=== PATIENT | male | born 1950 | race Caucasian/White ===

== ENCOUNTER → 2016-05-13 | Outpatient (CLI) | payer MEDICARE, BC ==
--- NOTE | 2016-05-13 16:01 | XR ---
EXAMINATION TYPE: XR KUB DATE OF EXAM: 05/13/2016 3:49 PM HISTORY: Pain Comparison: 09/04/2015 Single KUB is submitted for interpretation. Study limited by overlying bowel content. Findings: Right renal calculi: Calculus mid to upper pole right kidney measures approximately 6.5 mm versus 5.4 mm previously. Additional calculus lower pole right kidney measures 2.3 mm. Right ureteral calculi: None Visualized. Left renal calculi: Vague calculus upper pole left kidney is unchanged and measures 3.6 mm versus 4 mm previously. Left ureteral calculi: None Visualized. Pelvic calcifications: None Visualized. Bowel gas pattern is unremarkable. No free air. No mass effects. IMPRESSION: 1. Bilateral nephrolithiasis.
== END | disposition home or self-care (01) ==
LOC: RADXRMAIN 15:07
PROVIDERS: ATTEND Urology
DX: N20.0 Calculus of kidney (principal)
CPT/HCPCS: 74000

== ENCOUNTER 2017-02-20 11:32 | Day surgery (SDC) | payer MEDICARE, BC ==
[2017-02-18 13:24] VITALS: BMI 29.2
[~2017-02-20 11:32] MED LIST: LACTATED RINGERS 1,000 ML IV SCH; LIDOCAINE 1% 20 ML VIAL (10MG/ML) FOR IV START INTRADERMA PRN
[2017-02-20 12:46] VITALS: RESP 18; TEMP 97
[2017-02-20] MEDS ORDERED: LIDOCAINE 1% INJ 10MG/ML (20 ML MDV) ONE (13:10)
[2017-02-20] MEDS ORDERED: GLYCOPYRROLATE 0.2 MG/ML 2 ML VIAL ONE (13:10)
[2017-02-20] MEDS ORDERED: PROPOFOL 10 MG/ML 20 ML VIAL IV ONE (13:10)
--- NOTE | 2017-02-20 13:58 | P.PCN ---
Date of Procedure: 02/20/17 Procedure(s) Performed: Procedure: Colonoscopy and biopsy. Preoperative diagnosis: Screening for neoplasia, a sense has history of polyps. Postoperative diagnosis: Distal sigmoid submucosal lipoma, biopsied, otherwise, exam to the cecum within normal limits. Preparation: HalfLytely prep. Sedation: Was provided by anesthesia. Brief clinical history: The patient is a 66-year-old male who is scheduled for this evaluation for screening for neoplasia because of history of polyps. He also has been experiencing change in the shape of his stools and he thinks there is a blockage. In February of last year, I aborted his colonoscopy because of extremely poor preparation. His prior colonoscopy would have been 7- 8 years ago. Procedure: With the patient on his left lateral decubitus position and after informed consent and adequate sedation, the perianal area was inspected and it did not show any fissures or fistulas. There were no masses felt on digital rectal examination. The Olympus CFQ 160L video colonoscope was then inserted in the rectum in the usual fashion and advanced to the cecum. There was a large submucosal lipoma in the distal sigmoid around 18 cm from the anal verge that would fill the lumen to a significant degree but does not block advancing the endoscope. I obtained pictures of that area and I tried to obtain deep biopsies. The rest of the exam to the cecum was normal. There were no polyps or obvious diverticular disease. No other pathology. I retroflexed the endoscope in the rectum before the endoscope was withdrawn. The patient tolerated the procedure well. Plan: I summarized the findings to the patient. Will continue to perform colonoscopy every 5 years for screening for colon cancer because of his history. As far as his submucosal lipoma, it appears that it is large enough and is giving him symptoms that I would consider surgical referral for consideration of removal endoscopically or laparoscopically.
[2017-02-20 14:12] VITALS: BP 125/88; PULSE 59
== END 2017-02-20 14:45 | disposition home or self-care (01) ==
LOC: ORWHC2ENDO 11:32
DX: Z12.11 Encounter for screening for malignant neoplasm of colon (principal); D17.79 Benign lipomatous neoplasm of other sites; Z86.010 Personal history of colon polyps; F17.200 Nicotine dependence, unspecified, uncomplicated; K21.9 Gastro-esophageal reflux disease without esophagitis; M19.90 Unspecified osteoarthritis, unspecified site; I10 Essential (primary) hypertension; Z87.442 Personal history of urinary calculi; B19.20 Unspecified viral hepatitis C without hepatic coma; Z79.899 Other long term (current) drug therapy; Z88.5 Allergy status to narcotic agent; Z88.6 Allergy status to analgesic agent; Z91.02 Food additives allergy status
CPT/HCPCS: 88305; 45380; J2001; J2704

== ENCOUNTER → 2017-06-26 | Outpatient (CLI) | payer OTHER ==
--- NOTE | 2017-06-26 23:43 | CT ---
EXAMINATION TYPE: CT angio head neck DATE OF EXAM: 06/26/2017 HISTORY: Dizziness and right arm numbness. COMPARISON: NONE CT DLP: 435.2 mGycm. Automated Exposure Control for Dose Reduction was Utilized. TECHNIQUE: CTA scan of the neck and head is performed with IV Contrast, patient injected with 65ml m L of Visipaque 320, axial images are obtained, coronal and sagittal reformatted images are reviewed. Three-D reconstructed images are created on an independent workstation and reviewed. FINDINGS: There is normal branching pattern of the great vessels on the aortic arch. Ascending aorta measures 3 .7 cm. There is no sign of dissection. There is arterial flow in both vertebral arteries. Left vertebral artery is larger than the right. The basilar artery appears to fill entirely from the left vertebral artery. Right vertebral artery is diminutive. There is arterial flow in the common internal and external carotid arteries. There is approximate 30% stenosis at the origin of the right internal carotid artery at the bifurcation. There is significant plaque formation and a short segment of 80-90% stenosis of the proximal left int ernal carotid artery. There is wide patency of the external carotid arteries bilaterally. There is arterial flow in the anterior middle and posterior cerebral arteries. There is normal contra st opacification of the venous sinuses. There is no evidence of cerebral edema. There is no mass effe ct. There is no midline shift. I see no evidence of intracranial arterial stenosis. There is no evide nce of carotid or vertebral artery dissection. IMPRESSION: No intracranial arterial abnormality identified. There is approximate 80-90% stenosis at the origin of the left internal carotid artery due to circumf erential plaque formation. There is approximate 30% stenosis at the origin right internal carotid artery due to plaque formation .
== END | disposition home or self-care (01) ==
LOC: RADCTMAIN 15:31
PROVIDERS: ATTEND Specialist
DX: R42 Dizziness and giddiness (principal); M54.2 Cervicalgia; M54.6 Pain in thoracic spine; M47.22 Other spondylosis with radiculopathy, cervical region
CPT/HCPCS: 82565; 84520; 70496; 70498; 36415; Q9967

== ENCOUNTER → 2017-09-18 | Outpatient (CLI) | payer MEDICARE ==
[2017-09-18 13:57] LABS: Basophils # (A) 0.1 k/uL (0-0.2); Basophils % (A) 1 %; Eosinophils # (A) 0.2 k/uL (0-0.7); Eosinophils % (A) 3 %; HCT 45.7 % (39.0-53.0); HGB 16.1 gm/dL (13.0-17.5); Lymphocytes # (A) 1.6 k/uL (1.0-4.8); Lymphocytes % (A) 22 %; MCH 31.1 pg (25.0-35.0); MCHC 35.1 g/dL (31.0-37.0); MCV 88.5 fL (80.0-100.0); Mean Platelet Volume 7.8; Monocytes # (A) 0.4 k/uL (0-1.0); Monocytes % (A) 5 %; Neutrophils # (A) 4.9 k/uL (1.3-7.7); Neutrophils % (A) 68 %; Platelet Count 191 k/uL (150-450); RBC 5.16 m/uL (4.30-5.90); RDW 14.3 % (11.5-15.5); WBC 7.2 k/uL (3.8-10.6)
[2017-09-18 14:04] LABS: INR 1.1 (<1.2); Partial Thromboplastin Time 23.6 sec (22.0-30.0); Prothrombin Time 10.5 sec (9.0-12.0)
[2017-09-18 14:32] LABS: Albumin 4.7 g/dL (3.5-5.0); Potassium 4.7 mmol/L (3.5-5.1)
== END | disposition home or self-care (01) ==
LOC: LABPAT 12:40
PROVIDERS: ATTEND Surgery
DX: Z01.812 Encounter for preprocedural laboratory examination (principal); Z01.818 Encounter for other preprocedural examination; Z86.19 Personal history of other infectious and parasitic diseases
CPT/HCPCS: 36415; 80051; 82040; 85025; 85610; 85730; 93005

== ENCOUNTER → 2017-09-22 | Day surgery (SDC) | payer OTHER ==
[2017-09-16 13:49] VITALS: BMI 30.2
[~2017-09-22] MED LIST changes: -LACTATED RINGERS 1,000 ML IV SCH; +LIDOCAINE 1% 20 ML VIAL (10MG/ML) FOR IV START INTRADERMA ONE; -LIDOCAINE 1% 20 ML VIAL (10MG/ML) FOR IV START INTRADERMA PRN; +PROPOFOL 10 MG/ML 20 ML VIAL IV ONE
[2017-09-22 09:03] VITALS: TEMP 97.9
[2017-09-22] MEDS: LACTATED RINGERS 1,000 ML IV SCH ×2 (09:11→09:58)
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
[2017-09-22 10:43] VITALS: RESP 18
--- NOTE | 2017-09-22 10:47 | P.OP ---
Date of Procedure: 09/22/17 Preoperative Diagnosis: Colitis GERD Postoperative Diagnosis: Antral gastritis Hiatal hernia Mild esophagitis Colon mass at 30 cm Procedure(s) Performed: EGD Colonoscopy Anesthesia: MAC Surgeon: Arash Curtis Pathology: other (Antrum, esophagus,colon) Condition: stable Disposition: PACU Description of Procedure: The patient's placed on the endoscopy table in the lateral position. He received IV sedation. The gastroscope placed oropharynx and passed in the esophagus and stomach. Scope was then placed through the pylorus. The first and second portion of the duodenum appeared normal. Scope was then brought back the antrum this was mildly inflamed. A biopsies performed. The scope was then retroflexed and there was a moderate size hiatal hernia. The GE junction was at 38 cm the distal esophagus appeared mildly inflamed a biopsies performed. The proximal esophagus appeared normal. The scope was withdrawn for patient. Next digital rectal exam was performed which revealed no abnormalities. The flexible colonoscope was then placed patient anus and passed rotator colon. The ileocecal valve was visualized. The cecum, ascending and transverse colon appeared normal. In the descending sigmoid colon was a few scattered diverticula. At the 30 cm mei there was a large submucosal mass which occupied approximately 80% of the colonic lumen. The area was tattooed just distal to the mass. This area was biopsied. The remainder of the sigmoid and rectum appeared normal. Scope was withdrawn for patient.
[2017-09-22 11:08] VITALS: BP 120/77; PULSE 47
== END | disposition home or self-care (01) ==
LOC: ORWHC2ENDO 08:37
PROVIDERS: ATTEND Surgery
DX: K21.0 Gastro-esophageal reflux disease with esophagitis (principal); K29.70 Gastritis, unspecified, without bleeding; K57.30 Diverticulosis of large intestine without perforation or abscess without bleeding; K44.9 Diaphragmatic hernia without obstruction or gangrene; I10 Essential (primary) hypertension; K52.9 Noninfective gastroenteritis and colitis, unspecified; M19.90 Unspecified osteoarthritis, unspecified site; Z79.82 Long term (current) use of aspirin; Z85.828 Personal history of other malignant neoplasm of skin; Z87.442 Personal history of urinary calculi; Z87.891 Personal history of nicotine dependence; Z79.02 Long term (current) use of antithrombotics/antiplatelets; Z88.5 Allergy status to narcotic agent; Z79.899 Other long term (current) drug therapy; Z86.19 Personal history of other infectious and parasitic diseases
CPT/HCPCS: 88305; 45380; 43239; 45381; J2704

== ENCOUNTER 2017-09-23 09:35 | Inpatient (IN) | payer OTHER ==
[~2017-09-23 09:35] MED LIST changes: +HYDROmorphone 0.5 MG/0.5 ML SYRINGE IVP PRN; -LIDOCAINE 1% 20 ML VIAL (10MG/ML) FOR IV START INTRADERMA ONE; +ONDANSETRON 4 MG/2 ML VIAL IVP PRN; -PROPOFOL 10 MG/ML 20 ML VIAL IV ONE; +ceFAZolin IN SWFI 2 GM/20 ML SYRINGE IVP ONE; +fentaNYL (PF) 50 MCG/ML 2 ML AMP IV PRN; +metroNIDAZOLE-NS PMX 500 MG in SALINE 1 100ML.BAG IVPB ONE
[2017-09-23] MEDS ORDERED: LACTATED RINGERS 1,000 ML IV ONE ×3 (10:15→13:28)
[2017-09-23 10:22] LABS: Glucose,Whole Blood 77 mg/dL (75-99)
[2017-09-23] MEDS ORDERED: DEXAMETHASONE SOD PHOSPHATE 10 MG/ML 1 ML VIAL IV ONE (10:30)
[2017-09-23] MEDS ORDERED: ONDANSETRON 4 MG/2 ML VIAL IVP ONE (10:30)
[2017-09-23] MEDS ORDERED: ceFAZolin IN SWFI 2 GM/20 ML SYRINGE IVP ONE (11:25)
[2017-09-23] MEDS ORDERED: MIDAZOLAM 2 MG/2 ML VIAL IVP ONE (11:30)
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
[2017-09-23] MEDS ORDERED: NALOXONE 0.4 MG/ML 1 ML VIAL IV PRN (12:23)
[2017-09-23] MEDS: HEPARIN SODIUM,PORCINE 5,000 UNIT/ML 1 ML VIAL SQ ONE ×2 (12:39→16:14)
[2017-09-23] MEDS ORDERED: GLYCOPYRROLATE 0.2 MG/ML 2 ML VIAL ONE (12:58)
[2017-09-23] MEDS ORDERED: MIDAZOLAM 2 MG/2 ML VIAL ONE (12:58)
[2017-09-23] MEDS ORDERED: LIDOCAINE 1% INJ 10MG/ML (20 ML MDV) ONE (12:58)
[2017-09-23] MEDS ORDERED: ePHEDrine SULFATE/0.9% NACL/PF 50 MG/5 ML SYRINGE IV ONE (12:58)
[2017-09-23] MEDS ORDERED: ROCURONIUM BROMIDE 10 MG/ML 10 ML VIAL IV ONE (12:58)
[2017-09-23] MEDS ORDERED: PROPOFOL 10 MG/ML 20 ML VIAL IV ONE (12:58)
[2017-09-23] MEDS ORDERED: SUCCINYLCHOLINE CHLORIDE 100 MG/5 ML SYR IV ONE (12:58)
[2017-09-23] MEDS ORDERED: NEOSTIGMINE 1 MG/ML 10 ML VIAL ONE (12:58)
[2017-09-23] MEDS ORDERED: fentaNYL (PF) 50 MCG/ML 2 ML AMP ONE (12:58)
[2017-09-23] MEDS ORDERED: ONDANSETRON 4 MG/2 ML VIAL IVP PRN (14:12)
[2017-09-23] MEDS ORDERED: METOCLOPRAMIDE 5 MG/ML 2 ML VIAL IVP PRN (14:12)
[2017-09-23] MEDS ORDERED: BENZOCAINE/MENTHOL LOZENG 1 EACH LOZENGE MUCOUS MEM PRN (14:12)
--- NOTE | 2017-09-23 14:12 | P.OP ---
Date of Procedure: 09/23/17 Preoperative Diagnosis: Sigmoid colon mass Postoperative Diagnosis: Sigmoid colon mass Ventral hernia Procedure(s) Performed: Low anterior section Repair of ventral hernia Anesthesia: JUAN Surgeon: Arash Curtis Estimated Blood Loss (ml): 25 Pathology: other (Sigmoid colon) Condition: stable Disposition: PACU Description of Procedure: DESCRIPTION OF PROCEDURE: The patient was placed on the operating table in the supine position. Patient received a general anesthesia. Patient was then placed in the dorsal lithotomy position. The patients abdomen was prepped and draped in the usual sterile fashion. Through a low midline incision, the abdomen was entered. There was a small ventral hernia just above the umbilicus The Cirilo retractor was placed in the wound. The stomach appeared normal. The small bowel appeared normal. The liver appeared normal. The right colon and transverse colon appeared normal. On the left colon, there was an extensive diverticulosis noted. The sigmoid colon was then mobilized by dividing the white line of Toldt with electrocautery. At this point, the proximal sigmoid colon was transected with a GI stapler after a window had been made in the mesentery. The distal sigmoid colon was then dissected. Mesentery was taken down between Tonya clamps and ligated with #0 silk ties. At a point beyond the lesion, the bowel was then transected with a Proximate stapler. This was then removed. The splenic flexure was then taken down in order to provide adequate lengthening of the sigmoid colon. At this point, the auto purse-string suture device was placed across the proximal colon and fired. The colon was then opened. The 29 mm EEA anvil was then placed into the colon and then the purse-string was secured. The EEA stapler device was then placed in the patients anus and passed into the rectum. The nail for the EEA was then brought out through the distal rectum and then attached to the anvil. The EEA stapler device was then fired. The anastomosis was inspected. There were 2 good donuts of tissue removed from the EEA stapler. The anastomosis was then tested under water and there was no air leak seen. At this point the abdomen was then irrigated. There was no bleeding seen. The fascia was then closed with double stranded #1 PDS. The ventral hernia was closed with the fascial closure. The skin was closed with geovanni. The patient tolerated the procedure well.
[2017-09-23 15:42] LABS: Basophils % (A) 0 %; Eosinophils % (A) 0 %; HGB 15.3 gm/dL (13.0-17.5); Lymphocytes # (A) 0.6 k/uL (1.0-4.8); Lymphocytes % (A) 6 %; MCH 29.9 pg (25.0-35.0); MCHC 33.9 g/dL (31.0-37.0); MCV 88.3 fL (80.0-100.0); Mean Platelet Volume 7.6; Monocytes # (A) 0.2 k/uL (0-1.0); Monocytes % (A) 2 %; Neutrophils % (A) 92 %; Platelet Count 194 k/uL (150-450); RDW 13.8 % (11.5-15.5); WBC 10.9 k/uL (3.8-10.6)
[2017-09-23 15:52] LABS: Calcium 9.4 mg/dL (8.4-10.2); Potassium 4.5 mmol/L (3.5-5.1)
[2017-09-23] MEDS: LACTATED RINGERS 1,000 ML IV SCH ×2 (16:14→16:15)
[2017-09-23] MEDS: D5-0.45% NACL WITH KCL 20MEQ/L 1,000 ML IV SCH (17:09)
[2017-09-23] MEDS: GEMFIBROZIL 600 MG TAB PO SCH (17:10)
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
[2017-09-23] MEDS: FAMOTIDINE 20 MG/2 ML VIAL IV SCH (22:17)
[2017-09-23] MEDS: ALVIMOPAN 12 MG CAPSULE PO SCH (22:17)
[2017-09-24] MEDS: HEPARIN SODIUM,PORCINE 5,000 UNIT/ML 1 ML VIAL SQ SCH ×4 (01:18→23:13)
[2017-09-24] MEDS: D5-0.45% NACL WITH KCL 20MEQ/L 1,000 ML IV SCH ×4 (01:38→23:12)
--- NOTE | 2017-09-24 06:16 | P.PN ---
Progress Note - Text Progress Note Date: 09/24/17 67-year-old male postop day #1, epidural catheter day #2 status post low anterior resection. Patient is currently doing well 0/10 on a pain, patient is ambulating without difficulty. Patient denies any pruritus, any lower extremity weakness. Current rate is at 10 mL an hour. We'll continue with current settings, and remove epidural catheter when patient is ready for discharge.
[2017-09-24] MEDS ORDERED: PANTOPRAZOLE 40 MG TABLET PO SCH (07:30)
[2017-09-24 07:47] LABS: Basophils % (A) 0 %; Eosinophils # (A) 0.1 k/uL (0-0.7); Eosinophils % (A) 1 %; HCT 38.7 % (39.0-53.0); HGB 13.1 gm/dL (13.0-17.5); Lymphocytes # (A) 0.7 k/uL (1.0-4.8); Lymphocytes % (A) 6 %; MCH 30.3 pg (25.0-35.0); MCHC 33.9 g/dL (31.0-37.0); MCV 89.2 fL (80.0-100.0); Mean Platelet Volume 8.2; Monocytes # (A) 0.6 k/uL (0-1.0); Monocytes % (A) 5 %; Neutrophils # (A) 11.8 k/uL (1.3-7.7); Neutrophils % (A) 88 %; Platelet Count 182 k/uL (150-450); RBC 4.34 m/uL (4.30-5.90); RDW 14.1 % (11.5-15.5); WBC 13.3 k/uL (3.8-10.6)
[2017-09-24 08:02] LABS: Albumin 4.1 g/dL (3.5-5.0); Calcium 9.3 mg/dL (8.4-10.2); Magnesium 1.8 mg/dL (1.6-2.3); Phosphorus 3.7 mg/dL (2.5-4.5); Potassium 5.1 mmol/L (3.5-5.1); Total Bilirubin 1.2 mg/dL (0.2-1.3); Total Protein 6.7 g/dL (6.3-8.2)
[2017-09-24] MEDS: GEMFIBROZIL 600 MG TAB PO SCH ×2 (08:21→17:54)
[2017-09-24] MEDS: FAMOTIDINE 20 MG/2 ML VIAL IV SCH (08:21)
[2017-09-24] MEDS: ASPIRIN 81 MG PO SCH (08:21)
[2017-09-24] MEDS: ALVIMOPAN 12 MG CAPSULE PO SCH ×2 (08:21→20:45)
[2017-09-24] MEDS: amLODIPine 10 MG TAB PO SCH (08:26)
[2017-09-24] MEDS: LISINOPRIL 20 MG TAB PO SCH (08:26)
[2017-09-24] MEDS ORDERED: CLOPIDOGREL 75 MG TAB PO SCH (09:00)
[2017-09-24] MEDS: ROPIVACAINE 250 MG, HYDROMORPHONE (PF) 5 MG in SODIUM CHLORIDE 0.9% 200 ML EPIDURAL PRN (09:48)
[2017-09-24] MEDS: LACTATED RINGERS 1,000 ML IV SCH (10:00)
--- NOTE | 2017-09-24 12:20 | P.PN ---
Subjective Progress Note Date: 09/24/17 Principal diagnosis: Colon mass Postop day #1, epidural catheter day #2 status post low anterior resection. Currently having pain only when he coughs. Objective - Vital Signs Vital signs: Vital Signs Temp 98.2 F 09/24/17 07:47 Pulse 60 09/24/17 07:47 Resp 16 09/24/17 07:47 BP 136/71 09/24/17 08:26 Pulse Ox 91 L 09/24/17 07:47 Intake & Output 09/23/17 09/24/17 09/24/17 18:59 06:59 18:59 Intake Total 1700 2330 Output Total 200 700 Balance 1500 1630 Weight 95.708 kg Intake: IV 1700 Intake, IV Titration 2080 Amount D5-0.45% NaCl with KCl 2000 20Meq/l 1,000 ml @ 125 mls/hr IV .Q8H SUDHIR Rx#: [id number] Ropivacaine 250 mg 80 Hydromorphone (Pf) 5 mg In Sodium Chloride 0.9% 200 ml @ Per Protocol EPIDURAL .Q0M PRN Rx#: [id number] Oral 250 Output: Urine 150 700 Estimated Blood Loss 50 Other: Voiding Method Indwelling Catheter Indwelling Catheter - Exam Constitutional: No acute distress, conversant, pleasant Eyes:Anicteric sclerae, moist conjunctiva, no lid-lag, PERRLA, ENMT: Oropharynx clear, no erythema, exudates Neck: Supple, FROM, no masses, or JVD, No carotid bruits, No thyromegaly Lungs: Clear to auscultation, Clear to percussion, Normal respiratory effort, no accessory muscle use Cardiovascular: Heart regular in rate and rhythm, No murmurs, gallops, or rubs, No peripheral edema Abdominal: vertical abdominal wound with wound VAC applied, abdomen is tense, slightly diffusely tender, no guarding, rebound or rigidity, Normoactive bowel sounds, No hepatomegaly, No splenomegaly, No palpable mass Skin: Normal temperature, tone, texture, turgor, no induration, No subcutaneous nodules, No rash, lesions, No ulcers Extremities: No digital cyanosis, No clubbing, Pedal pulses intact and symmetrical, Radial pulses intact and symmetrical, No calf tenderness Psychiatric: Alert and oriented to person, place and time, appropriate affect, intact judgement Neuro: Muscles Strength 5/5 in all 4 extremities, Sensation to light touch grossly present throughout, Cranial nerves II-XII grossly intact, no focal sensory deficits - Labs CBC & Chem 7: 18 07:26 18 07:26 Labs: Abnormal Lab Results - Last 24 Hours (Table) 09/23/17 09/23/17 09/24/17 Range/Units 15:08 15:08 07:26 WBC 10.9 H 13.3 H (3.8-10.6) k/uL Hct 38.7 L (39.0-53.0) % Neutrophils # 10.0 H 11.8 H (1.3-7.7) k/uL Lymphocytes # 0.6 L 0.7 L (1.0-4.8) k/uL Chloride (98-107) mmol/L Carbon Dioxide (22-30) mmol/L BUN 21 H (9-20) mg/dL Creatinine 1.50 H (0.66-1.25) mg/dL Glucose 142 H (74-99) mg/dL AST (17-59) U/L Alkaline Phosphatase (38-126) U/L 09/24/17 Range/Units 07:26 WBC (3.8-10.6) k/uL Hct (39.0-53.0) % Neutrophils # (1.3-7.7) k/uL Lymphocytes # (1.0-4.8) k/uL Chloride 108 H (98-107) mmol/L Carbon Dioxide 20 L (22-30) mmol/L BUN 27 H (9-20) mg/dL Creatinine 1.66 H (0.66-1.25) mg/dL Glucose 123 H (74-99) mg/dL AST 16 L (17-59) U/L Alkaline Phosphatase 37 L (38-126) U/L Assessment and Plan Plan: Status post colon mass resection, near total colectomy: Consulted oncology Management per surgery Clear liquid diet Awaiting final pathology report Essential hypertension, left carotid artery stenosis, hyperlipidemia, osteoarthritis/chronic back and neck pain Stable Resume home medications, including aspirin and Plavix if okay with surgery DVT prophylaxis: Aspirin and hepain
--- NOTE | 2017-09-24 16:16 | P.PN ---
Subjective Progress Note Date: 09/24/17 Principal diagnosis: Sigmoid colon mass Patient's postoperative day 1 from low anterior resection for sigmoid colon mass. He's doing quite well. He has minimal complaints of pain. He is tolerating liquids. Objective - Vital Signs Vital signs: Vital Signs Temp 98.9 F 09/24/17 15:00 Pulse 61 09/24/17 15:00 Resp 16 09/24/17 15:00 BP 134/79 09/24/17 15:00 Pulse Ox 92 L 09/24/17 15:00 Intake & Output 09/23/17 09/24/17 09/24/17 18:59 06:59 18:59 Intake Total 1700 2330 500 Output Total 200 700 Balance 1500 1630 500 Weight 95.708 kg Intake: IV 1700 Intake, IV Titration 2080 Amount D5-0.45% NaCl with KCl 2000 20Meq/l 1,000 ml @ 125 mls/hr IV .Q8H [facility] Rx#: [id number] Ropivacaine 250 mg 80 Hydromorphone (Pf) 5 mg In Sodium Chloride 0.9% 200 ml @ Per Protocol EPIDURAL .Q0M PRN Rx#: [id number] Oral 250 500 Output: Urine 150 700 Estimated Blood Loss 50 Other: Voiding Method Indwelling Catheter Indwelling Catheter - Constitutional General appearance: Present: average body habitus, cooperative - Gastrointestinal Gastrointestinal Comment(s): Abdomen soft. Incision site is clean dry and intact. - Labs CBC & Chem 7: 09/24/17 07:26 09/24/17 07:26 Labs: Abnormal Lab Results - Last 24 Hours (Table) 09/24/17 09/24/17 Range/Units 07:26 07:26 WBC 13.3 H (3.8-10.6) k/uL Hct 38.7 L (39.0-53.0) % Neutrophils # 11.8 H (1.3-7.7) k/uL Lymphocytes # 0.7 L (1.0-4.8) k/uL Chloride 108 H (98-107) mmol/L Carbon Dioxide 20 L (22-30) mmol/L BUN 27 H (9-20) mg/dL Creatinine 1.66 H (0.66-1.25) mg/dL Glucose 123 H (74-99) mg/dL AST 16 L (17-59) U/L Alkaline Phosphatase 37 L (38-126) U/L Assessment and Plan Plan: Status post low anterior resection for sigmoid colon mass. Patient is doing well. He'll continue clear liquid diet.
--- NOTE | 2017-09-24 20:26 | XR ---
EXAMINATION TYPE: XR chest 1V portable DATE OF EXAM: 09/24/2017 COMPARISON: 04/03/2015 HISTORY: Hypoxemia TECHNIQUE: Single frontal view of the chest is obtained. FINDINGS: Heart size is normal. There is no heart failure. There is poor inspiration. I see no pulmo nary consolidation. Bony thorax is intact. IMPRESSION: Poor inspiration that is decreased compared to old exam. No heart failure.
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
[2017-09-25] MEDS: IPRATROPIUM-ALBUTEROL 3 ML NEB INHALATION SCH ×6 (01:05→23:14)
[2017-09-25] MEDS ORDERED: FUROSEMIDE 10 MG/ML 4 ML VIAL IV STA (01:13)
[2017-09-25 02:32] LABS: Calcium 9.1 mg/dL (8.4-10.2); Potassium 4.5 mmol/L (3.5-5.1)
--- NOTE | 2017-09-25 02:34 | XR ---
EXAMINATION TYPE: XR chest 1V portable DATE OF EXAM: 09/25/2017 COMPARISON: 09/24/2017 HISTORY: Difficulty breathing TECHNIQUE: Single frontal view of the chest is obtained. FINDINGS: There is mild coarsening of interstitial markings. There is no heart failure. Heart size i s normal. I see no pleural effusion. IMPRESSION: Mild pulmonary fibrosis. No change. Suboptimal inspiration.
[2017-09-25] MEDS ORDERED: methylPREDNISolone SOD SUCCI 125 MG/2 ML VIAL IV STA (03:38)
[2017-09-25 03:47] LABS: ABG Base Excess -3.5 mmol/L; ABG HCO3 22 mmol/L (21-25); ABG Oxygen Saturation 92.8 % (94-97); ABG PCO2 38 mmHg (35-45); ABG PH 7.37 (7.35-7.45); ABG PO2 62 mmHg (83-108); ABG TCO2 23 mmol/L (19-24)
--- NOTE | 2017-09-25 04:41 | P.PN ---
Progress Note - Text Progress Note Date: 09/25/17 Notified by nursing the patient is requiring increased oxygen and was placed on 3 L nasal cannula with saturations in the high 80s, on focused exam the patient was noted to have expiratory wheezes and was started on breathing treatments after chest x-ray showed nothing acute. patient does have a history of smoking but has quit 2 years ago. Throughout the shift the patient had more increasing oxygen requirements, a single dose of Lasix 40 mg was given with only approximately 350 mL output, with ongoing O2 requirements hence rapid response was called by nursing. The patient was upgraded to a nonrebreather at 15L and he was started on systemic steroids, and BNP and ABG of been ordered and are pending. Pulmonary is consulted for further recommendations and will plan to transfer the patient to the sixth floor pending bed availability. We will continue to follow his clinical course closely
--- NOTE | 2017-09-25 08:24 | P.PN ---
Progress Note - Text Date: 09/25/2017 Time:07:07 The patient is status post[, low anterior resection,] postoperative day number 2. The patient has no complaints of nausea vomiting or headache. The patient does not complain of any lower extremity numbness or weakness. The epidural is running at[ 10] mL per hour. VAS 0-10. The epidural will be maintained and adjusted as needed.
[2017-09-25] MEDS: ALVIMOPAN 12 MG CAPSULE PO SCH ×2 (09:24→20:04)
[2017-09-25] MEDS: ROPIVACAINE 250 MG, HYDROMORPHONE (PF) 5 MG in SODIUM CHLORIDE 0.9% 200 ML EPIDURAL PRN (09:25)
[2017-09-25] MEDS: PREVACID 15 MG PO SCH (09:25)
[2017-09-25] MEDS: ASPIRIN 81 MG PO SCH (09:30)
[2017-09-25] MEDS: LISINOPRIL 20 MG TAB PO SCH (09:30)
[2017-09-25] MEDS: amLODIPine 10 MG TAB PO SCH (09:30)
[2017-09-25] MEDS: GEMFIBROZIL 600 MG TAB PO SCH ×3 (09:31→17:56)
[2017-09-25] MEDS: HEPARIN SODIUM,PORCINE 5,000 UNIT/ML 1 ML VIAL SQ SCH (09:33)
[2017-09-25] MEDS: LACTATED RINGERS 1,000 ML IV SCH ×2 (09:40→20:14)
[2017-09-25] MEDS: methylPREDNISolone SOD SUCCI 125 MG/2 ML VIAL IV SCH ×3 (09:42→23:27)
[2017-09-25] MEDS: HEPARIN SODIUM,PORCINE/D5W PMX 25,000 UNIT in DEXTROSE/WATER 1 500ML.BAG IV SCH ×2 (10:30→23:27)
[2017-09-25] MEDS ORDERED: IPRATROPIUM-ALBUTEROL 3 ML NEB INHALATION PRN (10:38)
--- NOTE | 2017-09-25 11:27 | P.PN ---
Subjective Progress Note Date: 09/25/17 Principal diagnosis: Colon mass Last night patient wasn't hypoxic and having significant shortness of breath. His O2 saturation was in the early 80s. He was started on nonrebreather mask. No chest pain. No dizziness, no palpitations. Objective - Vital Signs Vital signs: Vital Signs Temp 98.9 F 09/25/17 07:00 Pulse 88 09/25/17 01:16 Resp 16 09/25/17 09:19 BP 119/67 09/25/17 07:00 Pulse Ox 96 09/25/17 07:00 Intake & Output 09/24/17 09/25/17 09/25/17 18:59 06:59 18:59 Intake Total 500 990 236.167 Output Total 325 700 Balance 175 290 236.167 Intake: Intake, IV Titration 250 236.167 Amount D5-0.45% NaCl with KCl 250 20Meq/l 1,000 ml @ 125 mls/hr IV .Q8H [facility] Rx#: [id number] Ropivacaine 250 mg 236.167 Hydromorphone (Pf) 5 mg In Sodium Chloride 0.9% 200 ml @ Per Protocol EPIDURAL .Q0M PRN Rx#: [id number] Oral 500 740 Output: Urine 325 700 Uretheral (Fernandes) 325 Other: Voiding Method Indwelling Catheter Indwelling Catheter - Exam Constitutional: No acute distress, conversant, pleasant Eyes:Anicteric sclerae, moist conjunctiva, no lid-lag, PERRLA, ENMT: Oropharynx clear, no erythema, exudates Neck: Supple, FROM, no masses, or JVD, No carotid bruits, No thyromegaly Lungs: Clear to auscultation, Clear to percussion, Normal respiratory effort, no accessory muscle use Cardiovascular: Heart regular in rate and rhythm, No murmurs, gallops, or rubs, No peripheral edema Abdominal: vertical abdominal wound with wound VAC applied, abdomen is tense, slightly diffusely tender, no guarding, rebound or rigidity, Normoactive bowel sounds, No hepatomegaly, No splenomegaly, No palpable mass Skin: Normal temperature, tone, texture, turgor, no induration, No subcutaneous nodules, No rash, lesions, No ulcers Extremities: No digital cyanosis, No clubbing, Pedal pulses intact and symmetrical, Radial pulses intact and symmetrical, No calf tenderness Psychiatric: Alert and oriented to person, place and time, appropriate affect, intact judgement Neuro: Muscles Strength 5/5 in all 4 extremities, Sensation to light touch grossly present throughout, Cranial nerves II-XII grossly intact, no focal sensory deficits - Labs CBC & Chem 7: 09/24/17 07:26 09/25/17 01:54 Labs: Abnormal Lab Results - Last 24 Hours (Table) 09/25/17 09/25/17 Range/Units 01:54 03:40 ABG pO2 62 L (83-108) mmHg ABG O2 Saturation 92.8 L (94-97) % Carbon Dioxide 20 L (22-30) mmol/L BUN 25 H (9-20) mg/dL Creatinine 1.60 H (0.66-1.25) mg/dL Assessment and Plan Plan: Status post colon mass resection, near total colectomy: Seen by oncology Management per surgery Clear liquid diet Awaiting final pathology report New onset acute hypoxic respiratory failure Chest x-ray reviewed Labs reviewed Discussed with surgeon and pulmonary service We'll start patient on heparin drip as he cannot undergo CT angiogram of the chest because of renal failure. Acute renal failure: Avoid nephrotoxic medications IV hydration Follow up creatinine in the morning Essential hypertension, left carotid artery stenosis, hyperlipidemia, osteoarthritis/chronic back and neck pain Stable Resume home medications, including aspirin and Plavix if okay with surgery DVT prophylaxis: On heparin IV
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
--- NOTE | 2017-09-25 14:07 | NM ---
EXAMINATION TYPE: NM pul vent and perfuse DATE OF EXAM: 09/25/2017 COMPARISON: 09/25/2017 chest radiograph HISTORY: Hypoxic respiratory failure. TECHNIQUE: Utilizing inhalation of 35.8 mCi Tc 99m DTPA aerosol and intravenous injection of 5.19 mC i of Tc 99m MAA, ventilation and perfusion images are acquired post injection in multiple projections . FINDINGS: Small segmental matched defect is seen within the right lung apex anteriorly. Small nonsegmental vent ilation defects that are larger than perfusion defects are seen throughout both lungs. Ventilation de fects predominate on the left with some Central radiotracer clumping. Bilateral apical matched perfus ion and ventilation defects are seen, small on the right as mentioned above and moderate on the left. IMPRESSION: Overall findings meet criteria for PIOPED intermediate probability for pulmonary embolus, however all ventilation defects are larger than perfusion defects favoring a parenchymal disorder rather than a perfusion disorder. Additional clumping of radiotracer on ventilation images suggests underlying infl ammatory or infectious airway disease.
--- NOTE | 2017-09-25 14:58 | P.PN ---
Subjective Progress Note Date: 09/25/17 67-year-old male being seen this morning on the surgical unit. Did note the patient's pulse ox sats are in the 80s was started on nonrebreather is being followed by pulmonary service patient is being sent down for a VQ scan to rule out a pulmonary emboli Patient is postop day 2 low anterior resection and repair of ventral hernia for a sigmoid colon mass. Path report pending. Objective - Vital Signs Vital signs: Vital Signs Temp 98.9 F 09/25/17 07:00 Pulse 107 H 09/25/17 11:43 Resp 16 09/25/17 09:19 BP 119/67 09/25/17 07:00 Pulse Ox 94 L 09/25/17 11:43 Intake & Output 09/24/17 09/25/17 09/25/17 18:59 06:59 18:59 Intake Total 500 990 236.167 Output Total 325 700 Balance 175 290 236.167 Intake: Intake, IV Titration 250 236.167 Amount D5-0.45% NaCl with KCl 250 20Meq/l 1,000 ml @ 125 mls/hr IV .Q8H [facility] Rx#: [id number] Ropivacaine 250 mg 236.167 Hydromorphone (Pf) 5 mg In Sodium Chloride 0.9% 200 ml @ Per Protocol EPIDURAL .Q0M PRN Rx#: [id number] Oral 500 740 Output: Urine 325 700 Uretheral (Fernandes) 325 Other: Voiding Method Indwelling Catheter Indwelling Catheter - Exam Physical exam 67-year-old male sitting up in a chair states he feels slightly short of breath Lungs diminished at the bases upper airways coarse rhonchi no use of accessory muscles to breathe Heart S1-S2 audible and regular no murmur denying chest pain when questioning Abdomen surgical dressing site dry wound care system in place. Hypoactive bowel tones reports tolerating diet no nausea vomiting indwelling Fernandes catheter in place Extremities no edema noted. 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 Lorie Chambers nurse practitioner acting as scribe for signing physician.
--- NOTE | 2017-09-25 17:32 | US ---
EXAMINATION TYPE: US venous doppler duplex LE DATE OF EXAM: 09/25/2017 4:31 PM COMPARISON: NONE CLINICAL HISTORY: rule out DVT. Patient states no symptoms SIDE PERFORMED: Bilateral TECHNIQUE: The lower extremity deep venous system is examined utilizing real time linear array sonog itzel with graded compression, doppler sonography and color-flow sonography. VESSELS IMAGED: External Iliac Vein (EIV) Common Femoral Vein Deep Femoral Vein Greater Saphenous Vein * Femoral Vein Popliteal Vein Small Saphenous Vein * Proximal Calf Veins (* superficial vessels) Right Leg: Appears negative for DVT, dilated section of proximal small saphenous vein seen with roul eaux flow, vein compresses at this level Left Leg: Appears negative for DVT IMPRESSION: Negative exam. No evidence of deep venous thrombosis in both legs.
[2017-09-25 17:36] LABS: Basophils % (A) 0 %; Eosinophils # (A) 0.1 k/uL (0-0.7); Eosinophils % (A) 1 %; HCT 39.3 % (39.0-53.0); HGB 13.9 gm/dL (13.0-17.5); Lymphocytes # (A) 0.4 k/uL (1.0-4.8); Lymphocytes % (A) 3 %; MCH 31.6 pg (25.0-35.0); MCHC 35.5 g/dL (31.0-37.0); MCV 89.2 fL (80.0-100.0); Mean Platelet Volume 7.5; Monocytes # (A) 0.2 k/uL (0-1.0); Monocytes % (A) 2 %; Neutrophils # (A) 11.6 k/uL (1.3-7.7); Neutrophils % (A) 94 %; Platelet Count 161 k/uL (150-450); RBC 4.41 m/uL (4.30-5.90); RDW 14.8 % (11.5-15.5); WBC 12.4 k/uL (3.8-10.6)
[2017-09-25 21:58] LABS: Basophils % (A) 0 %; Eosinophils # (A) 0.2 k/uL (0-0.7); Eosinophils % (A) 2 %; HCT 36.6 % (39.0-53.0); HGB 12.9 gm/dL (13.0-17.5); Lymphocytes # (A) 0.4 k/uL (1.0-4.8); Lymphocytes % (A) 3 %; MCH 30.7 pg (25.0-35.0); MCHC 35.2 g/dL (31.0-37.0); MCV 87.3 fL (80.0-100.0); Mean Platelet Volume 8.6; Monocytes # (A) 0.3 k/uL (0-1.0); Monocytes % (A) 2 %; Neutrophils # (A) 10.5 k/uL (1.3-7.7); Neutrophils % (A) 93 %; Platelet Count 158 k/uL (150-450); RBC 4.19 m/uL (4.30-5.90); RDW 13.8 % (11.5-15.5); WBC 11.3 k/uL (3.8-10.6)
[2017-09-26 05:53] LABS: Phosphorus 3.7 mg/dL (2.5-4.5); Potassium 4.3 mmol/L (3.5-5.1); Total Bilirubin 0.9 mg/dL (0.2-1.3)
[2017-09-26] MEDS: ROPIVACAINE 250 MG, HYDROMORPHONE (PF) 5 MG in SODIUM CHLORIDE 0.9% 200 ML EPIDURAL PRN (05:57)
[2017-09-26 06:10] LABS: Basophils % (A) 0 %; Eosinophils % (A) 0 %; HGB 13.2 gm/dL (13.0-17.5); Lymphocytes # (A) 0.6 k/uL (1.0-4.8); Lymphocytes % (A) 4 %; MCH 30.9 pg (25.0-35.0); MCHC 34.6 g/dL (31.0-37.0); MCV 89.2 fL (80.0-100.0); Mean Platelet Volume 8.2; Monocytes # (A) 0.5 k/uL (0-1.0); Monocytes % (A) 3 %; Neutrophils # (A) 12.9 k/uL (1.3-7.7); Neutrophils % (A) 92 %; Platelet Count 186 k/uL (150-450); RBC 4.26 m/uL (4.30-5.90); RDW 14.6 % (11.5-15.5)
[2017-09-26] MEDS: GEMFIBROZIL 600 MG TAB PO SCH ×4 (06:44→17:13)
--- NOTE | 2017-09-26 06:54 | P.PN ---
Progress Note - Text 09/26 640am 67-year-old male status post low anterior resection by Dr. monae. Patient has an epidural catheter for postop pain control, solution is running at 10 mL an hour. Patient has a VAS of 0 with no motor or sensory(. Patient was seen this morning and the nurse informed me that the epidural back was just changed. Instead of the seen the epidural I asked the nurse to continue with infusion of the end of the day and then pull .the catheter
[2017-09-26] MEDS: PREVACID 15 MG PO SCH (07:00)
[2017-09-26] MEDS: methylPREDNISolone SOD SUCCI 125 MG/2 ML VIAL IV SCH ×2 (07:41→17:09)
[2017-09-26] MEDS: ASPIRIN 81 MG PO SCH (07:42)
[2017-09-26] MEDS: ALVIMOPAN 12 MG CAPSULE PO SCH ×2 (07:42→21:45)
[2017-09-26] MEDS: amLODIPine 10 MG TAB PO SCH (07:42)
[2017-09-26] MEDS: LISINOPRIL 20 MG TAB PO SCH (07:42)
[2017-09-26] MEDS: PIPERACILLIN-TAZOBACTAM 3.375 GM in DEXTROSE/WATER 1 50ML.BAG IVPB SCH ×2 (07:55→17:11)
[2017-09-26] MEDS: IPRATROPIUM-ALBUTEROL 3 ML NEB INHALATION SCH ×4 (08:15→19:32)
--- NOTE | 2017-09-26 10:56 | P.PN ---
Subjective Progress Note Date: 09/26/17 Principal diagnosis: Sigmoid colon mass Patient resting operating bed. His epidural catheter will be DC'd later today. He has minimal complaints of pain. Objective - Vital Signs Vital signs: Vital Signs Temp 97.6 F 09/26/17 08:00 Pulse 72 09/26/17 08:30 Resp 18 09/26/17 08:00 BP 115/73 09/26/17 08:00 Pulse Ox 94 L 09/26/17 08:00 Intake & Output 09/25/17 09/26/17 09/26/17 18:59 06:59 18:59 Intake Total 1156.839 650.312 240 Output Total 850 Balance 1156.839 -199.688 240 Weight 97.2 kg Intake: Intake, IV Titration 556.839 650.312 Amount Heparin Sodium,Porcine/ 260.672 444.979 D5w Pmx 25,000 unit In Dextrose/Water 1 500ml. bag @ 18 UNITS/KG/HR 34. 45 mls/hr IV .[id number] [facility] Rx#:[id number] Lactated Ringers 1,000 ml 60 @ 20 mls/hr IV .Q24H [facility] Rx#:[id number] Ropivacaine 250 mg 236.167 205.333 Hydromorphone (Pf) 5 mg In Sodium Chloride 0.9% 200 ml @ Per Protocol EPIDURAL .Q0M [facility]N Rx#: [id number] Oral 600 240 Output: Urine 850 Other: Voiding Method Indwelling Catheter Indwelling Catheter - Constitutional General appearance: Present: cooperative - Cardiovascular Rhythm: regular - Gastrointestinal Gastrointestinal Comment(s): Abdomen is soft. Incision sites clean dry intact. - Labs CBC & Chem 7: 09/26/17 05:16 09/26/17 05:16 Labs: Abnormal Lab Results - Last 24 Hours (Table) 09/25/17 09/25/17 09/25/17 Range/Units 16:29 17:21 21:37 WBC 12.4 H 11.3 H (3.8-10.6) k/uL RBC 4.19 L (4.30-5.90) m/uL Hgb 12.9 L (13.0-17.5) gm/dL Hct 36.6 L (39.0-53.0) % Neutrophils # 11.6 H 10.5 H (1.3-7.7) k/uL Lymphocytes # 0.4 L 0.4 L (1.0-4.8) k/uL APTT 46.8 H (22.0-30.0) sec Carbon Dioxide (22-30) mmol/L BUN (9-20) mg/dL Creatinine (0.66-1.25) mg/dL Glucose (74-99) mg/dL 09/26/17 09/26/17 09/26/17 Range/Units 05:16 05:16 05:16 WBC 14.0 H (3.8-10.6) k/uL RBC 4.26 L (4.30-5.90) m/uL Hgb (13.0-17.5) gm/dL Hct 38.0 L (39.0-53.0) % Neutrophils # 12.9 H (1.3-7.7) k/uL Lymphocytes # 0.6 L (1.0-4.8) k/uL APTT 78.0 H (22.0-30.0) sec Carbon Dioxide 19 L (22-30) mmol/L BUN 30 H (9-20) mg/dL Creatinine 1.30 H (0.66-1.25) mg/dL Glucose 138 H (74-99) mg/dL Assessment and Plan Plan: Status post low anterior resection. Patient's pathology was reviewed. Patient is evidence of a submucosal lipoma and a abscess related to perforated viscus. He is doing quite well. We anticipate discharge home the next 48 hours.
--- NOTE | 2017-09-26 11:57 | P.PN ---
Subjective Progress Note Date: 09/26/17 Principal diagnosis: Acute hypoxemic respiratory failure, in part due to acute exacerbation of COPD, cannot rule out pulmonary embolism Mr. Daquan Agustin is a 67-year-old white male patient presented on 09/23/2017 for active sigmoid colon mass resection that was discovered on the colonoscopy on 09/22/2017. The mass was quite large occupying almost 75% of the sigmoid colon. In the early hours of morning on 09/25/2017 patient developed hypoxemia , and was placed on 15 L of oxygen per high flow nasal cannula. He states he had been dyspneic since before his surgery on Friday. Initial chest x-ray on 09/24/2017 showed poor inspiratory effort, but no acute pulmonary process. Follow up chest x-ray on 09/25/2017 showed mild coarsening of interstitial markings consistent with mild pulmonary fibrosis, but no heart failure. He remains on 15 L per high flow nasal cannula with pulse ox of 96%, blood gas was obtained, and showed pO2 of 62, pCO2 of 38, pH of 7.37, and this was done on FiO2 of 100%, this is consistent with acute hypoxemic respiratory failure. ProBNP was elevated at 1520, developed acute kidney injury, and currently his BUN is 25, creatinine is 1.6. Yesterday's labs show WBC of 13.3, hemoglobin of 13.1. Patient states he is dyspneic without the oxygen, however in no acute distress. Does have some scattered expiratory wheezes. Patient is an ex-smoker , quit smoking 2 years ago, but prior to that smoked a pack a day for 50 years. The medical history includes hypertension, GERD/reflux, osteoarthritis, history of hepatitis C treated, skin cancer chronic back and neck pain, history of pneumothorax, and left carotid artery stenosis. He was given the single dose of IV Lasix 40 mg and only diuresed about 350 ML with no improvement in FiO2 requirement. We are seeing the patient in consultation for acute hypoxemic respiratory failure. On 09/26/2017 patient seen again in follow-up on selective care unit. VQ scan from yesterday was reviewed, and showed an indeterminate mobility of pulmonary embolism, and possibility of an underlying laboratory or infectious airway disease. Clinically patient denies any acute distress, although still requiring high amounts of oxygen at 15 L per high flow nasal cannula, his pulse ox is 95%, patient has been afebrile, denies any cough, congestion, or sputum production. Doubt pneumonia. Patient is likely to have an acute COPD exacerbation, his exam reveals diffuse wheezes bilaterally. Patient had been started on IV Solu-Medrol yesterday by the attending physician, nebulized bronchodilators. He carries over [id number] smoking history, we will and Pulmicort and Perforomist, patient was empirically placed on Zosyn as well. Today's labs were reviewed, WBC is 14.0, hemoglobin is 13.2, sodium was 139, potassium is 4.3, chloride is 103, CO2 of 19, BUN of 30, creatinine is 1.3. Venous Dopplers studies were negative for any evidence of DVT. For possibility of an acute pulmonary embolism. Renal profile is improving, we may consider weaning the CT angios of the chest to rule out pulmonary embolism if patient's hypoxemia does not improve. Objective - Vital Signs Vital signs: Vital Signs Temp 97.5 F L 09/26/17 11:41 Pulse 78 09/26/17 11:41 Resp 18 09/26/17 11:41 BP 127/71 09/26/17 11:41 Pulse Ox 95 09/26/17 11:41 Intake & Output 09/25/17 09/26/17 09/26/17 18:59 06:59 18:59 Intake Total 1156.839 650.312 240 Output Total 850 Balance 1156.839 -199.688 240 Weight 97.2 kg Intake: Intake, IV Titration 556.839 650.312 Amount Heparin Sodium,Porcine/ 260.672 444.979 D5w Pmx 25,000 unit In Dextrose/Water 1 500ml. bag @ 18 UNITS/KG/HR 34. 45 mls/hr IV .[id number] [facility] Rx#:[id number] Lactated Ringers 1,000 ml 60 @ 20 mls/hr IV .Q24H [facility] Rx#:[id number] Ropivacaine 250 mg 236.167 205.333 Hydromorphone (Pf) 5 mg In Sodium Chloride 0.9% 200 ml @ Per Protocol EPIDURAL .Q0M [facility] Rx#: [id number] Oral 600 240 Output: Urine 850 Other: Voiding Method Indwelling Catheter Indwelling Catheter - Exam - Constitutional Physical exam revealed a 67-year-old white male, sitting up in the chair, on 15 L per high flow nasal cannula, in no acute distress. General appearance: no acute distress - EENT Eyes: EOMI ENT: NA/AT - Neck Neck: no lymphadenopathy, normal ROM Thyroid: bilateral: normal size - Respiratory Respiratory: bilateral: Diffuse wheezing noted - Cardiovascular Rhythm: regular Heart sounds: normal: S1, S2 ankle Peripheral Edema: bilateral: None foot Peripheral Edema: bilateral: None dorsalis pedis Peripheral Pulses: bilateral: Normal radial pulse Peripheral Pulses: bilateral: Normal - Gastrointestinal Midabdominal incision is clean dry and intact, abdomen is soft, wound VAC is intact. Abdomen is slightly diffusely tender, but no guarding, no rebound or rigidity noted, normoactive bowel sounds, no organomegaly General gastrointestinal: no organomegaly, soft, no tenderness Localized gastrointestinal: surgical scar: midline - Integumentary Integumentary: normal turgor - Neurologic Neurologic: CNII-XII intact - Labs CBC & Chem 7: 09/26/17 05:16 09/26/17 05:16 Labs: Abnormal Lab Results - Last 24 Hours (Table) 09/25/17 09/25/17 09/25/17 Range/Units 16:29 17:21 21:37 WBC 12.4 H 11.3 H (3.8-10.6) k/uL RBC 4.19 L (4.30-5.90) m/uL Hgb 12.9 L (13.0-17.5) gm/dL Hct 36.6 L (39.0-53.0) % Neutrophils # 11.6 H 10.5 H (1.3-7.7) k/uL Lymphocytes # 0.4 L 0.4 L (1.0-4.8) k/uL APTT 46.8 H (22.0-30.0) sec Carbon Dioxide (22-30) mmol/L BUN (9-20) mg/dL Creatinine (0.66-1.25) mg/dL Glucose (74-99) mg/dL 09/26/17 09/26/17 09/26/17 Range/Units 05:16 05:16 05:16 WBC 14.0 H (3.8-10.6) k/uL RBC 4.26 L (4.30-5.90) m/uL Hgb (13.0-17.5) gm/dL Hct 38.0 L (39.0-53.0) % Neutrophils # 12.9 H (1.3-7.7) k/uL Lymphocytes # 0.6 L (1.0-4.8) k/uL APTT 78.0 H (22.0-30.0) sec Carbon Dioxide 19 L (22-30) mmol/L BUN 30 H (9-20) mg/dL Creatinine 1.30 H (0.66-1.25) mg/dL Glucose 138 H (74-99) mg/dL Assessment and Plan Plan: Assessment: #1. Acute hypoxemic respiratory failure, possibly related to acute exacerbation of COPD, cannot rule out acute pulmonary embolism based on the results of the VQ scan that showed indeterminate probability of pulmonary embolism #2. Sigmoid colonic mass, status post low anterior resection, and repair of the ventral hernia, postop day 3. Biopsy results of the mass are still pending at this time #3. Acute kidney injury #4. History of nicotine dependence, quit 2 years ago, but carries [id number] smoking history #5. Hypertension #6. Osteoarthritis #7. History of pneumothorax #8. Left carotid artery stenosis Plan: Continue IV Solu-Medrol, we will add Pulmicort and Perforomist, continue DuoNeb nebulized treatments. Continue heparin drip for possibility of pulmonary embolism, we may consider obtaining CT angios of the chest to rule out pulmonary embolism if patient's hypoxemia does not improve. I performed a history & physical examination of the patient and discussed their management with my nurse practitioner, Danielle Amador. I reviewed the nurse practitioner's note and agree with the documented findings and plan of care. Lung sounds are clear. The findings and the impression was discussed with the patient. I attest to the documentation by the nurse practitioner. Time with Patient: Less than 30
--- NOTE | 2017-09-26 12:47 | P.PN ---
Subjective Principal diagnosis: Colon mass Feels ok, no sob or cp. Patient was having hematuria in the Fernandes catheter since last night. Serial hemoglobin checks were stable. Objective - Vital Signs Vital signs: Vital Signs Temp 97.5 F L 09/26/17 11:41 Pulse 72 09/26/17 12:32 Resp 18 09/26/17 11:41 BP 127/71 09/26/17 11:41 Pulse Ox 95 09/26/17 11:41 Intake & Output 09/25/17 09/26/17 09/26/17 18:59 06:59 18:59 Intake Total 1156.839 650.312 240 Output Total 850 Balance 1156.839 -199.688 240 Weight 97.2 kg Intake: Intake, IV Titration 556.839 650.312 Amount Heparin Sodium,Porcine/ 260.672 444.979 D5w Pmx 25,000 unit In Dextrose/Water 1 500ml. bag @ 18 UNITS/KG/HR 34. 45 mls/hr IV .[id number] [facility] Rx#:[id number] Lactated Ringers 1,000 ml 60 @ 20 mls/hr IV .Q24H [facility] Rx#:[id number] Ropivacaine 250 mg 236.167 205.333 Hydromorphone (Pf) 5 mg In Sodium Chloride 0.9% 200 ml @ Per Protocol EPIDURAL .Q0M [facility] Rx#: [id number] Oral 600 240 Output: Urine 850 Other: Voiding Method Indwelling Catheter Indwelling Catheter - Exam Constitutional: No acute distress, conversant, pleasant Eyes:Anicteric sclerae, moist conjunctiva, no lid-lag, PERRLA, ENMT: Oropharynx clear, no erythema, exudates Neck: Supple, FROM, no masses, or JVD, No carotid bruits, No thyromegaly Lungs: Clear to auscultation, Clear to percussion, Normal respiratory effort, no accessory muscle use Cardiovascular: Heart regular in rate and rhythm, No murmurs, gallops, or rubs, No peripheral edema Abdominal: vertical abdominal wound with wound VAC applied, abdomen is tense, slightly diffusely tender, no guarding, rebound or rigidity, Normoactive bowel sounds, No hepatomegaly, No splenomegaly, No palpable mass Skin: Normal temperature, tone, texture, turgor, no induration, No subcutaneous nodules, No rash, lesions, No ulcers Extremities: No digital cyanosis, No clubbing, Pedal pulses intact and symmetrical, Radial pulses intact and symmetrical, No calf tenderness Psychiatric: Alert and oriented to person, place and time, appropriate affect, intact judgement Neuro: Muscles Strength 5/5 in all 4 extremities, Sensation to light touch grossly present throughout, Cranial nerves II-XII grossly intact, no focal sensory deficits - Labs CBC & Chem 7: 09/26/17 05:16 09/26/17 05:16 Labs: Abnormal Lab Results - Last 24 Hours (Table) 09/25/17 09/25/17 09/25/17 Range/Units 16:29 17:21 21:37 WBC 12.4 H 11.3 H (3.8-10.6) k/uL RBC 4.19 L (4.30-5.90) m/uL Hgb 12.9 L (13.0-17.5) gm/dL Hct 36.6 L (39.0-53.0) % Neutrophils # 11.6 H 10.5 H (1.3-7.7) k/uL Lymphocytes # 0.4 L 0.4 L (1.0-4.8) k/uL APTT 46.8 H (22.0-30.0) sec Carbon Dioxide (22-30) mmol/L BUN (9-20) mg/dL Creatinine (0.66-1.25) mg/dL Glucose (74-99) mg/dL 09/26/17 09/26/17 09/26/17 Range/Units 05:16 05:16 05:16 WBC 14.0 H (3.8-10.6) k/uL RBC 4.26 L (4.30-5.90) m/uL Hgb (13.0-17.5) gm/dL Hct 38.0 L (39.0-53.0) % Neutrophils # 12.9 H (1.3-7.7) k/uL Lymphocytes # 0.6 L (1.0-4.8) k/uL APTT 78.0 H (22.0-30.0) sec Carbon Dioxide 19 L (22-30) mmol/L BUN 30 H (9-20) mg/dL Creatinine 1.30 H (0.66-1.25) mg/dL Glucose 138 H (74-99) mg/dL Assessment and Plan Plan: Status post colon mass resection, near total colectomy: Seen by oncology Management per surgery Clear liquid diet Awaiting final pathology report New onset acute hypoxic respiratory failure Could be secondary to healthcare associated pneumonia versus PE Start Zosyn, continue heparin. Still unable to undergo CT angiogram to rule out PE because of elevated creatinine Hematuria Urine starting to clear Hemoglobin stable Continue to monitor Acute renal failure: Improving Avoid nephrotoxic medications Continue IV hydration Follow up creatinine in the morning Essential hypertension, left carotid artery stenosis, hyperlipidemia, osteoarthritis/chronic back and neck pain Stable Resume home medications, including aspirin and Plavix if okay with surgery DVT prophylaxis: On heparin IV
--- NOTE | 2017-09-26 13:01 | P.PN ---
Subjective Progress Note Date: 09/26/17 Principal diagnosis: Colon Mass 67-year-old male who was recently found to have a mass in his sigmoid colon. He underwent a colonoscopy yesterday. The mass was occupying a large portion of his colon and was large. He is status post low anterior resection with repair of ventral hernia today 09/24/17. Currently recovering from this mornings surgery and doing well. He denies any pain, nausea, vomiting, etc. He has a history of cervical disc disease, left carotid stenosis, and TIAs. He underwent EGD with negative pathology on . 09/26/17 - Patient seen and examined in follow-up today. His pathology has resulted and benign lipoma. Results: Benign colonic mucosa with a submucosal lipoma (3.8 cm). Subserosal abscess with associated vegetative debris and acute serositis suggestive of perforated viscus. Margins viable and unremarkable with submucosal acute inflammation at the distal resection margin. I discussed results with patient and . He still complains of significant Acid reflux in throat and chest. He is on heparin drip and a VQ Scan was done for a presumable Pulmonary Embolism. Once renal function improves CT scans Chest abdomen and pelvis are recommended. His abdomen is firm and more distended today, appearsmore lopsided than previous. he has tenderness to touch. Objective - Vital Signs Vital signs: Vital Signs Temp 97.5 F L 09/26/17 11:41 Pulse 72 09/26/17 12:32 Resp 18 09/26/17 11:41 BP 127/71 09/26/17 11:41 Pulse Ox 95 09/26/17 11:41 Intake & Output 09/25/17 09/26/17 09/26/17 18:59 06:59 18:59 Intake Total 1156.839 650.312 240 Output Total 850 Balance 1156.839 -199.688 240 Weight 97.2 kg Intake: Intake, IV Titration 556.839 650.312 Amount Heparin Sodium,Porcine/ 260.672 444.979 D5w Pmx 25,000 unit In Dextrose/Water 1 500ml. bag @ 18 UNITS/KG/HR 34. 45 mls/hr IV .[id number] [facility] Rx#:[id number] Lactated Ringers 1,000 ml 60 @ 20 mls/hr IV .Q24H [facility] Rx#:[id number] Ropivacaine 250 mg 236.167 205.333 Hydromorphone (Pf) 5 mg In Sodium Chloride 0.9% 200 ml @ Per Protocol EPIDURAL .Q0M [facility] Rx#: [id number] Oral 600 240 Output: Urine 850 Other: Voiding Method Indwelling Catheter Indwelling Catheter - Constitutional General appearance: Present: average body habitus, cooperative, no acute distress - EENT Eyes: Present: EOMI, PERRLA, dentition normal ENT: Present: NA/AT, normal oropharynx - Neck Details: supple, trachea midline Neck: Present: normal ROM - Respiratory Respiratory: bilateral: CTA (no increased effort) - Cardiovascular Rhythm: regular Heart sounds: normal: S1, S2 - Gastrointestinal Gastrointestinal Comment(s): incision evidence of surgey cdi General gastrointestinal: Present: decreased bowel sounds, distended, tenderness - Integumentary Integumentary: Present: pale - Neurologic Neurologic: Present: CNII-XII intact - Musculoskeletal Musculoskeletal: Present: gait normal, generalized weakness, strength equal bilaterally - Psychiatric Psychiatric: Present: A&O x's 3, appropriate affect, intact judgment & insight - Labs CBC & Chem 7: 09/26/17 05:16 09/26/17 05:16 Labs: Abnormal Lab Results - Last 24 Hours (Table) 09/25/17 09/25/17 09/25/17 Range/Units 16:29 17:21 21:37 WBC 12.4 H 11.3 H (3.8-10.6) k/uL RBC 4.19 L (4.30-5.90) m/uL Hgb 12.9 L (13.0-17.5) gm/dL Hct 36.6 L (39.0-53.0) % Neutrophils # 11.6 H 10.5 H (1.3-7.7) k/uL Lymphocytes # 0.4 L 0.4 L (1.0-4.8) k/uL APTT 46.8 H (22.0-30.0) sec Carbon Dioxide (22-30) mmol/L BUN (9-20) mg/dL Creatinine (0.66-1.25) mg/dL Glucose (74-99) mg/dL 09/26/17 09/26/17 09/26/17 Range/Units 05:16 05:16 05:16 WBC 14.0 H (3.8-10.6) k/uL RBC 4.26 L (4.30-5.90) m/uL Hgb (13.0-17.5) gm/dL Hct 38.0 L (39.0-53.0) % Neutrophils # 12.9 H (1.3-7.7) k/uL Lymphocytes # 0.6 L (1.0-4.8) k/uL APTT 78.0 H (22.0-30.0) sec Carbon Dioxide 19 L (22-30) mmol/L BUN 30 H (9-20) mg/dL Creatinine 1.30 H (0.66-1.25) mg/dL Glucose 138 H (74-99) mg/dL Assessment and Plan Plan: Assessment and Recommendations: 1. Large Colonic Mass - Status Post Resection - Await Pathology and will follow if underlying malignancy, will then provide further recs - When renal function improved recommend full staging CT scans, i.e. Chest - No Malignancy identified discussed with patient and will sign off. - RESULTS FROM SIGMOID COLON, LOW ANTERIOR RESECTION: Benign colonic mucosa with a submucosal lipoma (3.8 cm). Subserosal abscess with associated vegetative debris and acute serositis suggestive of perforated viscus. Margins viable and unremarkable with submucosal acute inflammation at the distal resection margin. 2. Acute Renal Insuffiency - Per medical management - Monitor Renal Function 3. Carotid Stenosis and Hx: TIAs - Medical Management 4. Abdominal DIstention and increased pain - Rec CT scans when Renal function improves. - Obtain abdominal xray in mean time. 5. Presumable Pulmonary Embolism, await final diagnosis with CT - Continue on heparin drip
[2017-09-26] MEDS: HEPARIN SODIUM,PORCINE/D5W PMX 25,000 UNIT in DEXTROSE/WATER 1 500ML.BAG IV SCH (14:52)
--- NOTE | 2017-09-26 15:51 | XR ---
2 view abdomen HISTORY: Increased distention and pain 2 views of the abdomen submitted on 3 images. There are gas-distended loops of small and large bowel, multiple air-fluid levels present. Surgical s taples are present in the midline. No evident pneumoperitoneum. There are overlying leads and tubing. IMPRESSION: Correlate for ileus, obstruction. Follow-up suggested.
[2017-09-26] MEDS: BUDESONIDE 1 MG/2 ML NEBU INHALATION SCH (19:31)
[2017-09-26] MEDS: FORMOTEROL FUMARATE 20 MCG/2 ML NEBU INHALATION SCH (19:32)
[2017-09-27] MEDS: methylPREDNISolone SOD SUCCI 125 MG/2 ML VIAL IV SCH ×4 (01:00→23:09)
[2017-09-27] MEDS: PIPERACILLIN-TAZOBACTAM 3.375 GM in DEXTROSE/WATER 1 50ML.BAG IVPB SCH ×4 (01:00→23:08)
[2017-09-27] MEDS: ROPIVACAINE 250 MG, HYDROMORPHONE (PF) 5 MG in SODIUM CHLORIDE 0.9% 200 ML EPIDURAL PRN (03:17)
[2017-09-27] MEDS: PREVACID 15 MG PO SCH (06:22)
[2017-09-27] MEDS: GEMFIBROZIL 600 MG TAB PO SCH ×2 (06:22→16:37)
[2017-09-27 06:26] LABS: Basophils % (A) 0 %; Eosinophils # (A) 0.1 k/uL (0-0.7); Eosinophils % (A) 1 %; HGB 12.9 gm/dL (13.0-17.5); Lymphocytes # (A) 0.4 k/uL (1.0-4.8); Lymphocytes % (A) 3 %; MCH 30.6 pg (25.0-35.0); MCHC 34.8 g/dL (31.0-37.0); MCV 87.7 fL (80.0-100.0); Mean Platelet Volume 8.7; Monocytes # (A) 0.5 k/uL (0-1.0); Monocytes % (A) 4 %; Neutrophils # (A) 13.9 k/uL (1.3-7.7); Neutrophils % (A) 93 %; Platelet Count 208 k/uL (150-450); RBC 4.22 m/uL (4.30-5.90)
[2017-09-27 06:42] LABS: Calcium 9.8 mg/dL (8.4-10.2); Magnesium 2.2 mg/dL (1.6-2.3); Phosphorus 3.7 mg/dL (2.5-4.5); Potassium 4.1 mmol/L (3.5-5.1)
[2017-09-27] MEDS: IPRATROPIUM-ALBUTEROL 3 ML NEB INHALATION SCH ×4 (07:19→18:58)
[2017-09-27] MEDS: FORMOTEROL FUMARATE 20 MCG/2 ML NEBU INHALATION SCH ×2 (07:19→18:58)
[2017-09-27] MEDS: BUDESONIDE 1 MG/2 ML NEBU INHALATION SCH ×2 (07:20→18:58)
--- NOTE | 2017-09-27 09:20 | P.PN ---
Progress Note - Text Progress Note Date: 09/27/17 The patient is resting comfortably in his bed. He's had a small bowel movement. His epidural catheter is still in. On exam is lesser stable. His abdomen soft. Incision sites clean dry intact. Patient will have his diet advanced. He'll hopefully discharge home the next 24 -48 hours.
--- NOTE | 2017-09-27 09:58 | P.PN ---
Subjective Progress Note Date: 09/27/17 Principal diagnosis: Acute hypoxic respiratory failure secondary to an acute exacerbation of chronic obstructive pulmonary disease. Pulmonary embolism not entirely excluded. Mr. Daquan Agustin is a 67-year-old white male patient presented on 09/23/2017 for active sigmoid colon mass resection that was discovered on the colonoscopy on 09/22/2017. The mass was quite large occupying almost 75% of the sigmoid colon. In the early hours of morning on 09/25/2017 patient developed hypoxemia , and was placed on 15 L of oxygen per high flow nasal cannula. He states he had been dyspneic since before his surgery on Friday. Initial chest x-ray on 09/24/2017 showed poor inspiratory effort, but no acute pulmonary process. Follow up chest x-ray on 09/25/2017 showed mild coarsening of interstitial markings consistent with mild pulmonary fibrosis, but no heart failure. He remains on 15 L per high flow nasal cannula with pulse ox of 96%, blood gas was obtained, and showed pO2 of 62, pCO2 of 38, pH of 7.37, and this was done on FiO2 of 100%, this is consistent with acute hypoxemic respiratory failure. ProBNP was elevated at 1520, developed acute kidney injury, and currently his BUN is 25, creatinine is 1.6. Yesterday's labs show WBC of 13.3, hemoglobin of 13.1. Patient states he is dyspneic without the oxygen, however in no acute distress. Does have some scattered expiratory wheezes. Patient is an ex-smoker , quit smoking 2 years ago, but prior to that smoked a pack a day for 50 years. The medical history includes hypertension, GERD/reflux, osteoarthritis, history of hepatitis C treated, skin cancer chronic back and neck pain, history of pneumothorax, and left carotid artery stenosis. He was given the single dose of IV Lasix 40 mg and only diuresed about 350 ML with no improvement in FiO2 requirement. We are seeing the patient in consultation for acute hypoxemic respiratory failure. On 09/26/2017 patient seen again in follow-up on selective care unit. VQ scan from yesterday was reviewed, and showed an indeterminate mobility of pulmonary embolism, and possibility of an underlying laboratory or infectious airway disease. Clinically patient denies any acute distress, although still requiring high amounts of oxygen at 15 L per high flow nasal cannula, his pulse ox is 95%, patient has been afebrile, denies any cough, congestion, or sputum production. Doubt pneumonia. Patient is likely to have an acute COPD exacerbation, his exam reveals diffuse wheezes bilaterally. Patient had been started on IV Solu-Medrol yesterday by the attending physician, nebulized bronchodilators. He carries over [id number] smoking history, we will and Pulmicort and Perforomist, patient was empirically placed on Zosyn as well. Today's labs were reviewed, WBC is 14.0, hemoglobin is 13.2, sodium was 139, potassium is 4.3, chloride is 103, CO2 of 19, BUN of 30, creatinine is 1.3. Venous Dopplers studies were negative for any evidence of DVT. For possibility of an acute pulmonary embolism. Renal profile is improving, we may consider weaning the CT angios of the chest to rule out pulmonary embolism if patient's hypoxemia does not improve. The patient is seen again today 09/27/2017 in follow-up on the selective care unit. He is currently awake and alert in no acute distress. He is resting quite comfortably in bed. He denies any worsening shortness of breath, cough or congestion. He is breathing easier today as compared to yesterday. He's been initiated on bronchodilators and IV Solu-Medrol along with Pulmicort and Perforomist inhalations. His oxygen requirements have improved. He is down to 3 L/m per nasal cannula and maintaining O2 saturations in the 90s. He remains on heparin drip. Current creatinine 1.30. White count 15.0. He is currently on Zosyn. He remains on a epidural drip of ropivacaine and hydromorphone. His pain is well controlled. Did have a small bowel movement. His abdomen remains soft. Incisions clean dry well approximated. Objective - Vital Signs Vital signs: Vital Signs Temp 97.5 F L 09/27/17 04:00 Pulse 80 09/27/17 07:47 Resp 22 09/27/17 04:00 BP 109/56 09/27/17 04:00 Pulse Ox 93 L 09/27/17 07:24 Intake & Output 09/26/17 09/27/17 09/27/17 18:59 06:59 18:59 Intake Total 1080.477 293.333 120 Output Total 1200 1250 Balance -119.523 -956.667 120 Weight 97.2 kg 95 kg Intake: Intake, IV Titration 240.477 293.333 Amount Heparin Sodium,Porcine/ 240.477 D5w Pmx 25,000 unit In Dextrose/Water 1 500ml. bag @ 18 UNITS/KG/HR 34. 45 mls/hr IV .[id number] [facility] Rx#:[id number] Lactated Ringers 1,000 ml 80 @ 20 mls/hr IV .Q24H [facility] Rx#:[id number] Ropivacaine 250 mg 213.333 Hydromorphone (Pf) 5 mg In Sodium Chloride 0.9% 200 ml @ Per Protocol EPIDURAL .Q0M PRN Rx#: [id number] Oral 840 120 Output: Urine 1200 1250 Other: Voiding Method Indwelling Catheter Indwelling Catheter - Exam - Constitutional Physical exam revealed a 67-year-old white male, sitting up in the chair, on 15 L per high flow nasal cannula, in no acute distress. General appearance: no acute distress - EENT Eyes: EOMI ENT: NA/AT - Neck Neck: no lymphadenopathy, normal ROM Thyroid: bilateral: normal size - Respiratory Respiratory: bilateral: Diffuse wheezing noted - Cardiovascular Rhythm: regular Heart sounds: normal: S1, S2 ankle Peripheral Edema: bilateral: None foot Peripheral Edema: bilateral: None dorsalis pedis Peripheral Pulses: bilateral: Normal radial pulse Peripheral Pulses: bilateral: Normal - Gastrointestinal Midabdominal incision is clean dry and intact, abdomen is soft, wound VAC is intact. Abdomen is slightly diffusely tender, but no guarding, no rebound or rigidity noted, normoactive bowel sounds, no organomegaly General gastrointestinal: no organomegaly, soft, no tenderness Localized gastrointestinal: surgical scar: midline - Integumentary Integumentary: normal turgor - Neurologic Neurologic: CNII-XII intact - Labs CBC & Chem 7: 09/27/17 05:42 09/27/17 05:42 Labs: Abnormal Lab Results - Last 24 Hours (Table) 09/26/17 09/27/17 09/27/17 Range/Units 15:13 05:42 05:42 WBC 15.0 H (3.8-10.6) k/uL RBC 4.22 L (4.30-5.90) m/uL Hgb 12.9 L (13.0-17.5) gm/dL Hct 37.0 L (39.0-53.0) % Neutrophils # 13.9 H (1.3-7.7) k/uL Lymphocytes # 0.4 L (1.0-4.8) k/uL APTT 49.2 H (22.0-30.0) sec Carbon Dioxide 18 L (22-30) mmol/L BUN 27 H (9-20) mg/dL Creatinine 1.30 H (0.66-1.25) mg/dL Glucose 119 H (74-99) mg/dL / Range/Units 06:20 WBC (3.8-10.6) k/uL RBC (4.30-5.90) m/uL Hgb (13.0-17.5) gm/dL Hct (39.0-53.0) % Neutrophils # (1.3-7.7) k/uL Lymphocytes # (1.0-4.8) k/uL APTT 59.3 H (22.0-30.0) sec Carbon Dioxide (22-30) mmol/L BUN (9-20) mg/dL Creatinine (0.66-1.25) mg/dL Glucose (74-99) mg/dL Assessment and Plan Assessment: Assessment: #1. Acute hypoxemic respiratory failure, possibly related to acute exacerbation of COPD, cannot rule out acute pulmonary embolism based on the results of the VQ scan that showed indeterminate probability of pulmonary embolism #2. Sigmoid colonic mass, status post low anterior resection, and repair of the ventral hernia, postop day 4. Biopsy results of the mass are still pending at this time #3. Acute kidney injury #4. History of nicotine dependence, quit 2 years ago, but carries [id number] smoking history #5. Hypertension #6. Osteoarthritis #7. History of pneumothorax #8. Left carotid artery stenosis Plan: The patient was seen and evaluated by Dr. Elias. The patient's oxygen requirements have improved. Down to 3 L/m per nasal cannula. Continue IV Solu- Medrol, we will add Pulmicort and Perforomist, continue DuoNeb nebulized treatments. Continue heparin drip for possibility of pulmonary embolism, creatinine still 1.30. He is working well with the incentive spirometer. We' ll continue with present treatment plan. We will increase his activity as tolerated. We'll continue to follow. I, the cosigning physician, performed a history & physical examination of the patient. Lungs sounds with faint end expiratory wheeze. Diminished. Maintaining good O2 saturations in the 90s on 3 L/m per nasal cannula. I discussed the assessment and plan of care with my nurse practitioner, Amina Zamora. I attest to the above note as dictated by her.
[2017-09-27] MEDS ORDERED: SODIUM CHLORIDE 0.9% 750 ML IV ONE (10:00)
[2017-09-27] MEDS: ASPIRIN 81 MG PO SCH (10:30)
[2017-09-27] MEDS: amLODIPine 10 MG TAB PO SCH (10:30)
[2017-09-27] MEDS: ALVIMOPAN 12 MG CAPSULE PO SCH ×2 (10:30→20:57)
[2017-09-27] MEDS: LISINOPRIL 20 MG TAB PO SCH (10:31)
[2017-09-27] MEDS: HEPARIN SODIUM,PORCINE/D5W PMX 25,000 UNIT in DEXTROSE/WATER 1 500ML.BAG IV SCH ×2 (12:04→20:00)
[2017-09-27 14:37] LABS: Calcium 9.5 mg/dL (8.4-10.2); Potassium 3.7 mmol/L (3.5-5.1)
[2017-09-27] MEDS: LACTATED RINGERS 1,000 ML IV SCH (15:27)
--- NOTE | 2017-09-27 17:15 | P.PN ---
Subjective Progress Note Date: 09/27/17 Principal diagnosis: Colon mass Patient is feeling better, no chest pain but was having some shortness of breath today. The urine started to clear up. Objective - Vital Signs Vital signs: Vital Signs Temp 96.7 F L 09/27/17 16:25 Pulse 77 09/27/17 16:25 Resp 20 09/27/17 16:25 BP 125/65 09/27/17 16:25 Pulse Ox 94 L 09/27/17 16:25 Intake & Output 09/26/17 09/27/17 09/27/17 18:59 06:59 18:59 Intake Total 1080.477 293.333 741.667 Output Total 1200 1250 50 Balance -119.523 -956.667 691.667 Weight 97.2 kg 95 kg Intake: Intake, IV Titration 240.477 293.333 621.667 Amount Heparin Sodium,Porcine/ 240.477 500 D5w Pmx 25,000 unit In Dextrose/Water 1 500ml. bag @ 18 UNITS/KG/HR 34. 45 mls/hr IV .[id number] [facility] Rx#:[id number] Lactated Ringers 1,000 ml 80 @ 20 mls/hr IV .Q24H [facility] Rx#:[id number] Ropivacaine 250 mg 213.333 121.667 Hydromorphone (Pf) 5 mg In Sodium Chloride 0.9% 200 ml @ Per Protocol EPIDURAL .Q0M PRN Rx#: [id number] Oral 840 120 Output: Urine 1200 1250 50 Uretheral (Fernandes) 50 Other: Voiding Method Indwelling Catheter Indwelling Catheter Indwelling Catheter # Bowel Movements 1 - Exam Constitutional: No acute distress, conversant, pleasant Eyes:Anicteric sclerae, moist conjunctiva, no lid-lag, PERRLA, ENMT: Oropharynx clear, no erythema, exudates Neck: Supple, FROM, no masses, or JVD, No carotid bruits, No thyromegaly Lungs: Clear to auscultation, Clear to percussion, Normal respiratory effort, no accessory muscle use Cardiovascular: Heart regular in rate and rhythm, No murmurs, gallops, or rubs, No peripheral edema Abdominal: vertical abdominal wound with wound VAC applied, abdomen is tense, slightly diffusely tender, no guarding, rebound or rigidity, Normoactive bowel sounds, No hepatomegaly, No splenomegaly, No palpable mass Skin: Normal temperature, tone, texture, turgor, no induration, No subcutaneous nodules, No rash, lesions, No ulcers Extremities: No digital cyanosis, No clubbing, Pedal pulses intact and symmetrical, Radial pulses intact and symmetrical, No calf tenderness Psychiatric: Alert and oriented to person, place and time, appropriate affect, intact judgement Neuro: Muscles Strength 5/5 in all 4 extremities, Sensation to light touch grossly present throughout, Cranial nerves II-XII grossly intact, no focal sensory deficits - Labs CBC & Chem 7: 09/27/17 05:42 09/27/17 14:00 Labs: Abnormal Lab Results - Last 24 Hours (Table) 09/27/17 09/27/17 09/27/17 Range/Units 05:42 05:42 06:20 WBC 15.0 H (3.8-10.6) k/uL RBC 4.22 L (4.30-5.90) m/uL Hgb 12.9 L (13.0-17.5) gm/dL Hct 37.0 L (39.0-53.0) % Neutrophils # 13.9 H (1.3-7.7) k/uL Lymphocytes # 0.4 L (1.0-4.8) k/uL APTT 59.3 H (22.0-30.0) sec Carbon Dioxide 18 L (22-30) mmol/L BUN 27 H (9-20) mg/dL Creatinine 1.30 H (0.66-1.25) mg/dL Glucose 119 H (74-99) mg/dL 09/27/17 Range/Units 14:00 WBC (3.8-10.6) k/uL RBC (4.30-5.90) m/uL Hgb (13.0-17.5) gm/dL Hct (39.0-53.0) % Neutrophils # (1.3-7.7) k/uL Lymphocytes # (1.0-4.8) k/uL APTT (22.0-30.0) sec Carbon Dioxide (22-30) mmol/L BUN 24 H (9-20) mg/dL Creatinine 1.26 H (0.66-1.25) mg/dL Glucose 120 H (74-99) mg/dL Microbiology - Last 24 Hours (Table) 09/26/17 08:13 Blood Culture - Preliminary Blood No Growth after 24 hours Assessment and Plan Plan: Status post colon mass resection, near total colectomy: Management per surgery Full liquid diet Final pathology report reviewed, colon mass is likely a fat cyst New onset acute hypoxic respiratory failure Could be secondary to healthcare associated pneumonia versus PE Continue Zosyn, continue heparin. Blood cultures obtained, no growth yet Still unable to undergo CT angiogram to rule out PE because of elevated creatinine Hematuria Urine starting to clear Hemoglobin stable Continue to monitor Acute renal failure: Improving Avoid nephrotoxic medications Continue IV hydration Follow up creatinine in the morning Essential hypertension, left carotid artery stenosis, hyperlipidemia, osteoarthritis/chronic back and neck pain Stable Resume home medications DVT prophylaxis: On heparin IV General weakness: PT and OT Encouraged to get out of bed and ambulate as much as possible. Anticipated discharge: 1-2 days Disposition: According to PT rachel
[2017-09-28] MEDS: PREVACID 15 MG PO SCH (06:10)
[2017-09-28] MEDS: GEMFIBROZIL 600 MG TAB PO SCH ×2 (06:10→17:16)
[2017-09-28] MEDS: HEPARIN SODIUM,PORCINE/D5W PMX 25,000 UNIT in DEXTROSE/WATER 1 500ML.BAG IV SCH (06:10)
[2017-09-28 06:37] LABS: Basophils % (A) 0 %; Eosinophils % (A) 0 %; HCT 40.7 % (39.0-53.0); HGB 13.6 gm/dL (13.0-17.5); Lymphocytes # (A) 0.5 k/uL (1.0-4.8); Lymphocytes % (A) 4 %; MCH 30.2 pg (25.0-35.0); MCHC 33.5 g/dL (31.0-37.0); MCV 90.1 fL (80.0-100.0); Mean Platelet Volume 7.5; Monocytes # (A) 0.4 k/uL (0-1.0); Monocytes % (A) 4 %; Neutrophils # (A) 10.5 k/uL (1.3-7.7); Neutrophils % (A) 91 %; Platelet Count 232 k/uL (150-450); RBC 4.51 m/uL (4.30-5.90); RDW 14.6 % (11.5-15.5); WBC 11.5 k/uL (3.8-10.6)
[2017-09-28 06:54] LABS: Calcium 9.4 mg/dL (8.4-10.2); Magnesium 2.1 mg/dL (1.6-2.3); Phosphorus 3.3 mg/dL (2.5-4.5); Potassium 4.2 mmol/L (3.5-5.1)
[2017-09-28] MEDS: BUDESONIDE 1 MG/2 ML NEBU INHALATION SCH (07:04)
[2017-09-28] MEDS: IPRATROPIUM-ALBUTEROL 3 ML NEB INHALATION SCH ×5 (07:04→20:20)
[2017-09-28] MEDS: FORMOTEROL FUMARATE 20 MCG/2 ML NEBU INHALATION SCH (07:04)
[2017-09-28] MEDS: PIPERACILLIN-TAZOBACTAM 3.375 GM in DEXTROSE/WATER 1 50ML.BAG IVPB SCH ×3 (08:41→23:21)
[2017-09-28] MEDS: LISINOPRIL 20 MG TAB PO SCH (08:43)
[2017-09-28] MEDS: amLODIPine 10 MG TAB PO SCH (08:43)
[2017-09-28] MEDS: ASPIRIN 81 MG PO SCH (08:43)
[2017-09-28] MEDS: methylPREDNISolone SOD SUCCI 125 MG/2 ML VIAL IV SCH ×3 (08:44→23:16)
--- NOTE | 2017-09-28 09:12 | P.PN ---
Subjective Progress Note Date: 09/28/17 Principal diagnosis: Shortness of breath Progress note dated 09/28/2017 67-year-old male with shortness of breath likely secondary to acute exacerbation of COPD. Number embolism cannot be ruled out. VQ scan showed evidence of a indeterminate scan. Dopplers were negative. The patient is also postop day #5 status post low anterior resection for sigmoid colonic mass. Biopsies are currently pending. Other medical issues include acute kidney injury chronic nicotine dependence hypertension osteoarthritis pneumothorax and left carotid artery stenosis. The patient is doing much better. He was treated with [facility] Pulmicort performist and steroids. He remains on IV heparin at this time. Denies worsening shortness of breath chest tightness wheezing cough phlegm production hemoptysis chest pain chest discomfort or palpitations. Objective - Vital Signs Vital signs: Vital Signs Temp 97.5 F L 09/27/17 19:58 Pulse 62 09/28/17 07:29 Resp 16 09/28/17 04:00 BP 144/81 09/28/17 04:00 Pulse Ox 94 L 09/28/17 07:05 Intake & Output 09/27/17 09/28/17 09/28/17 18:59 06:59 18:59 Intake Total 1221.667 980 Output Total 100 700 Balance 1121.667 280 Weight 95.7 kg Intake: Intake, IV Titration 621.667 500 Amount Heparin Sodium,Porcine/ 500 500 D5w Pmx 25,000 unit In Dextrose/Water 1 500ml. bag @ 18 UNITS/KG/HR 34. 45 mls/hr IV .[id number] [facility] Rx#:[id number] Ropivacaine 250 mg 121.667 Hydromorphone (Pf) 5 mg In Sodium Chloride 0.9% 200 ml @ Per Protocol EPIDURAL .Q0M PRN Rx#: [id number] Oral 600 480 Output: Urine 100 700 Uretheral (Fernandes) 50 Other: Voiding Method Indwelling Catheter Indwelling Catheter # Bowel Movements 1 - Exam No acute distress, oriented 3. HEENT examination is grossly unremarkable. Mucous membranes are moist. No oral lesions. Neck supple. Full range of motion. No adenopathy thyromegaly or neck vein distention. Cardiovascular examination reveals regular rhythm rate. S1-S2 normal. No S3 or S4. No discernible murmur noted. Lungs reveal occasional mild expiratory wheezes. A few scattered rhonchi noted. Breath sounds are equal bilaterally. Slight prolongation on forced maneuver. Breath sounds are certainly improved. Abdomen soft. Scant bowel sounds are noted. Some abdominal tenderness from recent surgery. Extremities are intact. No cyanosis clubbing or edema. Skin is without rash or lesion. Neurologic examination is brief but nonfocal. - Labs CBC & Chem 7: 09/28/17 05:56 09/28/17 05:56 Labs: Abnormal Lab Results - Last 24 Hours (Table) 09/27/17 09/28/17 09/28/17 Range/Units 14:00 05:56 05:56 WBC 11.5 H (3.8-10.6) k/uL Neutrophils # 10.5 H (1.3-7.7) k/uL Lymphocytes # 0.5 L (1.0-4.8) k/uL APTT (22.0-30.0) sec BUN 24 H (9-20) mg/dL Creatinine 1.26 H 1.28 H (0.66-1.25) mg/dL Glucose 120 H 133 H (74-99) mg/dL 09/28/17 Range/Units 06:00 WBC (3.8-10.6) k/uL Neutrophils # (1.3-7.7) k/uL Lymphocytes # (1.0-4.8) k/uL APTT 54.9 H (22.0-30.0) sec BUN (9-20) mg/dL Creatinine (0.66-1.25) mg/dL Glucose (74-99) mg/dL Microbiology - Last 24 Hours (Table) 09/26/17 08:13 Blood Culture - Preliminary Blood No Growth after 24 hours Assessment and Plan Assessment: Assessment Hypoxemic respiratory failure secondary to COPD exacerbation and possibly to pulmonary embolism although the latter seems less likely. VQ scan was indeterminate probability. Dopplers were negative. Postop day #5, status post low anterior resection for sigmoid colonic mass as well as repair of ventral hernia. Current pathology is pending Acute kidney injury Previous history of heavy tobacco use Hypertension DJD History of pneumothorax Left carotid artery stenosis Plan: Plan dated 09/28/2017 The patient's actually doing very well. Labs x-rays a medications are reviewed. The patient continues on steroids breathing treatments oxygen, etc. Respiratory status is significantly improved and clinical examination is improved as well. Microbiology is negative. White count 11.5 hemoglobin and hematocrit and platelet count all normal. Sodium potassium chloride CO2 normal. Anion gap normal. BUN and creatinine were 20 and 1.28 Time with Patient: Less than 30
--- NOTE | 2017-09-28 09:47 | P.PN ---
Progress Note - Text Progress Note Date: 09/28/17 The patient was noted to have some serous drainage from his wound last night. He was examined. There appears to be a fascial dehiscence of the superior portion of his incision. The patient will be taken the OR today for repair of fascial dehiscence.
--- NOTE | 2017-09-28 10:06 | P.PN ---
Subjective Progress Note Date: 09/28/17 Principal diagnosis: Colon mass The patient was noted to have some serous drainage from his wound last night. Surgeon thinks he has a fascial dehiscence of the superior portion of his incision. The patient will be taken the OR today for repair of fascial dehiscence. Still having cough and sob when he coughs. NO chest pain. Objective - Vital Signs Vital signs: Vital Signs Temp 97.5 F L 09/27/17 19:58 Pulse 62 09/28/17 07:29 Resp 16 09/28/17 04:00 BP 144/81 09/28/17 04:00 Pulse Ox 94 L 09/28/17 07:05 Intake & Output 09/27/17 09/28/17 09/28/17 18:59 06:59 18:59 Intake Total 1221.667 980 Output Total 100 700 Balance 1121.667 280 Weight 95.7 kg Intake: Intake, IV Titration 621.667 500 Amount Heparin Sodium,Porcine/ 500 500 D5w Pmx 25,000 unit In Dextrose/Water 1 500ml. bag @ 18 UNITS/KG/HR 34. 45 mls/hr IV .[id number] [facility] Rx#:[id number] Ropivacaine 250 mg 121.667 Hydromorphone (Pf) 5 mg In Sodium Chloride 0.9% 200 ml @ Per Protocol EPIDURAL .Q0M PRN Rx#: [id number] Oral 600 480 Output: Urine 100 700 Uretheral (Fernandes) 50 Other: Voiding Method Indwelling Catheter Indwelling Catheter # Bowel Movements 1 - Exam Constitutional: No acute distress, conversant, pleasant Eyes:Anicteric sclerae, moist conjunctiva, no lid-lag, PERRLA, ENMT: Oropharynx clear, no erythema, exudates Neck: Supple, FROM, no masses, or JVD, No carotid bruits, No thyromegaly Lungs: Clear to auscultation, Clear to percussion, Normal respiratory effort, no accessory muscle use Cardiovascular: Heart regular in rate and rhythm, No murmurs, gallops, or rubs, No peripheral edema Abdominal: vertical abdominal wound with wound VAC applied, abdomen is tense, slightly diffusely tender, no guarding, rebound or rigidity, Normoactive bowel sounds, No hepatomegaly, No splenomegaly, No palpable mass Skin: Normal temperature, tone, texture, turgor, no induration, No subcutaneous nodules, No rash, lesions, No ulcers Extremities: No digital cyanosis, No clubbing, Pedal pulses intact and symmetrical, Radial pulses intact and symmetrical, No calf tenderness Psychiatric: Alert and oriented to person, place and time, appropriate affect, intact judgement Neuro: Muscles Strength 5/5 in all 4 extremities, Sensation to light touch grossly present throughout, Cranial nerves II-XII grossly intact, no focal sensory deficits - Labs CBC & Chem 7: 09/28/17 05:56 09/28/17 05:56 Labs: Abnormal Lab Results - Last 24 Hours (Table) 09/27/17 09/28/17 09/28/17 Range/Units 14:00 05:56 05:56 WBC 11.5 H (3.8-10.6) k/uL Neutrophils # 10.5 H (1.3-7.7) k/uL Lymphocytes # 0.5 L (1.0-4.8) k/uL APTT (22.0-30.0) sec BUN 24 H (9-20) mg/dL Creatinine 1.26 H 1.28 H (0.66-1.25) mg/dL Glucose 120 H 133 H (74-99) mg/dL 09/28/17 Range/Units 06:00 WBC (3.8-10.6) k/uL Neutrophils # (1.3-7.7) k/uL Lymphocytes # (1.0-4.8) k/uL APTT 54.9 H (22.0-30.0) sec BUN (9-20) mg/dL Creatinine (0.66-1.25) mg/dL Glucose (74-99) mg/dL Microbiology - Last 24 Hours (Table) 09/26/17 08:13 Blood Culture - Preliminary Blood No Growth after 24 hours Assessment and Plan Plan: Status post colon mass resection, near total colectomy now with wound dehiscence : Management per surgery NPO as he is going back to OR Final pathology report reviewed, colon mass is a fat cyst New onset acute hypoxic respiratory failure Could be secondary to healthcare associated pneumonia versus PE Continue Zosyn, continue heparin. Blood cultures obtained, no growth Ordered CT angiogram, but now patient is going to the OR for wound closure. Hematuria Likely sec to heparin Hemoglobin stable Continue to monitor Acute renal failure: Improving Avoid nephrotoxic medications Continue IV hydration Follow up creatinine in the morning Essential hypertension, left carotid artery stenosis, hyperlipidemia, osteoarthritis/chronic back and neck pain Stable Resume home medications DVT prophylaxis: On heparin IV General weakness: PT and OT Encouraged to get out of bed and ambulate as much as possible. Anticipated discharge: 1-2 days Disposition: According to PT rachel
--- NOTE | 2017-09-28 11:48 | P.PN ---
Progress Note - Text Progress Note Date: 09/28/17 The patient had complaints of serosanguineous drainage from his incision last night. The patient states he felt a pop when he coughed yesterday. On exam is lesser stable. His abdomen soft. There is evidence of a fascial dehiscence and superior portion of his incision. The patient was taken to the OR today for repair of fascial dehiscence
[2017-09-28] MEDS ORDERED: NEOSTIGMINE 1 MG/ML 10 ML VIAL ONE (12:14)
[2017-09-28] MEDS ORDERED: HYDROmorphone (PF) 1 MG/ML ONE (12:14)
[2017-09-28] MEDS ORDERED: SUCCINYLCHOLINE CHLORIDE 100 MG/5 ML SYR IV ONE (12:14)
[2017-09-28] MEDS ORDERED: ONDANSETRON 4 MG/2 ML VIAL ONE (12:14)
[2017-09-28] MEDS ORDERED: ROCURONIUM BROMIDE 10 MG/ML 10 ML VIAL IV ONE (12:14)
[2017-09-28] MEDS ORDERED: fentaNYL (PF) 50 MCG/ML 2 ML AMP ONE (12:14)
[2017-09-28] MEDS ORDERED: MIDAZOLAM 2 MG/2 ML VIAL ONE (12:14)
[2017-09-28] MEDS ORDERED: DEXAMETHASONE SOD PHOS (MDV) 100 MG/10 ML VIAL ONE (12:14)
[2017-09-28] MEDS ORDERED: GLYCOPYRROLATE 0.2 MG/ML 2 ML VIAL ONE (12:14)
[2017-09-28] MEDS ORDERED: LIDOCAINE 1% INJ 10MG/ML (20 ML MDV) ONE (12:14)
[2017-09-28] MEDS ORDERED: PROPOFOL 10 MG/ML 20 ML VIAL IV ONE (12:14)
[2017-09-28] MEDS ORDERED: IV FLUID CONTINUATION 600 ML IV ONE (12:40)
--- NOTE | 2017-09-28 12:54 | P.OP ---
Date of Procedure: 09/28/17 Preoperative Diagnosis: Rational dehiscence Postoperative Diagnosis: Fascial dehiscence Procedure(s) Performed: Repair of fascial dehiscence Anesthesia: JUAN Surgeon: Arash Curtis Estimated Blood Loss (ml): 5 Pathology: none sent Condition: stable Disposition: PACU Description of Procedure: The patient's placed the operative table in supine position. He received IV sedation and then general anesthesia. His abdomen was prepped and draped usual sterile fashion. The geovanni removed. There appeared to be loops of small bowel in the midportion of the incision. The fascia was examined. It appears that the suture had been pulled through the fascia. The suture was intact. The knot was still secured. At this point the suture was cut out. And then the fascia was reapproximated using double-stranded loop PDS suture. The skin was closed geovanni. Several small openings were made for drainage. Telfa sandra were placed in the small skin openings. Sterile dressings applied. Patient top she will well and was sent to recovery in stable condition.
[2017-09-28] MEDS: HYDROmorphone 0.5 MG/0.5 ML SYRINGE IVP ONE ×3 (13:10→13:53)
[2017-09-28] MEDS ORDERED: ALBUTEROL NEBULIZED 2.5 MG/3 ML INHALATION ONE (13:30)
[2017-09-28] MEDS ORDERED: LABETALOL SYRINGE 5 MG/ML IVP ONE (13:36)
[2017-09-28] MEDS ORDERED: HYDROmorphone 0.5 MG/0.5 ML SYRINGE IVP ONE (13:44)
[2017-09-28] MEDS: LACTATED RINGERS 1,000 ML IV SCH (17:16)
[2017-09-28] MEDS: guaiFENesin-Coden 100-10MG/5ML 10 ML CUP PO SCH ×2 (18:01→23:14)
[2017-09-28] MEDS: SYMBICORT 160-4.5 MCG INHALER INHALATION SCH ×2 (20:18→20:20)
--- NOTE | 2017-09-28 21:00 | CT ---
EXAMINATION TYPE: CT angio chest DATE OF EXAM: 09/28/2017 8:36 PM COMPARISON: NONE HISTORY: Hypoxia. CT DLP: 400.8 mGycm Automated exposure control for dose reduction was used. CONTRAST: CTA scan of the thorax is performed with IV Contrast, patient injected with 68 mL of Isovue 370, pulm onary embolism protocol. There are 3-D post processed images.. FINDINGS: There is pulmonary emphysema with bullous disease in both upper lobes and worse on the right side. Th ere is minimal groundglass interstitial infiltrate in the left lower lobe. There is coarse linear den sity at the lung bases. Thoracic aorta is intact without evidence of aneurysm or dissection. There is no mediastinal adenopat hy. There are no hilar masses. There are calcified granulomata at the pulmonary david. I see no fillin g defects in the pulmonary arteries. There is no pericardial effusion. There is some atelectasis at t he posterior lung bases. IMPRESSION: EMPHYSEMA. PULMONARY FIBROSIS. MILD ATELECTASIS AT THE LUNG BASES. NO EVIDENCE OF PULMONARY EMBOLISM. OLD GRANULOMATOUS DISEASE.
[2017-09-28] MEDS: HYDROmorphone 0.5 MG/0.5 ML SYRINGE IVP PRN (22:25)
[2017-09-29] MEDS: HYDROmorphone 0.5 MG/0.5 ML SYRINGE IVP PRN ×4 (05:09→22:35)
[2017-09-29] MEDS: GEMFIBROZIL 600 MG TAB PO SCH ×2 (06:30→17:48)
[2017-09-29] MEDS: PREVACID 15 MG PO SCH (06:30)
[2017-09-29] MEDS: SYMBICORT 160-4.5 MCG INHALER INHALATION SCH ×2 (07:13→20:55)
[2017-09-29] MEDS: IPRATROPIUM-ALBUTEROL 3 ML NEB INHALATION SCH ×4 (07:13→20:55)
[2017-09-29] MEDS: guaiFENesin-Coden 100-10MG/5ML 10 ML CUP PO SCH ×3 (08:34→22:35)
[2017-09-29] MEDS: ASPIRIN 81 MG PO SCH (08:35)
[2017-09-29] MEDS: methylPREDNISolone SOD SUCCI 125 MG/2 ML VIAL IV SCH (08:35)
[2017-09-29] MEDS: PIPERACILLIN-TAZOBACTAM 3.375 GM in DEXTROSE/WATER 1 50ML.BAG IVPB SCH ×3 (08:35→23:56)
[2017-09-29] MEDS: LISINOPRIL 20 MG TAB PO SCH (08:35)
[2017-09-29] MEDS: amLODIPine 10 MG TAB PO SCH (08:35)
--- NOTE | 2017-09-29 09:32 | XR ---
EXAMINATION TYPE: XR chest 2V DATE OF EXAM: 09/29/2017 COMPARISON: CTA chest from yesterday. Chest x-ray from 4 days ago. HISTORY: Pneumonia progress study. TECHNIQUE: Frontal and lateral views of the chest are obtained. FINDINGS: There is diminished inspiration on current study. Underlying emphysematous changes redemon strated with increasing left basilar opacity. Right lung is predominantly clear on current study. No large pleural effusion or pneumothorax is seen. Cardiac silhouette size is stable and within normal limits. The osseous structures are intact. IMPRESSION: Diminished inspiration with worsening left basilar atelectasis and/or infiltrate on back ground of chronic emphysematous change.
--- NOTE | 2017-09-29 12:11 | P.PN ---
Subjective Progress Note Date: 09/29/17 Principal diagnosis: Patient feels okay today no shortness of breath no chest pain Constitutional: No acute distress, conversant, pleasant Eyes: Anicteric sclerae, moist conjunctiva, no lid-lag PERRLA ENMT: Cranial nerves grossly intact Neck: Supple, FROM, no masses, or JVD No carotid bruits No thyromegaly Lungs: Clear to auscultation Clear to percussion Normal respiratory effort, no accessory muscle use Cardiovascular: Heart S1-S2 regular rate and rhythm Abdominal: Soft distended status post surgery Skin: Normal temperature, tone, texture, turgor No induration No subcutaneous nodules No rash, lesions No ulcers Extremities: No digital cyanosis No clubbing Pedal pulses intact and symmetrical Radial pulses intact and symmetrical Normal gait and station No calf tenderness Psychiatric:Alert and oriented to person, place and time Appropriate affect Intact judgement Neuro: No obvious focal weakness Lab Results 09/18/17 09/23/17 09/23/17 Range/Units 13:09 10:14 10:37 WBC (3.8-10.6) k/uL RBC (4.30-5.90) m/uL Hgb (13.0-17.5) gm/dL Hct (39.0-53.0) % MCV (80.0-100.0) fL MCH (25.0-35.0) pg MCHC (31.0-37.0) g/dL RDW (11.5-15.5) % Plt Count (150-450) k/uL Neutrophils % % Lymphocytes % % Monocytes % % Eosinophils % % Basophils % % Neutrophils # (1.3-7.7) k/uL Lymphocytes # (1.0-4.8) k/uL Monocytes # (0-1.0) k/uL Eosinophils # (0-0.7) k/uL Basophils # (0-0.2) k/uL APTT (22.0-30.0) sec Sample Site ABG pH (7.35-7.45) ABG pCO2 (35-45) mmHg ABG pO2 (83-108) mmHg ABG HCO3 (21-25) mmol/L ABG Total CO2 (19-24) mmol/L ABG O2 Saturation (94-97) % ABG Base Excess mmol/L Juan Test FiO2 % Sodium (137-145) mmol/L Potassium (3.5-5.1) mmol/L Chloride (98-107) mmol/L Carbon Dioxide (22-30) mmol/L Anion Gap mmol/L BUN (9-20) mg/dL Creatinine (0.66-1.25) mg/dL Est GFR (CKD-EPI)AfAm (>60 ml/min/1.73 sqM) Est GFR (CKD-EPI)NonAf (>60 ml/min/1.73 sqM) Glucose (74-99) mg/dL POC Glucose (mg/dL) 77 (75-99) mg/dL POC Glu Manager Career ID Maria C Westbrook Calcium (8.4-10.2) mg/dL Phosphorus (2.5-4.5) mg/dL Magnesium (1.6-2.3) mg/dL Total Bilirubin (0.2-1.3) mg/dL AST (17-59) U/L ALT (21-72) U/L Alkaline Phosphatase (38-126) U/L NT-Pro-B Natriuret Pep pg/mL Total Protein (6.3-8.2) g/dL Albumin (3.5-5.0) g/dL Blood Type A Positive Blood Type Confirm A Positive Blood Type Recheck CABO Indicated Antibody Screen NEGATIVE Spec Expiration Date 09/25/2017230809/23/17 09/23/17 09/24/17 Range/Units 15:08 15:08 07:26 WBC 10.9 H 13.3 H (3.8-10.6) k/uL RBC 5.10 4.34 (4.30-5.90) m/uL Hgb 15.3 13.1 (13.0-17.5) gm/dL Hct 45.0 38.7 L (39.0-53.0) % MCV 88.3 89.2 (80.0-100.0) fL MCH 29.9 30.3 (25.0-35.0) pg MCHC 33.9 33.9 (31.0-37.0) g/dL RDW 13.8 14.1 (11.5-15.5) % Plt Count 194 182 (150-450) k/uL Neutrophils % 92 88 % Lymphocytes % 6 6 % Monocytes % 2 5 % Eosinophils % 0 1 % Basophils % 0 0 % Neutrophils # 10.0 H 11.8 H (1.3-7.7) k/uL Lymphocytes # 0.6 L 0.7 L (1.0-4.8) k/uL Monocytes # 0.2 0.6 (0-1.0) k/uL Eosinophils # 0.0 0.1 (0-0.7) k/uL Basophils # 0.0 0.0 (0-0.2) k/uL APTT (22.0-30.0) sec Sample Site ABG pH (7.35-7.45) ABG pCO2 (35-45) mmHg ABG pO2 (83-108) mmHg ABG HCO3 (21-25) mmol/L ABG Total CO2 (19-24) mmol/L ABG O2 Saturation (94-97) % ABG Base Excess mmol/L Juan Test FiO2 % Sodium 143 (137-145) mmol/L Potassium 4.5 (3.5-5.1) mmol/L Chloride 105 (98-107) mmol/L Carbon Dioxide 24 (22-30) mmol/L Anion Gap 14 mmol/L BUN 21 H (9-20) mg/dL Creatinine 1.50 H (0.66-1.25) mg/dL Est GFR (CKD-EPI)AfAm 55 (>60 ml/min/1.73 sqM) Est GFR (CKD-EPI)NonAf 47 (>60 ml/min/1.73 sqM) Glucose 142 H (74-99) mg/dL POC Glucose (mg/dL) (75-99) mg/dL POC Glu Manager Career ID Calcium 9.4 (8.4-10.2) mg/dL Phosphorus (2.5-4.5) mg/dL Magnesium (1.6-2.3) mg/dL Total Bilirubin (0.2-1.3) mg/dL AST (17-59) U/L ALT (21-72) U/L Alkaline Phosphatase (38-126) U/L NT-Pro-B Natriuret Pep pg/mL Total Protein (6.3-8.2) g/dL Albumin (3.5-5.0) g/dL Blood Type Blood Type Confirm Blood Type Recheck Antibody Screen Spec Expiration Date 09/24/17 09/25/1709/25/18 Range/Units 07:26 01:54 01:54 WBC (3.8-10.6) k/uL RBC (4.30-5.90) m/uL Hgb (13.0-17.5) gm/dL Hct (39.0-53.0) % MCV (80.0-100.0) fL MCH (25.0-35.0) pg MCHC (31.0-37.0) g/dL RDW (11.5-15.5) % Plt Count (150-450) k/uL Neutrophils % % Lymphocytes % % Monocytes % % Eosinophils % % Basophils % % Neutrophils # (1.3-7.7) k/uL Lymphocytes # (1.0-4.8) k/uL Monocytes # (0-1.0) k/uL Eosinophils # (0-0.7) k/uL Basophils # (0-0.2) k/uL APTT (22.0-30.0) sec Sample Site ABG pH (7.35-7.45) ABG pCO2 (35-45) mmHg ABG pO2 (83-108) mmHg ABG HCO3 (21-25) mmol/L ABG Total CO2 (19-24) mmol/L ABG O2 Saturation (94-97) % ABG Base Excess mmol/L Juan Test FiO2 % Sodium 142 137 (137-145) mmol/L Potassium 5.1 4.5 (3.5-5.1) mmol/L Chloride 108 H 105 (98-107) mmol/L Carbon Dioxide 20 L 20 L (22-30) mmol/L Anion Gap 14 12 mmol/L BUN 27 H 25 H (9-20) mg/dL Creatinine 1.66 H 1.60 H (0.66-1.25) mg/dL Est GFR (CKD-EPI)AfAm 48 51 (>60 ml/min/1.73 sqM) Est GFR (CKD-EPI)NonAf 42 44 (>60 ml/min/1.73 sqM) Glucose 123 H 96 (74-99) mg/dL POC Glucose (mg/dL) (75-99) mg/dL POC Glu Manager Career ID Calcium 9.3 9.1 (8.4-10.2) mg/dL Phosphorus 3.7 (2.5-4.5) mg/dL Magnesium 1.8 (1.6-2.3) mg/dL Total Bilirubin 1.2 (0.2-1.3) mg/dL AST 16 L (17-59) U/L ALT 32 (21-72) U/L Alkaline Phosphatase 37 L (38-126) U/L NT-Pro-B Natriuret Pep 1520 pg/mL Total Protein 6.7 (6.3-8.2) g/dL Albumin 4.1 (3.5-5.0) g/dL Blood Type Blood Type Confirm Blood Type Recheck Antibody Screen Spec Expiration Date 09/25/17 09/25/17 09/25/17 Range/Units 03:40 11:10 16:29 WBC (3.8-10.6) k/uL RBC (4.30-5.90) m/uL Hgb (13.0-17.5) gm/dL Hct (39.0-53.0) % MCV (80.0-100.0) fL MCH (25.0-35.0) pg MCHC (31.0-37.0) g/dL RDW (11.5-15.5) % Plt Count (150-450) k/uL Neutrophils % % Lymphocytes % % Monocytes % % Eosinophils % % Basophils % % Neutrophils # (1.3-7.7) k/uL Lymphocytes # (1.0-4.8) k/uL Monocytes # (0-1.0) k/uL Eosinophils # (0-0.7) k/uL Basophils # (0-0.2) k/uL APTT 23.2 46.8 H (22.0-30.0) sec Sample Site Right Radial ABG pH 7.37 (7.35-7.45) ABG pCO2 38 (35-45) mmHg ABG pO2 62 L (83-108) mmHg ABG HCO3 22 (21-25) mmol/L ABG Total CO2 23 (19-24) mmol/L ABG O2 Saturation 92.8 L (94-97) % ABG Base Excess -3.5 mmol/L Juan Test Yes FiO2 100 % Sodium (137-145) mmol/L Potassium (3.5-5.1) mmol/L Chloride (98-107) mmol/L Carbon Dioxide (22-30) mmol/L Anion Gap mmol/L BUN (9-20) mg/dL Creatinine (0.66-1.25) mg/dL Est GFR (CKD-EPI)AfAm (>60 ml/min/1.73 sqM) Est GFR (CKD-EPI)NonAf (>60 ml/min/1.73 sqM) Glucose (74-99) mg/dL POC Glucose (mg/dL) (75-99) mg/dL POC Glu Manager Career ID Calcium (8.4-10.2) mg/dL Phosphorus (2.5-4.5) mg/dL Magnesium (1.6-2.3) mg/dL Total Bilirubin (0.2-1.3) mg/dL AST (17-59) U/L ALT (21-72) U/L Alkaline Phosphatase (38-126) U/L NT-Pro-B Natriuret Pep pg/mL Total Protein (6.3-8.2) g/dL Albumin (3.5-5.0) g/dL Blood Type Blood Type Confirm Blood Type Recheck Antibody Screen Spec Expiration Date 09/25/17 09/25/17 09/26/17 Range/Units 17:21 21:37 05:16 WBC 12.4 H 11.3 H 14.0 H (3.8-10.6) k/uL RBC 4.41 4.19 L 4.26 L (4.30-5.90) m/uL Hgb 13.9 12.9 L 13.2 (13.0-17.5) gm/dL Hct 39.3 36.6 L 38.0 L (39.0-53.0) % MCV 89.2 87.3 89.2 (80.0-100.0) fL MCH 31.6 30.7 30.9 (25.0-35.0) pg MCHC 35.5 35.2 34.6 (31.0-37.0) g/dL RDW 14.8 13.8 14.6 (11.5-15.5) % Plt Count 161 158 186 (150-450) k/uL Neutrophils % 94 93 92 % Lymphocytes % 3 3 4 % Monocytes % 2 2 3 % Eosinophils % 1 2 0 % Basophils % 0 0 0 % Neutrophils # 11.6 H 10.5 H 12.9 H (1.3-7.7) k/uL Lymphocytes # 0.4 L 0.4 L 0.6 L (1.0-4.8) k/uL Monocytes # 0.2 0.3 0.5 (0-1.0) k/uL Eosinophils # 0.1 0.2 0.0 (0-0.7) k/uL Basophils # 0.0 0.0 0.0 (0-0.2) k/uL APTT (22.0-30.0) sec Sample Site ABG pH (7.35-7.45) ABG pCO2 (35-45) mmHg ABG pO2 (83-108) mmHg ABG HCO3 (21-25) mmol/L ABG Total CO2 (19-24) mmol/L ABG O2 Saturation (94-97) % ABG Base Excess mmol/L Juan Test FiO2 % Sodium (137-145) mmol/L Potassium (3.5-5.1) mmol/L Chloride (98-107) mmol/L Carbon Dioxide (22-30) mmol/L Anion Gap mmol/L BUN (9-20) mg/dL Creatinine (0.66-1.25) mg/dL Est GFR (CKD-EPI)AfAm (>60 ml/min/1.73 sqM) Est GFR (CKD-EPI)NonAf (>60 ml/min/1.73 sqM) Glucose (74-99) mg/dL POC Glucose (mg/dL) (75-99) mg/dL POC Glu Manager Career ID Calcium (8.4-10.2) mg/dL Phosphorus (2.5-4.5) mg/dL Magnesium (1.6-2.3) mg/dL Total Bilirubin (0.2-1.3) mg/dL AST (17-59) U/L ALT (21-72) U/L Alkaline Phosphatase (38-126) U/L NT-Pro-B Natriuret Pep pg/mL Total Protein (6.3-8.2) g/dL Albumin (3.5-5.0) g/dL Blood Type Blood Type Confirm Blood Type Recheck Antibody Screen Spec Expiration Date 09/26/17 09/26/17 09/26/17 Range/Units 05:16 05:16 15:13 WBC (3.8-10.6) k/uL RBC (4.30-5.90) m/uL Hgb (13.0-17.5) gm/dL Hct (39.0-53.0) % MCV (80.0-100.0) fL MCH (25.0-35.0) pg MCHC (31.0-37.0) g/dL RDW (11.5-15.5) % Plt Count (150-450) k/uL Neutrophils % % Lymphocytes % % Monocytes % % Eosinophils % % Basophils % % Neutrophils # (1.3-7.7) k/uL Lymphocytes # (1.0-4.8) k/uL Monocytes # (0-1.0) k/uL Eosinophils # (0-0.7) k/uL Basophils # (0-0.2) k/uL APTT 78.0 H 49.2 H (22.0-30.0) sec Sample Site ABG pH (7.35-7.45) ABG pCO2 (35-45) mmHg ABG pO2 (83-108) mmHg ABG HCO3 (21-25) mmol/L ABG Total CO2 (19-24) mmol/L ABG O2 Saturation (94-97) % ABG Base Excess mmol/L Juan Test FiO2 % Sodium 139 (137-145) mmol/L Potassium 4.3 (3.5-5.1) mmol/L Chloride 103 (98-107) mmol/L Carbon Dioxide 19 L (22-30) mmol/L Anion Gap 17 mmol/L BUN 30 H (9-20) mg/dL Creatinine 1.30 H (0.66-1.25) mg/dL Est GFR (CKD-EPI)AfAm 65 (>60 ml/min/1.73 sqM) Est GFR (CKD-EPI)NonAf 56 (>60 ml/min/1.73 sqM) Glucose 138 H (74-99) mg/dL POC Glucose (mg/dL) (75-99) mg/dL POC Glu Manager Career ID Calcium 10.0 (8.4-10.2) mg/dL Phosphorus 3.7 (2.5-4.5) mg/dL Magnesium 2.0 (1.6-2.3) mg/dL Total Bilirubin 0.9 (0.2-1.3) mg/dL AST 23 (17-59) U/L ALT 52 (21-72) U/L Alkaline Phosphatase 48 (38-126) U/L NT-Pro-B Natriuret Pep pg/mL Total Protein 7.0 (6.3-8.2) g/dL Albumin 4.0 (3.5-5.0) g/dL Blood Type Blood Type Confirm Blood Type Recheck Antibody Screen Spec Expiration Date 09/27/17 09/27/17 09/27/17 Range/Units 05:42 05:42 06:20 WBC 15.0 H (3.8-10.6) k/uL RBC 4.22 L (4.30-5.90) m/uL Hgb 12.9 L (13.0-17.5) gm/dL Hct 37.0 L (39.0-53.0) % MCV 87.7 (80.0-100.0) fL MCH 30.6 (25.0-35.0) pg MCHC 34.8 (31.0-37.0) g/dL RDW 14.0 (11.5-15.5) % Plt Count 208 (150-450) k/uL Neutrophils % 93 % Lymphocytes % 3 % Monocytes % 4 % Eosinophils % 1 % Basophils % 0 % Neutrophils # 13.9 H (1.3-7.7) k/uL Lymphocytes # 0.4 L (1.0-4.8) k/uL Monocytes # 0.5 (0-1.0) k/uL Eosinophils # 0.1 (0-0.7) k/uL Basophils # 0.0 (0-0.2) k/uL APTT 59.3 H (22.0-30.0) sec Sample Site ABG pH (7.35-7.45) ABG pCO2 (35-45) mmHg ABG pO2 (83-108) mmHg ABG HCO3 (21-25) mmol/L ABG Total CO2 (19-24) mmol/L ABG O2 Saturation (94-97) % ABG Base Excess mmol/L Juan Test FiO2 % Sodium 138 (137-145) mmol/L Potassium 4.1 (3.5-5.1) mmol/L Chloride 104 (98-107) mmol/L Carbon Dioxide 18 L (22-30) mmol/L Anion Gap 16 mmol/L BUN 27 H (9-20) mg/dL Creatinine 1.30 H (0.66-1.25) mg/dL Est GFR (CKD-EPI)AfAm 65 (>60 ml/min/1.73 sqM) Est GFR (CKD-EPI)NonAf 56 (>60 ml/min/1.73 sqM) Glucose 119 H (74-99) mg/dL POC Glucose (mg/dL) (75-99) mg/dL POC Glu Manager Career ID Calcium 9.8 (8.4-10.2) mg/dL Phosphorus 3.7 (2.5-4.5) mg/dL Magnesium 2.2 (1.6-2.3) mg/dL Total Bilirubin (0.2-1.3) mg/dL AST (17-59) U/L ALT (21-72) U/L Alkaline Phosphatase (38-126) U/L NT-Pro-B Natriuret Pep pg/mL Total Protein (6.3-8.2) g/dL Albumin (3.5-5.0) g/dL Blood Type Blood Type Confirm Blood Type Recheck Antibody Screen Spec Expiration Date 09/27/17 09/28/17 09/28/17 Range/Units 14:00 05:56 05:56 WBC 11.5 H (3.8-10.6) k/uL RBC 4.51 (4.30-5.90) m/uL Hgb 13.6 (13.0-17.5) gm/dL Hct 40.7 (39.0-53.0) % MCV 90.1 (80.0-100.0) fL MCH 30.2 (25.0-35.0) pg MCHC 33.5 (31.0-37.0) g/dL RDW 14.6 (11.5-15.5) % Plt Count 232 (150-450) k/uL Neutrophils % 91 % Lymphocytes % 4 % Monocytes % 4 % Eosinophils % 0 % Basophils % 0 % Neutrophils # 10.5 H (1.3-7.7) k/uL Lymphocytes # 0.5 L (1.0-4.8) k/uL Monocytes # 0.4 (0-1.0) k/uL Eosinophils # 0.0 (0-0.7) k/uL Basophils # 0.0 (0-0.2) k/uL APTT (22.0-30.0) sec Sample Site ABG pH (7.35-7.45) ABG pCO2 (35-45) mmHg ABG pO2 (83-108) mmHg ABG HCO3 (21-25) mmol/L ABG Total CO2 (19-24) mmol/L ABG O2 Saturation (94-97) % ABG Base Excess mmol/L Juan Test FiO2 % Sodium 141 142 (137-145) mmol/L Potassium 3.7 4.2 (3.5-5.1) mmol/L Chloride 106 107 (98-107) mmol/L Carbon Dioxide 22 22 (22-30) mmol/L Anion Gap 13 13 mmol/L BUN 24 H 20 (9-20) mg/dL Creatinine 1.26 H 1.28 H (0.66-1.25) mg/dL Est GFR (CKD-EPI)AfAm 67 66 (>60 ml/min/1.73 sqM) Est GFR (CKD-EPI)NonAf 58 57 (>60 ml/min/1.73 sqM) Glucose 120 H 133 H (74-99) mg/dL POC Glucose (mg/dL) (75-99) mg/dL POC Glu Manager Career ID Calcium 9.5 9.4 (8.4-10.2) mg/dL Phosphorus 3.3 (2.5-4.5) mg/dL Magnesium 2.1 (1.6-2.3) mg/dL Total Bilirubin (0.2-1.3) mg/dL AST (17-59) U/L ALT (21-72) U/L Alkaline Phosphatase (38-126) U/L NT-Pro-B Natriuret Pep pg/mL Total Protein (6.3-8.2) g/dL Albumin (3.5-5.0) g/dL Blood Type Blood Type Confirm Blood Type Recheck Antibody Screen Spec Expiration Date 09/28/17 Range/Units 06:00 WBC (3.8-10.6) k/uL RBC (4.30-5.90) m/uL Hgb (13.0-17.5) gm/dL Hct (39.0-53.0) % MCV (80.0-100.0) fL MCH (25.0-35.0) pg MCHC (31.0-37.0) g/dL RDW (11.5-15.5) % Plt Count (150-450) k/uL Neutrophils % % Lymphocytes % % Monocytes % % Eosinophils % % Basophils % % Neutrophils # (1.3-7.7) k/uL Lymphocytes # (1.0-4.8) k/uL Monocytes # (0-1.0) k/uL Eosinophils # (0-0.7) k/uL Basophils # (0-0.2) k/uL APTT 54.9 H (22.0-30.0) sec Sample Site ABG pH (7.35-7.45) ABG pCO2 (35-45) mmHg ABG pO2 (83-108) mmHg ABG HCO3 (21-25) mmol/L ABG Total CO2 (19-24) mmol/L ABG O2 Saturation (94-97) % ABG Base Excess mmol/L Juan Test FiO2 % Sodium (137-145) mmol/L Potassium (3.5-5.1) mmol/L Chloride (98-107) mmol/L Carbon Dioxide (22-30) mmol/L Anion Gap mmol/L BUN (9-20) mg/dL Creatinine (0.66-1.25) mg/dL Est GFR (CKD-EPI)AfAm (>60 ml/min/1.73 sqM) Est GFR (CKD-EPI)NonAf (>60 ml/min/1.73 sqM) Glucose (74-99) mg/dL POC Glucose (mg/dL) (75-99) mg/dL POC Glu Manager Career ID Calcium (8.4-10.2) mg/dL Phosphorus (2.5-4.5) mg/dL Magnesium (1.6-2.3) mg/dL Total Bilirubin (0.2-1.3) mg/dL AST (17-59) U/L ALT (21-72) U/L Alkaline Phosphatase (38-126) U/L NT-Pro-B Natriuret Pep pg/mL Total Protein (6.3-8.2) g/dL Albumin (3.5-5.0) g/dL Blood Type Blood Type Confirm Blood Type Recheck Antibody Screen Spec Expiration Date Vital Signs 09/23/17 09/23/17 09/23/17 01:45 10:09 14:28 Temperature 97.9 F 97.7 F 98.0 F Pulse Rate Pulse Rate [ [employer] ] Pulse Rate [ 61 58 L 88 Left Pulse Oximetery] Respiratory 16 16 16 Rate Blood Pressure 109/65 117/68 140/84 [Right Arm Supine] O2 Sat by Pulse 91 L 98 96 Oximetry 09/23/17 09/23/17 09/23/17 14:30 14:45 15:00 Temperature Pulse Rate Pulse Rate [ [employer] ] Pulse Rate [ 83 81 73 Left Pulse Oximetery] Respiratory 16 16 16 Rate Blood Pressure 137/82 151/72 133/63 [Right Arm Supine] O2 Sat by Pulse 94 L 92 L 92 L Oximetry 09/23/17 09/23/17 09/23/17 15:15 16:00 16:15 Temperature 98.7 F Pulse Rate Pulse Rate [ [employer] ] Pulse Rate [ 70 65 69 Left Pulse Oximetery] Respiratory 14 16 Rate Blood Pressure 103/57 96/62 97/58 [Right Arm Supine] O2 Sat by Pulse 92 L 92 L Oximetry 09/23/17 09/23/17 09/23/17 16:30 16:45 17:00 Temperature Pulse Rate Pulse Rate [ [employer] ] Pulse Rate [ 58 L 62 53 L Left Pulse Oximetery] Respiratory Rate Blood Pressure 97/70 99/70 95/53 [Right Arm Supine] O2 Sat by Pulse Oximetry 09/23/17 09/23/17 09/23/17 17:15 17:30 17:45 Temperature Pulse Rate Pulse Rate [ [employer] ] Pulse Rate [ 61 64 66 Left Pulse Oximetery] Respiratory Rate Blood Pressure 95/66 99/67 103/57 [Right Arm Supine] O2 Sat by Pulse Oximetry 09/23/17 09/23/17 09/23/17 18:00 20:05 20:45 Temperature 97.0 F L Pulse Rate Pulse Rate [ [employer] ] Pulse Rate [ 65 65 65 Left Pulse Oximetery] Respiratory 16 16 Rate Blood Pressure 107/57 107/69 [Right Arm Supine] O2 Sat by Pulse 90 L Oximetry 09/24/17 09/24/17 09/24/17 00:00 07:47 08:26 Temperature 98.2 F Pulse Rate Pulse Rate [ [employer] ] Pulse Rate [ 60 Left Pulse Oximetery] Respiratory 16 16 Rate Blood Pressure 120/74 136/71 [Right Arm Supine] O2 Sat by Pulse 91 L Oximetry 09/24/17 09/24/17 09/24/17 15:00 19:14 19:35 Temperature 98.9 F 99.5 F Pulse Rate Pulse Rate [ [employer] ] Pulse Rate [ 61 87 Left Pulse Oximetery] Respiratory 16 14 Rate Blood Pressure 134/79 131/73 [Right Arm Supine] O2 Sat by Pulse 92 L 84 L 97 Oximetry 09/25/17 09/25/17 09/25/17 01:07 01:10 01:16 Temperature 99.0 F Pulse Rate 70 88 Pulse Rate [ [employer] ] Pulse Rate [ 79 Left Pulse Oximetery] Respiratory 18 Rate Blood Pressure 117/69 [Right Arm Supine] O2 Sat by Pulse 91 L Oximetry 09/25/17 09/25/17 09/25/17 02:02 07:00 09:19 Temperature 98.9 F Pulse Rate Pulse Rate [ [employer] ] Pulse Rate [ Left Pulse Oximetery] Respiratory 16 16 Rate Blood Pressure 119/67 [Right Arm Supine] O2 Sat by Pulse 93 L 96 Oximetry 09/25/17 09/25/17 09/25/17 11:33 11:43 15:00 Temperature 97.7 F Pulse Rate 106 H 107 H Pulse Rate [ [employer] ] Pulse Rate [ 81 Left Pulse Oximetery] Respiratory 15 Rate Blood Pressure 134/81 [Right Arm Supine] O2 Sat by Pulse 94 L 94 L Oximetry 09/25/17 09/25/17 09/25/17 15:18 16:00 18:03 Temperature 96.6 F L Pulse Rate 78 Pulse Rate [ [employer] ] Pulse Rate [ 71 71 Left Pulse Oximetery] Respiratory 20 20 18 Rate Blood Pressure 117/69 [Right Arm Supine] O2 Sat by Pulse 92 L 95 Oximetry 09/25/17 09/25/17 09/25/17 18:14 20:00 20:47 Temperature Pulse Rate 85 70 Pulse Rate [ [employer] ] Pulse Rate [ 84 Left Pulse Oximetery] Respiratory 18 16 16 Rate Blood Pressure 130/79 [Right Arm Supine] O2 Sat by Pulse 95 Oximetry 09/25/17 09/26/17 09/26/17 20:58 00:00 04:00 Temperature 97.2 F L Pulse Rate 77 Pulse Rate [ [employer] ] Pulse Rate [ 75 62 Left Pulse Oximetery] Respiratory 16 16 20 Rate Blood Pressure 103/58 113/64 [Right Arm Supine] O2 Sat by Pulse 98 94 L Oximetry 09/26/17 09/26/17 09/26/17 08:00 08:16 08:30 Temperature 97.6 F Pulse Rate 68 72 Pulse Rate [ [employer] ] Pulse Rate [ 68 Left Pulse Oximetery] Respiratory 18 Rate Blood Pressure 115/73 [Right Arm Supine] O2 Sat by Pulse 94 L Oximetry 09/26/17 09/26/17 09/26/17 11:41 12:00 12:32 Temperature 97.5 F L Pulse Rate 72 Pulse Rate [ [employer] ] Pulse Rate [ 78 Left Pulse Oximetery] Respiratory 18 18 Rate Blood Pressure 127/71 [Right Arm Supine] O2 Sat by Pulse 95 Oximetry 09/26/17 09/26/17 09/26/17 12:44 16:00 16:25 Temperature 97.2 F L Pulse Rate 72 70 Pulse Rate [ [employer] ] Pulse Rate [ 76 Left Pulse Oximetery] Respiratory 18 Rate Blood Pressure 107/66 [Right Arm Supine] O2 Sat by Pulse 97 97 Oximetry 09/26/17 09/26/17 09/26/17 16:37 19:32 19:36 Temperature Pulse Rate 74 72 Pulse Rate [ [employer] ] Pulse Rate [ Left Pulse Oximetery] Respiratory Rate Blood Pressure [Right Arm Supine] O2 Sat by Pulse 94 L Oximetry 09/26/17 09/26/17 09/27/17 19:51 20:00 00:00 Temperature 97 F L 96.7 F L Pulse Rate 72 74 Pulse Rate [ [employer] ] Pulse Rate [ 92 72 Left Pulse Oximetery] Respiratory 20 20 Rate Blood Pressure 121/59 108/61 [Right Arm Supine] O2 Sat by Pulse 91 L 93 L Oximetry 09/27/17 09/27/17 09/27/17 04:00 07:24 07:35 Temperature 97.5 F L Pulse Rate 78 78 Pulse Rate [ [employer] ] Pulse Rate [ 71 Left Pulse Oximetery] Respiratory 22 Rate Blood Pressure 109/56 [Right Arm Supine] O2 Sat by Pulse 90 L 93 L Oximetry 09/27/17 09/27/17 09/27/17 07:47 10:05 11:13 Temperature 96.9 F L Pulse Rate 80 68 Pulse Rate [ [employer] ] Pulse Rate [ 66 Left Pulse Oximetery] Respiratory 16 Rate Blood Pressure 116/65 [Right Arm Supine] O2 Sat by Pulse 91 L Oximetry 09/27/17 09/27/17 09/27/17 11:25 12:05 16:02 Temperature 96.9 F L Pulse Rate 70 82 Pulse Rate [ [employer] ] Pulse Rate [ 84 Left Pulse Oximetery] Respiratory 16 Rate Blood Pressure 122/65 [Right Arm Supine] O2 Sat by Pulse 95 Oximetry 09/27/17 09/27/17 09/27/17 16:14 16:25 18:58 Temperature 96.7 F L Pulse Rate 84 74 Pulse Rate [ [employer] ] Pulse Rate [ 77 Left Pulse Oximetery] Respiratory 16 Rate Blood Pressure 125/65 [Right Arm Supine] O2 Sat by Pulse 94 L Oximetry 09/27/17 09/27/17 09/27/17 19:09 19:17 19:58 Temperature 97.5 F L Pulse Rate 72 72 Pulse Rate [ [employer] ] Pulse Rate [ 75 Left Pulse Oximetery] Respiratory 16 Rate Blood Pressure 137/72 [Right Arm Supine] O2 Sat by Pulse 91 L Oximetry 09/27/17 09/27/17 09/28/17 20:00 23:04 00:00 Temperature Pulse Rate Pulse Rate [ [employer] ] Pulse Rate [ 75 70 70 Left Pulse Oximetery] Respiratory 16 16 Rate Blood Pressure 126/62 [Right Arm Supine] O2 Sat by Pulse 93 L Oximetry 09/28/17 09/28/17 09/28/17 04:00 07:05 07:16 Temperature Pulse Rate 60 60 Pulse Rate [ [employer] ] Pulse Rate [ 64 Left Pulse Oximetery] Respiratory 16 Rate Blood Pressure 144/81 [Right Arm Supine] O2 Sat by Pulse 94 L 94 L Oximetry 09/28/17 09/28/17 09/28/17 07:29 08:00 11:20 Temperature 96.9 F L 97.0 F L Pulse Rate 62 Pulse Rate [ 76 [employer] ] Pulse Rate [ 66 Left Pulse Oximetery] Respiratory 18 18 Rate Blood Pressure 131/70 157/87 [Right Arm Supine] O2 Sat by Pulse 94 L 92 L Oximetry 09/28/17 09/28/17 09/28/17 13:07 13:15 13:30 Temperature 98.4 F Pulse Rate Pulse Rate [ 86 67 70 [employer] ] Pulse Rate [ Left Pulse Oximetery] Respiratory 20 24 24 Rate Blood Pressure 156/91 179/79 171/102 [Right Arm Supine] O2 Sat by Pulse 91 L 95 93 L Oximetry 09/28/17 09/28/17 09/28/17 13:45 14:00 15:15 Temperature 97.3 F L Pulse Rate Pulse Rate [ 66 68 59 L [employer] ] Pulse Rate [ Left Pulse Oximetery] Respiratory 24 24 18 Rate Blood Pressure 181/91 163/83 135/76 [Right Arm Supine] O2 Sat by Pulse 92 L 92 L 93 L Oximetry 09/28/17 09/28/17 09/28/17 16:11 16:12 16:23 Temperature Pulse Rate 68 70 Pulse Rate [ [employer] ] Pulse Rate [ Left Pulse Oximetery] Respiratory Rate Blood Pressure [Right Arm Supine] O2 Sat by Pulse 94 L Oximetry 09/28/17 09/28/17 09/28/17 19:45 19:49 23:09 Temperature 98 F 98.7 F Pulse Rate Pulse Rate [ 70 70 65 [employer] ] Pulse Rate [ Left Pulse Oximetery] Respiratory 16 16 24 Rate Blood Pressure 139/92 165/80 [Right Arm Supine] O2 Sat by Pulse 93 L 92 L Oximetry 09/29/17 09/29/17 09/29/17 00:00 04:00 07:14 Temperature 97.2 F L Pulse Rate 60 Pulse Rate [ 65 63 [employer] ] Pulse Rate [ Left Pulse Oximetery] Respiratory 24 24 Rate Blood Pressure 158/86 [Right Arm Supine] O2 Sat by Pulse 91 L 92 L Oximetry 09/29/17 09/29/17 09/29/17 07:25 08:00 11:01 Temperature 97.7 F Pulse Rate 68 86 Pulse Rate [ 72 [employer] ] Pulse Rate [ Left Pulse Oximetery] Respiratory 18 Rate Blood Pressure 135/74 [Right Arm Supine] O2 Sat by Pulse 93 L Oximetry 09/29/17 11:10 Temperature Pulse Rate 78 Pulse Rate [ [employer] ] Pulse Rate [ Left Pulse Oximetery] Respiratory Rate Blood Pressure [Right Arm Supine] O2 Sat by Pulse Oximetry Status post colon mass resection, near total colectomy now with wound dehiscence : Management per surgery Patient did have surgery for wound repair yesterday New onset acute hypoxic respiratory failure Currently no evidence of shortness of breath computed tomography scan of the chest did not show any PE or any significant acute findings continue empiric Zosyn Continue Zosyn, continue heparin. Blood cultures obtained, no growth Hematuria Likely sec to heparin Hemoglobin stable Continue to monitor Acute renal failure: Improving Avoid nephrotoxic medications Monitor Essential hypertension, left carotid artery stenosis, hyperlipidemia, osteoarthritis/chronic back and neck pain Stable Resume home medications DVT prophylaxis: On heparin General weakness: PT and OT Encouraged to get out of bed and ambulate as much as possible. Discharge hopefully in 2-3 days Objective - Vital Signs Vital signs: Vital Signs Temp 97.7 F 09/29/17 08:00 Pulse 78 09/29/17 11:10 Resp 18 09/29/17 08:00 BP 135/74 09/29/17 08:00 Pulse Ox 93 L 09/29/17 08:00 Intake & Output 09/28/17 09/29/17 09/29/17 18:59 06:59 18:59 Intake Total 600 125 Output Total 955 400 Balance -355 125 -400 Weight 91.9 kg Intake: IV 600 Intake, IV Titration 125 Amount Lactated Ringers 1,000 ml 100 @ 20 mls/hr IV .Q24H [facility] Rx#:[id number] Piperacillin-Tazobactam 3 25 .375 gm In Dextrose/Water 1 50ml.bag @ 12.5 mls/hr IVPB Q8HR [facility] Rx#: [id number] Oral 0 Output: Urine 950 400 Estimated Blood Loss 5 Other: Voiding Method Toilet Toilet Toilet # Voids 1 1 - Labs CBC & Chem 7: 09/28/17 05:56 09/28/17 05:56 Labs: Microbiology - Last 24 Hours (Table) 09/26/17 08:13 Blood Culture - Preliminary Blood No Growth after 72 hours
--- NOTE | 2017-09-29 12:46 | P.PN ---
Subjective Progress Note Date: 09/29/17 Principal diagnosis: Acute hypoxemic respiratory failure, in part due to acute exacerbation of COPD, cannot rule out pulmonary embolism Mr. Daquan Agustin is a 67-year-old white male patient presented on 09/23/2017 for active sigmoid colon mass resection that was discovered on the colonoscopy on 09/22/2017. The mass was quite large occupying almost 75% of the sigmoid colon. In the early hours of morning on 09/25/2017 patient developed hypoxemia , and was placed on 15 L of oxygen per high flow nasal cannula. He states he had been dyspneic since before his surgery on Friday. Initial chest x-ray on 09/24/2017 showed poor inspiratory effort, but no acute pulmonary process. Follow up chest x-ray on 09/25/2017 showed mild coarsening of interstitial markings consistent with mild pulmonary fibrosis, but no heart failure. He remains on 15 L per high flow nasal cannula with pulse ox of 96%, blood gas was obtained, and showed pO2 of 62, pCO2 of 38, pH of 7.37, and this was done on FiO2 of 100%, this is consistent with acute hypoxemic respiratory failure. ProBNP was elevated at 1520, developed acute kidney injury, and currently his BUN is 25, creatinine is 1.6. Yesterday's labs show WBC of 13.3, hemoglobin of 13.1. Patient states he is dyspneic without the oxygen, however in no acute distress. Does have some scattered expiratory wheezes. Patient is an ex-smoker , quit smoking 2 years ago, but prior to that smoked a pack a day for 50 years. The medical history includes hypertension, GERD/reflux, osteoarthritis, history of hepatitis C treated, skin cancer chronic back and neck pain, history of pneumothorax, and left carotid artery stenosis. He was given the single dose of IV Lasix 40 mg and only diuresed about 350 ML with no improvement in FiO2 requirement. We are seeing the patient in consultation for acute hypoxemic respiratory failure. On 09/26/2017 patient seen again in follow-up on selective care unit. VQ scan from yesterday was reviewed, and showed an indeterminate mobility of pulmonary embolism, and possibility of an underlying laboratory or infectious airway disease. Clinically patient denies any acute distress, although still requiring high amounts of oxygen at 15 L per high flow nasal cannula, his pulse ox is 95%, patient has been afebrile, denies any cough, congestion, or sputum production. Doubt pneumonia. Patient is likely to have an acute COPD exacerbation, his exam reveals diffuse wheezes bilaterally. Patient had been started on IV Solu-Medrol yesterday by the attending physician, nebulized bronchodilators. He carries over [id number] smoking history, we will and Pulmicort and Perforomist, patient was empirically placed on Zosyn as well. Today's labs were reviewed, WBC is 14.0, hemoglobin is 13.2, sodium was 139, potassium is 4.3, chloride is 103, CO2 of 19, BUN of 30, creatinine is 1.3. Venous Dopplers studies were negative for any evidence of DVT. For possibility of an acute pulmonary embolism. Renal profile is improving, we may consider weaning the CT angios of the chest to rule out pulmonary embolism if patient's hypoxemia does not improve. On 09/19/2017 patient seen again in follow-up on selective care unit. He is weak, alert, denies any acute distress, lung sounds are positive for a few scattered rhonchi, no wheezing noted. Good air entry noted bilaterally. FiO2 is down to 7 L per nasal cannula with pulse ox of 90-[address] angios has been reviewed by Dr. Michaels, was negative for any evidence of pulmonary medicine, patient has emphysema, pulmonary fibrosis in addition to mild atelectasis at the lung bases. Continue encouraging incentive spirometry, patient is to achieve [id number] ML on it today. Patient is status post repair of fascial dehiscence, postop day 1. Mid abdominal incision is clean dry and intact, well approximated, patient is diffusely tender along the incision site. Binder is on, bowel sounds are hypoactive, epidural catheter has been discontinued. Patient is on nebulized bronchodilators, IV steroids and Zosyn. We will decrease the IV steroids to 40 mg once daily, continue with current medical treatment. Objective - Vital Signs Vital signs: Vital Signs Temp 97.7 F 09/29/17 08:00 Pulse 78 09/29/17 11:10 Resp 18 09/29/17 08:00 BP 135/74 09/29/17 08:00 Pulse Ox 93 L 09/29/17 08:00 Intake & Output 09/28/17 09/29/17 09/29/17 18:59 06:59 18:59 Intake Total 600 125 Output Total 955 400 Balance -355 125 -400 Weight 91.9 kg Intake: IV 600 Intake, IV Titration 125 Amount Lactated Ringers 1,000 ml 100 @ 20 mls/hr IV .Q24H [facility] Rx#:[id number] Piperacillin-Tazobactam 3 25 .375 gm In Dextrose/Water 1 50ml.bag @ 12.5 mls/hr IVPB Q8HR [facility] Rx#: [id number] Oral 0 Output: Urine 950 400 Estimated Blood Loss 5 Other: Voiding Method Toilet Toilet Toilet # Voids 1 1 - Exam - Constitutional Physical exam revealed a 67-year-old white male, sitting up in the chair, on 7 L per high flow nasal cannula, in no acute distress. General appearance: no acute distress - EENT Eyes: EOMI ENT: NA/AT - Neck Neck: no lymphadenopathy, normal ROM Thyroid: bilateral: normal size - Respiratory Respiratory: bilateral: A few scattered rhonchi, no wheezing - Cardiovascular Rhythm: regular Heart sounds: normal: S1, S2 ankle Peripheral Edema: bilateral: None foot Peripheral Edema: bilateral: None dorsalis pedis Peripheral Pulses: bilateral: Normal radial pulse Peripheral Pulses: bilateral: Normal - Gastrointestinal Midabdominal incision is clean dry and intact, Abdomen is slightly diffusely tender, but no guarding, no rebound or rigidity noted, hypoactive bowel sounds, no organomegaly General gastrointestinal: no organomegaly, soft, no tenderness Localized gastrointestinal: surgical scar: midline - Integumentary Integumentary: normal turgor - Neurologic Neurologic: CNII-XII intact - Labs CBC & Chem 7: 09/28/17 05:56 09/28/17 05:56 Labs: Microbiology - Last 24 Hours (Table) 09/26/17 08:13 Blood Culture - Preliminary Blood No Growth after 72 hours Assessment and Plan Plan: Assessment: #1. Acute hypoxemic respiratory failure, possibly related to acute exacerbation of COPD, CT angios was negative for any evidence of pulmonary embolism, but was positive for emphysema, and pulmonary fibrosis and mild bibasilar atelectasis. #2. Sigmoid colonic mass, status post low anterior resection, and repair of the ventral hernia, postop day 6. Biopsy results revealed benign colonic mucosa with the submucosal lipoma. Patient has developed fascial dehiscence, and is status post repair of the fascial dehiscence, postop day 1. #3. Acute kidney injury, improving #4. History of nicotine dependence, quit 2 years ago, but carries [id number] smoking history #5. Hypertension #6. Osteoarthritis #7. History of pneumothorax #8. Left carotid artery stenosis Plan: Decrease Solu-Medrol down to 40 mg once daily, continue DuoNeb, Pulmicort, Perforomist, continue Zosyn, weaning FiO2, encourage incentive spirometry. Continue to follow. I performed a history & physical examination of the patient and discussed their management with my nurse practitioner, Danielle Amador. I reviewed the nurse practitioner's note and agree with the documented findings and plan of care. Lung sounds are positive for bibasilar rhonchi. The findings and the impression was discussed with the patient. I attest to the documentation by the nurse practitioner. Time with Patient: Less than 30
[2017-09-29 13:13] LABS: Basophils % (A) 0 %; Eosinophils # (A) 0.1 k/uL (0-0.7); Eosinophils % (A) 1 %; HCT 40.5 % (39.0-53.0); Lymphocytes # (A) 0.4 k/uL (1.0-4.8); Lymphocytes % (A) 3 %; MCH 30.4 pg (25.0-35.0); MCHC 34.7 g/dL (31.0-37.0); MCV 87.6 fL (80.0-100.0); Mean Platelet Volume 7.4; Monocytes # (A) 0.4 k/uL (0-1.0); Monocytes % (A) 3 %; Neutrophils # (A) 11.6 k/uL (1.3-7.7); Neutrophils % (A) 93 %; Platelet Count 218 k/uL (150-450); RBC 4.63 m/uL (4.30-5.90); RDW 13.9 % (11.5-15.5); WBC 12.5 k/uL (3.8-10.6)
[2017-09-29 13:32] LABS: Albumin 3.9 g/dL (3.5-5.0); Calcium 9.5 mg/dL (8.4-10.2); Potassium 4.2 mmol/L (3.5-5.1); Total Bilirubin 1.4 mg/dL (0.2-1.3); Total Protein 6.5 g/dL (6.3-8.2)
--- NOTE | 2017-09-29 14:36 | P.PN ---
<Radha Chambersmilton Dominguez - Last Filed: 09/29/17 14:36> Subjective Progress Note Date: 09/29/17 67-year-old seen and examined sitting up in bed an abdominal binder in place abdomen slightly distended states not passing gas no stool old dried bloody drainage noted on surgical dressing. Patient denies chest pain or shortness of breath. Pain medication effective for pain control. White count 12.5 AST 66 ALT 148 patient is on high flow 7 L sats 97 Status post colon mass resection near total colectomy now with the wound dehiscent Objective - Vital Signs Vital signs: Vital Signs Temp 97.7 F 09/29/17 08:00 Pulse 78 09/29/17 11:10 Resp 18 09/29/17 08:00 BP 135/74 09/29/17 08:00 Pulse Ox 93 L 09/29/17 11:49 Intake & Output 09/28/17 09/29/17 09/29/17 18:59 06:59 18:59 Intake Total 600 125 Output Total 955 400 Balance -355 125 -400 Weight 91.9 kg Intake: IV 600 Intake, IV Titration 125 Amount Lactated Ringers 1,000 ml 100 @ 20 mls/hr IV .Q24H [facility] Rx#:[id number] Piperacillin-Tazobactam 3 25 .375 gm In Dextrose/Water 1 50ml.bag @ 12.5 mls/hr IVPB Q8HR [facility] Rx#: [id number] Oral 0 Output: Urine 950 400 Estimated Blood Loss 5 Other: Voiding Method Toilet Toilet Toilet # Voids 1 1 - Exam Physical exam 67-year-old male sitting up in bed Lungs diminished at the bases upper airways coarse nasal cannula 7 L sats are 9192% Heart S1-S2 audible and regular no murmur denying chest pain when questioning Abdomen , binder in place surgical dressing old dried drainage noted distal few hypoactive bowel tones slightly distended states passing gas no stool Extremities no edema noted. - Labs CBC & Chem 7: 09/29/17 13:01 09/29/17 13:01 Labs: Abnormal Lab Results - Last 24 Hours (Table) 09/29/17 09/29/17 Range/Units 13:01 13:01 WBC 12.5 H (3.8-10.6) k/uL Neutrophils # 11.6 H (1.3-7.7) k/uL Lymphocytes # 0.4 L (1.0-4.8) k/uL BUN 27 H (9-20) mg/dL Creatinine 1.43 H (0.66-1.25) mg/dL Glucose 124 H (74-99) mg/dL Total Bilirubin 1.4 H (0.2-1.3) mg/dL AST 66 H (17-59) U/L ALT 148 H (21-72) U/L Microbiology - Last 24 Hours (Table) 09/26/17 08:13 Blood Culture - Preliminary Blood No Growth after 72 hours Assessment and Plan Assessment: Impression Sigmoid colon mass status post low anterior resection Acute hypoxic respiratory failure pulmonary emboli to be ruled out by VQ scan Obesity BMI 30 Acute kidney injury nicotine dependency quit 2 years prior with a 50 year history Status post repair wound dehiscent done September 28 Plan Continue postop surgical care Continue recommendations by pulmonary service Increase the use of the incentive spirometer attempt to titrate the O2 down Increase activity DVT and GI prophylaxis Pain control Further surgical recommendations pending Progress note dictated for Dr. Mohan rounding on behalf of Dr. rucker The above impression and plan of care have been discussed and directed by signing physician. Lorie Chambers nurse practitioner acting as scribe for signing physician. <Evon Chavez N - Last Filed: 09/29/17 21:23> Objective - Vital Signs Vital signs: Vital Signs Temp 96.9 F L 09/29/17 20:53 Pulse 84 09/29/17 21:12 Resp 16 09/29/17 20:53 BP 147/78 09/29/17 20:53 Pulse Ox 93 L 09/29/17 20:53 Intake & Output 09/29/17 09/29/17 09/30/17 06:59 18:59 06:59 Intake Total 125 Output Total 400 Balance 125 -400 Weight 91.9 kg Intake: Intake, IV Titration 125 Amount Lactated Ringers 1,000 ml 100 @ 20 mls/hr IV .Q24H [facility] Rx#:[id number] Piperacillin-Tazobactam 3 25 .375 gm In Dextrose/Water 1 50ml.bag @ 12.5 mls/hr IVPB Q8HR [facility] Rx#: [id number] Output: Urine 400 Other: Voiding Method Toilet Toilet Toilet Urinal # Voids 1 - Labs CBC & Chem 7: 09/29/17 13:01 09/29/17 13:01 Labs: Abnormal Lab Results - Last 24 Hours (Table) 09/29/17 09/29/17 Range/Units 13:01 13:01 WBC 12.5 H (3.8-10.6) k/uL Neutrophils # 11.6 H (1.3-7.7) k/uL Lymphocytes # 0.4 L (1.0-4.8) k/uL BUN 27 H (9-20) mg/dL Creatinine 1.43 H (0.66-1.25) mg/dL Glucose 124 H (74-99) mg/dL Total Bilirubin 1.4 H (0.2-1.3) mg/dL AST 66 H (17-59) U/L ALT 148 H (21-72) U/L Microbiology - Last 24 Hours (Table) 09/26/17 08:13 Blood Culture - Preliminary Blood No Growth after 72 hours
[2017-09-29] MEDS: LACTATED RINGERS 1,000 ML IV SCH (17:48)
--- NOTE | 2017-09-29 22:43 | P.PN ---
Progress Note - Text Progress Note Date: 09/29/17 He has an appetite and wishes more to eat despite to OR visits during his hospitalization. No advancement of diet until bowel function resumes.
[2017-09-30] MEDS: HYDROmorphone 0.5 MG/0.5 ML SYRINGE IVP PRN ×5 (01:41→22:00)
[2017-09-30 06:06] LABS: Basophils % (A) 0 %; Eosinophils % (A) 0 %; HCT 40.5 % (39.0-53.0); HGB 13.6 gm/dL (13.0-17.5); Lymphocytes # (A) 0.8 k/uL (1.0-4.8); Lymphocytes % (A) 8 %; MCH 29.9 pg (25.0-35.0); MCHC 33.5 g/dL (31.0-37.0); MCV 89.2 fL (80.0-100.0); Mean Platelet Volume 7.5; Monocytes # (A) 0.7 k/uL (0-1.0); Monocytes % (A) 6 %; Neutrophils # (A) 9.5 k/uL (1.3-7.7); Neutrophils % (A) 85 %; Platelet Count 207 k/uL (150-450); RBC 4.54 m/uL (4.30-5.90); RDW 13.8 % (11.5-15.5); WBC 11.2 k/uL (3.8-10.6)
[2017-09-30] MEDS: PREVACID 15 MG PO SCH (06:13)
[2017-09-30] MEDS: GEMFIBROZIL 600 MG TAB PO SCH ×2 (06:13→16:05)
[2017-09-30 06:17] LABS: Albumin 3.6 g/dL (3.5-5.0); Calcium 9.2 mg/dL (8.4-10.2); Total Bilirubin 1.1 mg/dL (0.2-1.3)
[2017-09-30] MEDS: PIPERACILLIN-TAZOBACTAM 3.375 GM in DEXTROSE/WATER 1 50ML.BAG IVPB SCH ×3 (08:04→23:57)
[2017-09-30] MEDS: amLODIPine 10 MG TAB PO SCH (08:08)
[2017-09-30] MEDS: LISINOPRIL 20 MG TAB PO SCH (08:08)
[2017-09-30] MEDS: ASPIRIN 81 MG PO SCH (08:08)
[2017-09-30] MEDS: methylPREDNISolone SOD SUCCI 40 MG/ML 1 ML VIAL IV SCH (08:09)
[2017-09-30] MEDS: IPRATROPIUM-ALBUTEROL 3 ML NEB INHALATION SCH ×4 (08:39→21:31)
[2017-09-30] MEDS: SYMBICORT 160-4.5 MCG INHALER INHALATION SCH ×2 (08:39→21:31)
[2017-09-30] MEDS: guaiFENesin-Coden 100-10MG/5ML 10 ML CUP PO SCH ×3 (08:46→22:00)
--- NOTE | 2017-09-30 10:32 | P.PN ---
Subjective Progress Note Date: 09/30/17 Principal diagnosis: abdominal pain Patient is a 67-year-old male initially admitted for resection of colonic mass which has since resulted as lipoma. He developed acute exacerbation of COPD and possible pneumonia during his hospitalization along with acute hypoxic respiratory failure. He is currently receiving breathing treatments, Solu-Medrol, and antibiotics. He also had acute kidney injury during his hospitalization and initially could not undergo evaluation for pulmonary emboli and was maintained on a heparin drip. He subsequently underwent a CTA of the chest on 09/28 and has been having rising creatinine since that point in time. Patient seen and examined at bedside. He states that his abdominal pain is well controlled. He does not feel short of breath. He is no longer having a cough. He denies any nausea or vomiting. He is wishing to eat. He has not had a bowel movement but has been passing gas. Objective - Vital Signs Vital signs: Vital Signs Temp 97 F L 09/30/17 08:00 Pulse 88 09/30/17 08:51 Resp 18 09/30/17 08:00 BP 135/84 09/30/17 08:00 Pulse Ox 93 L 09/30/17 08:39 Intake & Output 09/29/17 09/30/17 09/30/17 18:59 06:59 18:59 Intake Total 210 Output Total 400 300 800 Balance -400 -90 -800 Weight 90.9 kg Intake: Intake, IV Titration 210 Amount Lactated Ringers 1,000 ml 160 @ 20 mls/hr IV .Q24H [facility] Rx#:[id number] Piperacillin-Tazobactam 3 50 .375 gm In Dextrose/Water 1 50ml.bag @ 12.5 mls/hr IVPB Q8HR [facility] Rx#: [id number] Output: Urine 400 300 800 Other: Voiding Method Toilet Toilet Urinal Urinal - Exam General: non toxic, no distress, appears at stated age Derm: warm, dry Head: atraumatic, normocephalic, symmetric Eyes: EOMI, no lid lag, anicteric sclera Mouth: no lip lesion, mucus membranes moist Cardiovascular: S1S2 reg, no murmur, positive posterior tibial pulse bilateral, Lungs: CTA bilateral, no rhonchi, no rales , no accessory muscle use Abdominal: soft, +tender to palpation suprapubic, no guarding, no appreciable organomegaly Ext: no gross muscle atrophy, no edema, no contractures Neuro: CN II-XI grossly intact, no focal neuro deficits Psych: Alert, oriented, appropriate affect - Labs CBC & Chem 7: 09/30/17 05:30 09/30/17 05:30 Labs: Abnormal Lab Results - Last 24 Hours (Table) 09/29/17 09/29/17 09/30/17 Range/Units 13:01 13:01 05:30 WBC 12.5 H 11.2 H (3.8-10.6) k/uL Neutrophils # 11.6 H 9.5 H (1.3-7.7) k/uL Lymphocytes # 0.4 L 0.8 L (1.0-4.8) k/uL BUN 27 H (9-20) mg/dL Creatinine 1.43 H (0.66-1.25) mg/dL Glucose 124 H (74-99) mg/dL Total Bilirubin 1.4 H (0.2-1.3) mg/dL AST 66 H (17-59) U/L ALT 148 H (21-72) U/L Total Protein (6.3-8.2) g/dL 09/30/17 Range/Units 05:30 WBC (3.8-10.6) k/uL Neutrophils # (1.3-7.7) k/uL Lymphocytes # (1.0-4.8) k/uL BUN 32 H (9-20) mg/dL Creatinine 1.60 H (0.66-1.25) mg/dL Glucose 101 H (74-99) mg/dL Total Bilirubin (0.2-1.3) mg/dL AST 67 H (17-59) U/L ALT 185 H (21-72) U/L Total Protein 6.0 L (6.3-8.2) g/dL Microbiology - Last 24 Hours (Table) 09/26/17 08:13 Blood Culture - Preliminary Blood No Growth after 72 hours Assessment and Plan Assessment: Acute exacerbation of COPD with acute hypoxic respiratory failure -CTA chest was negative and heparin drip has been stopped -Steroids, bronchodilators, antibiotics -Pulmonary recommendations -On empiric Zosyn day #08/18 Acute kidney injury, likely secondary to contrast exposure -Hold CLAUDIA inhibitor -Increase IV fluids -Repeat basic metabolic profile in a.m. -Avoid additional nephrotoxic agents Status post resection of sigmoid colonic lipoma -Management as per primary surgical services -Status post repair of fascial wound dehiscence -Currently nothing by mouth Hypertension, controlled -Lisinopril discontinued secondary to acute kidney injury, continue Norvasc -Follow blood pressures closely Chronic: Osteoarthritis, left carotid artery stenosis DVT prophylaxis: Lovenox Discussed with: Patient, nursing A total of 35 minutes was spent on the care of this complex patient more than 50 % of the time was spent in counseling and care coordination.
--- NOTE | 2017-09-30 12:14 | P.PN ---
Subjective Progress Note Date: 09/30/17 Principal diagnosis: Acute hypoxemic respiratory failure, in part due to acute exacerbation of COPD, cannot rule out pulmonary embolism Mr. Daquan Agustin is a 67-year-old white male patient presented on 09/23/2017 for active sigmoid colon mass resection that was discovered on the colonoscopy on 09/22/2017. The mass was quite large occupying almost 75% of the sigmoid colon. In the early hours of morning on 09/25/2017 patient developed hypoxemia , and was placed on 15 L of oxygen per high flow nasal cannula. He states he had been dyspneic since before his surgery on Friday. Initial chest x-ray on 09/24/2017 showed poor inspiratory effort, but no acute pulmonary process. Follow up chest x-ray on 09/25/2017 showed mild coarsening of interstitial markings consistent with mild pulmonary fibrosis, but no heart failure. He remains on 15 L per high flow nasal cannula with pulse ox of 96%, blood gas was obtained, and showed pO2 of 62, pCO2 of 38, pH of 7.37, and this was done on FiO2 of 100%, this is consistent with acute hypoxemic respiratory failure. ProBNP was elevated at 1520, developed acute kidney injury, and currently his BUN is 25, creatinine is 1.6. Yesterday's labs show WBC of 13.3, hemoglobin of 13.1. Patient states he is dyspneic without the oxygen, however in no acute distress. Does have some scattered expiratory wheezes. Patient is an ex-smoker , quit smoking 2 years ago, but prior to that smoked a pack a day for 50 years. The medical history includes hypertension, GERD/reflux, osteoarthritis, history of hepatitis C treated, skin cancer chronic back and neck pain, history of pneumothorax, and left carotid artery stenosis. He was given the single dose of IV Lasix 40 mg and only diuresed about 350 ML with no improvement in FiO2 requirement. We are seeing the patient in consultation for acute hypoxemic respiratory failure. On 09/26/2017 patient seen again in follow-up on selective care unit. VQ scan from yesterday was reviewed, and showed an indeterminate mobility of pulmonary embolism, and possibility of an underlying laboratory or infectious airway disease. Clinically patient denies any acute distress, although still requiring high amounts of oxygen at 15 L per high flow nasal cannula, his pulse ox is 95%, patient has been afebrile, denies any cough, congestion, or sputum production. Doubt pneumonia. Patient is likely to have an acute COPD exacerbation, his exam reveals diffuse wheezes bilaterally. Patient had been started on IV Solu-Medrol yesterday by the attending physician, nebulized bronchodilators. He carries over [id number] smoking history, we will and Pulmicort and Perforomist, patient was empirically placed on Zosyn as well. Today's labs were reviewed, WBC is 14.0, hemoglobin is 13.2, sodium was 139, potassium is 4.3, chloride is 103, CO2 of 19, BUN of 30, creatinine is 1.3. Venous Dopplers studies were negative for any evidence of DVT. For possibility of an acute pulmonary embolism. Renal profile is improving, we may consider weaning the CT angios of the chest to rule out pulmonary embolism if patient's hypoxemia does not improve. On 09/29/2017 patient seen again in follow-up on selective care unit. He is weak, alert, denies any acute distress, lung sounds are positive for a few scattered rhonchi, no wheezing noted. Good air entry noted bilaterally. FiO2 is down to 7 L per nasal cannula with pulse ox of 90-[address] angios has been reviewed by Dr. Michaels, was negative for any evidence of pulmonary medicine, patient has emphysema, pulmonary fibrosis in addition to mild atelectasis at the lung bases. Continue encouraging incentive spirometry, patient is to achieve 3760-7104 ML on it today. Patient is status post repair of fascial dehiscence, postop day 1. Mid abdominal incision is clean dry and intact, well approximated, patient is diffusely tender along the incision site. Binder is on, bowel sounds are hypoactive, epidural catheter has been discontinued. Patient is on nebulized bronchodilators, IV steroids and Zosyn. We will decrease the IV steroids to 40 mg once daily, continue with current medical treatment. On 09/30/2017 patient seen again in follow-up on selective care unit. Still having significant amount of incisional pain, and this may be limiting patient' s ability to take deep breaths and cough. FiO2 is currently at 11 L per nasal cannula with a pulse ox of 94%, patient is calm and comfortable, in no acute distress. Denies any worsening dyspnea. Lung sounds are clear to auscultation , no rhonchi or wheezes noted. Patient is compliant with his incentive spirometer, able to achieve 1269-0256 ML on the today. We decreased the FiO2 down to 6 L per nasal cannula, and his pulse ox remained around 93-94%, and patient remained comfortable, denies any shortness of breath. he is receiving nebulized bronchodilators, she has been covered with empiric antibiotics in the form of Zosyn, however his CTA chest did not show any evidence of pneumonia, but extensive emphysema. Patient's abdomen seems to be a bit more distended on today's exam, incision is clean dry and intact, patient is passing gas, but has not passed any bowel movements yet. He continues on ice chips, she will be started on clear liquid diet today. We will continue with current medical treatment, continue weaning FiO2 to keep pulse ox at 92 or better. Objective - Vital Signs Vital signs: Vital Signs Temp 97 F L 09/30/17 08:00 Pulse 88 09/30/17 08:51 Resp 18 09/30/17 08:00 BP 135/84 09/30/17 08:00 Pulse Ox 93 L 09/30/17 08:39 Intake & Output 09/29/17 09/30/17 09/30/17 18:59 06:59 18:59 Intake Total 210 Output Total 400 300 800 Balance -400 -90 -800 Weight 90.9 kg Intake: Intake, IV Titration 210 Amount Lactated Ringers 1,000 ml 160 @ 20 mls/hr IV .Q24H [facility] Rx#:[id number] Piperacillin-Tazobactam 3 50 .375 gm In Dextrose/Water 1 50ml.bag @ 12.5 mls/hr IVPB Q8HR [facility] Rx#: [id number] Output: Urine 400 300 800 Other: Voiding Method Toilet Toilet Urinal Urinal - Exam - Constitutional Physical exam revealed a 67-year-old white male, sitting up in the chair, currently on 11 L per high flow nasal cannula, which has been decreased to 6 L, and patient's pulse ox remained at 93-94%. General appearance: no acute distress - EENT Eyes: EOMI ENT: NA/AT - Neck Neck: no lymphadenopathy, normal ROM Thyroid: bilateral: normal size - Respiratory Respiratory: bilateral: Clear lung sounds, no rhonchi, no wheezes - Cardiovascular Rhythm: regular Heart sounds: normal: S1, S2 ankle Peripheral Edema: bilateral: None foot Peripheral Edema: bilateral: None dorsalis pedis Peripheral Pulses: bilateral: Normal radial pulse Peripheral Pulses: bilateral: Normal - Gastrointestinal Midabdominal incision is clean dry and intact, Abdomen is slightly diffusely tender, but no guarding, no rebound or rigidity noted, hypoactive bowel sounds, no organomegaly General gastrointestinal: no organomegaly, soft, no tenderness Localized gastrointestinal: surgical scar: midline - Integumentary Integumentary: normal turgor - Neurologic Neurologic: CNII-XII intact - Labs CBC & Chem 7: 09/30/17 05:30 09/30/17 05:30 Labs: Abnormal Lab Results - Last 24 Hours (Table) 09/29/17 09/29/17 09/30/17 Range/Units 13:01 13:01 05:30 WBC 12.5 H 11.2 H (3.8-10.6) k/uL Neutrophils # 11.6 H 9.5 H (1.3-7.7) k/uL Lymphocytes # 0.4 L 0.8 L (1.0-4.8) k/uL BUN 27 H (9-20) mg/dL Creatinine 1.43 H (0.66-1.25) mg/dL Glucose 124 H (74-99) mg/dL Total Bilirubin 1.4 H (0.2-1.3) mg/dL AST 66 H (17-59) U/L ALT 148 H (21-72) U/L Total Protein (6.3-8.2) g/dL 09/30/17 Range/Units 05:30 WBC (3.8-10.6) k/uL Neutrophils # (1.3-7.7) k/uL Lymphocytes # (1.0-4.8) k/uL BUN 32 H (9-20) mg/dL Creatinine 1.60 H (0.66-1.25) mg/dL Glucose 101 H (74-99) mg/dL Total Bilirubin (0.2-1.3) mg/dL AST 67 H (17-59) U/L ALT 185 H (21-72) U/L Total Protein 6.0 L (6.3-8.2) g/dL Microbiology - Last 24 Hours (Table) 09/26/17 08:13 Blood Culture - Preliminary Blood No Growth after 96 hours Assessment and Plan Plan: Assessment: #1. Acute hypoxemic respiratory failure, possibly related to acute exacerbation of COPD, CT angios was negative for any evidence of pulmonary embolism, but was positive for emphysema, and pulmonary fibrosis and mild bibasilar atelectasis. #2. Sigmoid colonic mass, status post low anterior resection, and repair of the ventral hernia, postop day 7. Biopsy results revealed benign colonic mucosa with the submucosal lipoma. Patient has developed fascial dehiscence, and is status post repair of the fascial dehiscence, postop day 1. #3. Acute kidney injury, improving #4. History of nicotine dependence, quit 2 years ago, but carries [id number] smoking history #5. Hypertension #6. Osteoarthritis #7. History of pneumothorax #8. Left carotid artery stenosis Plan: Decrease the FiO2 down to 6 L per nasal cannula, keep weaning it down to keep FiO2 at 92 of better. Ambulate the patient, pulmonary toileting, incentive spirometry, pain control. Continue neb bronchodilators, and current dose of Solu-Medrol. CT angios was negative for any evidence of pneumonia, We'll continue to follow. I performed a history & physical examination of the patient and discussed their management with my nurse practitioner, Danielle Amador. I reviewed the nurse practitioner's note and agree with the documented findings and plan of care. Lung sounds are clear. The findings and the impression was discussed with the patient. I attest to the documentation by the nurse practitioner. Time with Patient: Less than 30
--- NOTE | 2017-09-30 14:20 | P.PN ---
<Radha Chambersmilton Dominguez - Last Filed: 09/30/17 14:12> Subjective Progress Note Date: 09/30/17 67-year-old male seen in the bedside states he did ambulate twice in the hallway this morning states not passing gas no stool abdomen less tenderness abdominal binder in place abdomen slightly distended. States the pain medication effective for pain control. Urinating no difficulty Low anterior resection and repair of ventral hernia for a sigmoid colon mass done on September 23 with a repair of fascial dehiscence done on September 28 Objective - Vital Signs Vital signs: Vital Signs Temp 97 F L 09/30/17 08:00 Pulse 88 09/30/17 12:27 Resp 18 09/30/17 12:00 BP 135/79 09/30/17 12:00 Pulse Ox 93 L 09/30/17 12:00 Intake & Output 09/29/17 09/30/17 09/30/17 18:59 06:59 18:59 Intake Total 210 Output Total 400 300 800 Balance -400 -90 -800 Weight 90.9 kg 90.9 kg Intake: Intake, IV Titration 210 Amount Lactated Ringers 1,000 ml 160 @ 20 mls/hr IV .Q24H [facility] Rx#:[id number] Piperacillin-Tazobactam 3 50 .375 gm In Dextrose/Water 1 50ml.bag @ 12.5 mls/hr IVPB Q8HR [facility] Rx#: [id number] Output: Urine 400 300 800 Other: Voiding Method Toilet Toilet Urinal Urinal - Exam Physical exam 67-year-old male sitting up in bed Lungs adequate air movement able to use the incentive spirometer can achieve thousand Heart S1-S2 audible and regular no murmur denying chest pain when questioning Abdomen , binder in place surgical dressing active bowel tones noted slightly distended states passing gas no stool Extremities no edema noted. - Labs CBC & Chem 7: 09/30/17 05:30 09/30/17 05:30 Labs: Abnormal Lab Results - Last 24 Hours (Table) 09/30/17 09/30/17 Range/Units 05:30 05:30 WBC 11.2 H (3.8-10.6) k/uL Neutrophils # 9.5 H (1.3-7.7) k/uL Lymphocytes # 0.8 L (1.0-4.8) k/uL BUN 32 H (9-20) mg/dL Creatinine 1.60 H (0.66-1.25) mg/dL Glucose 101 H (74-99) mg/dL AST 67 H (17-59) U/L ALT 185 H (21-72) U/L Total Protein 6.0 L (6.3-8.2) g/dL Microbiology - Last 24 Hours (Table) 09/26/17 08:13 Blood Culture - Preliminary Blood No Growth after 96 hours Assessment and Plan Assessment: Impression Sigmoid colon mass status post low anterior resection Acute hypoxic respiratory failure pulmonary emboli to be ruled out by VQ scan Obesity BMI 30 Acute kidney injury nicotine dependency quit 2 years prior with a 50 year history Status post repair wound dehiscent done September 28 Plan Diet will be initiated when bowel function resumes Continue postop surgical care Continue recommendations by pulmonary service Increase the use of the incentive spirometer attempt to titrate the O2 down Increase activity DVT and GI prophylaxis Pain control Further surgical recommendations pending Progress note dictated for Dr. Mohan rounding on behalf of Dr. rucker The above impression and plan of care have been discussed and directed by signing physician. Lorie hCambers nurse practitioner acting as scribe for signing physician. <Evon Chavez N - Last Filed: 09/30/17 16:55> Objective - Vital Signs Vital signs: Vital Signs Temp 97.8 F 09/30/17 16:00 Pulse 62 09/30/17 16:00 Resp 18 09/30/17 16:00 BP 127/82 09/30/17 16:00 Pulse Ox 93 L 09/30/17 16:00 Intake & Output 09/29/17 09/30/17 09/30/17 18:59 06:59 18:59 Intake Total 210 190 Output Total 554 958 3235 Balance - Weight 90.9 kg 90.9 kg Intake: Intake, IV Titration 210 190 Amount Lactated Ringers 1,000 ml 160 140 @ 20 mls/hr IV .Q24H [facility] Rx#:[id number] Piperacillin-Tazobactam 3 50 50 .375 gm In Dextrose/Water 1 50ml.bag @ 12.5 mls/hr IVPB Q8HR [facility] Rx#: [id number] Output: Urine 736 368 4838 Other: Voiding Method Toilet Toilet Urinal Urinal - Labs CBC & Chem 7: 09/30/17 05:30 09/30/17 05:30 Labs: Abnormal Lab Results - Last 24 Hours (Table) 09/30/17 09/30/17 Range/Units 05:30 05:30 WBC 11.2 H (3.8-10.6) k/uL Neutrophils # 9.5 H (1.3-7.7) k/uL Lymphocytes # 0.8 L (1.0-4.8) k/uL BUN 32 H (9-20) mg/dL Creatinine 1.60 H (0.66-1.25) mg/dL Glucose 101 H (74-99) mg/dL AST 67 H (17-59) U/L ALT 185 H (21-72) U/L Total Protein 6.0 L (6.3-8.2) g/dL Microbiology - Last 24 Hours (Table) 09/26/17 08:13 Blood Culture - Preliminary Blood No Growth after 96 hours Assessment and Plan Plan: He has only ambulated 1x today. Advised to ambulate to facilitate bowel activity. Will start diet once expected ileus is resolved.
[2017-09-30] MEDS: LACTATED RINGERS 1,000 ML IV SCH (16:05)
[2017-09-30] MEDS: DEXTROSE 5%-0.45% NACL 1,000 ML IV SCH (18:41)
[2017-10-01] MEDS: HYDROmorphone 0.5 MG/0.5 ML SYRINGE IVP PRN ×5 (04:28→22:03)
[2017-10-01] MEDS: GEMFIBROZIL 600 MG TAB PO SCH ×2 (06:44→17:41)
[2017-10-01] MEDS: PREVACID 15 MG PO SCH (06:44)
[2017-10-01 06:49] LABS: Basophils % (A) 0 %; Eosinophils # (A) 0.1 k/uL (0-0.7); Eosinophils % (A) 1 %; HCT 41.1 % (39.0-53.0); HGB 13.8 gm/dL (13.0-17.5); Lymphocytes # (A) 0.9 k/uL (1.0-4.8); Lymphocytes % (A) 7 %; MCH 29.8 pg (25.0-35.0); MCHC 33.5 g/dL (31.0-37.0); MCV 88.8 fL (80.0-100.0); Mean Platelet Volume 7.5; Monocytes # (A) 0.7 k/uL (0-1.0); Monocytes % (A) 6 %; Neutrophils # (A) 10.2 k/uL (1.3-7.7); Neutrophils % (A) 85 %; Platelet Count 230 k/uL (150-450); RBC 4.63 m/uL (4.30-5.90); RDW 13.9 % (11.5-15.5)
[2017-10-01 07:01] LABS: Albumin 3.5 g/dL (3.5-5.0); Calcium 9.1 mg/dL (8.4-10.2); Total Bilirubin 1.1 mg/dL (0.2-1.3)
[2017-10-01] MEDS: SYMBICORT 160-4.5 MCG INHALER INHALATION SCH ×2 (08:12→20:25)
[2017-10-01] MEDS: IPRATROPIUM-ALBUTEROL 3 ML NEB INHALATION SCH ×4 (08:12→20:25)
[2017-10-01] MEDS: methylPREDNISolone SOD SUCCI 40 MG/ML 1 ML VIAL IV SCH (08:53)
[2017-10-01] MEDS: PIPERACILLIN-TAZOBACTAM 3.375 GM in DEXTROSE/WATER 1 50ML.BAG IVPB SCH ×3 (08:53→23:27)
[2017-10-01] MEDS: guaiFENesin-Coden 100-10MG/5ML 10 ML CUP PO SCH ×3 (08:53→22:04)
[2017-10-01] MEDS: amLODIPine 10 MG TAB PO SCH (08:53)
[2017-10-01] MEDS: ASPIRIN 81 MG PO SCH (08:53)
[2017-10-01] MEDS: ENOXAPARIN 40 MG/0.4 ML SYRINGE SQ SCH (08:53)
--- NOTE | 2017-10-01 09:54 | P.PN ---
Subjective Progress Note Date: 10/01/17 Principal diagnosis: abdominal pain Patient is a 67-year-old male initially admitted for resection of colonic mass which has since resulted as lipoma. He developed acute exacerbation of COPD and possible pneumonia during his hospitalization along with acute hypoxic respiratory failure. He is currently receiving breathing treatments, Solu-Medrol, and antibiotics. He also had acute kidney injury during his hospitalization and initially could not undergo evaluation for pulmonary emboli and was maintained on a heparin drip. His renal function improved and he subsequently underwent a CTA of the chest on 09/28 and hab been having rising creatinine since that point in time which stabalized on 10/01. Patient seen and examined at bedside. Pain is controlled. Has had several bowel movements overnight. No nausea or vomiting. Has been up and walking in the hallways. Pain is controlled but worse when getting up and down. Asking for break from SCDs and Lovenox was given this morning so it appears that he could take a break from his SCDs. Objective - Vital Signs Vital signs: Vital Signs Temp 97.1 F L 10/01/17 08:30 Pulse 62 10/01/17 08:30 Resp 16 10/01/17 08:30 BP 128/69 10/01/17 08:30 Pulse Ox 92 L 10/01/17 08:30 Intake & Output 09/30/17 10/01/17 10/01/17 18:59 06:59 18:59 Intake Total 190 Output Total 1200 600 Balance -1010 -600 Weight 90.9 kg 89.4 kg Intake: Intake, IV Titration 190 Amount Lactated Ringers 1,000 ml 140 @ 20 mls/hr IV .Q24H [facility] Rx#:[id number] Piperacillin-Tazobactam 3 50 .375 gm In Dextrose/Water 1 50ml.bag @ 12.5 mls/hr IVPB Q8HR [facility] Rx#: [id number] Output: Urine 1200 600 Other: Voiding Method Urinal Urinal - Exam General: non toxic, no distress, appears at stated age Derm: warm, dry Head: atraumatic, normocephalic, symmetric Eyes: EOMI, no lid lag, anicteric sclera Mouth: no lip lesion, mucus membranes moist Cardiovascular: S1S2 reg, no murmur, positive posterior tibial pulse bilateral, Lungs: decreased bs b/l bases, no rhonchi, no rales , no accessory muscle use Abdominal: soft, nontender to palpation suprapubic, no guarding, no appreciable organomegaly Ext: no gross muscle atrophy, no edema, no contractures Neuro: CN II-XI grossly intact, no focal neuro deficits Psych: Alert, oriented, appropriate affect - Labs CBC & Chem 7: 10/01/17 06:01 10/01/17 06:01 Labs: Abnormal Lab Results - Last 24 Hours (Table) 10/01/17 10/01/17 Range/Units 06:01 06:01 WBC 12.0 H (3.8-10.6) k/uL Neutrophils # 10.2 H (1.3-7.7) k/uL Lymphocytes # 0.9 L (1.0-4.8) k/uL BUN 32 H (9-20) mg/dL Creatinine 1.59 H (0.66-1.25) mg/dL Glucose 111 H (74-99) mg/dL AST 68 H (17-59) U/L ALT 225 H (21-72) U/L Total Protein 6.0 L (6.3-8.2) g/dL Microbiology - Last 24 Hours (Table) 09/26/17 08:13 Blood Culture - Preliminary Blood No Growth after 96 hours Assessment and Plan Assessment: Acute exacerbation of COPD with acute hypoxic respiratory failure, improving -CTA chest was negative and heparin drip has been stopped -Steroids, bronchodilators, antibiotics -Pulmonary recommendations -On empiric Zosyn day #6/7 Transaminits, - suspect secondary to zosyn - Will follow liver enzymes - has been treated for hepatitis C in the past - will order follow up testing for discharge. Acute kidney injury, likely secondary to contrast exposure, stabalized -off CLAUDIA inhibitor -IV fluids -Repeat renal profile in a.m. -Avoid additional nephrotoxic agents Status post resection of sigmoid colonic lipoma -Management as per primary surgical services -Status post repair of fascial wound dehiscence -Currently nothing by mouth Hypertension, controlled -Lisinopril discontinued secondary to acute kidney injury, continue Norvasc -Follow blood pressures closely Chronic: Osteoarthritis, left carotid artery stenosis DVT prophylaxis: Lovenox Discussed with: Patient, nursing A total of 35 minutes was spent on the care of this complex patient more than 50 % of the time was spent in counseling and care coordination.
[2017-10-01 09:56] VITALS: BMI 28.3
[2017-10-01] MEDS: DEXTROSE 5%-0.45% NACL 1,000 ML IV SCH ×2 (11:50→23:36)
[2017-10-01] MEDS: LACTATED RINGERS 1,000 ML IV SCH (14:30)
--- NOTE | 2017-10-01 15:02 | P.PN ---
<Danielle Amador M - Last Filed: 10/01/17 14:56> Subjective Progress Note Date: 10/01/17 Principal diagnosis: Acute hypoxemic respiratory failure, in part due to acute exacerbation of COPD, cannot rule out pulmonary embolism Mr. Daquan Agustin is a 67-year-old white male patient presented on 09/23/2017 for active sigmoid colon mass resection that was discovered on the colonoscopy on 09/22/2017. The mass was quite large occupying almost 75% of the sigmoid colon. In the early hours of morning on 09/25/2017 patient developed hypoxemia , and was placed on 15 L of oxygen per high flow nasal cannula. He states he had been dyspneic since before his surgery on Friday. Initial chest x-ray on 09/24/2017 showed poor inspiratory effort, but no acute pulmonary process. Follow up chest x-ray on 09/25/2017 showed mild coarsening of interstitial markings consistent with mild pulmonary fibrosis, but no heart failure. He remains on 15 L per high flow nasal cannula with pulse ox of 96%, blood gas was obtained, and showed pO2 of 62, pCO2 of 38, pH of 7.37, and this was done on FiO2 of 100%, this is consistent with acute hypoxemic respiratory failure. ProBNP was elevated at 1520, developed acute kidney injury, and currently his BUN is 25, creatinine is 1.6. Yesterday's labs show WBC of 13.3, hemoglobin of 13.1. Patient states he is dyspneic without the oxygen, however in no acute distress. Does have some scattered expiratory wheezes. Patient is an ex-smoker , quit smoking 2 years ago, but prior to that smoked a pack a day for 50 years. The medical history includes hypertension, GERD/reflux, osteoarthritis, history of hepatitis C treated, skin cancer chronic back and neck pain, history of pneumothorax, and left carotid artery stenosis. He was given the single dose of IV Lasix 40 mg and only diuresed about 350 ML with no improvement in FiO2 requirement. We are seeing the patient in consultation for acute hypoxemic respiratory failure. On 09/26/2017 patient seen again in follow-up on selective care unit. VQ scan from yesterday was reviewed, and showed an indeterminate mobility of pulmonary embolism, and possibility of an underlying laboratory or infectious airway disease. Clinically patient denies any acute distress, although still requiring high amounts of oxygen at 15 L per high flow nasal cannula, his pulse ox is 95%, patient has been afebrile, denies any cough, congestion, or sputum production. Doubt pneumonia. Patient is likely to have an acute COPD exacerbation, his exam reveals diffuse wheezes bilaterally. Patient had been started on IV Solu-Medrol yesterday by the attending physician, nebulized bronchodilators. He carries over [id number] smoking history, we will and Pulmicort and Perforomist, patient was empirically placed on Zosyn as well. Today's labs were reviewed, WBC is 14.0, hemoglobin is 13.2, sodium was 139, potassium is 4.3, chloride is 103, CO2 of 19, BUN of 30, creatinine is 1.3. Venous Dopplers studies were negative for any evidence of DVT. For possibility of an acute pulmonary embolism. Renal profile is improving, we may consider weaning the CT angios of the chest to rule out pulmonary embolism if patient's hypoxemia does not improve. On 09/29/2017 patient seen again in follow-up on selective care unit. He is weak, alert, denies any acute distress, lung sounds are positive for a few scattered rhonchi, no wheezing noted. Good air entry noted bilaterally. FiO2 is down to 7 L per nasal cannula with pulse ox of 90-[address] angios has been reviewed by Dr. Michaels, was negative for any evidence of pulmonary medicine, patient has emphysema, pulmonary fibrosis in addition to mild atelectasis at the lung bases. Continue encouraging incentive spirometry, patient is to achieve [id number] ML on it today. Patient is status post repair of fascial dehiscence, postop day 1. Mid abdominal incision is clean dry and intact, well approximated, patient is diffusely tender along the incision site. Binder is on, bowel sounds are hypoactive, epidural catheter has been discontinued. Patient is on nebulized bronchodilators, IV steroids and Zosyn. We will decrease the IV steroids to 40 mg once daily, continue with current medical treatment. On 09/30/2017 patient seen again in follow-up on selective care unit. Still having significant amount of incisional pain, and this may be limiting patient' s ability to take deep breaths and cough. FiO2 is currently at 11 L per nasal cannula with a pulse ox of 94%, patient is calm and comfortable, in no acute distress. Denies any worsening dyspnea. Lung sounds are clear to auscultation , no rhonchi or wheezes noted. Patient is compliant with his incentive spirometer, able to achieve 6013-2873 ML on the today. We decreased the FiO2 down to 6 L per nasal cannula, and his pulse ox remained around 93-94%, and patient remained comfortable, denies any shortness of breath. he is receiving nebulized bronchodilators, she has been covered with empiric antibiotics in the form of Zosyn, however his CTA chest did not show any evidence of pneumonia, but extensive emphysema. Patient's abdomen seems to be a bit more distended on today's exam, incision is clean dry and intact, patient is passing gas, but has not passed any bowel movements yet. He continues on ice chips, she will be started on clear liquid diet today. We will continue with current medical treatment, continue weaning FiO2 to keep pulse ox at 92 or better. On 10/01/2017 patient seen again in follow-up on selective care unit. His FiO2 is currently down to 5 L per nasal cannula, and his pulse ox is 94%. This can probably be weaned further. Clinically patient is without any acute distress, he denies any dyspnea, denies any chest pain. His surgical pain is under better control. Patient is compliant with his incentive spirometry, and he is able to achieve 2000 on the today. He remains on empiric antibiotics in the form of Zosyn, blood cultures have been negative since admission. He is afebrile, no chills, no dynamically stable, lung sounds are clear to auscultation, no wheezes no refills. He remains on IV Solu-Medrol at 40 mg IV daily, she remains on nebulized bronchodilators. Continue with current medical treatment, encourage ambulation, patient has ambulated the entire length of the [place] and back, and tolerated quite well. Continue weaning FiO2, continue pulmonary toileting. Objective - Vital Signs Vital signs: Vital Signs Temp 97.0 F L 10/01/17 11:46 Pulse 61 10/01/17 11:56 Resp 16 10/01/17 11:46 BP 126/74 10/01/17 11:46 Pulse Ox 94 L 10/01/17 11:46 Intake & Output 09/30/17 10/01/17 10/01/17 18:59 06:59 18:59 Intake Total 190 240 Output Total 1200 600 Balance -1010 -600 240 Weight 90.9 kg 89.4 kg 89.4 kg Intake: Intake, IV Titration 190 Amount Lactated Ringers 1,000 ml 140 @ 20 mls/hr IV .Q24H [facility] Rx#:[id number] Piperacillin-Tazobactam 3 50 .375 gm In Dextrose/Water 1 50ml.bag @ 12.5 mls/hr IVPB Q8HR [facility] Rx#: [id number] Oral 240 Output: Urine 1200 600 Other: Voiding Method Urinal Urinal Urinal - Exam - Constitutional Physical exam revealed a 67-year-old white male, sitting up in the chair, currently on 5 L per high flow nasal cannula General appearance: no acute distress - EENT Eyes: EOMI ENT: NA/AT - Neck Neck: no lymphadenopathy, normal ROM Thyroid: bilateral: normal size - Respiratory Respiratory: bilateral: Clear lung sounds, no rhonchi, no wheezes - Cardiovascular Rhythm: regular Heart sounds: normal: S1, S2 ankle Peripheral Edema: bilateral: None foot Peripheral Edema: bilateral: None dorsalis pedis Peripheral Pulses: bilateral: Normal radial pulse Peripheral Pulses: bilateral: Normal - Gastrointestinal Midabdominal incision is clean dry and intact, Abdomen is slightly diffusely tender, but no guarding, no rebound or rigidity noted, hypoactive bowel sounds, no organomegaly General gastrointestinal: no organomegaly, soft, no tenderness Localized gastrointestinal: surgical scar: midline - Integumentary Integumentary: normal turgor - Neurologic Neurologic: CNII-XII intact - Labs CBC & Chem 7: 10/01/17 06:01 10/01/17 06:01 Labs: Abnormal Lab Results - Last 24 Hours (Table) 10/01/17 10/01/17 Range/Units 06:01 06:01 WBC 12.0 H (3.8-10.6) k/uL Neutrophils # 10.2 H (1.3-7.7) k/uL Lymphocytes # 0.9 L (1.0-4.8) k/uL BUN 32 H (9-20) mg/dL Creatinine 1.59 H (0.66-1.25) mg/dL Glucose 111 H (74-99) mg/dL AST 68 H (17-59) U/L ALT 225 H (21-72) U/L Total Protein 6.0 L (6.3-8.2) g/dL Microbiology - Last 24 Hours (Table) 09/26/17 08:13 Blood Culture - Preliminary Blood No Growth after 120 hours Assessment and Plan Plan: Assessment: #1. Acute hypoxemic respiratory failure, possibly related to acute exacerbation of COPD, CT angios was negative for any evidence of pulmonary embolism, but was positive for emphysema, and pulmonary fibrosis and mild bibasilar atelectasis. #2. Sigmoid colonic mass, status post low anterior resection, and repair of the ventral hernia, postop day 7. Biopsy results revealed benign colonic mucosa with the submucosal lipoma. Patient has developed fascial dehiscence, and is status post repair of the fascial dehiscence, postop day 1. #3. Acute kidney injury, improving #4. History of nicotine dependence, quit 2 years ago, but carries [id number] smoking history #5. Hypertension #6. Osteoarthritis #7. History of pneumothorax #8. Left carotid artery stenosis Plan: Continue current medical treatment, continue IV Solu-Medrol at 40 mg daily, continue nebulized bronchodilators, encourage incentive spirometry, pulmonary toileting, ambulation. Continue pain management. Patient has not passed any stools, he remains on ice chips at this time. Continue to follow with you I performed a history & physical examination of the patient and discussed their management with my nurse practitioner, Danielle Amador. I reviewed the nurse practitioner's note and agree with the documented findings and plan of care. Lung sounds are clear. The findings and the impression was discussed with the patient. I attest to the documentation by the nurse practitioner. Time with Patient: Less than 30 <Charles Michaels - Last Filed: 10/01/17 15:58> Objective - Vital Signs Vital signs: Vital Signs Temp 97.0 F L 10/01/17 11:46 Pulse 61 10/01/17 11:56 Resp 16 10/01/17 11:46 BP 126/74 10/01/17 11:46 Pulse Ox 94 L 10/01/17 11:46 Intake & Output 09/30/17 10/01/17 10/01/17 18:59 06:59 18:59 Intake Total 190 240 Output Total 1200 600 Balance -1010 -600 240 Weight 90.9 kg 89.4 kg 89.4 kg Intake: Intake, IV Titration 190 Amount Lactated Ringers 1,000 ml 140 @ 20 mls/hr IV .Q24H [facility] Rx#:[id number] Piperacillin-Tazobactam 3 50 .375 gm In Dextrose/Water 1 50ml.bag @ 12.5 mls/hr IVPB Q8HR [facility] Rx#: [id number] Oral 240 Output: Urine 1200 600 Other: Voiding Method Urinal Urinal Urinal # Voids 3 - Labs CBC & Chem 7: 10/01/17 06:01 10/01/17 06:01 Labs: Abnormal Lab Results - Last 24 Hours (Table) 10/01/17 10/01/17 Range/Units 06:01 06:01 WBC 12.0 H (3.8-10.6) k/uL Neutrophils # 10.2 H (1.3-7.7) k/uL Lymphocytes # 0.9 L (1.0-4.8) k/uL BUN 32 H (9-20) mg/dL Creatinine 1.59 H (0.66-1.25) mg/dL Glucose 111 H (74-99) mg/dL AST 68 H (17-59) U/L ALT 225 H (21-72) U/L Total Protein 6.0 L (6.3-8.2) g/dL Microbiology - Last 24 Hours (Table) 09/26/17 08:13 Blood Culture - Preliminary Blood No Growth after 120 hours Assessment and Plan Plan: The patient is improving clinically. The patient is passing bowel movements. Oxidation is also improved and the patient is being gradually weaned down the FiO2 is down to 5 L of oxygen nasal cannula. The patient is ambulating. COPD stable. We'll continue to follow.
--- NOTE | 2017-10-01 20:17 | P.PN ---
Subjective Progress Note Date: 10/01/17 He had a large bowel movement this evening. Pain is controlled. He is tolerating diet. His is at bedside. He is ambulating Objective - Vital Signs Vital signs: Vital Signs Temp 97.0 F L 10/01/17 15:55 Pulse 60 10/01/17 16:10 Resp 16 10/01/17 18:06 BP 132/74 10/01/17 15:55 Pulse Ox 94 L 10/01/17 18:06 Intake & Output 10/01/17 10/01/17 10/02/17 06:59 18:59 06:59 Intake Total 462 Output Total 600 Balance -600 462 Weight 89.4 kg 89.4 kg Intake: Oral 462 Output: Urine 600 Other: Voiding Method Urinal Urinal # Voids 3 - Exam ABDOMEN: Dressing intact with abdominal binder. No peritonitis. GENERAL: Well developed and in no acute distress. Pleasant. HEENT: No sclera icterus. Extraocular movements grossly intact. Moist buccal mucosa. Head is atraumatic, normocephalic. Hears conversational speech. No nasal drainage. NECK: Supple without lymphadenopathy. No JV distention. CHEST: Non-labored respirations and equal bilateral excursions. CARDIOVASCULAR: Regular rate and rhythm. Palpable 2+ radial pulses. MUSCULOSKELETAL: No clubbing, cyanosis or edema. NEUROLOGIC: No focal or lateralizing signs. PSYCH: Appropriate affect. Alert and oriented to person, place and time. SKIN: Good skin turgor. Well perfused. - Labs CBC & Chem 7: 10/02/17 05:46 10/02/17 05:46 Labs: Abnormal Lab Results - Last 24 Hours (Table) 10/01/17 10/01/17 Range/Units 06:01 06:01 WBC 12.0 H (3.8-10.6) k/uL Neutrophils # 10.2 H (1.3-7.7) k/uL Lymphocytes # 0.9 L (1.0-4.8) k/uL BUN 32 H (9-20) mg/dL Creatinine 1.59 H (0.66-1.25) mg/dL Glucose 111 H (74-99) mg/dL AST 68 H (17-59) U/L ALT 225 H (21-72) U/L Total Protein 6.0 L (6.3-8.2) g/dL Microbiology - Last 24 Hours (Table) 09/26/17 08:13 Blood Culture - Preliminary Blood No Growth after 120 hours Assessment and Plan (1) S/P colectomy Status: Acute Code(s): Z90.49 - ACQUIRED ABSENCE OF OTHER SPECIFIED PARTS OF DIGESTIVE TRACT SNOMED Code(s): 233374763 (2) Colitis Status: Acute Code(s): K52.9 - NONINFECTIVE GASTROENTERITIS AND COLITIS, UNSPECIFIED SNOMED Code(s): 40718595 Plan: 1. May discharge home tomorrow. 2. Follow up with Dr. Curtis in 1 to 2 weeks.
[2017-10-02] MEDS: PREVACID 15 MG PO SCH (05:54)
[2017-10-02] MEDS: GEMFIBROZIL 600 MG TAB PO SCH (05:54)
[2017-10-02] MEDS: HYDROmorphone 0.5 MG/0.5 ML SYRINGE IVP PRN (05:55)
[2017-10-02 06:05] LABS: Basophils % (A) 0 %; Eosinophils # (A) 0.2 k/uL (0-0.7); Eosinophils % (A) 2 %; HGB 14.6 gm/dL (13.0-17.5); Lymphocytes # (A) 1.4 k/uL (1.0-4.8); Lymphocytes % (A) 12 %; MCH 30.1 pg (25.0-35.0); MCHC 33.9 g/dL (31.0-37.0); MCV 88.8 fL (80.0-100.0); Mean Platelet Volume 7.1; Monocytes # (A) 0.6 k/uL (0-1.0); Monocytes % (A) 5 %; Neutrophils # (A) 9.4 k/uL (1.3-7.7); Neutrophils % (A) 80 %; Platelet Count 243 k/uL (150-450); RBC 4.84 m/uL (4.30-5.90); WBC 11.8 k/uL (3.8-10.6)
[2017-10-02 06:16] LABS: Albumin 3.8 g/dL (3.5-5.0); Calcium 9.2 mg/dL (8.4-10.2); Total Protein 6.2 g/dL (6.3-8.2)
[2017-10-02 06:22] LABS: Potassium 4.1 mmol/L (3.5-5.1)
[2017-10-02] MEDS: IPRATROPIUM-ALBUTEROL 3 ML NEB INHALATION SCH ×2 (07:54→11:33)
[2017-10-02] MEDS: SYMBICORT 160-4.5 MCG INHALER INHALATION SCH (07:54)
[2017-10-02] MEDS: ENOXAPARIN 40 MG/0.4 ML SYRINGE SQ SCH (08:18)
[2017-10-02] MEDS: methylPREDNISolone SOD SUCCI 40 MG/ML 1 ML VIAL IV SCH (08:18)
[2017-10-02] MEDS: ASPIRIN 81 MG PO SCH (08:19)
[2017-10-02] MEDS: amLODIPine 10 MG TAB PO SCH (08:19)
[2017-10-02] MEDS: guaiFENesin-Coden 100-10MG/5ML 10 ML CUP PO SCH (08:29)
[2017-10-02] MEDS: HYDROcodone/APAP 5-325MG 1 EACH TAB PO PRN ×2 (09:48→13:36)
--- NOTE | 2017-10-02 10:42 | P.PN ---
Subjective Progress Note Date: 10/02/17 Principal diagnosis: Patient is a 67-year-old male initially admitted for resection of colonic mass which has since resulted as lipoma. He developed acute exacerbation of COPD and possible pneumonia during his hospitalization along with acute hypoxic respiratory failure. He is currently receiving breathing treatments, Solu-Medrol, and antibiotics. He also had acute kidney injury during his hospitalization and initially could not undergo evaluation for pulmonary emboli and was maintained on a heparin drip. His renal function improved and he subsequently underwent a CTA of the chest on 09/28 and hab been having rising creatinine since that point in time which stabalized on 10/01 and is now trending down to 1.5 on 10/02 Patient seen and examined today, feeling great has had bowel movements no nausea vomiting ambulating well. No acute events overnight Objective - Vital Signs Vital signs: Vital Signs Temp 98.4 F 10/02/17 04:00 Pulse 62 10/02/17 08:10 Resp 18 10/02/17 04:00 BP 122/74 10/02/17 04:00 Pulse Ox 94 L 10/02/17 07:54 Intake & Output 10/01/17 10/02/17 10/02/17 18:59 06:59 18:59 Intake Total 462 925 360 Balance 462 925 360 Weight 89.4 kg 89.6 kg 89.6 kg Intake: Intake, IV Titration 925 Amount Dextrose 5%-0.45% NaCl 1, 825 000 ml @ 75 mls/hr IV . [id number] [facility] Rx#:[id number] Piperacillin-Tazobactam 3 100 .375 gm In Dextrose/Water 1 50ml.bag @ 12.5 mls/hr IVPB Q8HR [facility] Rx#: [id number] Oral 462 360 Other: Voiding Method Urinal Urinal # Voids 3 2 - Exam Constitutional: No acute distress, conversant, pleasant Eyes: Anicteric sclerae, moist conjunctiva, no lid-lag, PERRLA ENMT: NC/AT,Oropharynx clear, no erythema, exudates Neck:Supple, FROM, no masses, or JVD, No carotid bruits; No thyromegaly Lungs: Clear to auscultation, Clear to percussion, Normal respiratory effort, no accessory muscle use Cardiovascular: Heart regular in rate and rhythm, No murmurs, gallops, or rubs no peripheral edema Abdominal: Soft Nontender, nom distended, no guarding, no rebound or rigidity, Normoactive bowel sounds No hepatomegaly, No splenomegaly, No palpable mass No abdominal wall hernia noted Skin: Normal temperature, tone, texture, turgor, No induration No subcutaneous nodules, No rash, lesions, No ulcers Extremities:No digital cyanosis No clubbing, Pedal pulses intact and symmetrical Radial pulses intact and symmetrical Normal gait and station, No calf tenderness Psychiatric: Alert and oriented to person, place and time, Appropriate affect Intact judgement Neuro: Muscles Strength 5/5 in all 4 extremities, Sensation to light touch grossly present throughout, Cranial nerves II-XII grossly intact. No focal sensory deficits - Labs CBC & Chem 7: 10/02/17 05:46 10/02/17 05:46 Labs: Abnormal Lab Results - Last 24 Hours (Table) 10/02/17 10/02/17 Range/Units 05:46 05:46 WBC 11.8 H (3.8-10.6) k/uL Neutrophils # 9.4 H (1.3-7.7) k/uL Carbon Dioxide 21 L (22-30) mmol/L BUN 30 H (9-20) mg/dL Creatinine 1.51 H (0.66-1.25) mg/dL Glucose 101 H (74-99) mg/dL AST 64 H (17-59) U/L ALT 244 H (21-72) U/L Total Protein 6.2 L (6.3-8.2) g/dL Microbiology - Last 24 Hours (Table) 09/26/17 08:13 Blood Culture - Preliminary Blood No Growth after 120 hours Assessment and Plan Plan: Acute exacerbation of COPD with acute hypoxic respiratory failure, resolved patient back on room air -CTA chest was negative and heparin drip has been stopped -Steroids, bronchodilators, antibiotics -Pulmonary recommendations -On empiric Zosyn day #10/18, will discontinue today Transaminits, - suspect secondary to zosyn - Will follow liver enzymes - has been treated for hepatitis C in the past - will order follow up testing for discharge. Acute kidney injury, likely secondary to contrast exposure, resolved -CLAUDIA inhibitor held Status post resection of sigmoid colonic lipoma -Management as per primary surgical services -Status post repair of fascial wound dehiscence -Currently nothing by mouth Hypertension, controlled -Lisinopril discontinued secondary to acute kidney injury, continue Norvasc -Follow blood pressures closely Chronic: Osteoarthritis, left carotid artery stenosis DVT prophylaxis: Lovenox Discussed with: Patient, nursing A total of 35 minutes was spent on the care of this complex patient more than 50 % of the time was spent in counseling and care coordination. Disposition * Patient medically stable to be discharged today, official sign off
--- NOTE | 2017-10-02 10:46 | P.PN ---
Subjective Progress Note Date: 10/02/17 Principal diagnosis: Acute hypoxemic respiratory failure, in part due to acute exacerbation of COPD, cannot rule out pulmonary embolism Mr. Daquan Agustin is a 67-year-old white male patient presented on 09/23/2017 for active sigmoid colon mass resection that was discovered on the colonoscopy on 09/22/2017. The mass was quite large occupying almost 75% of the sigmoid colon. In the early hours of morning on 09/25/2017 patient developed hypoxemia , and was placed on 15 L of oxygen per high flow nasal cannula. He states he had been dyspneic since before his surgery on Friday. Initial chest x-ray on 09/24/2017 showed poor inspiratory effort, but no acute pulmonary process. Follow up chest x-ray on 09/25/2017 showed mild coarsening of interstitial markings consistent with mild pulmonary fibrosis, but no heart failure. He remains on 15 L per high flow nasal cannula with pulse ox of 96%, blood gas was obtained, and showed pO2 of 62, pCO2 of 38, pH of 7.37, and this was done on FiO2 of 100%, this is consistent with acute hypoxemic respiratory failure. ProBNP was elevated at 1520, developed acute kidney injury, and currently his BUN is 25, creatinine is 1.6. Yesterday's labs show WBC of 13.3, hemoglobin of 13.1. Patient states he is dyspneic without the oxygen, however in no acute distress. Does have some scattered expiratory wheezes. Patient is an ex-smoker , quit smoking 2 years ago, but prior to that smoked a pack a day for 50 years. The medical history includes hypertension, GERD/reflux, osteoarthritis, history of hepatitis C treated, skin cancer chronic back and neck pain, history of pneumothorax, and left carotid artery stenosis. He was given the single dose of IV Lasix 40 mg and only diuresed about 350 ML with no improvement in FiO2 requirement. We are seeing the patient in consultation for acute hypoxemic respiratory failure. On 09/26/2017 patient seen again in follow-up on selective care unit. VQ scan from yesterday was reviewed, and showed an indeterminate mobility of pulmonary embolism, and possibility of an underlying laboratory or infectious airway disease. Clinically patient denies any acute distress, although still requiring high amounts of oxygen at 15 L per high flow nasal cannula, his pulse ox is 95%, patient has been afebrile, denies any cough, congestion, or sputum production. Doubt pneumonia. Patient is likely to have an acute COPD exacerbation, his exam reveals diffuse wheezes bilaterally. Patient had been started on IV Solu-Medrol yesterday by the attending physician, nebulized bronchodilators. He carries over [id number] smoking history, we will and Pulmicort and Perforomist, patient was empirically placed on Zosyn as well. Today's labs were reviewed, WBC is 14.0, hemoglobin is 13.2, sodium was 139, potassium is 4.3, chloride is 103, CO2 of 19, BUN of 30, creatinine is 1.3. Venous Dopplers studies were negative for any evidence of DVT. For possibility of an acute pulmonary embolism. Renal profile is improving, we may consider weaning the CT angios of the chest to rule out pulmonary embolism if patient's hypoxemia does not improve. On 09/29/2017 patient seen again in follow-up on selective care unit. He is weak, alert, denies any acute distress, lung sounds are positive for a few scattered rhonchi, no wheezing noted. Good air entry noted bilaterally. FiO2 is down to 7 L per nasal cannula with pulse ox of 90-[address] angios has been reviewed by Dr. Michaels, was negative for any evidence of pulmonary medicine, patient has emphysema, pulmonary fibrosis in addition to mild atelectasis at the lung bases. Continue encouraging incentive spirometry, patient is to achieve [id number] ML on it today. Patient is status post repair of fascial dehiscence, postop day 1. Mid abdominal incision is clean dry and intact, well approximated, patient is diffusely tender along the incision site. Binder is on, bowel sounds are hypoactive, epidural catheter has been discontinued. Patient is on nebulized bronchodilators, IV steroids and Zosyn. We will decrease the IV steroids to 40 mg once daily, continue with current medical treatment. On 09/30/2017 patient seen again in follow-up on selective care unit. Still having significant amount of incisional pain, and this may be limiting patient' s ability to take deep breaths and cough. FiO2 is currently at 11 L per nasal cannula with a pulse ox of 94%, patient is calm and comfortable, in no acute distress. Denies any worsening dyspnea. Lung sounds are clear to auscultation , no rhonchi or wheezes noted. Patient is compliant with his incentive spirometer, able to achieve 0722-1806 ML on the today. We decreased the FiO2 down to 6 L per nasal cannula, and his pulse ox remained around 93-94%, and patient remained comfortable, denies any shortness of breath. he is receiving nebulized bronchodilators, she has been covered with empiric antibiotics in the form of Zosyn, however his CTA chest did not show any evidence of pneumonia, but extensive emphysema. Patient's abdomen seems to be a bit more distended on today's exam, incision is clean dry and intact, patient is passing gas, but has not passed any bowel movements yet. He continues on ice chips, she will be started on clear liquid diet today. We will continue with current medical treatment, continue weaning FiO2 to keep pulse ox at 92 or better. On 10/01/2017 patient seen again in follow-up on selective care unit. His FiO2 is currently down to 5 L per nasal cannula, and his pulse ox is 94%. This can probably be weaned further. Clinically patient is without any acute distress, he denies any dyspnea, denies any chest pain. His surgical pain is under better control. Patient is compliant with his incentive spirometry, and he is able to achieve 2000 on the today. He remains on empiric antibiotics in the form of Zosyn, blood cultures have been negative since admission. He is afebrile, no chills, no dynamically stable, lung sounds are clear to auscultation, no wheezes no refills. He remains on IV Solu-Medrol at 40 mg IV daily, she remains on nebulized bronchodilators. Continue with current medical treatment, encourage ambulation, patient has ambulated the entire length of the vill[place]te and back, and tolerated quite well. Continue weaning FiO2, continue pulmonary toileting. On 10/02/2016 patient seen again in follow-up on selective care unit. FiO2 is down to 2 L today, pulse ox on room air is 94%, we were told that the patient does desaturate with ambulation. Lung sounds are clear to auscultation, no rhonchi, no wheezes. No fever, no chills, patient has active bowel sounds today , and he is tolerating oral diet. Today's labs were noted, the previous 11.8, was 14.6, CO2 is 21, BUN is 30, creatinine is 1.51. Renal profile is stable. Patient remains on IV Solu-Medrol at 40 mg once daily, nebulized bronchodilators , Symbicort. From pulmonary standpoint patient can be discharged home today. Follow-up with Dr. Elias in the office in one week. We will stop his IV steroids Objective - Vital Signs Vital signs: Vital Signs Temp 98.4 F 10/02/17 04:00 Pulse 62 10/02/17 08:10 Resp 18 10/02/17 04:00 BP 122/74 10/02/17 04:00 Pulse Ox 94 L 10/02/17 07:54 Intake & Output 10/01/17 10/02/17 10/02/17 18:59 06:59 18:59 Intake Total 462 925 360 Balance 462 925 360 Weight 89.4 kg 89.6 kg 89.6 kg Intake: Intake, IV Titration 925 Amount Dextrose 5%-0.45% NaCl 1, 825 000 ml @ 75 mls/hr IV . [id number] SUDHIR Rx#:[id number] Piperacillin-Tazobactam 3 100 .375 gm In Dextrose/Water 1 50ml.bag @ 12.5 mls/hr IVPB Q8HR [facility] Rx#: [id number] Oral 462 360 Other: Voiding Method Urinal Urinal # Voids 3 2 - Exam - Constitutional Physical exam revealed a 67-year-old white male, sitting up in the chair, currently on 2 L per high flow nasal cannula. Room air pulse ox is 94% General appearance: no acute distress - EENT Eyes: EOMI ENT: NA/AT - Neck Neck: no lymphadenopathy, normal ROM Thyroid: bilateral: normal size - Respiratory Respiratory: bilateral: Clear lung sounds, no rhonchi, no wheezes - Cardiovascular Rhythm: regular Heart sounds: normal: S1, S2 ankle Peripheral Edema: bilateral: None foot Peripheral Edema: bilateral: None dorsalis pedis Peripheral Pulses: bilateral: Normal radial pulse Peripheral Pulses: bilateral: Normal - Gastrointestinal Midabdominal incision is clean dry and intact, Abdomen is slightly diffusely tender, but no guarding, no rebound or rigidity noted, hypoactive bowel sounds, no organomegaly General gastrointestinal: no organomegaly, soft, no tenderness Localized gastrointestinal: surgical scar: midline - Integumentary Integumentary: normal turgor - Neurologic Neurologic: CNII-XII intact - Labs CBC & Chem 7: 10/02/17 05:46 10/02/17 05:46 Labs: Abnormal Lab Results - Last 24 Hours (Table) 10/02/17 10/02/17 Range/Units 05:46 05:46 WBC 11.8 H (3.8-10.6) k/uL Neutrophils # 9.4 H (1.3-7.7) k/uL Carbon Dioxide 21 L (22-30) mmol/L BUN 30 H (9-20) mg/dL Creatinine 1.51 H (0.66-1.25) mg/dL Glucose 101 H (74-99) mg/dL AST 64 H (17-59) U/L ALT 244 H (21-72) U/L Total Protein 6.2 L (6.3-8.2) g/dL Microbiology - Last 24 Hours (Table) 09/26/17 08:13 Blood Culture - Preliminary Blood No Growth after 120 hours Assessment and Plan Plan: Assessment: #1. Acute hypoxemic respiratory failure, possibly related to acute exacerbation of COPD, CT angios was negative for any evidence of pulmonary embolism, but was positive for emphysema, and pulmonary fibrosis and mild bibasilar atelectasis. Resolved #2. Sigmoid colonic mass, status post low anterior resection, and repair of the ventral hernia, postop day 7. Biopsy results revealed benign colonic mucosa with the submucosal lipoma. Patient has developed fascial dehiscence, and is status post repair of the fascial dehiscence #3. Acute kidney injury, improving #4. History of nicotine dependence, quit 2 years ago, but carries 65-[id number] smoking history #5. Hypertension #6. Osteoarthritis #7. History of pneumothorax #8. Left carotid artery stenosis Plan: Patient is doing well, no wheezing, no shortness of breath. Vital signs are stable, we will discontinue the Solu-Medrol. Room air pulse ox was 94%, the patient does desaturate with activity. He may need home oxygen. His pain is reasonably controlled, no signs of active, patient is tolerating oral diet. No acute events overnight, encourage ambulation. Patient is stable for discharge home from pulmonary standpoint. No steroid taper needed. Patient was again encouraged to refrain from smoking. She will need outpatient follow- up in the pulmonary office for a baseline PFT. Please set up an appointment with Dr. Elias in one week I performed a history & physical examination of the patient and discussed their management with my nurse practitioner, Danielle Amador. I reviewed the nurse practitioner's note and agree with the documented findings and plan of care. Lung sounds are clear. The findings and the impression was discussed with the patient. I attest to the documentation by the nurse practitioner. Time with Patient: Less than 30
[2017-10-02] MEDS: DEXTROSE 5%-0.45% NACL 1,000 ML IV SCH ×2 (10:56→11:40)
[2017-10-02 11:59] VITALS: BP 160/80; PULSE 59; RESP 16; TEMP 97.1
--- NOTE | 2017-10-02 12:53 | P.DS ---
<ReyesRadhaLorie M - Last Filed: 10/02/17 12:35> Providers Date of admission: 09/23/17 09:35 Expected date of discharge: 10/02/17 Attending physician: Arash Curtis Consults: 09/23/17 14:15 Consult Physician Routine Consulting Provider: Rachel Alejandre Consult Reason/Comments: Medical management Do you want consulting provider notified?: Yes 09/23/17 17:55 Consult Physician Routine Consulting Provider: Shadi Crow Consult Reason/Comments: colon mass Do you want consulting provider notified?: Yes 09/25/17 08:59 Consult Physician Urgent Consulting Provider: Charles Michaels Consult Reason/Comments: hypoxia Do you want consulting provider notified?: Yes Primary care physician: [facility] Hospital Course: 67-year-old admitted on the day of admission for a sigmoid colon mass that was discovered on colonoscopy September 22. On the patient underwent a low anterior resection for sigmoid colon mass. The mass apparently was quite large 75% of the sigmoid colon post procedure on September 25 patient developed acute hypoxemia placed on high flow pulmonary participated in the plan of care. Patient started on updrafts monitored closely over the course of hospitalization the pulmonary status did improve. Patient oxygen was able to be weaned off steroids were initiated per pulmonary's recommendations and they were able to be DC'd at the day of discharge as mentioned patient did undergo the low anterior resection for the sigmoid colon mass on September 23. Needed to return to the emergency room for repair the fascia that dehisced on September 28 Patient was followed by pulmonary medicine service the day of discharge patient was up ambulatory on the unit did have a bowel movement was tolerating a diet and bowel function had resumed. White count was trending down patient was afebrile patient was anxious to be discharged home Impression discharge diagnose #1. Acute hypoxemic respiratory failure, possibly related to acute exacerbation of COPD, CT angios was negative for any evidence of pulmonary embolism, but was positive for emphysema, and pulmonary fibrosis and mild bibasilar atelectasis. Resolved #2. Sigmoid colonic mass, status post low anterior resection, and repair of the ventral hernia,. Biopsy results revealed benign colonic mucosa with the submucosal lipoma. Patient has developed fascial dehiscence, and is status post repair of the fascial dehiscence #3. Acute kidney injury, improving #4. History of nicotine dependence, quit 2 years ago, but carries 75-[id number]-dpcf smoking history #5. Hypertension #6. Osteoarthritis #7. History of pneumothorax #8. Left carotid artery stenosis #9 status post repair wound dehiscent done September 28 The above impression and plan of care have been discussed and directed by signing physician. Lorie Chambers nurse practitioner acting as scribe for signing physician. Patient Condition at Discharge: Stable Plan - Discharge Summary Discharge Rx Participant: Yes New Discharge Prescriptions: New HYDROcodone/APAP 5-325MG [Marina 5-325] 1 each PO Q4HR PRN #20 tab PRN Reason: Pain Continue amLODIPine [Norvasc] 10 mg PO DAILY Acetaminophen/Diphenhydramine [Tylenol PM 500-25mg] 1 tab PO HS PRN PRN Reason: Pain [id number] [Excedrin] 1 tab PO Q4HR PRN PRN Reason: Pain Cholecalciferol (Vitamin D3) [Vitamin D3] 2,000 unit PO DAILY Aspirin [Adult Low Dose Aspirin EC] 81 mg PO DAILY Gemfibrozil [Lopid] 600 mg PO AC-BID Clopidogrel [Plavix] 75 mg PO DAILY Lansoprazole [Prevacid] 15 mg PO DAILY Discontinued Lisinopril [Zestril] 20 mg PO DAILY Naproxen [Naprosyn] 500 mg PO DAILY PRN PRN Reason: Pain Discharge Medication List amLODIPine [Norvasc] 10 mg PO DAILY 03/05/16 [History] Acetaminophen/Diphenhydramine [Tylenol PM 500-25mg] 1 tab PO HS PRN 02/18/17 [ History] Aspirin [Adult Low Dose Aspirin EC] 81 mg PO DAILY 09/16/17 [History] [id number]-Fhzm-[id number] [Excedrin] 1 tab PO Q4HR PRN 09/16/17 [History] Cholecalciferol (Vitamin D3) [Vitamin D3] 2,000 unit PO DAILY 09/16/17 [History] Clopidogrel [Plavix] 75 mg PO DAILY 09/16/17 [History] Gemfibrozil [Lopid] 600 mg PO AC-BID 09/16/17 [History] Lansoprazole [Prevacid] 15 mg PO DAILY 09/16/17 [History] HYDROcodone/APAP 5-325MG [Marina 5-325] 1 each PO Q4HR PRN #20 tab 10/02/17 [Rx] Follow up Appointment(s)/Referral(s): Earnest Elias DO [Doctor of Osteopathic Medicine] - 10/23/17 2:15 pm () [facility] [Primary Care Provider] - 11/06/17 3:00 pm ([phone] with Marta. Office will call if earlier appointment becomes available) Arash Curtis MD [STAFF PHYSICIAN] - 10/09/17 2:50 pm () Patient Instructions/Handouts: Bowel Resection (DC) Activity/Diet/Wound Care/Special Instructions: No tub bath for six weeks. Shower daily. No lifting over 10 pounds for the next 6 weeks. Do not remove the surgical dressing until seen in a follow-up visit with Dr. curtis Encourage walking every hour May use ice packs to surgical site. No driving while taking narcotic for pain. No strenuous activity Soft diet as tolerated Encourage oral liquids Discharge Disposition: HOME SELF-CARE <Evon Chavez N - Last Filed: 10/02/17 20:59> - Discharge Diagnosis(es) (1) S/P colectomy Status: Acute (2) Colitis Status: Acute
== END 2017-10-02 14:46 | disposition home or self-care (01) | DRG 329 ==
LOC: 2ORMAIN 09:35 → 3SUR 14:17 → 6SEL 09-25 14:28
PROVIDERS: ADMIT Surgery; ATTEND Surgery
PROC: 0WQF0ZZ Repair Abdominal Wall, Open Approach (ICD-10-PCS; 2017-09-23)
PROC: 0DTN0ZZ Resection of Sigmoid Colon, Open Approach (ICD-10-PCS; principal; 2017-09-23 12:00)
PROC: 0WQF0ZZ Repair Abdominal Wall, Open Approach (ICD-10-PCS; 2017-09-28)
DX: D17.5 Benign lipomatous neoplasm of intra-abdominal organs (principal); J96.01 Acute respiratory failure with hypoxia; N17.9 Acute kidney failure, unspecified; T81.32XA Disruption of internal operation (surgical) wound, not elsewhere classified, initial encounter; J84.10 Pulmonary fibrosis, unspecified; J43.9 Emphysema, unspecified; I65.22 Occlusion and stenosis of left carotid artery; K43.9 Ventral hernia without obstruction or gangrene; E78.5 Hyperlipidemia, unspecified; K57.30 Diverticulosis of large intestine without perforation or abscess without bleeding; M54.9 Dorsalgia, unspecified; G89.29 Other chronic pain; K21.9 Gastro-esophageal reflux disease without esophagitis; I10 Essential (primary) hypertension; K52.9 Noninfective gastroenteritis and colitis, unspecified; R31.9 Hematuria, unspecified; M19.91 Primary osteoarthritis, unspecified site; B19.20 Unspecified viral hepatitis C without hepatic coma; M50.90 Cervical disc disorder, unspecified, unspecified cervical region; T50.8X5A Adverse effect of diagnostic agents, initial encounter; Z79.82 Long term (current) use of aspirin; Z79.02 Long term (current) use of antithrombotics/antiplatelets; Z79.899 Other long term (current) drug therapy; Z87.891 Personal history of nicotine dependence; Z86.73 Personal history of transient ischemic attack (TIA), and cerebral infarction without residual deficits; Z85.828 Personal history of other malignant neoplasm of skin; Z87.442 Personal history of urinary calculi; Z90.49 Acquired absence of other specified parts of digestive tract; Z87.81 Personal history of (healed) traumatic fracture; Z88.5 Allergy status to narcotic agent; Z80.3 Family history of malignant neoplasm of breast
CPT/HCPCS: 36600; 71045; 71046; 71275; 74019; 78582; 80048; 80053; 82805; 83735; 83880; 84100; 85025; 85730; 86850; 86900; 86901; 87040; 88309; 93970; 94640; 94760

== ENCOUNTER 2017-10-31 11:09 | Emergency (ER) | payer OTHER ==
[2017-10-31 11:20] VITALS: RESP 18
[2017-10-31] MEDS ORDERED: KETOROLAC 60 MG/2 ML VIAL IVP STA (11:55)
[2017-10-31] MEDS ORDERED: HYDROmorphone 1 MG/ML 1 ML SYRINGE IVP STA (11:55)
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
--- NOTE | 2017-10-31 13:15 | XR ---
EXAMINATION TYPE: XR foot complete RT DATE OF EXAM: 10/31/2017 CLINICAL HISTORY: Right foot pain TECHNIQUE: Frontal, lateral, and oblique images of the right foot are obtained. COMPARISON: None FINDINGS: There is no acute fracture/dislocation evident in the right foot. There is marked flexion in varus positioning distal fourth and fifth toes. There is mild to moderate narrowing and mild spurr ing at base of metatarsals. There is mild narrowing and spurring first metatarsophalangeal joint. Fix ating screws through distal tibia is present. Calcification along course of distal Achilles tendon is noted. The overlying soft tissue appears unremarkable. IMPRESSION: As above.
[2017-10-31 13:16] LABS: Basophils % (A) 1 %; Eosinophils # (A) 0.2 k/uL (0-0.7); Eosinophils % (A) 2 %; HCT 45.2 % (39.0-53.0); HGB 15.2 gm/dL (13.0-17.5); Lymphocytes # (A) 1.1 k/uL (1.0-4.8); Lymphocytes % (A) 13 %; MCH 29.1 pg (25.0-35.0); MCHC 33.6 g/dL (31.0-37.0); MCV 86.7 fL (80.0-100.0); Mean Platelet Volume 7.4; Monocytes # (A) 0.6 k/uL (0-1.0); Monocytes % (A) 7 %; Neutrophils # (A) 6.3 k/uL (1.3-7.7); Neutrophils % (A) 77 %; Platelet Count 287 k/uL (150-450); RBC 5.22 m/uL (4.30-5.90); RDW 13.4 % (11.5-15.5); WBC 8.3 k/uL (3.8-10.6)
[2017-10-31 13:35] LABS: Albumin 3.9 g/dL (3.5-5.0); C Reactive Protein 31.4 mg/L (<10.0); Calcium 9.8 mg/dL (8.4-10.2); Potassium 4.2 mmol/L (3.5-5.1); Total Bilirubin 0.8 mg/dL (0.2-1.3); Total Protein 6.5 g/dL (6.3-8.2)
[2017-10-31 14:38] VITALS: BP 129/81; PULSE 55; TEMP 97.9
[2017-10-31 15:01] LABS: Erythrocyte Sedimentation Rate 36 mm/hr (0-15)
== END 2017-10-31 14:38 | disposition home or self-care (01) ==
LOC: EC 11:09
DX: M10.9 Gout, unspecified (principal); I10 Essential (primary) hypertension; K21.9 Gastro-esophageal reflux disease without esophagitis; M19.90 Unspecified osteoarthritis, unspecified site; Z87.891 Personal history of nicotine dependence; Z79.02 Long term (current) use of antithrombotics/antiplatelets; Z79.899 Other long term (current) drug therapy; Z88.5 Allergy status to narcotic agent; Z86.19 Personal history of other infectious and parasitic diseases; Z85.828 Personal history of other malignant neoplasm of skin; Z98.890 Other specified postprocedural states
CPT/HCPCS: 36415; 80053; 85652; 84550; 85025; 86140; 87040; 73630; 99284; 96374; 96375; J1885; J1170

== ENCOUNTER → 2017-11-06 | Outpatient (CLI) | payer MEDICARE, OTHER ==
--- NOTE | 2017-11-06 12:33 | MR ---
EXAMINATION TYPE: MR brain wo con DATE OF EXAM: 11/06/2017 11:25 AM COMPARISON: NONE HISTORY: Vertebro-basilar artery syndrome FINDINGS: The ventricles, basal cisterns and sulci overlying the cerebral convexities are mildly enlarged. There is evidence of mild to moderate periventricular white matter ischemic demyelination. Remote deep white matter insults are also noted. No acute edema is seen on diffusion weighted imaging. There is no evidence for midline shift or mass effect. Acute intracranial hemorrhage or extra-axial collection is not evident. The paranasal sinuses and mastoid air cells are well-aerated. IMPRESSION: Age-related atrophic and chronic small vessel ischemic change. No acute intracranial process at this time.
== END | disposition home or self-care (01) ==
LOC: RADMRIMAIN 10:51
PROVIDERS: ATTEND Neurological Surgery
DX: G31.9 Degenerative disease of nervous system, unspecified (principal); I67.82 Cerebral ischemia; G45.0 Vertebro-basilar artery syndrome
CPT/HCPCS: 70551

== ENCOUNTER 2017-12-07 16:43 | Inpatient (IN) | payer OTHER, MEDICARE ==
[2017-12-07] MEDS ORDERED: SODIUM CHLORIDE 0.9% 1,000 ML IV STA (16:49)
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
[2017-12-07 17:05] LABS: Basophils # (A) 0.1 k/uL (0-0.2); Basophils % (A) 1 %; Eosinophils # (A) 0.3 k/uL (0-0.7); Eosinophils % (A) 4 %; HCT 42.8 % (39.0-53.0); HGB 14.6 gm/dL (13.0-17.5); Lymphocytes # (A) 1.4 k/uL (1.0-4.8); Lymphocytes % (A) 20 %; MCH 29.9 pg (25.0-35.0); MCHC 34.1 g/dL (31.0-37.0); MCV 87.7 fL (80.0-100.0); Mean Platelet Volume 7.5; Monocytes # (A) 0.5 k/uL (0-1.0); Monocytes % (A) 7 %; Neutrophils # (A) 4.7 k/uL (1.3-7.7); Neutrophils % (A) 67 %; Platelet Count 171 k/uL (150-450); RBC 4.88 m/uL (4.30-5.90); RDW 14.7 % (11.5-15.5); WBC 7.1 k/uL (3.8-10.6)
[2017-12-07 17:15] LABS: Calcium 9.8 mg/dL (8.4-10.2); Magnesium 1.7 mg/dL (1.6-2.3); Potassium 3.9 mmol/L (3.5-5.1); Total Bilirubin 0.5 mg/dL (0.2-1.3); Total Protein 6.7 g/dL (6.3-8.2)
[2017-12-07 17:22] LABS: Partial Thromboplastin Time 27.6 sec (22.0-30.0)
[2017-12-07 17:27] LABS: Creatine Kinase 55 U/L (55-170)
[2017-12-07 17:42] LABS: Creatine Kinase MB 0.4 ng/mL (0.0-2.4); Troponin I <0.012 ng/mL (0.000-0.034)
--- NOTE | 2017-12-07 18:06 | XR ---
EXAMINATION TYPE: XR chest 2V DATE OF EXAM: 12/07/2017 COMPARISON: Chest radiograph 09/29/2017 HISTORY: Dizziness TECHNIQUE: Frontal and lateral views of the chest are obtained. FINDINGS: There is no focal air space opacity, pleural effusion, or pneumothorax seen. Increased int erstitial markings are again seen and favored to be chronic. Calcified hilar lymph nodes as well as a calcified right lower lung granuloma. The cardiac silhouette size is within normal limits. The oss eous structures are intact. IMPRESSION: No acute cardiopulmonary process.
--- NOTE | 2017-12-07 18:08 | CT ---
EXAMINATION TYPE: CT brain wo con for TPA DATE OF EXAM: 12/07/2017 HISTORY: Vision changes today CT DLP: 1027.1 mGycm. Automated Exposure Control for Dose Reduction was Utilized. TECHNIQUE: CT scan of the head is performed without contrast. COMPARISON: MR brain 11/06/2017 FINDINGS: There is no acute intracranial hemorrhage or midline shift identified. There is diffuse v entricular and sulcal prominence consistent with diffuse age-related cerebral atrophy. There is low- attenuation in the periventricular white matter consistent with chronic small vessel ischemic change. The globes are intact and the visualized sinuses are clear. IMPRESSION: No acute intracranial hemorrhage or midline shift. There is diffuse age-related cerebra l atrophy and chronic small vessel ischemic change noted.
[2017-12-07] MEDS ORDERED: NALOXONE 0.4 MG/ML 1 ML VIAL IV PRN (19:35)
[2017-12-07] MEDS ORDERED: BAYER BACK AND BODY PO PRN (19:38)
[2017-12-07] MEDS: SODIUM CHLORIDE 0.9% 1,000 ML IV SCH (21:39)
[2017-12-07 21:56] VITALS: BMI 27.8
[2017-12-07 22:09] LABS: Glucose,Whole Blood 114 mg/dL (75-99)
[2017-12-08] MEDS: PANTOPRAZOLE 40 MG TABLET PO SCH (06:17)
[2017-12-08] MEDS: LISINOPRIL 20 MG TAB PO SCH (08:03)
[2017-12-08] MEDS: MELOXICAM 7.5 MG TAB PO SCH (08:03)
[2017-12-08] MEDS: ASPIRIN 81 MG PO SCH (08:03)
[2017-12-08] MEDS: CLOPIDOGREL 75 MG TAB PO SCH (08:03)
[2017-12-08] MEDS: FENOFIBRATE 160 MG TAB PO SCH (08:03)
[2017-12-08] MEDS: SODIUM CHLORIDE 0.9% 1,000 ML IV SCH ×2 (08:04→21:21)
[2017-12-08] MEDS ORDERED: amLODIPine 10 MG TAB PO SCH (09:00)
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
[2017-12-08] MEDS: CHOLECALCIFEROL 1,000 UNIT TAB PO SCH (12:53)
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
--- NOTE | 2017-12-08 21:46 | CT ---
EXAMINATION TYPE: CT angio neck DATE OF EXAM: 12/08/2017 HISTORY: Syncope. History of carotid artery stenosis on left side per patient. COMPARISON: CT DLP: 483 mGycm. Automated Exposure Control for Dose Reduction was Utilized. TECHNIQUE: CTA scan of the neck is performed with IV Contrast, patient injected with 65 mL of Isovue 370, axial images are obtained, coronal and sagittal reformatted images are reviewed. Three-D recons tructed images are created on an independent workstation and reviewed. FINDINGS: There is normal branching pattern of the great vessels on the aortic arch. There is bilateral arterial flow in the vertebral arteries. Left vertebral artery is larger than the right. There is bilateral arterial flow in the common internal and external carotid arteries. There is signi ficant plaque formation at the carotid artery bifurcations on the left side more than the right. Ther e is approximate 75% stenosis of the origin of the left internal carotid artery. There is approximate 40% stenosis at the origin of the right internal carotid artery. There is no evidence of carotid dis section. There is no carotid aneurysm. There is no evidence of vertebral artery dissection. The basilar artery appears to fill entirely from the left side. IMPRESSION: The exam shows approximate 75% stenosis at the origin of the left internal carotid artery and 40% stenosis origin of the right internal carotid artery due to plaque formation.
[2017-12-09] MEDS: PANTOPRAZOLE 40 MG TABLET PO SCH (06:42)
[2017-12-09 08:15] VITALS: RESP 18
[2017-12-09] MEDS: ASPIRIN 81 MG PO SCH (08:21)
[2017-12-09] MEDS: MELOXICAM 7.5 MG TAB PO SCH (08:21)
[2017-12-09] MEDS: FENOFIBRATE 160 MG TAB PO SCH (08:21)
[2017-12-09] MEDS: CLOPIDOGREL 75 MG TAB PO SCH (08:21)
[2017-12-09] MEDS: LISINOPRIL 20 MG TAB PO SCH (08:21)
[2017-12-09] MEDS ORDERED: amLODIPine 5 MG TAB PO SCH (09:00)
[2017-12-09] MEDS: SODIUM CHLORIDE 0.9% 1,000 ML IV SCH (09:23)
--- NOTE | 2017-12-09 09:41 | CONS ---
CONSULTATION DATE OF CONSULTATION: 12/08/2017 CHIEF COMPLAINT: Transient ischemic attack. HISTORY OF PRESENT ILLNESS: Mr. Agustin is a pleasant 67-year-old male, who is being evaluated today on 12/08/2017 by the Neurology Service per the request of Dr. Edwards for a transient ischemic attack. The patient was brought into [facility] Emergency Room after he had a sudden onset of blurred vision and dizziness along with some confusion. The symptoms lasted approximately 5 minutes and resolved spontaneously. He states that he has had similar episodes in the past but they never last quite this long. His usual episodes last less than 1 minute. He has been told that he has significant carotid stenosis but he does not recall the extent of the stenosis. He states that he follows at the [facility] for this. A CT scan of the brain was done in the emergency room which showed generalized atrophy and small-vessel ischemic changes. His CBC, INR, comprehensive metabolic profile and cardiac enzymes were normal. An EEG has been ordered but it has not been completed as of yet. The patient was started on IV hydration and admitted for further workup and management. He does take Plavix 75 mg daily and aspirin 81 mg daily at home. He is on Lopid for dyslipidemia. At the time of my evaluation, he is lying in his bed and appears to be in no acute distress. He denies any recurrence of any neurological symptoms since his admission. PAST MEDICAL HISTORY: Hepatitis C, arthritis, hypertension, gastroesophageal reflux disease, chronic neck pain and low back pain, skin cancer, carotid stenosis, history of appendectomy and orthopedic surgeries. SOCIAL HISTORY: The patient is a former smoker. He occasionally drinks alcohol. He denies any drug use. FAMILY HISTORY: Positive for cancer. HOME MEDICATIONS: Reviewed in the chart. ALLERGIES: PROPOXYPHENE. REVIEW OF SYSTEMS: CONSTITUTIONAL: Negative. EYES: As mentioned above. ENT: Negative. CARDIOVASCULAR: As mentioned above. RESPIRATORY: Negative. NEUROLOGICAL: As mentioned above. GASTROINTESTINAL: Positive for occasional heartburn. GENITOURINARY: Negative. DERMATOLOGICAL: Negative. PSYCHIATRIC: Negative. MUSCULOSKELETAL: Positive for occasional joint pain and spine pain. ENDOCRINE: Negative. PHYSICAL EXAM: Vital signs show a temperature of 98.3, pulse 63, respirations 16, blood pressure 138/78. GENERAL APPEARANCE: The patient is a well-developed male, who appears to be in no acute distress. HEENT: Normocephalic, atraumatic, no facial asymmetry is seen. NECK: Supple with no masses felt. CARDIOVASCULAR: Regular rate and rhythm. ABDOMEN: Nontender, nondistended. EXTREMITIES: Showed no edema or clubbing. NEUROLOGICAL: The patient is awake and oriented x3. Speech and language are normal. No lateralizing weakness is seen. Sensory exam was normal to light touch in all 4 extremities. No tremors or seizure-like activity is seen. No facial asymmetry is noticed on cranial nerve testing. IMPRESSION: 1. Transient ischemic attack. 2. Visual changes, resolved. 3. Carotid stenosis. RECOMMENDATION: The patient does appear to have suffered a transient ischemic attack with a transient episode of blurred vision and confusion. His symptoms continue to be resolved at this time. He is already on aspirin and Plavix and he will continue on this anti-platelet regimen. He does report a history of significant carotid stenosis. I will order a CT angiogram of the neck and I will consult Vascular Surgery to evaluate and treat. Continue IV hydration. Continue neuro checks. I will continue to follow with you. Further recommendations to follow. Thank you for allowing me to participate in the care of your patient. If you have any questions, please feel free to contact me. MMODL / IJN: [id number] /
[2017-12-09 12:35] VITALS: TEMP 98.2
[2017-12-09] MEDS: CHOLECALCIFEROL 1,000 UNIT TAB PO SCH (12:37)
--- NOTE | 2017-12-09 12:44 | ECHOF ---
Referral Reason:syncope MEASUREMENTS -------- HEIGHT: 152.4 cm WEIGHT: 88.0 kg BP: 182/91 IVSd: 1.2 cm (0.6 - 1.1) LVIDd: 3.7 cm (3.9 - 5.3) LVPWd: 1.1 cm (0.6 - 1.1) IVSs: 1.5 cm LVIDs: 2.9 cm LVPWs: 1.6 cm Ao Diam: 3.4 cm (2.0 - 3.7) AV Cusp: 1.4 cm (1.5 - 2.6) LA Diam: 3.6 cm (2.7 - 3.8) MV EXCURSION: 19.544 mm (> 18.000) MV EF SLOPE: 206 mm/s (70 - 150) EPSS: 0.9 cm MV E Jl: 0.30 m/s MV DecT: 256 ms MV A Jl: 0.78 m/s MV E/A Ratio: 0.39 RAP: 5.00 mmHg RVSP: 16.30 mmHg FINDINGS -------- Sinus rhythm. This was a techncally difficult study with suboptimal views, , Lumason utilized for enhancement of im ages. The left ventricular size is normal. There is mild concentric left ventricular hypertrophy. Overa ll left ventricular systolic function is normal with, an EF between 55 - 60 %. The right ventricle is normal in size. The left atrial size is normal. The right atrial size is normal. 5.0mg OF Lumason UTLIZED: 2 OR MORE WALL SEGMENTS NOT VISUALIZED. There is mild aortic valve sclerosis. There is no evidence of aortic regurgitation. Mild mitral annular calcification present. Mild mitral regurgitation is present. Mild tricuspid regurgitation present. There is no evidence of pulmonary hypertension. The right v entricular systolic pressure, as measured by Doppler, is 16.30mmHg. The pulmonic valve was not well visualized. Trace/mild (physiologic) pulmonic regurgitation. The aortic root size is normal. Echo free space represents a pericardial fat pad. CONCLUSIONS -------- 1. Sinus rhythm. 2. This was a techncally difficult study with suboptimal views, , Lumason utilized for enhancement of images. 3. The left ventricular size is normal. 4. There is mild concentric left ventricular hypertrophy. 5. Overall left ventricular systolic function is normal with, an EF between 55 - 60 %. 6. The left atrial size is normal. 7. 5.0mg OF Lumason UTLIZED: 2 OR MORE WALL SEGMENTS NOT VISUALIZED. 8. There is mild aortic valve sclerosis. 9. Mild mitral annular calcification present. 10. Mild mitral regurgitation is present. 11. Mild tricuspid regurgitation present. 12. There is no evidence of pulmonary hypertension. 13. The pulmonic valve was not well visualized. 14. The aortic root size is normal. 15. Echo free space represents a pericardial fat pad. ACCOUNTS PAYABLE PROCESSOR: Emily Lucas RDCS
--- NOTE | 2017-12-09 14:59 | CONS ---
DATE OF CONSULTATION: 12/09/2017 This is a 67-year-old pleasant gentleman who has been admitted to [facility] with history of some visual disturbance that lasted for few minutes with complete recovery and also patient had some kind of seizure activity. According to the , there was no history of any motor deficit. No history of amaurosis fugax. The patient had a stroke workup. CTA showed left carotid is 75%, right carotid is 30% and both vertebral arteries are antegrade. CT scan of the brain shows no acute infarct. No mass effect. Patient was seen by his neurologist and he is now referred to another vascular surgeon out of town, probably he will have a left carotid artery stenting placement for a 75% stenosis of the carotid artery. PHYSICAL EXAMINATION: Patient was seen in his room. His vital signs stable. Chest is clear to auscultation. First and second heart sounds normal. Abdomen is soft. Brachial, radial and femoral pulses present. CENTRAL NERVOUS SYSTEM: The patient is oriented to time and place. Normal motor function of the left lower extremity. IMPRESSION: History of seizure with some visual disturbance. CTA of the carotid shows left side 75%, right side 30%. CT of the brain is negative for intracranial infarction or bleed. The patient is on antiplatelet therapy. He is planning to go when he is medically stable to follow up with his surgeon at [facility]. MMKAVYA / NANCY: [id number] / MTDD
--- NOTE | 2017-12-09 15:05 | P.PN ---
Subjective Progress Note Date: 12/09/17 This is a 67-year-old gentleman with known history of hypertension, hyperlipidemia, prior history of smoking, he states that he quit smoking approximately 2-1/2 years ago. Patient also has history of bowel resection in September of this year. And a recent diagnosis of gout last month. He presents to the hospital on this occasion after experiencing what his felt to be seizure-like activity at home. Patient states he was starting to have issues with his vision where he would look over to the right, then when he would straighten his eyes out it appeared that he was still gazing over to the right. Shortly thereafter he apparently had some jerking movements and went unresponsive for a brief period of time having with the felt was like seizure activity. Patient continued to breathe during the episode. Symptoms lasted approximately 5 minutes in duration. According to the patient, he has also been told to have significant carotid stenosis for which she is scheduled in the next few weeks to undergo carotid endarterectomy. He had a brain MRI performed in October of this year which revealed age-related atrophic and chronic small vessel ischemic change with no acute process. CAT scan of the brain did not reveal any acute intracranial hemorrhage or midline shift. Chest x-ray did not reveal any acute cardiopulmonary process. EKG showed normal sinus rhythm with no acute changes. I pressure on arrival here 188/87, heart rate in the 80s , temperature 98.8. Blood pressure this morning 130/70 with a heart rate in the 60s, 94% on room air. Laboratory data reviewed, white blood cell count 7.1 , hemoglobin 14, platelet count 170. Sodium 142, potassium 3.9, BUN 12, creatinine 1.1. Magnesium level I.7, troponin 0.012. Examination this morning , patient denies any visual disturbance, he states that he feels back to his usual self. 12/09/2017 Patient seen and examined this afternoon, he was found for an EEG earlier. Blood pressure 130/70 with a heart rate in the 50s, temperature 90.7 ,96% on room air. Echocardiogram with Doppler study was performed which revealed an ejection fraction of 55-60%. Objective - Vital Signs Vital signs: Vital Signs Temp 98.2 F 12/09/17 12:00 Pulse 60 12/09/17 12:00 Resp 18 12/09/17 12:00 BP 149/82 12/09/17 12:00 Pulse Ox 97 12/09/17 12:00 Intake & Output 12/08/17 12/09/17 12/09/17 18:59 06:59 18:59 Intake Total 318 420 417 Balance 318 420 417 Weight 87.4 kg Intake: Oral 318 420 417 Other: Voiding Method Toilet Toilet Toilet # Voids 1 2 1 # Bowel Movements 0 - Exam PHYSICAL EXAMINATION: GENERAL: 67-year-old gentleman in no acute distress at the time of my examination HEENT: Head is atraumatic, normocephalic. Pupils equal, round. Sclera anicteric. Conjunctiva are clear. Mucous membranes of the mouth are moist. Neck is supple. There is no elevated jugular venous pressure.] bruit is heard. HEART EXAMINATION: Heart S1, S2 normal. No murmur or gallop heard. CHEST EXAMINATION: Lungs are clear to auscultation and precussion. No chest wall tenderness is noted on palpation or with deep breathing. ABDOMEN: Soft, nontender. Bowel sounds are heard. No organomegaly noted. EXTREMITIES: 1+ peripheral pulses with no evidence of peripheral edema and no calf tenderness noted. NEUROLOGIC patient is awake, alert and oriented ?-3. - Labs CBC & Chem 7: 12/07/17 16:57 12/07/17 16:57 Assessment and Plan Plan: Assessment and plan #1 symptoms of visual disturbance with associated headache and seizure-like activity. Rule out seizures, rule out CVA. Brain CT did not reveal any acute intracranial hemorrhage or midline shift. #2 hypertension #3 hyperlipidemia #4 history of smoking #5 PAD, patient has left carotid stenosis for which she is scheduled to undergo carotid endarterectomy #6 recent colon resection #7 GERD #8 hepatitis C Plan Echocardiogram with Doppler study was performed which revealed a normal left ventricular systolic function. No evidence of any tachycardia or bradycardia arrhythmias noted. No evidence of any orthostasis. Neurology is following the patient feels that he may have had a TIA. We will await results of EEG. From cardiology's perspective, no indication at this point to suggest a cardiac event. DNP note has been reviewed, I agree with a documented findings and plan of care. Patient was seen and examined.
[2017-12-09 16:32] LABS: Cholesterol 227 mg/dL (<200); HDL Cholesterol 26 mg/dL (40-60); LDL Cholesterol,Calculated 127 mg/dL (0-99); Triglycerides 369 mg/dL (<150)
[2017-12-09 17:08] VITALS: BP 142/78; PULSE 64
--- NOTE | 2017-12-09 18:23 | P.DS ---
Providers Date of admission: 12/07/17 19:35 Expected date of discharge: 12/09/17 Attending physician: Robi Beckman Consults: 12/07/17 19:36 Consult Physician Routine Consulting Provider: Fay Montana Consult Reason/Comments: Syncope Do you want consulting provider notified?: Yes 12/07/17 19:37 Consult Physician Routine Consulting Provider: Lan Guallpa Consult Reason/Comments: Syncope Do you want consulting provider notified?: Yes 12/08/17 19:40 Consult Physician Routine Consulting Provider: Anselmo Kathleen Consult Reason/Comments: Carotid stenosis, Syncope Do you want consulting provider notified?: Yes Primary care physician: [facility] Hospital Course: Final Diagnoses: -Symptoms of visual disturbance and seizure-like activity: Patient is admitted to rule out the CVA TIA. We'll continue with aspirin and Plavix and a statin. Patient's age is not typical for new-onset seizures. neurology evaluated the patient , EEG completed, results pending. -Carotid stenosis -Hypertension: Continue his home medications -Hyperlipidemia -Peripheral artery disease -Gastroesophageal reflux disease -History of hepatitis C. Hospital course:67-year-old pleasant man came in with complaints of temperature symptoms of visual disturbance lasted for a few minutes along with possible seizure-like activity as per the patient's . Apparently patient had a total clonic activity without any or postictal symptoms loss of bowel or bladder continence. Patient had a recent MRI which did not show any significant abnormality. Patient had a CAT scan yesterday which did not show any significant abnormality either except for some chronic microvascular ischemic changes along with cerebral atrophy. Patient is scheduled to get a carotid stenting on the left side which was occluded more than 90% and the right was occluded about 30%. Because of this history and above-mentioned symptoms there is a concern about TIA because of which patient was admitted for neurological evaluation. Neurology to evaluate the patient. Patient is already on aspirin and Plavix. Evaluated by cardiology neurology and vascular surgery. Neurology workup in progress. CT angiogram of the neck reported 75% stenosis of left internal carotid artery, 40% stenosis of right internal carotid artery. Patient has prescheduled carotid artery stenting at [facility] in 1 week. Cleared by cardiology and vascular surgery for discharge. Awaiting final EEG results, final DC recommendations and clearance from neurology. Family questioning having carotid surgery next week-defer to neurology and vascular surgery for their recommendations. Patient will be discharged home pending final DC recommendations and clearance from neurology, in a stable condition with guarded prognosis. EXAM: GENERAL: The patient is alert and oriented x3, not in any acute distress. CARDIOVASCULAR: S1 and S2 present. No murmurs, rubs, or gallops. PULMONARY: Chest is clear to auscultation, no wheezing or crackles. ABDOMEN: Soft, nontender, nondistended, normoactive bowel sounds. No palpable organomegaly. NEUROLOGICAL: Gross neurological examination did not reveal any focal deficits. The impression and plan of care has been dictated as directed. : I performed a history and examination of this patient, discussed the same with the dictator. I agree with the dictator's note ,documented as a scribe. Any additional findings or plans will be noted. Time taken: 35 minutes Patient Condition at Discharge: Stable Plan - Discharge Summary Discharge Rx Participant: No New Discharge Prescriptions: Continue amLODIPine [Norvasc] 10 mg PO DAILY Cholecalciferol (Vitamin D3) [Vitamin D3] 2,000 unit PO DAILY Gemfibrozil [Lopid] 600 mg PO AC-BID Clopidogrel [Plavix] 75 mg PO DAILY Lansoprazole 30 mg PO DAILY Meloxicam 15 mg PO DAILY Lisinopril [Zestril] 20 mg PO DAILY Aspirin EC [Ecotrin Low Dose] 81 mg PO DAILY Velia Back And Body 2 tab PO DAILY PRN PRN Reason: Pain Discharge Medication List amLODIPine [Norvasc] 10 mg PO DAILY 03/05/16 [History] Cholecalciferol (Vitamin D3) [Vitamin D3] 2,000 unit PO DAILY 09/16/17 [History] Clopidogrel [Plavix] 75 mg PO DAILY 09/16/17 [History] Gemfibrozil [Lopid] 600 mg PO AC-BID 09/16/17 [History] Lansoprazole 30 mg PO DAILY 10/31/17 [History] Lisinopril [Zestril] 20 mg PO DAILY 10/31/17 [History] Meloxicam 15 mg PO DAILY 10/31/17 [History] Aspirin EC [Ecotrin Low Dose] 81 mg PO DAILY 12/07/17 [History] Velia Back And Body 2 tab PO DAILY PRN 08/26/18 [History] Follow up Appointment(s)/Referral(s): Fay Montana MD [STAFF PHYSICIAN] - 2 Weeks (Please call physician office to make follow up appointment; office closed at time of discharge) Anselmo Kathleen MD [STAFF PHYSICIAN] - 1 Week (Office closed at time of discharge ; please call office for a follow up appointment) [facility] [Primary Care Provider] - 3 Days (Please call office for a follow up appointment; office closed at time of discharge) Patient Instructions/Handouts: Syncope (GEN) Discharge Disposition: HOME SELF-CARE
--- NOTE | 2017-12-09 20:20 | EEG ---
ELECTROENCEPHALOGRAM REPORT DATE OF SERVICE: 12/09/2017 REASON FOR TESTING: Transient ischemic attack. DESCRIPTION OF THE PROCEDURE: This EEG was performed using a 21-channel digital electroencephalograph, following international 10-20 system. DESCRIPTION OF THE RECORDING: From the beginning of the tracing, and with the patient's eyes closed, the background rhythm was mostly consisting of 9 Hz alpha frequency in the posterior occipital lead. No obvious asymmetry is seen. Photic stimulation was performed with a good driving response seen. No pathological waves were elicited. Occasional movement artifacts are seen. Later in the tracing, the patient does reach stage II of sleep and occasional sleep spindles are seen. No epileptiform discharges were seen. His EKG lead showed a regular rate and rhythm. INTERPRETATION: This asleep and awake EEG can be considered within normal limits. There was no asymmetry seen. No epileptiform discharges were noticed. The absence of epileptiform discharges does not rule out the diagnosis of epilepsy; therefore clinical correlation is recommended. MARCELLUS / NANCY: [id number] /
--- NOTE | 2017-12-11 15:29 | CDI ---
Last Revision, March 2017 Documentation Clarification Form Date: 12/11/17 From: Faiza Izaguirre Phone: If you have a question regarding this query, please contact Cassi Lovett at [phone] between 8am and 5pm. Admit Date: 12/07/2017 7:35:00 PM Patient Name: Daquan Agustin Visit Number: [id number] Discharge Date: 12/09/17 ATTENTION: The Clinical Documentation Specialists (CDI) and [facility] Coding Staff appreciate your assistance in clarifying documentation. Please respond to the clarification below the line at the bottom and electronically sign. The CDI & [facility] Coding staff will review the response and follow-up if needed. Please note: Queries are made part of the Legal Health Record. If you have any questions, please contact the author of this message via ITS. Ezequiel Langley MD Symptoms of visual disturbance and seizure-like activity. Patient was admitted to rule out the CVA/TIA. Patient history/risk factors: Patient has a history of carotid stenosis. Clinical Indicators: Patient was intermittently having brief episodes of visual changes. He also felt disoriented. Occipital headache for the last week. Radiology findings: CT scan of the head: No acute intracranial hemorrhage or midline shift. There is diffuse age-related cerebral atrophy and chronic small vessel ischemic change noted. EEG: Considered within normal limits. There was no asymmetry seen. No epileptiform discharges were noticed. The absence of epileptiform discharges does not rule out the diagnosis of epilepsy, therefore clinical correltaion is recommended. Vital Signs: T. 98.8, P. 83, R. 18, BP 188/87 Treatment: Continued patient's Plavix and aspirin. Consults: Neurology consult Impression: 1. Transient ischemic attack. 2. Visual changes, resolved. 3. Carotid stenosis. In your professional opinion, can you please document a diagnosis to clarify the above clinical findings? TIA CVA (please specify): Seizure (please specify type): Other, please specify Unable to determine Unable to determine MTDD
== END 2017-12-09 18:04 | disposition home or self-care (01) | DRG 101 ==
LOC: EC 16:43 → 6SEL 19:35
PROVIDERS: ADMIT Hospitalist; ATTEND Hospitalist
DX: G40.89 Other seizures (principal); E78.5 Hyperlipidemia, unspecified; I10 Essential (primary) hypertension; I65.23 Occlusion and stenosis of bilateral carotid arteries; K21.9 Gastro-esophageal reflux disease without esophagitis; M10.9 Gout, unspecified; R55 Syncope and collapse; M19.90 Unspecified osteoarthritis, unspecified site; Z79.02 Long term (current) use of antithrombotics/antiplatelets; Z79.82 Long term (current) use of aspirin; Z79.899 Other long term (current) drug therapy; Z85.828 Personal history of other malignant neoplasm of skin; Z87.442 Personal history of urinary calculi; Z90.49 Acquired absence of other specified parts of digestive tract; Z87.891 Personal history of nicotine dependence; Z80.3 Family history of malignant neoplasm of breast; Z86.19 Personal history of other infectious and parasitic diseases; Z88.8 Allergy status to other drugs, medicaments and biological substances
CPT/HCPCS: 36415; 70450; 70498; 71046; 80053; 80061; 82550; 82553; 83735; 84484; 85025; 85610; 85730; 93306; 95819; 96360; 96361; 99291

== ENCOUNTER → 2018-02-06 | Outpatient (CLI) | payer MEDICARE ==
--- NOTE | 2018-02-06 11:07 | US ---
EXAMINATION TYPE: US carotid duplex BILAT DATE OF EXAM: 02/06/2018 COMPARISON: NONE CLINICAL HISTORY: I65.22 OCCLUSION AND STENOSIS OF LT CAROTID ARTERY. Hx of left CCA stent x a couple of months ago. HTN- on medications. No hx of TIA or strokes. EXAM MEASUREMENTS: RIGHT: Peak Systolic Velocity (PSV) cm/sec ----- Right CCA: 62.5 ----- Right ICA: 54.6 ----- Right ECA: 172.6 ICA/CCA ratio: 0.9 RIGHT: End Diastole cm/sec ----- Right CCA: 16.2 ----- Right ICA: 20.6 ----- Right ECA: 32.7 LEFT: Peak Systolic Velocity (PSV) cm/sec ----- Left CCA: 50.3 ----- Left ICA: 59.8 ----- Left ECA: 110.8 ICA/CCA ratio: 1.2 LEFT: End Diastole cm/sec ----- Left CCA: 19.6 ----- Left ICA: 25.0 ----- Left ECA: 30.5 VERTEBRALS (direction of flow): Right Vertebral: Antegrade Left Vertebral: Antegrade Rhythm: Normal Elevated right ECA. No significant stenosis. Wall thickening seen in bilateral bulbs. Plaque seen i n right bulb. IMPRESSION: No evidence for hemodynamically significant stenosis. Criteria for Assigning % of Stenosis / Diameter reduction (Estimation based on the indirect measurements of the internal carotid artery velocities (ICA PSV). 1. Normal (no stenosis)=ICA PSV < 125 cm/s: ratio < 2.0: ICA EDV<40 cm/s. 2. Less than 50% stenosis=ICA PSV < 125 cm/s: ratio < 2.0: ICA EDV<40 cm/s. 3. 50 to 69% stenosis=ICA PSV of 125 to 230 cm/s: ration 2.0 ? 4.0: ICA EDV 40-100 cm/s. 4. Greater than 70% stenosis to near occlusion= ICA PSV > 230 cm/s: ratio > 4.0: ICA EDV > 100 cm/s. 5. Near occlusion= ICA PSV velocities may be low or undetectable: variable ratio and ICA EDV. 6. Total occlusion=unable to detect flow.
== END | disposition home or self-care (01) ==
LOC: RADUSWWP 09:10
PROVIDERS: ATTEND Neurological Surgery
DX: I65.22 Occlusion and stenosis of left carotid artery (principal)
CPT/HCPCS: 93880

== ENCOUNTER → 2018-03-17 | Outpatient (CLI) | payer MEDICARE | LOC: LABWHC1 10:14 | PROVIDERS: ATTEND Urology | DX: R97.20 Elevated prostate specific antigen [PSA] (principal) | CPT/HCPCS: 36415; 84153 ==

== ENCOUNTER → 2018-03-26 | Outpatient (CLI) | payer MEDICARE ==
[2018-03-26 16:21] LABS: Basophils # (A) 0.1 k/uL (0-0.2); Basophils % (A) 1 %; Eosinophils # (A) 0.2 k/uL (0-0.7); Eosinophils % (A) 3 %; HCT 46.7 % (39.0-53.0); HGB 15.5 gm/dL (13.0-17.5); Lymphocytes # (A) 1.7 k/uL (1.0-4.8); Lymphocytes % (A) 23 %; MCH 28.6 pg (25.0-35.0); MCHC 33.1 g/dL (31.0-37.0); MCV 86.4 fL (80.0-100.0); Mean Platelet Volume 8.2; Monocytes # (A) 0.4 k/uL (0-1.0); Monocytes % (A) 5 %; Neutrophils # (A) 4.9 k/uL (1.3-7.7); Neutrophils % (A) 67 %; Platelet Count 211 k/uL (150-450); RDW 14.8 % (11.5-15.5); WBC 7.4 k/uL (3.8-10.6)
[2018-03-26 16:29] LABS: Potassium 4.4 mmol/L (3.5-5.1)
== END | disposition home or self-care (01) ==
LOC: LABPAT 13:43
PROVIDERS: ATTEND Urology
DX: Z01.812 Encounter for preprocedural laboratory examination (principal); N20.0 Calculus of kidney; I10 Essential (primary) hypertension
CPT/HCPCS: 80048; 85025

== ENCOUNTER 2018-04-02 09:37 | Day surgery (SDC) | payer MEDICARE, OTHER ==
[2018-03-31 11:56] VITALS: BMI 28.7
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
[~2018-04-02 09:37] MED LIST changes: +DEXAMETHASONE SOD PHOSPHATE 10 MG/ML 1 ML VIAL IV ONE; -HYDROmorphone 0.5 MG/0.5 ML SYRINGE IVP PRN; +LACTATED RINGERS 1,000 ML IV SCH; +LIDOCAINE 1% 20 ML VIAL (10MG/ML) FOR IV START INTRADERMA PRN; +MIDAZOLAM (PF) 2 MG/2 ML VIAL IV PRN; +ONDANSETRON 4 MG/2 ML VIAL IVP ONE; -ONDANSETRON 4 MG/2 ML VIAL IVP PRN; +ceFAZolin 1,000 MG in DEXTROSE/WATER 1 50ML.BAG IVPB ONE; -ceFAZolin IN SWFI 2 GM/20 ML SYRINGE IVP ONE; -metroNIDAZOLE-NS PMX 500 MG in SALINE 1 100ML.BAG IVPB ONE
--- NOTE | 2018-04-02 10:27 | XR ---
EXAMINATION TYPE: XR KUB DATE OF EXAM: 04/02/2018 9:59 AM CLINICAL HISTORY: Right-sided kidney stones, prelithotripsy TECHNIQUE: Single supine KUB image of the abdomen is obtained. COMPARISON: Abdominal x-ray February 26, 2018 FINDINGS: There are redemonstration of 2 large right renal calculi, at roughly L2 level mid pole leve l right kidney with more medial calculus vertical in orientation measuring 9 mm long axis and more la teral calculus worse on orientation measuring 8 mm long axis. There is stable 2 mm calculus projectin g over right T12 rib upper pole level. Possible prior small 2 mm calculus upper to mid pole level lef t kidney is felt redemonstrated just below T12 rib. No new nephrolithiasis is clearly seen. Densities in the lower pelvis extending to right of midline could reflect prostatic calcifications. Osseous structures are intact. Impression: Bilateral nephrolithiasis redemonstrated including stable dominant larger 2 right-sided r enal calculi.
[2018-04-02] MEDS ORDERED: LIDOCAINE 1% INJ 10MG/ML (20 ML MDV) ONE (14:30)
[2018-04-02] MEDS ORDERED: MIDAZOLAM 2 MG/2 ML VIAL ONE (14:30)
[2018-04-02] MEDS ORDERED: fentaNYL (PF) 50 MCG/ML 2 ML AMP ONE (14:30)
[2018-04-02] MEDS ORDERED: SUCCINYLCHOLINE CHLORIDE 100 MG/5 ML SYR IV ONE (14:30)
[2018-04-02] MEDS ORDERED: PROPOFOL 10 MG/ML 20 ML VIAL IV ONE (14:30)
[2018-04-02] MEDS ORDERED: LACTATED RINGERS 1,000 ML IV ONE (16:00)
--- NOTE | 2018-04-02 16:15 | P.OP ---
Date of Procedure: 04/02/18 Preoperative Diagnosis: Right renal calculi Postoperative Diagnosis: Same Procedure(s) Performed: Cystoscopy, right ureteroscopy with Holmium laser lithotripsy, right ureteral stent insertion Anesthesia: KAMA Surgeon: Bimal Mo Estimated Blood Loss (ml): 5 IV fluids (ml): 650 Pathology: none sent Condition: stable Disposition: PACU Indications for Procedure: The patient is a 67-year-old white male who has been followed for an elevated PSA level. He has a history of calcium oxalate urolithiasis, and recently reported right flank pain. A KUB x-ray shows 3 right renal calculi, measuring 9 , 8, and 2 mm in size. He was offered the options of ESWL versus ureteroscopy with laser lithotripsy. The pros and cons of each approach were reviewed. He has been advised that he can hold his Plavix and aspirin 5 days preoperatively, but must resume them 2 days postoperatively. In view of this, I have suggested he undergo ureteroscopic removal of the calculi and he comes for this reason. Operative Findings: Several right renal calculi, fragmented completely. Description of Procedure: The patient was taken to the operating room and placed in the dorsolithotomy position, with legs supported in Juan stirrups. The external genitalia was prepped and draped sterilely. The 30 lens was used to introduce the 19-Canadian Stortz cystoscopic sheath through the urethra and into the bladder under direct vision. The prostatic urethra was visually occluded with a bilobar configuration. The bladder was examined in its entirety. Both ureteral orifices were normal anatomic location and configuration, and clear urine effluxed from both. The entire bladder was examined. No tumors or foreign bodies were seen. A 0.038 inch Glidewire was passed through the cystoscope. The right ureteral orifice was cannulated, and the Glidewire was advanced up to the right renal pelvis. The cystoscope was removed, and an 11/13-Canadian ureteral access catheter was passed over the wire, up to the mid ureter. The mini flexible ureteroscope was passed through the ureteral access catheter sheath and up to the right renal pelvis. Each calyx was examined. Several large calculi were seen, consistent with the KUB x-ray. The 200 micron Holmium laser probe was passed through the ureteroscope, and lithotripsy was performed. Each of the calculi were fragmented until there were no residual calculus fragments exceeding 1-2 mm in size. The ureteroscope was then removed along with the ureteral access catheter sheath. The cystoscope was replaced into the bladder. The Glidewire was passed up to the right renal pelvis, and a 28 cm, 4.8-Canadian double-J ureteral stent was placed over the wire. Proper stent positioning was verified fluoroscopically and endoscopically. The bladder was emptied and the cystoscope removed. The patient tolerated the procedure well and was taken to the recovery room in stable condition.
[2018-04-02 16:33] VITALS: TEMP 97
[2018-04-02 17:08] VITALS: RESP 18
[2018-04-02 17:24] VITALS: BP 135/78; PULSE 78
--- NOTE | 2018-04-03 07:57 | FL ---
Fluoroscopy History: Right-sided renal calculus R side stone, laser used, 29sec fl time
== END 2018-04-02 17:52 | disposition home or self-care (01) ==
LOC: OR 09:37
PROVIDERS: ATTEND Urology
DX: N20.0 Calculus of kidney (principal); Z87.442 Personal history of urinary calculi; K21.9 Gastro-esophageal reflux disease without esophagitis; I10 Essential (primary) hypertension; M19.90 Unspecified osteoarthritis, unspecified site; K76.9 Liver disease, unspecified; Z86.19 Personal history of other infectious and parasitic diseases; Z95.820 Peripheral vascular angioplasty status with implants and grafts; Z87.891 Personal history of nicotine dependence; Z79.02 Long term (current) use of antithrombotics/antiplatelets; Z79.82 Long term (current) use of aspirin; Z79.899 Other long term (current) drug therapy; Z88.5 Allergy status to narcotic agent
CPT/HCPCS: 74018; 52356; C2625; C1769 ×2; J2250; J1100; J2405; J2001; J3010; J0690; J0330; J2704

== ENCOUNTER 2018-04-05 15:23 | Emergency (ER) | payer OTHER ==
[2018-04-05] MEDS ORDERED: SODIUM CHLORIDE 0.9% 1,000 ML IV STA (16:24)
[2018-04-05 16:25] VITALS: RESP 18
[2018-04-05] MEDS ORDERED: MORPHINE SULFATE 4 MG/ML SYRINGE IV STA ×2 (16:59→18:34)
--- NOTE | 2018-04-05 17:15 | XR ---
EXAMINATION TYPE: XR KUB DATE OF EXAM: 04/05/2018 COMPARISON: 04/02/2018 HISTORY: Abdominal pain and flank pain. Blood in the urine. TECHNIQUE: 2 views upright FINDINGS: There is right double-J ureteral stent noted. There is no sign of intestinal obstruction or pneumoperitoneum. There is 3 mm calculus over the upper pole left kidney. There is no evidence of a mass. There is probably a 5 mm calculus over the right renal pelvis. IMPRESSION: There is decrease in the right renal calculi compared to last exam. Stable left renal rasheeda culus.
[2018-04-05 17:49] LABS: Appearance,Urine Turbid (Clear); Bilirubin,Urine Negative (Negative); Blood,Urine Large (Negative); Color,Urine Dark Brown; Glucose,Urine (UA) Negative (Negative); Ketones,Urine Trace (Negative); Leukocyte Esterase,Urine Moderate (Negative); Mucus,Urine Occasional /hpf; Nitrite,Urine Negative (Negative); Protein,Urine 2+ (Negative); RBC,Urine >182 /hpf (0-5); Specific Gravity,Urine 1.018 (1.001-1.035); Urobilinogen,Urine <2.0 mg/dL (<2.0)
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
[2018-04-05 17:56] LABS: Albumin 4.5 g/dL (3.5-5.0); Calcium 10.4 mg/dL (8.4-10.2); Potassium 4.2 mmol/L (3.5-5.1); Total Bilirubin 1.1 mg/dL (0.2-1.3); Total Protein 7.7 g/dL (6.3-8.2)
[2018-04-05 18:06] LABS: Basophils % (A) 0 %; Eosinophils % (A) 0 %; HCT 46.7 % (39.0-53.0); HGB 15.6 gm/dL (13.0-17.5); Lymphocytes # (A) 0.9 k/uL (1.0-4.8); Lymphocytes % (A) 7 %; MCH 28.6 pg (25.0-35.0); MCHC 33.3 g/dL (31.0-37.0); MCV 85.8 fL (80.0-100.0); Monocytes # (A) 0.7 k/uL (0-1.0); Monocytes % (A) 5 %; Neutrophils # (A) 11.7 k/uL (1.3-7.7); Neutrophils % (A) 86 %; Platelet Count 206 k/uL (150-450); RBC 5.45 m/uL (4.30-5.90); RDW 14.8 % (11.5-15.5); WBC 13.5 k/uL (3.8-10.6)
--- NOTE | 2018-04-05 19:09 | CT ---
EXAMINATION TYPE: CT abdomen pelvis wo con DATE OF EXAM: 04/05/2018 COMPARISON: 04/11/2015 HISTORY: Right flank pain CT DLP: 655.2 mGycm Automated exposure control for dose reduction was used. TECHNIQUE: Helical acquisition of images was performed from the lung bases through the pelvis. FINDINGS: There is minimal pulmonary emphysema. There is no pleural effusion. Heart size is normal. There is no pericardial effusion. Stomach appears normal. Liver spleen pancreas gallbladder appear normal. Bile ducts are not dilated. There is 5 mm calcified hepatic granuloma. There is no adrenal mass. There are multiple calculi in the kidneys and more on the right side. There is right-sided ureteral stent. There is mild right-sided hydronephrosis. There is an enlarged prosta te with calcification. Bladder otherwise distends smoothly. There is no inguinal hernia. There is no free fluid in the pelvis. There is no mesenteric edema or adenopathy. There is small umbilical hernia that is broad-based. Appendix is not seen. There is no sign of appendicitis. There is no evidence of a bowel obstruction. Lumbar spine appears intact. IMPRESSION: THERE IS CLEARING OF THE SUBSEGMENTAL ATELECTASIS AT THE LUNG BASES COMPARED TO OLD EXAM. MULTIPLE BI LATERAL RENAL CALCULI. URETERAL STENT APPEARS IN GOOD POSITION. THERE IS MILD RIGHT-SIDED HYDRONEPHRO SIS UNCHANGED COMPARED TO OLD EXAM.
[2018-04-05 19:14] VITALS: TEMP 98.6
[2018-04-05] MEDS ORDERED: ACET/COD 300 MG/30 MG STARTER PACK 6 TAB BTL PO STA (19:37)
[2018-04-05 19:54] VITALS: BP 155/75; PULSE 79
== END 2018-04-05 19:52 | disposition home or self-care (01) ==
LOC: EC 15:23
DX: N13.2 Hydronephrosis with renal and ureteral calculous obstruction (principal); D72.829 Elevated white blood cell count, unspecified; J98.11 Atelectasis; E78.5 Hyperlipidemia, unspecified; I10 Essential (primary) hypertension; K21.9 Gastro-esophageal reflux disease without esophagitis; M19.90 Unspecified osteoarthritis, unspecified site; Z87.891 Personal history of nicotine dependence; Z88.5 Allergy status to narcotic agent; Z79.02 Long term (current) use of antithrombotics/antiplatelets; Z79.82 Long term (current) use of aspirin; Z79.899 Other long term (current) drug therapy; Z85.828 Personal history of other malignant neoplasm of skin; Z96.0 Presence of urogenital implants; Z86.79 Personal history of other diseases of the circulatory system; Z90.49 Acquired absence of other specified parts of digestive tract; Z98.890 Other specified postprocedural states; Z95.818 Presence of other cardiac implants and grafts
CPT/HCPCS: 36415; 80053; 85025; 81001; 87086; 74018; 74176; 99285; 96374; 96376; 96361 ×2; J2270

== ENCOUNTER → 2018-04-27 | Outpatient (CLI) | payer OTHER ==
--- NOTE | 2018-04-27 18:24 | XR ---
EXAMINATION TYPE: XR abdomen 1V DATE OF EXAM: 04/27/2018 CLINICAL DATA: 67 year-old male history of kidney stones, calculus of kidney, [facility] COMPARISON: 04/05/2018 FINDINGS: Supine imaging limited for assessment of free intraperitoneal air. No dilated small bowel. No significant stool burden. Staple line in the right side of the pelvis from prior bowel anastomosis. Prosthetic calcifications are noted. Removal of the patient's right uretera l stent. Bowel content largely obscures the renal shadows. IMPRESSION: Staple line from prior bowel anastomosis in the right side of the pelvis. Prostatic calcifications. B owel content largely obscures the renal shadows.
== END | disposition home or self-care (01) ==
LOC: RADXRMAIN 13:28
PROVIDERS: ATTEND Urology
DX: N42.89 Other specified disorders of prostate (principal)
CPT/HCPCS: 74018

== ENCOUNTER 2018-05-09 21:25 | Inpatient (IN) | payer OTHER, MEDICARE ==
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
[2018-05-10 00:12] LABS: HCT 40.2 % (39.0-53.0); MCH 27.3 pg (25.0-35.0); MCHC 32.5 g/dL (31.0-37.0); MCV 84.2 fL (80.0-100.0); RBC 4.77 m/uL (4.30-5.90); WBC 18.5 k/uL (3.8-10.6)
[2018-05-10 00:13] LABS: Basophils % (A) 0 %; Eosinophils % (A) 0 %; Lymphocytes # (A) 0.9 k/uL (1.0-4.8); Lymphocytes % (A) 5 %; Mean Platelet Volume 6.9; Monocytes # (A) 0.5 k/uL (0-1.0); Monocytes % (A) 3 %; Neutrophils # (A) 16.9 k/uL (1.3-7.7); Neutrophils % (A) 92 %; Platelet Count 267 k/uL (150-450); RDW 14.6 % (11.5-15.5)
[2018-05-10 00:22] LABS: Calcium 10.1 mg/dL (8.4-10.2); Potassium 4.6 mmol/L (3.5-5.1)
[2018-05-10 02:05] LABS: RBC,Urine >182 /hpf (0-5)
[2018-05-10 02:07] LABS: Color,Urine Dark Red
[2018-05-10 02:09] LABS: Appearance,Urine Bloody (Clear); WBC,Urine >182 /hpf (0-5)
[2018-05-10] MEDS ORDERED: DIAZEPAM 5 MG/ML 2 ML INJ IVP STA (02:27)
[2018-05-10 02:43] LABS: Partial Thromboplastin Time 23.6 sec (22.0-30.0); Prothrombin Time 10.7 sec (9.0-12.0)
[2018-05-10] MEDS ORDERED: MORPHINE SULFATE 4 MG/ML SYRINGE IV STA (04:40)
[2018-05-10] MEDS ORDERED: NALOXONE 0.4 MG/ML 1 ML VIAL IV PRN (06:29)
[2018-05-10] MEDS ORDERED: LEVOFLOXACIN 750 MG TAB PO STA (06:33)
[2018-05-10] MEDS: ONDANSETRON 4 MG/2 ML VIAL IVP PRN ×2 (07:09→15:05)
[2018-05-10] MEDS: SODIUM CHLORIDE 0.9% 1,000 ML IV SCH ×2 (07:09→21:14)
[2018-05-10] MEDS: HYDROmorphone 0.5 MG/0.5 ML SYRINGE IVP PRN ×4 (07:10→20:45)
[2018-05-10] MEDS: LISINOPRIL 20 MG TAB PO SCH (13:24)
[2018-05-10] MEDS: amLODIPine 10 MG TAB PO SCH (13:24)
[2018-05-10] MEDS: PANTOPRAZOLE 40 MG TABLET PO SCH (13:24)
[2018-05-10] MEDS ORDERED: LIDOCAINE URO-JET JELLY 2% 5 ML KIT URETHRAL ONE (14:01)
[2018-05-10] MEDS ORDERED: SODIUM CHLORIDE 0.9% IRRIGATIO 3,000 ML IRRIGATION ONE (14:30)
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
[2018-05-10] MEDS: FENOFIBRATE 160 MG TAB PO SCH (17:42)
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
[2018-05-11] MEDS: SODIUM CHLORIDE 0.9% IRRIG 3,000 ML BAG IRRIGATION SCH (01:00)
[2018-05-11] MEDS: HYDROmorphone 0.5 MG/0.5 ML SYRINGE IVP PRN ×2 (01:27→08:00)
[2018-05-11 07:54] LABS: Basophils # (A) 0.1 k/uL (0-0.2); Basophils % (A) 0 %; Eosinophils # (A) 0.1 k/uL (0-0.7); Eosinophils % (A) 1 %; HCT 29.6 % (39.0-53.0); Lymphocytes # (A) 0.9 k/uL (1.0-4.8); Lymphocytes % (A) 9 %; MCHC 33.1 g/dL (31.0-37.0); MCV 87.5 fL (80.0-100.0); Mean Platelet Volume 6.9; Monocytes # (A) 0.6 k/uL (0-1.0); Monocytes % (A) 6 %; Neutrophils # (A) 8.5 k/uL (1.3-7.7); Neutrophils % (A) 82 %; Platelet Count 186 k/uL (150-450); RBC 3.38 m/uL (4.30-5.90); WBC 10.4 k/uL (3.8-10.6)
[2018-05-11 07:55] LABS: HGB 9.8 gm/dL (13.0-17.5)
[2018-05-11] MEDS: amLODIPine 10 MG TAB PO SCH (07:59)
[2018-05-11] MEDS: LISINOPRIL 20 MG TAB PO SCH (07:59)
[2018-05-11] MEDS: PANTOPRAZOLE 40 MG TABLET PO SCH (07:59)
[2018-05-11 08:01] LABS: Calcium 9.5 mg/dL (8.4-10.2); Potassium 4.4 mmol/L (3.5-5.1)
[2018-05-11] MEDS: SODIUM CHLORIDE 0.9% 1,000 ML IV SCH (09:14)
[2018-05-11] MEDS: FERROUS SULFATE 325 MG TAB PO SCH ×2 (10:55→17:39)
[2018-05-11] MEDS: HYDROmorphone 1 MG/ML 1 ML SYRINGE IVP PRN ×2 (10:56→15:47)
--- NOTE | 2018-05-11 10:57 | P.PN ---
Subjective Patient is a 67-year-old male with a known history of renal stones, GERD, hypertension, hyperlipidemia and osteoarthritis as well as left carotid artery stenosis 80-90% came to ER with complaints of blood in the urine for the past 4 days. Patient was also having blood clots and difficulty voiding and suprapubic abdominal pain. Patient was placed on Fernandes catheter yesterday in a known in the ER and was sent home patient came back to the hospital unable to void and suprapubic pain. Patient did have ureteroscopy with a lithotripsy and removal of calculi on 06/03. Currently patient denied any complaints of fever or chills. No nausea vomiting. Patient does have suprapubic pain and is currently on IV Dilaudid. WBC 18.5 05/11/2018 Patient has Fernandes catheter and still has significant hematuria draining. Bladder irrigation is on site. Patient have significant pain in the area although with less frequency, compared to before that comes every 5 minutes now always has this spasm, and then every half an hour. He is on Dilaudid 0.5 mg every 3 hours, we going to increase that to 1 mg. Continue on IV fluids normal saline 75 mL/h, given 1 bolus of normal saline. Neurology input is appreciated. Keep holding aspirin and Plavix for now, he was taken it for left carotid artery stent on 12/2017, however patient denies history of stroke. Patient is afebrile and vital signs stable, blood pressure in the low-normal site. Leukocytosis resolved today, hemoglobin is at 9.8. Platelets within normal limits. INR 1.0. Creatinine is at 1.47,, compared to last month of 1.5. And last year was 1.1. Patient remains on ceftriaxone. We'll send urine culture. DVT prophylaxis is mechanical in view of his hematuria and drop in hemoglobin. Patient continue on ceftriaxone and iron pills. CONSTITUTIONAL: No fever, no malaise, no fatigue. HEENT: No recent visual problems or hearing problems. Denied any sore throat. CARDIOVASCULAR: No orthopnea, PND, no palpitations, no syncope. PULMONARY: No shortness of breath, no cough, no hemoptysis. GASTROINTESTINAL: No diarrhea, no nausea, no vomiting, no abdominal pain. Normoactive bowel sounds. NEUROLOGICAL: No headaches, no weakness, no numbness. HEMATOLOGICAL: Denies any bleeding or petechiae. MUSCULOSKELETAL/RHEUMATOLOGICAL: Denies any joint pain, swelling, or any muscle pain. ENDOCRINE: Denies any polyuria or polydipsia. Medications: Valium, morphine, Dilaudid, Zofran, normal saline, levofloxacin, Protonix, Norvasc, ceftriaxone, lisinopril, fenofibrate, ferrous sulfate. Objective - Vital Signs Vital signs: Vital Signs Temp 98.5 F 05/11/18 05:00 Pulse 61 05/11/18 05:00 Resp 16 05/11/18 05:00 BP 103/50 05/11/18 05:00 Pulse Ox 92 L 05/11/18 05:00 Intake & Output 05/10/18 05/11/18 05/11/18 18:59 06:59 18:59 Intake Total 850 Output Total 4100 91021 950 Balance -4100 -26502 -950 Intake: Intake, IV Titration 260 Amount Sodium Chloride 0.9% 1, 260 000 ml @ 75 mls/hr IV . [id number] [facility] Rx#:[id number] Oral 590 Output: Urine 4100 71286 950 3-way Urethral 59143 Other: Voiding Method Indwelling Catheter Indwelling Catheter # Voids 3 - Exam GENERAL: The patient is alert and oriented x3, not in any acute distress. Well developed, well nourished. HEENT: Pupils are round and equally reacting to light. EOMI. No scleral icterus. No conjunctival pallor. Normocephalic, atraumatic. No pharyngeal erythema. No thyromegaly. CARDIOVASCULAR: S1 and S2 present. No murmurs, rubs, or gallops. PULMONARY: Chest is clear to auscultation, no wheezing or crackles. ABDOMEN: Soft, nontender, nondistended, normoactive bowel sounds. No palpable organomegaly. -Genitourinary: Fernandes catheter with irrigation is in a Place. Draining around 300 mL of dark colored urine. No significant suprapubic tenderness MUSCULOSKELETAL: No joint swelling or deformity. EXTREMITIES: No cyanosis, clubbing, or pedal edema. NEUROLOGICAL: Gross neurological examination did not reveal any focal deficits. SKIN: No rashes. - Labs CBC & Chem 7: 05/11/18 07:15 05/11/18 07:15 Labs: Abnormal Lab Results - Last 24 Hours (Table) 05/11/18 05/11/18 Range/Units 07:15 07:15 RBC 3.38 L (4.30-5.90) m/uL Hgb 9.8 L D (13.0-17.5) gm/dL Hct 29.6 L (39.0-53.0) % Neutrophils # 8.5 H (1.3-7.7) k/uL Lymphocytes # 0.9 L (1.0-4.8) k/uL Chloride 111 H (98-107) mmol/L BUN 23 H (9-20) mg/dL Creatinine 1.47 H (0.66-1.25) mg/dL Glucose 101 H (74-99) mg/dL Assessment and Plan Assessment: Gross hematuria Acute urinary retention. Currently on Fernandes catheter Rule out urinary tract infection, continue with antibiotics for now Hypertension Hyperlipidemia History of renal stones Hepatitis C with treatment in 2017 History of skin cancer Chronic back pain and neck pain Left carotid artery 80-90% block. Status post left carotid artery stent insertion in December 2017 Previous history of smoking DVT prophylaxis with SCDs Plan: Patient will be continued on saline irrigation until hematuria clears. Urology is following. Continue the pain management with Dilaudid and empiric antibiotics the form of ceftriaxone. Continue with IV fluid. Follow up closely and continue the home medications and further recommendations based on the clinical course.
[2018-05-11] MEDS ORDERED: SODIUM CHLORIDE 0.9% 500 ML 500 ML IV ONE (11:29)
--- NOTE | 2018-05-11 13:33 | P.PN ---
Progress Note - Text Progress Note Date: 05/11/18 Mr. Agustin is hemodynamically stable. Continuous bladder irrigation is running, and the return is pink tinged. However, manual irrigation was required earlier today to remove clots from the bladder. The hemoglobin level this morning was 9.8, down from 13. Continuous bladder irrigation will continue to be utilized, and the hemoglobin level will be repeated tomorrow morning. However, he will be made nothing by mouth after midnight in the event that cystoscopy with evacuation of clot and fulguration of bleeders as required tomorrow.
[2018-05-11] MEDS: FENOFIBRATE 160 MG TAB PO SCH (17:39)
[2018-05-11] MEDS: HYDROmorphone 0.5 MG/0.5 ML SYRINGE IM PRN (20:01)
[2018-05-12] MEDS: HYDROmorphone 0.5 MG/0.5 ML SYRINGE IM PRN ×2 (02:52→07:06)
[2018-05-12] MEDS: SODIUM CHLORIDE 0.9% 1,000 ML IV SCH (06:15)
[2018-05-12] MEDS: SODIUM CHLORIDE 0.9% IRRIG 3,000 ML BAG IRRIGATION SCH (06:18)
[2018-05-12] MEDS: amLODIPine 10 MG TAB PO SCH (07:53)
[2018-05-12] MEDS: LISINOPRIL 20 MG TAB PO SCH (07:53)
[2018-05-12] MEDS: PANTOPRAZOLE 40 MG TABLET PO SCH (07:53)
[2018-05-12] MEDS: FERROUS SULFATE 325 MG TAB PO SCH ×2 (07:53→17:54)
[2018-05-12 08:11] LABS: Basophils % (A) 1 %; Eosinophils # (A) 0.3 k/uL (0-0.7); Eosinophils % (A) 3 %; HCT 26.7 % (39.0-53.0); HGB 8.9 gm/dL (13.0-17.5); Lymphocytes % (A) 13 %; MCH 29.1 pg (25.0-35.0); MCHC 33.5 g/dL (31.0-37.0); MCV 86.9 fL (80.0-100.0); Mean Platelet Volume 7.4; Monocytes # (A) 0.4 k/uL (0-1.0); Monocytes % (A) 5 %; Neutrophils # (A) 6.2 k/uL (1.3-7.7); Neutrophils % (A) 78 %; Platelet Count 163 k/uL (150-450); RBC 3.07 m/uL (4.30-5.90); RDW 15.2 % (11.5-15.5)
[2018-05-12 08:55] LABS: Calcium 8.9 mg/dL (8.4-10.2); Potassium 4.2 mmol/L (3.5-5.1)
[2018-05-12] MEDS: HYDROmorphone 0.5 MG/0.5 ML SYRINGE IVP PRN ×2 (10:36→21:22)
--- NOTE | 2018-05-12 12:51 | P.PN ---
Subjective Patient is a 67-year-old male with a known history of renal stones, GERD, hypertension, hyperlipidemia and osteoarthritis as well as left carotid artery stenosis 80-90% came to ER with complaints of blood in the urine for the past 4 days. Patient was also having blood clots and difficulty voiding and suprapubic abdominal pain. Patient was placed on Fernandes catheter yesterday in a known in the ER and was sent home patient came back to the hospital unable to void and suprapubic pain. Patient did have ureteroscopy with a lithotripsy and removal of calculi on 06/03. Currently patient denied any complaints of fever or chills. No nausea vomiting. Patient does have suprapubic pain and is currently on IV Dilaudid. WBC 18.5 05/11/2018 Patient has Fernandes catheter and still has significant hematuria draining. Bladder irrigation is on site. Patient have significant pain in the area although with less frequency, compared to before that comes every 5 minutes now always has this spasm, and then every half an hour. He is on Dilaudid 0.5 mg every 3 hours, we going to increase that to 1 mg. Continue on IV fluids normal saline 75 mL/h, given 1 bolus of normal saline. Neurology input is appreciated. Keep holding aspirin and Plavix for now, he was taken it for left carotid artery stent on 12/2017, however patient denies history of stroke. Patient is afebrile and vital signs stable, blood pressure in the low-normal site. Leukocytosis resolved today, hemoglobin is at 9.8. Platelets within normal limits. INR 1.0. Creatinine is at 1.47,, compared to last month of 1.5. And last year was 1.1. Patient remains on ceftriaxone. We'll send urine culture. DVT prophylaxis is mechanical in view of his hematuria and drop in hemoglobin. Patient continue on ceftriaxone and iron pills. 05/12/2018 Patient one seen and examined in the morning, he still have Fernandes catheter in but without regurgitation. There is only a few millimeter of urine was in the bag. There is some blood clots in the tube. Urology evaluation is appreciated. Patient might need cystoscopy as per urologist. Patient still have episodic pain in the suprapubic region, mostly related to clotting of his Fernandes catheter. Patient continue with pain medication Dilaudid. Aspirin and Plavix were on hold. Hemoglobin with slightly dropped from 9.8 down to 8.9. Platelets within normal limits. BMP was unremarkable except for creatinine of 1.37. Blood pressure is well-controlled 113/72. Patient is not tachycardic. Urine culture still pending. Patient is on ceftriaxone and normal saline and 75 mm/h Objective - Vital Signs Vital signs: Vital Signs Temp 98.2 F 05/12/18 11:59 Pulse 70 05/12/18 11:59 Resp 20 05/12/18 11:59 BP 113/72 05/12/18 11:59 Pulse Ox 96 05/12/18 11:59 Intake & Output 05/11/18 05/12/18 05/12/18 18:59 06:59 18:59 Intake Total 2540 590 Output Total 5250 1900 Balance -2710 -1310 Intake: Intake, IV Titration 1200 Amount Sodium Chloride 0.9% 1, 600 000 ml @ 75 mls/hr IV . [id number] [facility] Rx#:[id number] Sodium Chloride 0.9% 500 500 ml 500 ml @ 999 mls/hr IV .Q31M ONE Rx#:[id number] cefTRIAXone 1,000 mg In 100 Sodium Chloride 0.9% 50 ml @ 100 mls/hr IVPB Q24HR [facility] Rx#:[id number] Oral 1340 590 Output: Urine 5250 1900 Other: Voiding Method Indwelling Catheter Indwelling Catheter Indwelling Catheter # Voids 3 - Exam GENERAL: The patient is alert and oriented x3, not in any acute distress. Well developed, well nourished. HEENT: Pupils are round and equally reacting to light. EOMI. No scleral icterus. No conjunctival pallor. Normocephalic, atraumatic. No pharyngeal erythema. No thyromegaly. CARDIOVASCULAR: S1 and S2 present. No murmurs, rubs, or gallops. PULMONARY: Chest is clear to auscultation, no wheezing or crackles. ABDOMEN: Soft, nontender, nondistended, normoactive bowel sounds. No palpable organomegaly. -Genitourinary: Fernandes catheter with irrigation is in a Place. Draining around 300 mL of dark colored urine. No significant suprapubic tenderness MUSCULOSKELETAL: No joint swelling or deformity. EXTREMITIES: No cyanosis, clubbing, or pedal edema. NEUROLOGICAL: Gross neurological examination did not reveal any focal deficits. SKIN: No rashes. - Labs CBC & Chem 7: 05/12/18 07:29 05/12/18 07:29 Labs: Abnormal Lab Results - Last 24 Hours (Table) 05/12/18 05/12/18 Range/Units 07:29 07:29 RBC 3.07 L (4.30-5.90) m/uL Hgb 8.9 L (13.0-17.5) gm/dL Hct 26.7 L (39.0-53.0) % Chloride 112 H (98-107) mmol/L Creatinine 1.37 H (0.66-1.25) mg/dL Microbiology - Last 24 Hours (Table) 05/11/18 12:05 Urine Culture - Preliminary Urine,Clean Catch Assessment and Plan Assessment: Gross hematuria Alejandra with clotting Acute urinary retention. Currently on Fernandes catheter Rule out urinary tract infection, continue with antibiotics for now Hypertension Hyperlipidemia History of renal stones Hepatitis C with treatment in 2017 History of skin cancer Chronic back pain and neck pain Left carotid artery 80-90% block. Status post left carotid artery stent insertion in December 2017 Previous history of smoking DVT prophylaxis with SCDs Plan: Patient will be continued on saline irrigation until hematuria clears. Urology is following. Continue the pain management with Dilaudid and empiric antibiotics the form of ceftriaxone. Continue with IV fluid. Follow up closely and continue the home medications and further recommendations based on the clinical course.
[2018-05-12] MEDS ORDERED: IV FLUID CONTINUATION 1,000 ML IV ONE (16:02)
[2018-05-12] MEDS: ONDANSETRON 4 MG/2 ML VIAL IVP PRN (16:02)
--- NOTE | 2018-05-12 16:11 | P.PN ---
Progress Note - Text Progress Note Date: 05/12/18 When seen this morning, Mr. Agustin's urine was essentially clear. His only discomfort was mild penile discomfort, likely due to the Fernandes catheter. The hemoglobin level was 8.9. Continuous bladder irrigation was held, but he developed recurrent hematuria with clots. In view of this, the decision was made to proceed with cystoscopy, evacuation of clot, and fulguration of bleeder , as a lower urinary tract source of the hematuria is suspected.
[2018-05-12] MEDS ORDERED: ePHEDrine SULFATE/0.9% NACL/PF 50 MG/5 ML SYRINGE IV ONE (16:19)
[2018-05-12] MEDS ORDERED: LIDOCAINE 1% INJ 10MG/ML (20 ML MDV) ONE (16:19)
[2018-05-12] MEDS ORDERED: HYDROmorphone (PF) 1 MG/ML ONE (16:19)
[2018-05-12] MEDS ORDERED: PHENYLEPHRINE-0.9% NACL SYG 1 MG/10 ML SYRINGE ONE (16:19)
[2018-05-12] MEDS ORDERED: SUCCINYLCHOLINE CHLORIDE 100 MG/5 ML SYR IV ONE (16:19)
[2018-05-12] MEDS ORDERED: fentaNYL (PF) 50 MCG/ML 2 ML AMP ONE (16:19)
[2018-05-12] MEDS ORDERED: PROPOFOL 10 MG/ML 20 ML VIAL IV ONE (16:19)
--- NOTE | 2018-05-12 17:04 | P.OP ---
Date of Procedure: 05/12/18 Preoperative Diagnosis: Gross hematuria, urinary clot retention Postoperative Diagnosis: Same, bladder calculi Procedure(s) Performed: Cystoscopy, evacuation of clot, removal of bladder calculi, fulguration of bleeders Anesthesia: KAMA Surgeon: Bimal Mo Estimated Blood Loss (ml): 5 IV fluids (ml): 200 Pathology: other (Bladder calculi) Condition: stable Disposition: PACU Indications for Procedure: Patient is a 67-year-old male who underwent right ureteroscopy with Holmium laser lithotripsy to remove several right renal calculi approximately 5 weeks ago. He underwent removal of his right ureteral stent approximately 2 weeks later, but recently developed gross hematuria and difficulty voiding. He was admitted with urinary clot retention. He has failed conservative management and comes for cystoscopy. Operative Findings: Several small clots within the bladder. Multiple small calculus fragments. Oozing from anterior prostatic urethra. Description of Procedure: The patient was taken to the operating room and placed in the dorsolithotomy position, with legs supported in Juan stirrups. The external genitalia was prepped and draped sterilely. The 30 lens was used to introduce the 19-Hong Konger Stortz cystoscopic sheath through the urethra and into the bladder under direct vision. The prostatic urethra was visually occluded due to significant lateral lobe enlargement. The bladder was examined in its entirety. Both ureteral orifices were of normal anatomic location and configuration, and clear urine effluxed from both. Multiple small calculus fragments were seen within the bladder. Several small clots were floating within the bladder. There were no tumors. There was no active bleeding within the bladder. Inflammation at the bladder dome was noted, consistent with catheter cystitis. The clots were removed through the cystoscope, as were the bladder calculi. These were saved and sent for chemical analysis. The cystoscope was withdrawn to inspect the prostatic urethra, as some oozing was noted from the vesical neck. The source of this oozing was determined to be the anterior aspect of the prostatic urethra. This was fulgurated using the Bugbee electrode, attaining excellent hemostasis. The cystoscope was removed, and an 18-Hong Konger three-way Fernandes catheter was placed. The return was clear, so the irrigation port was plugged and the catheter was connected to gravity drainage. The patient tolerated the procedure well was taken to the recovery room in stable condition.
[2018-05-12] MEDS: FENOFIBRATE 160 MG TAB PO SCH (17:54)
[2018-05-13] MEDS: HYDROmorphone 0.5 MG/0.5 ML SYRINGE IVP PRN ×2 (00:42→04:09)
[2018-05-13] MEDS: SODIUM CHLORIDE 0.9% 1,000 ML IV SCH ×2 (01:13→07:35)
[2018-05-13] MEDS: SODIUM CHLORIDE 0.9% IRRIG 3,000 ML BAG IRRIGATION SCH (01:14)
[2018-05-13 05:09] VITALS: RESP 20
[2018-05-13] MEDS: PANTOPRAZOLE 40 MG TABLET PO SCH (07:34)
[2018-05-13] MEDS: LISINOPRIL 20 MG TAB PO SCH (07:34)
[2018-05-13] MEDS: amLODIPine 10 MG TAB PO SCH (07:34)
[2018-05-13] MEDS: FERROUS SULFATE 325 MG TAB PO SCH (07:35)
[2018-05-13 08:12] LABS: Basophils % (A) 0 %; Eosinophils # (A) 0.3 k/uL (0-0.7); Eosinophils % (A) 4 %; HCT 28.9 % (39.0-53.0); HGB 9.3 gm/dL (13.0-17.5); Lymphocytes # (A) 1.3 k/uL (1.0-4.8); Lymphocytes % (A) 15 %; MCH 28.2 pg (25.0-35.0); MCHC 32.1 g/dL (31.0-37.0); MCV 87.8 fL (80.0-100.0); Mean Platelet Volume 7.4; Monocytes # (A) 0.4 k/uL (0-1.0); Monocytes % (A) 4 %; Neutrophils # (A) 6.4 k/uL (1.3-7.7); Neutrophils % (A) 75 %; Platelet Count 168 k/uL (150-450); RBC 3.29 m/uL (4.30-5.90); RDW 15.4 % (11.5-15.5); WBC 8.5 k/uL (3.8-10.6)
[2018-05-13 08:21] LABS: Calcium 9.2 mg/dL (8.4-10.2)
--- NOTE | 2018-05-13 11:15 | P.PN ---
Progress Note - Text Progress Note Date: 05/13/18 Mr. Agustin's urine was clear this morning, and his hemoglobin level has increased to 9.3. He reported bladder spasms, and in view of this the Fernandes catheter was removed. Since that time, he has been able to void. He has had several episodes of urge incontinence, which is expected to resolve. His urine is caity without clots. I have prescribed tamsulosin, and from my standpoint he is urologically stable for discharge. I advised him to drink plenty of fluids, and to avoid straining of any type. He will follow-up with me in 1 week , sooner if needed. Please notify me if I can be of any further assistance.
[2018-05-13] MEDS ORDERED: TAMSULOSIN 0.4 MG CAP.ER.24H PO SCH (12:00)
[2018-05-13 12:28] VITALS: BP 133/75; PULSE 99; TEMP 98
--- NOTE | 2018-05-13 13:40 | P.DS ---
Providers Date of admission: 05/12/18 09:22 Attending physician: Robi Edwards Consults: 05/10/18 06:30 Consult Physician Routine Consulting Provider: Bimal Mo Consult Reason/Comments: Hematuria Do you want consulting provider notified?: Yes Primary care physician: [facility] Hospital Course: Diagnoses: Gross hematuria Alejandra with clotting Status post Cystoscopy, evacuation of clot, removal of bladder calculi, fulguration of bleeders Acute urinary retention. Fernandes catheter removed and pt can pee again. 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 Status post left carotid artery stent insertion in December 2017 Previous history of smoking Hospital course: Patient is a 67-year-old male with a known history of renal stones, GERD, hypertension, hyperlipidemia and osteoarthritis as well as left carotid artery stenosis 80-90% came to ER with complaints of blood in the urine for 4 days. Patient was also having blood clots and difficulty voiding and suprapubic abdominal pain. Patient was placed on Fernandes catheter with bladder irrigation. Patient kept having clotting of his Fernandes catheter with suprapubic pain. Patient didn't evaluated by urologist who did cystoscopy for him when diffuse stone fragments was found, is status post evacuation of clot, removal of bladder calculi, fulguration of bleeders. After that Fernandes catheter could be discontinued and patient was able to void with post-void void residual was not increased. His pain has resolved. No more symptoms or signs. Flomax has been started. Patient has been cleared by urology for discharge and follow-up in one week. Patient informed and he agrees with this plan Problems and management plan was discussed with the patient and he verbalized understanding and acceptance Patient was found stable and can be discharged home however he needs follow-up as an outpatient. Patient instructed to follow up with his PCP and Dr. Ledbetter was the neurologist in one week and he agrees. Patient as the staff to make appointments for him and he agrees with it. Gen: patient is a AAOx3, no distress CVS: S1-S2, RRR, no murmur Lungs: B/L CTA, no wheezing Abdomen: soft, no distention, no tenderness, positive bowel sounds Extremity: no leg edema or induration Time spent more than 35 minutes Patient Condition at Discharge: Fair Plan - Discharge Summary Discharge Rx Participant: No New Discharge Prescriptions: New Tamsulosin [Flomax] 0.4 mg PO DAILY #30 cap No Action amLODIPine [Norvasc] 10 mg PO DAILY Cholecalciferol (Vitamin D3) [Vitamin D3] 2,000 unit PO DAILY Gemfibrozil [Lopid] 600 mg PO AC-BID Clopidogrel [Plavix] 75 mg PO DAILY Lisinopril [Zestril] 20 mg PO DAILY Aspirin EC [Ecotrin Low Dose] 81 mg PO DAILY Esomeprazole Magnesium [NexIUM] 20 mg PO DAILY Discharge Medication List amLODIPine [Norvasc] 10 mg PO DAILY 03/05/16 [History] Cholecalciferol (Vitamin D3) [Vitamin D3] 2,000 unit PO DAILY 09/16/17 [History] Clopidogrel [Plavix] 75 mg PO DAILY 09/16/17 [History] Gemfibrozil [Lopid] 600 mg PO AC-BID 09/16/17 [History] Lisinopril [Zestril] 20 mg PO DAILY 10/31/17 [History] Aspirin EC [Ecotrin Low Dose] 81 mg PO DAILY 12/07/17 [History] Esomeprazole Magnesium [NexIUM] 20 mg PO DAILY 03/31/18 [History] Cephalexin [Keflex] 250 mg PO Q8HR 2 Days #6 capsule 05/13/18 [Rx] Ferrous Sulfate [Iron (65 MG Elemental)] 325 mg PO BID-W/MEALS #60 tab 05/13/18 [Rx] Tamsulosin [Flomax] 0.4 mg PO DAILY #30 cap 05/13/18 [Rx] Follow up Appointment(s)/Referral(s): Bimal Mo MD [STAFF PHYSICIAN] - 1 Week [facility] [Primary Care Provider] - 1-2 days
== END 2018-05-13 15:10 | disposition home or self-care (01) | DRG 663 ==
LOC: EC 21:25 → 3NMEDONC 05-10 06:35 → OBSVTOIN 05-12 09:22
PROVIDERS: ADMIT Hospitalist; ATTEND Hospitalist
PROC: 0W3R8ZZ Control Bleeding in Genitourinary Tract, Via Natural or Artificial Opening Endoscopic (ICD-10-PCS; 2018-05-12)
PROC: 0TCB8ZZ Extirpation of Matter from Bladder, Via Natural or Artificial Opening Endoscopic (ICD-10-PCS; principal; 2018-05-12 08:55)
DX: N32.89 Other specified disorders of bladder (principal); N02.9 Recurrent and persistent hematuria with unspecified morphologic changes; R33.8 Other retention of urine; N21.0 Calculus in bladder; K21.9 Gastro-esophageal reflux disease without esophagitis; I10 Essential (primary) hypertension; E78.5 Hyperlipidemia, unspecified; M19.90 Unspecified osteoarthritis, unspecified site; M54.9 Dorsalgia, unspecified; M54.2 Cervicalgia; G89.29 Other chronic pain; D72.829 Elevated white blood cell count, unspecified; Z86.19 Personal history of other infectious and parasitic diseases; Z87.442 Personal history of urinary calculi; Z85.828 Personal history of other malignant neoplasm of skin; Z79.899 Other long term (current) drug therapy; Z87.891 Personal history of nicotine dependence; Z79.82 Long term (current) use of aspirin; Z79.02 Long term (current) use of antithrombotics/antiplatelets
CPT/HCPCS: 36415; 80048; 81001; 82365; 85025; 85610; 85730; 87086; 96374; 96375; 99284

== ENCOUNTER → 2018-05-09 | Emergency (ER) | payer OTHER | END | disposition home or self-care (01) | LOC: EC 17:30 | DX: R33.9 Retention of urine, unspecified (principal); R31.9 Hematuria, unspecified; Z86.73 Personal history of transient ischemic attack (TIA), and cerebral infarction without residual deficits; Z87.891 Personal history of nicotine dependence | CPT/HCPCS: 51702; 99283 ==

== ENCOUNTER → 2018-06-19 | Outpatient (CLI) | payer OTHER ==
[2018-06-19 14:03] LABS: HCT 38.4 % (39.0-53.0); HGB 12.1 gm/dL (13.0-17.5); Hypochromasia Moderate; MCH 25.5 pg (25.0-35.0); MCHC 31.4 g/dL (31.0-37.0); Mean Platelet Volume 7.5; Platelet Count 207 k/uL (150-450); Poikilocytosis Slight; RBC 4.74 m/uL (4.30-5.90); WBC 7.8 k/uL (3.8-10.6)
== END | disposition home or self-care (01) ==
LOC: LABPAT 13:05
PROVIDERS: ATTEND Surgery
DX: Z01.812 Encounter for preprocedural laboratory examination (principal); K43.0 Incisional hernia with obstruction, without gangrene
CPT/HCPCS: 36415; 85027; 86850; 86900; 86901

== ENCOUNTER 2018-07-15 07:53 | Day surgery (SDC) | payer MEDICARE, OTHER ==
[2018-07-07 14:17] VITALS: BMI 28.5
[~2018-07-15 07:53] MED LIST changes: -DEXAMETHASONE SOD PHOSPHATE 10 MG/ML 1 ML VIAL IV ONE; +HEPARIN SODIUM,PORCINE 5,000 UNIT/ML 1 ML VIAL SQ ONE; -MIDAZOLAM (PF) 2 MG/2 ML VIAL IV PRN; -ONDANSETRON 4 MG/2 ML VIAL IVP ONE; +ONDANSETRON 4 MG/2 ML VIAL IVP PRN; -ceFAZolin 1,000 MG in DEXTROSE/WATER 1 50ML.BAG IVPB ONE; +ceFAZolin IN SWFI 2 GM/20 ML SYRINGE IVP ONE; -fentaNYL (PF) 50 MCG/ML 2 ML AMP IV PRN
[2018-07-15] MEDS ORDERED: DEXAMETHASONE SOD PHOSPHATE 10 MG/ML 1 ML VIAL IV ONE (10:25)
[2018-07-15] MEDS ORDERED: MIDAZOLAM 2 MG/2 ML VIAL IVP ONE (10:29)
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
[2018-07-15] MEDS ORDERED: BUPIVACAIN-EPI 0.5%-1:200,000 30 ML VIAL SQ ONE ×2 (11:17)
[2018-07-15] MEDS ORDERED: VECURONIUM 10 MG VIAL IV ONE (11:18)
[2018-07-15] MEDS ORDERED: NEOSTIGMINE 1 MG/ML 10 ML VIAL ONE (11:18)
[2018-07-15] MEDS ORDERED: ROPIVACAINE 5 MG/ML 30 ML VIAL ONE (11:18)
[2018-07-15] MEDS ORDERED: fentaNYL (PF) 50 MCG/ML 2 ML AMP ONE (11:18)
[2018-07-15] MEDS ORDERED: SUCCINYLCHOLINE CHLORIDE 100 MG/5 ML SYR IV ONE (11:18)
[2018-07-15] MEDS ORDERED: GLYCOPYRROLATE 0.2 MG/ML 2 ML VIAL ONE (11:18)
[2018-07-15] MEDS ORDERED: LIDOCAINE 1% INJ 10MG/ML (20 ML MDV) ONE (11:18)
[2018-07-15] MEDS ORDERED: PROPOFOL 10 MG/ML 20 ML VIAL IV ONE (11:18)
[2018-07-15] MEDS ORDERED: LACTATED RINGERS 1,000 ML IV ONE (12:21)
--- NOTE | 2018-07-15 12:50 | P.OP ---
Date of Procedure: 07/15/18 Preoperative Diagnosis: Incisional hernia Postoperative Diagnosis: Incisional hernia Procedure(s) Performed: Laparoscopic robotic-assisted repair of incisional hernia Anesthesia: JUAN Surgeon: Arash Curtis Estimated Blood Loss (ml): 5 Pathology: none sent Condition: stable Disposition: PACU Description of Procedure: The patient was placed on the operating table in the supine position. He received general anesthesia. His abdomen was prepped and draped usual fashion. Using a 5 mm optical trocar under direct visualization the peritoneal cavity was entered in the left upper quadrant. The abdomen was then insufflated. The laparoscope was placed back into the perineal cavity. Next a 8 mm robotic trocar was placed in the left lower quadrant and a 12 mm robotic trocar was placed in the left lateral position. The original 5 mm trocar was exchanged for a 8 mm robotic trocar. The patient's placed in the left side up position. And the patient was docked to the robot. The incisional hernia was visualized. Using hook cautery the peritoneum over the incisional hernia was excised. The fascial opening was repaired using 0V LOC suture. Next a piece of 11 cm round ventral light ST mesh was placed into the. Cavity and secured with 2 OV lock suture. The patient was undocked the robot. The needles were retrieved. The fascia of the 12 mm trocar site was closed with 0 Ethibond suture. Skin was closed interrupted 3-0 Monocryl suture. Dermabond dressings was applied. Patient tolerated procedure well and was sent to recovery room stable condition.
[2018-07-15 12:56] VITALS: TEMP 97.7
[2018-07-15] MEDS: HYDROmorphone 0.5 MG/0.5 ML SYRINGE IVP PRN ×2 (12:58→13:03)
[2018-07-15 13:05] VITALS: RESP 16
[2018-07-15] MEDS: fentaNYL (PF) 50 MCG/ML 2 ML AMP IVP ONE ×3 (13:09→13:29)
[2018-07-15] MEDS ORDERED: HYDROcodone/APAP 7.5-325MG 1 EACH TAB PO ONE (14:28)
[2018-07-15] MEDS ORDERED: ONDANSETRON 4 MG/2 ML VIAL IVP ONE (15:06)
[2018-07-15 18:17] VITALS: BP 134/79; PULSE 59
--- NOTE | 2018-07-16 12:41 | P.ONQ ---
Anesthesiology Proc Note - PNB - Peripheral Nerve Block Performed Bilateral Rectus Abdominis Single Time Out Performed: Yes Procedure Start Time: Procedure Stop Time: :33 Indication: Acute Post-Operative Pain, Requested by physician Sedation Type: Sedate with meaningful contact maintained Preparation: Sterile Prep Position: Supine Needle Size: 50mm (2") Needle Gauge: 21 Technique: Ultrasound (ropi .5% 10cc plus xylo2% with epi 10cc each side) Blood Aspirated: No Pain Paresthesia on Injection Noted: No Resistance on Injection: Normal Events: Uneventful and Well Tolerated
== END 2018-07-15 18:43 | disposition home or self-care (01) ==
LOC: OR 07:53
PROVIDERS: ATTEND Surgery
DX: K43.2 Incisional hernia without obstruction or gangrene (principal); K21.9 Gastro-esophageal reflux disease without esophagitis; E78.5 Hyperlipidemia, unspecified; M19.90 Unspecified osteoarthritis, unspecified site; I10 Essential (primary) hypertension; K76.9 Liver disease, unspecified; Z87.442 Personal history of urinary calculi; Z86.19 Personal history of other infectious and parasitic diseases; Z85.828 Personal history of other malignant neoplasm of skin; Z87.891 Personal history of nicotine dependence; Z80.3 Family history of malignant neoplasm of breast; Z79.02 Long term (current) use of antithrombotics/antiplatelets; Z79.82 Long term (current) use of aspirin; Z79.899 Other long term (current) drug therapy; Z88.5 Allergy status to narcotic agent
CPT/HCPCS: 49654; S2900; 64488

== ENCOUNTER → 2018-09-22 | Outpatient (CLI) | payer MEDICARE | LOC: LABWHC1 14:24 | PROVIDERS: ATTEND Urology | DX: R97.20 Elevated prostate specific antigen [PSA] (principal) | CPT/HCPCS: 36415; 84153 ==

== ENCOUNTER → 2018-12-09 | Outpatient (CLI) | payer MEDICARE ==
--- NOTE | 2018-12-10 07:47 | US ---
EXAMINATION TYPE: US kidneys/renal and bladder DATE OF EXAM: 12/09/2018 COMPARISON: NONE CLINICAL HISTORY: R94.4 ABN RENAL FUNCTION TEST. Abnormal renal function pain and hx of stones. EXAM MEASUREMENTS: Right Kidney: 11.2 x 3.4 x 3.6 cm Left Kidney: 9.8 x 4.6 x 4.6 cm Right Kidney: Cortical thinning cystic area lateral upper pole 2.0 x 2.1 x 1.8cm. Left Kidney: No hydronephrosis or masses seen Bladder: Anechoic. Enlarged prostate incidental seen 5.6cm. Bilateral Jets seen: Yes There is no evidence for hydronephrosis at this point in time. There is bilateral cortical renal thi nning. Cortical medullary differentiation is maintained. The previously seen right-sided renal calcul us is not clearly shadowing on today's examination within the midpole and may have passed in the inte rim. No distinct nephrolithiasis within either kidney. The urinary bladder is anechoic. Bilateral ureteral jets are seen. IMPRESSION: 1. No hydronephrosis. No discrete nephrolithiasis on today's exam. The patient's previously seen righ t renal calculus is not clearly defined and may have passed in the interim. 2. Cortical renal thinning of chronic medical renal disease. 3. Benign-appearing right renal cyst measuring 2.0 cm. 4. Incidentally noted enlarged prostate gland measuring 5.6 cm.
== END | disposition home or self-care (01) ==
LOC: RADUSWWP 15:50
PROVIDERS: ATTEND Urology
DX: N28.1 Cyst of kidney, acquired (principal); N18.9 Chronic kidney disease, unspecified
CPT/HCPCS: 76770

== ENCOUNTER → 2019-02-15 | Outpatient (CLI) | payer OTHER ==
[2019-02-15 12:34] VITALS: BP 144/74; PULSE 67; RESP 20
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
== END | disposition home or self-care (01) ==
LOC: PNWHC3 12:05
PROVIDERS: ATTEND Anesthesiology
DX: G89.29 Other chronic pain (principal); M47.814 Spondylosis without myelopathy or radiculopathy, thoracic region; M54.6 Pain in thoracic spine; Z87.891 Personal history of nicotine dependence; Z79.899 Other long term (current) drug therapy; Z88.8 Allergy status to other drugs, medicaments and biological substances
CPT/HCPCS: 99211

== ENCOUNTER → 2019-03-24 | Outpatient (CLI) | payer MEDICARE, OTHER ==
[2019-03-24 14:11] VITALS: BP 146/94; PULSE 67; RESP 16
--- NOTE | 2019-03-24 14:41 | P.PAINPG ---
Subjective Progress Note Date: 03/24/19 This is a follow-up visit for this 68 years old male with a chronic history of severe midback pain, started several years ago is here today for reevaluation and to discuss with him the results of the MRI report of the thoracic spine, patient had the MRI of the thoracic spine done at [facility] and it showed multilevel thoracic bulging disc disease and multilevel thoracic spondylosis, patient denies any motor or sensory deficits but he reported that he had severe midback pain increased with any activity, the pain intensity with complete rest is 60-4/10 and increases with any activity to 10 over 10, interfering with her quality of life Objective - Vital Signs Vital signs: Vital Signs Temp Pulse 67 03/24/19 14:04 Resp 16 03/24/19 14:04 BP 146/94 03/24/19 14:04 Pulse Ox 98 03/24/19 14:04 - Exam Physical exam: Vital Signs: Reviewed in EMR GENERAL: Well appearing, in no acute distress PSYCH: Mood and affect is appropriate. Awake, alert, and oriented SKIN: Skin color, texture, turgor normal, no rashes or lesions HEENT: Normocephalic, atraumatic. EOM intact CV: No pedal edema RESP: Respirations are unlabored, no audible wheezing GI: Abdomen non-distended MUSCULOSKELETAL: Bilateral upper and lower extremity strength is normal and symmetric. No atrophy or tone abnormalities are noted. Thoracic spine: Tenderness to palpation of T8 to T12 region and bilateral paraspinal muscles. Pain is worse with twisting movements. Lumbar spine: No pain to palpation over the lumbar spine and paraspinous muscles. Negative for pain with facet loading and back extension/rotation. Buttocks: No pain to palpation over the PSIS Extremities: Peripheral joint ROM is full and pain free without obvious instability or laxity in all four extremities. No edema or skin discolorations noted. Gait: Gait is normal NEUR: Bilateral upper and lower extremity coordination and muscle stretch reflexes are physiologic and symmetric. Negative clonus. Loss of sensation to light touch noted in right lateral thigh and lateral calf. Cranial nerves are grossly intact. Assessment and Plan Plan: Assessment and plan=1-thoracic spondylosis with thoracic facet arthropathy. 2-thoracic degenerative disc disease. 1-ruicy-uktdu meralgia paresthetica. She'll be good candidate to have diagnostic medial branch block bilateral T8, T9, T10, T11 x2 , left is positive then we will proceed with RFA, patient currently on Plavix and is considered low risk procedure, and there is no need to stop Plavix for diagnostic medial branch block Time with Patient: Less than 30 PQRS Measure Charge Sheet Measure #130: Documentation of Current Meds in Medical Chart: Patient's medications documented in chart Measure #226: Tobacco Use: Screen & Cessation Intervention: Pt not a tobacco user Measure #111: Pneumonia Vaccination: Pneumococcal vaccine NOT administered or previously given Measure #47: Advance Care Plan: Advance care planning discussed & documented, pt chose/unable to give Measure #412: Opioid Treatment Agreement: No documentation of signed opioid treatment agreement Measure #408: Opioid Therapy Follow-up Evaluation: Patient had NO f/u eval minimum every 3 months during opioid therapy Measure #317: Preventitive Care & Scrn High Bld Press & F/U: Pre-hypertensive or hypertensive BP documented, pt will f/u with PCP Measure #128: Body Mass Index (BMI) Screening & Follow-up: BMI documented ABOVE normal parameters - f/u documented Measure #131: Pain Assessment & Follow-up: Pain positive & plan documented, Follow-up scheduled Measure #431: Unhealthy Alcohol Use Preventative Care & Scrn: Patient not identified as an unhealthy alcohol user PQRS Narrative: Smoking Status Former smoker Blood Pressure 146/94 Pain Intensity [Back] 10 Scale Used Numeric (1 - 10) Hx Alcohol Use (MH) Yes Home Medications: Ambulatory Orders amLODIPine [Norvasc] 10 mg PO DAILY 03/05/16 Cholecalciferol (Vitamin D3) [Vitamin D3] 2,000 unit PO DAILY 09/16/17 Gemfibrozil [Lopid] 600 mg PO DAILY 09/16/17 Lisinopril [Zestril] 20 mg PO DAILY 10/31/17 Acetaminophen [Tylenol Extra Strength] 500 mg PO HS 02/10/19 Velia Back & Body 2 tab PO DIRECTED PRN 02/10/19 Clopidogrel [Plavix] 75 mg PO DAILY 03/22/19 Lansoprazole [Prevacid] 15 mg PO DAILY 03/22/19 Acetaminophen/Diphenhydramine [Tylenol Pm Ex-Strength Caplet] 2 tab PO DIRECTED PRN 03/24/19 Controlled Substance Measures - Controlled Substance Measures Is patient prescribed a controlled substance at discharge?: No
== END ==
LOC: PNWHC3 13:55
PROVIDERS: ATTEND Specialist
DX: M51.34 Other intervertebral disc degeneration, thoracic region (principal); M47.814 Spondylosis without myelopathy or radiculopathy, thoracic region; M46.94 Unspecified inflammatory spondylopathy, thoracic region; G57.11 Meralgia paresthetica, right lower limb; Z87.891 Personal history of nicotine dependence; Z79.899 Other long term (current) drug therapy
CPT/HCPCS: 99211

== ENCOUNTER 2019-04-01 09:19 | Day surgery (SDC) | payer OTHER ==
[2019-03-31 10:30] VITALS: BMI 29.8
[~2019-04-01 09:19] MED LIST changes: -HEPARIN SODIUM,PORCINE 5,000 UNIT/ML 1 ML VIAL SQ ONE; -LIDOCAINE 1% 20 ML VIAL (10MG/ML) FOR IV START INTRADERMA PRN; -ONDANSETRON 4 MG/2 ML VIAL IVP PRN; -ceFAZolin IN SWFI 2 GM/20 ML SYRINGE IVP ONE
[2019-04-01] MEDS ORDERED: LIDOCAINE 1% 20 ML VIAL (10MG/ML) FOR IV START INTRADERMA ONE (10:10)
[2019-04-01 10:12] VITALS: RESP 16; TEMP 97.6
--- NOTE | 2019-04-01 11:22 | FL ---
EXAMINATION TYPE: FL guided pain mgmt statistic DATE OF EXAM: 04/01/2019 CLINICAL HISTORY: Mid back pain. TECHNIQUE: Fluoroscopy. COMPARISON: None. FINDINGS: Fluoroscopic guidance was provided during pain relief procedure performed by Dr. Lazo . A total of 13 seconds of fluoroscopic time was utilized during the procedure and date spot images are a cquired. Images acquired shows needle localization at several levels in the thoracic spine. IMPRESSION: As Above.
[2019-04-01] MEDS ORDERED: IV FLUID CONTINUATION 1,000 ML IV ONE (11:25)
[2019-04-01 11:26] VITALS: BP 130/80; PULSE 66
--- NOTE | 2019-04-01 11:30 | P.PCN ---
Date of Procedure: 04/01/19 Procedure(s) Performed: PREOPERATIVE DIAGNOSIS : thoracic spondylosis with Facet Arthropathy without myelopathy POSTOPERATIVE DIAGNOSIS: same PROCEDURE: first Diagnostic thoracic medial branch block with fluoroscopy at T8, T9, T10, T11 [bilateral] ANESTHESIA: Local anesthetic; moderate IV sedation with Versed 1 mg, sedation time 23 minutes Fluoroscopy was used for the procedure and images were saved in the radiology portion of the chart. Surgeon: Tony Lazo MD PROCEDURE INDICATION: thoracic back pain without radiculopathy, not responsive to conservative management. PROCEDURE DESCRIPTION: the patient was seen and identified in the preop holding area , risks and benefits and possible complications of the procedure and alternatives were discussed with the patient, and the patient agreed to proceed with the procedure and signed the consent . IV was started , vital signs were monitored during the procedure and fluoroscopy was used to maximize the benefit and accuracy of the needle placement, and sedation was given to decrease patient anxiety. Patient was taken to the procedure room and placed in prone position. The thoracic region was prepped using chlorhexidineX-2. Under strict sterile technique using AP fluoroscopy and ipsilateral oblique fluoroscopy ,the superolateral aspect of the transverse process of the T8, T9, T10, T11 vertebra for the respective medial branches were identified. Subsequently, after local infiltration of skin with lidocaine 1% 0.2 mL at each level , a 25-gauge 3.5" Quincke-type needle was placed at the superior lateral aspect of the transverse process at the appropriate level, and the needle was advanced until the periosteum contacted, needle was walked just off the transverse process. 0.2 mL of Isovue 200 per level was injected which revealed no vascular uptake and after negative aspiration, 0.5 mL of [lidocaine 4%] was injected at each level and the needle subsequently removed . At the end of the procedure and the needles were removed and a bandage applied after the skin was cleaned. The patient was taken to recovery room in stable condition and monitors in the recovery room for 20-30 minutes and discharged home in stable condition after discharge criteria met and patient will follow up in clinic in 2 weeks EBL: Minimal COMPLICATION: None.
== END 2019-04-01 11:36 | disposition home or self-care (01) ==
LOC: ORPAIN 09:19
PROVIDERS: ATTEND Anesthesiology
DX: G89.29 Other chronic pain (principal); M47.814 Spondylosis without myelopathy or radiculopathy, thoracic region; M51.34 Other intervertebral disc degeneration, thoracic region; Z87.891 Personal history of nicotine dependence; Z79.02 Long term (current) use of antithrombotics/antiplatelets; Z79.899 Other long term (current) drug therapy; Z88.5 Allergy status to narcotic agent
CPT/HCPCS: 64490; 64491; 64492; J2250; Q9966; 99152

== ENCOUNTER 2019-04-27 09:13 | Day surgery (SDC) | payer OTHER ==
[2019-04-23 17:21] VITALS: BMI 29.8
[2019-04-27 09:38] VITALS: TEMP 98.8
[2019-04-27] MEDS ORDERED: LIDOCAINE 1% 20 ML VIAL (10MG/ML) FOR IV START INTRADERMA ONE (09:55)
[2019-04-27] MEDS ORDERED: MIDAZOLAM 2 MG/2 ML VIAL ONE (10:25)
[2019-04-27] MEDS ORDERED: fentaNYL (PF) 50 MCG/ML 2 ML AMP ONE (10:25)
[2019-04-27] MEDS ORDERED: BUPIVACAINE (PF) 0.5% 30 ML VIAL ONE (10:25)
[2019-04-27] MEDS ORDERED: methylPREDNISolone ACETATE 40 MG/ML 1 ML VIAL ONE (10:25)
[2019-04-27 10:57] VITALS: RESP 16
--- NOTE | 2019-04-27 10:57 | P.PCN ---
Date of Procedure: 04/27/19 Procedure(s) Performed: PREOPERATIVE DIAGNOSIS : thoracic spondylosis with Facet Arthropathy without myelopathy POSTOPERATIVE DIAGNOSIS: same as preop diagnoses PROCEDURE: Second Diagnostic thoracic medial branch block with fluoroscopy at T8, T9, T10, T11 [bilateral] ANESTHESIA: Local anesthetic; moderate IV sedation with Versed 2 mg, fentanyl 100 g Fluoroscopy was used for the procedure and images were saved in the radiology portion of the chart. PROCEDURE INDICATION: thoracic back pain without radiculopathy, not responsive to conservative management. PROCEDURE DESCRIPTION: the patient was seen and identified in the preop holding area , risks and benefits and possible complications of the procedure and alternatives were discussed with the patient, and the patient agreed to proceed with the procedure and signed the consent . IV was started , vital signs were monitored during the procedure and fluoroscopy was used to maximize the benefit and accuracy of the needle placement, and sedation was given to decrease patient anxiety. Patient was taken to the procedure room and placed in prone position. The thoracic region was prepped using chlorhexidineX-2. Under strict sterile technique using AP fluoroscopy and ipsilateral oblique fluoroscopy ,the superolateral aspect of the transverse process of the right T8, T9, T10, T11 vertebra for the respective medial branches were identified. Subsequently, after local infiltration of skin with lidocaine 1% 0.5 mL at each level , a 25-gauge 3.5" Quincke-type needle was placed at the superior lateral aspect of the transverse process at the appropriate level, and the needle was advanced until the periosteum contacted, needle was walked just off the transverse process ,and after negative aspiration, 0.5 mL of ropivacaine 0.5 % was injected at each level and the needle subsequently removed . The same procedure was repeated for the left side T8 ,T9 , T10, T11 At the end of the procedure and the needles were removed and a bandage applied after the skin was cleaned. The patient was taken to recovery room in stable condition and monitors in the recovery room for 20-30 minutes and discharged home in stable condition after discharge criteria met and patient will follow up in clinic in 2 weeks
[2019-04-27 11:12] VITALS: BP 125/78; PULSE 76
--- NOTE | 2019-04-27 11:24 | FL ---
Fluoroscopy HISTORY: Pain 39 seconds fluoroscopy time supplied to the referring clinician. 4 intraoperative C-arm images docum ent the procedure. See dictated report from anesthesia.
--- NOTE | 2019-04-27 11:42 | XR ---
EXAMINATION TYPE: XR chest 1V portable DATE OF EXAM: 04/27/2019 COMPARISON: Prior chest x-ray 12/07/2017 HISTORY: Pneumothorax, postprocedural evaluation status post bilateral thoracic facet block TECHNIQUE: Single frontal view of the chest is obtained. FINDINGS: Patient is rotated. There is no focal air space opacity, pleural effusion, or pneumothorax seen. The cardiac silhouette size is within normal limits. The osseous structures are intact. The re is eventration of right hemidiaphragm. Evidence of old granulomatous disease is again noted. IMPRESSION: No acute process. Rotated exam.
[2019-04-27] MEDS ORDERED: IV FLUID CONTINUATION 1,000 ML IV ONE (11:45)
== END 2019-04-27 11:55 | disposition home or self-care (01) ==
LOC: ORPAIN 09:13
PROVIDERS: ATTEND Specialist
DX: M47.814 Spondylosis without myelopathy or radiculopathy, thoracic region (principal); Z88.5 Allergy status to narcotic agent; Z79.02 Long term (current) use of antithrombotics/antiplatelets
CPT/HCPCS: 71045; 64490; 64491; 64492; J2250; J1030; J3010; 99152

== ENCOUNTER → 2019-05-11 | Outpatient (CLI) | payer OTHER ==
[2019-05-11 12:48] VITALS: BP 130/80; PULSE 56; RESP 16
--- NOTE | 2019-05-12 09:07 | P.PAINPG ---
Subjective Progress Note Date: 05/11/19 This is a 68-year-old patient who has been diagnosed with thoracic spondylosis, he underwent thoracic medial branch blocks 2 at bilateral T8, T9, T10, T11. He returns today for follow-up. He reports that these procedures provided him excellent pain relief. He would be a good candidate to proceed with radio frequency ablation. Patient has been taking medications from primary care physician including Tylenol arthritis and jarred. These are not providing him significant benefit. In addition to above, 13-point review of systems is also negative for chest pain, shortness of breath, changes in vision, changes in hearing, new onset weakness, abdominal pain, diarrhea, extreme fatigue, malaise, fever, skin changes, homicidal or suicidal ideation, or bowel or bladder incontinence. Physical Exam Vital Signs: Reviewed in EMR GENERAL: Well appearing, in no acute distress PSYCH: Mood and affect is appropriate. Awake, alert, and oriented SKIN: Skin color, texture, turgor normal, no rashes or lesions HEENT: Normocephalic, atraumatic. EOM intact CV: No pedal edema RESP: Respirations are unlabored, no audible wheezing GI: Abdomen non-distended MUSCULOSKELETAL: Bilateral upper and lower extremity strength is normal and symmetric. No atrophy or tone abnormalities are noted. Thoracic spine: Tenderness to palpation of T8 to T12 region and bilateral paraspinal muscles. Pain is worse with twisting movements. Lumbar spine: No pain to palpation over the lumbar spine and paraspinous muscles. Buttocks: No pain to palpation over the PSIS Extremities: Peripheral joint ROM is full and pain free without obvious instability or laxity in all four extremities. No edema or skin discolorations noted. Gait: Gait is normal NEUR: Bilateral upper and lower extremity coordination and muscle stretch reflexes are physiologic and symmetric. Negative clonus. Loss of sensation to light touch noted in right lateral thigh and lateral calf. Cranial nerves are grossly intact. Results Results: MRI of the thoracic spine done at [facility] showed multilevel thoracic bulging disc disease and multilevel thoracic spondylosis Assessment and Plan Assessment: Assessment: 1. Thoracic spondylosis 2. Chronic thoracic back pain Plan: Plan: 1. Explanation: Below mentioned procedure was discussed with the patient, risks and benefits were discussed, all questions were answered. 2. Opioid agreement: None 3. Counseling: None 4. Procedures: Patient had significant benefit from thoracic medial branch blocks, we will schedule him for radio frequency ablation of the thoracic regionT8, T9, T10, T11, right side first. 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 5. Consultations: None 6. Investigations: Thoracic MRI reviewed 7. Medications: Managed by the primary care physician 8. Disposition: For above-mentioned Procedure PQRS Measure Charge Sheet Measure #130: Documentation of Current Meds in Medical Chart: Patient's medications documented in chart Measure #226: Tobacco Use: Screen & Cessation Intervention: Pt screened for tobacco use AND is not a tobacco user Measure #111: Pneumonia Vaccination: Pneumococcal vaccine NOT administered or previously given Measure #47: Advance Care Plan: Advance care planning discussed & documented, pt chose/unable to give Measure #412: Opioid Treatment Agreement: No documentation of signed opioid treatment agreement Measure #317: Preventitive Care & Scrn High Bld Press & F/U: Blood pressure within normal limits Measure #128: Body Mass Index (BMI) Screening & Follow-up: BMI documented within normal parameters Measure #131: Pain Assessment & Follow-up: Pain positive & plan documented, Follow-up scheduled Measure #431: Unhealthy Alcohol Use Preventative Care & Scrn: Patient not identified as an unhealthy alcohol user PQRS Measure Charge Sheet PQRS Narrative: Smoking Status Former smoker Pain Intensity [Back] 0 Scale Used Numeric (1 - 10) Hx Alcohol Use (MH) Yes Home Medications: Ambulatory Orders amLODIPine [Norvasc] 10 mg PO DAILY 03/05/16 Cholecalciferol (Vitamin D3) [Vitamin D3] 2,000 unit PO DAILY 09/16/17 Gemfibrozil [Lopid] 600 mg PO DAILY 09/16/17 Lisinopril [Zestril] 20 mg PO DAILY 10/31/17 Acetaminophen [Tylenol Extra Strength] 500 mg PO HS 02/10/19 Clopidogrel [Plavix] 75 mg PO DAILY 03/22/19 Lansoprazole [Prevacid] 15 mg PO DAILY 03/22/19 Acetaminophen/Diphenhydramine [Tylenol Pm Ex-Strength Caplet] 2 tab PO DIRECTED PRN 03/24/19 Cyanocobalamin (Vitamin B-12) [Vitamin B-12] 1,000 mcg PO DAILY 05/11/19 Ezetimibe [Zetia] 10 mg PO DAILY 05/11/19 Ferrous Sulfate [Feosol] 325 mg PO DAILY 05/11/19 Controlled Substance Measures - Controlled Substance Measures Is patient prescribed a controlled substance at discharge?: No
== END | disposition home or self-care (01) ==
LOC: PNWHC3 11:55
PROVIDERS: ATTEND Anesthesiology
DX: G89.29 Other chronic pain (principal); M47.814 Spondylosis without myelopathy or radiculopathy, thoracic region; Z87.891 Personal history of nicotine dependence; Z79.02 Long term (current) use of antithrombotics/antiplatelets; Z79.899 Other long term (current) drug therapy
CPT/HCPCS: 99211

== ENCOUNTER 2019-06-01 08:58 | Day surgery (SDC) | payer OTHER ==
[2019-05-28 14:33] VITALS: BMI 30.1
[~2019-06-01 08:58] MED LIST changes: +BUPIVACAINE (PF) 0.5% 30 ML VIAL ONE; -LACTATED RINGERS 1,000 ML IV SCH; +LIDOCAINE 1% INJ 10MG/ML (20 ML MDV) ONE; +MIDAZOLAM 2 MG/2 ML VIAL ONE; +fentaNYL (PF) 50 MCG/ML 2 ML AMP ONE
[2019-06-01] MEDS ORDERED: LIDOCAINE 1% (10MG/ML) FOR IV START INTRADERMA ONE (09:20)
[2019-06-01] MEDS ORDERED: LACTATED RINGERS 1,000 ML IV ONE (09:20)
[2019-06-01 09:23] VITALS: TEMP 97.7
--- NOTE | 2019-06-01 09:31 | P.PCN ---
Date of Procedure: 06/01/19 Description of Procedure: PREOPERATIVE DIAGNOSIS: Thoracic Facet Arthropathy without myelopathy POSTOPERATIVE DIAGNOSIS: Same PROCEDURES: Right Radiofrequency thermocoagulation of T8-T9, T9-T10, T10 T11 medial branches, with fluoroscopic guidance ANESTHESIA: IV sedation with versed and fentanyl and local infiltration with lidocaine 1% 10 ml Imaging: Fluoroscopy was used, images where saved to the medical record PROCEDURE INDICATION: The patient with low back pain secondary to thoracic facet arthropathy who had more than 50% relief of pain with previous diagnostic jameson mbar medial branch block with local anesthetic. PROCEDURE DESCRIPTION / TECHNIQUE: The patient was seen and identified in the preoperative area. Risks, benefits, complications, including but not limited to risk of infection, bleeding, allergic reactions to the medications and no complete pain relief, and alternatives were discussed with the patient, the patient agreed to proceed with the procedure and signed the consent. IV was started. Vital signs remained stable throughout the procedure. Patient was taken to the OR and time out was completed. The patient was placed in the prone position on the procedure table. The thoracic area was prepped and draped in the usual sterile fashion. Vital signs were closely monitored during the procedure. IV sedation was used during the procedure to decrease patient anxiety. Using AP fluoroscopy the pedicles of the above referenced levels were marked and anesthetized using 1% lidocaine with a 25-gauge 1/2 inch needle. Subsequently, a 20 guage 100-mm radiofrequency cannula with a 10-mm active tip was advanced guided by fluoroscopy to the junction of the pedicle and transverse process of each identified level. Each site then underwent sensory testing at 50 Hz and 0 to 1 volt and motor testing at 2.5 Hz and 0 to 3 volt with local stimulation, no radicular symptoms sensed by the patient and no obvious motor stimulation noted. Thereafter the tested sites underwent radiofrequency thermocoagulation at 80 degrees celsius for 90 seconds after injecting 1 ml of PF lidocaine 1%. Then after the thermocoagulation was done, 1 ml of the block solution containing ropivaciane 0.5% was injected at the lesioned sites after negative aspiration of CSF and blood and with no paresthesias. Cannulas were retracted. At the end of the procedure, the skin was cleansed and bandages were applied. COMPLICATIONS: No acute complications. DISPOSITION / PLANS: The patient was placed in a supine position and transferred to the recovery area in a stable condition for observation and was discharged from the recovery room after meeting discharge criteria. Home discharge instructions given to the patient by the staff. The patient was reexamined prior to discharge. Patient will follow up as directed.
[2019-06-01] MEDS ORDERED: IV FLUID CONTINUATION 750 ML IV ONE (09:49)
--- NOTE | 2019-06-01 10:15 | FL ---
Fluoroscopy HISTORY: Pain 7 seconds fluoroscopy time supplied to the referring clinician. 2 intraoperative C-arm images docume nt the procedure. See dictated report from anesthesia.
[2019-06-01 10:33] VITALS: BP 115/73; PULSE 59; RESP 20
== END 2019-06-01 10:19 | disposition home or self-care (01) ==
LOC: ORPAIN 08:58
PROVIDERS: ATTEND Hospitalist
DX: G89.29 Other chronic pain (principal); M47.24 Other spondylosis with radiculopathy, thoracic region; Z95.820 Peripheral vascular angioplasty status with implants and grafts; Z79.02 Long term (current) use of antithrombotics/antiplatelets; Z88.8 Allergy status to other drugs, medicaments and biological substances
CPT/HCPCS: 64633; 64634 ×2; J2250; J2001; J3010; 99152

== ENCOUNTER 2019-06-15 08:38 | Day surgery (SDC) | payer OTHER ==
[2019-06-11 10:01] VITALS: BMI 30.1
[~2019-06-15 08:38] MED LIST changes: -BUPIVACAINE (PF) 0.5% 30 ML VIAL ONE; +LACTATED RINGERS 1,000 ML IV SCH; -LIDOCAINE 1% INJ 10MG/ML (20 ML MDV) ONE; -MIDAZOLAM 2 MG/2 ML VIAL ONE; -fentaNYL (PF) 50 MCG/ML 2 ML AMP ONE
[2019-06-15 09:02] VITALS: TEMP 97.5
[2019-06-15] MEDS ORDERED: MIDAZOLAM 2 MG/2 ML VIAL ONE (09:21)
[2019-06-15] MEDS ORDERED: methylPREDNISolone ACETATE 40 MG/ML 1 ML VIAL ONE (09:21)
[2019-06-15] MEDS ORDERED: ROPIVACAINE 5MG/ML 20ML VIAL ONE (09:21)
[2019-06-15] MEDS ORDERED: fentaNYL (PF) 50 MCG/ML 2 ML AMP ONE (09:21)
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
--- NOTE | 2019-06-15 10:02 | P.PCN ---
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 PROCEDURES : Left Radiofrequency thermocoagulation, T8 ,T9 , T10, T11 medial branch, with fluoroscopic guidance (fluoroscopy images available in the radiology department) ANESTHESIA: Moderate sedation with intravenous versed 2 mg and fentaneyl 100 mcg, and local infiltration with Ropivacaine 0.5 % . EBL: Minimal PROCEDURE INDICATION: The patient with mid back pain secondary to thoracic facet arthropathy who had more than 50% relief of her pain with previous diagnostic thoracic medial branch block with bupivacaine. PROCEDURE DESCRIPTION / TECHNIQUE: The patient was seen and identified in the preoperative area. Risks, benefits, complications, including but not limited to risk of infection ,bleeding , allergic reactions to the medications and no complete pain releife , and alternatives were discussed with the patient, the patient agreed to proceed with the procedure and signed the consent. IV was started. Vital signs remained stable throughout the procedure. Patient was taken to the OR and time out was completed. The patient was placed in the prone position on the procedure table. The thoracic area was prepped and draped in the usual sterile fashion. . Vital signs were closely monitored during the procedure .IV sedation was used during the procedure to decrease patients anxiety. Using AP and then oblique fluoroscopy, the ``eye of the Isaias dog corresponding to the connection between the superior and transverse articular processes of left T8, T9 ,T10 ,T11 were identified, marked, and localized with 1% lidocaine. Subsequently, 20 -jn radiofrequency cannula with a 10-mm active tip was advanced guided by fluoroscopy to each of the``eyes of the Isaias dog at left T8, T9, T10, T11 Each site then underwent sensory testing at 50 Hz and 0 to 1 volt and motor testing at 2.5 Hz and 0 to 3 volt with local stimulation, but no radicular symptoms down the legs. Thereafter the left T8,, T9, T10, T11 sites underwent radiofrequency thermocoagulation at 80 degrees celsius for 90 seconds after injecting 0.5 ml of PF Ropivacaine 1ml, then after the thermocoagulation done , 1 ml of the block solution containing Depo-Medrol 40 mg and 3 ml of Ropivacaine 0.5% was injected at each levels after negative aspiration of CSF and blood and with no paresthesias. Cannulas were retracted while injecting lidocaine 1% until the needle is out. At the end of the procedure, the skin was cleansed and bandages were applied. COMPLICATIONS: No acute complications. DISPOSITION / PLANS: The patient was placed in a supine position and transferred to the recovery area in a stable condition for observation and was discharged from the recovery room after meeting discharge criteria. Home discharge instructions given to the patient by the staff. The patient was reexamined prior to discharge. The patient will schedule a follow up in the clinic in 2-4 weeks. note =patient held her Plavix for one week, and Plavix will be restarted after 12 hours
[2019-06-15] MEDS ORDERED: IV FLUID CONTINUATION 750 ML IV ONE (10:03)
--- NOTE | 2019-06-15 10:11 | FL ---
EXAMINATION TYPE: FL guided pain mgmt statistic DATE OF EXAM: 06/15/2019 CLINICAL HISTORY: Mid thoracic back pain. TECHNIQUE: Fluoroscopy. COMPARISON: None. FINDINGS: Fluoroscopic guidance was provided during pain relief procedure performed by Dr. Villalobos . A total of 32 seconds of fluoroscopic time was utilized during the procedure and 5 spot images are acquired. Images acquired shows needle localization at multiple levels in the thoracic spine. IMPRESSION: As Above.
[2019-06-15 10:25] VITALS: BP 104/68; PULSE 55; RESP 18
--- NOTE | 2019-06-15 10:26 | XR ---
EXAMINATION TYPE: XR chest 1V portable DATE OF EXAM: 06/15/2019 COMPARISON: 04/27/2019 HISTORY: Evaluate for pneumothorax post pain management procedure. TECHNIQUE: Single frontal view of the chest is obtained. FINDINGS: There is no focal air space opacity, pleural effusion, or pneumothorax seen. The cardiac silhouette size is upper limits of normal as seen on the prior. The osseous structures are intact. IMPRESSION: No pneumothorax seen status post thoracic pain management procedure.
== END 2019-06-15 10:32 | disposition home or self-care (01) ==
LOC: ORPAIN 08:38
PROVIDERS: ATTEND Specialist
DX: G89.29 Other chronic pain (principal); M47.814 Spondylosis without myelopathy or radiculopathy, thoracic region; K21.9 Gastro-esophageal reflux disease without esophagitis; E78.5 Hyperlipidemia, unspecified; I12.9 Hypertensive chronic kidney disease with stage 1 through stage 4 chronic kidney disease, or unspecified chronic kidney disease; N18.3 Chronic kidney disease, stage 3 (moderate); M10.9 Gout, unspecified; Z87.442 Personal history of urinary calculi; Z86.19 Personal history of other infectious and parasitic diseases; Z85.828 Personal history of other malignant neoplasm of skin; Z90.49 Acquired absence of other specified parts of digestive tract; Z87.19 Personal history of other diseases of the digestive system; Z98.890 Other specified postprocedural states; Z87.891 Personal history of nicotine dependence; Z80.3 Family history of malignant neoplasm of breast; Z79.899 Other long term (current) drug therapy; Z79.02 Long term (current) use of antithrombotics/antiplatelets; Z79.891 Long term (current) use of opiate analgesic; Z88.8 Allergy status to other drugs, medicaments and biological substances; Z88.5 Allergy status to narcotic agent
CPT/HCPCS: 71045; 64633; 64634 ×2; J2250; J1030; J3010; J2795; 99152; 99153

== ENCOUNTER 2019-07-19 15:21 | Emergency (ER) | payer MEDICARE, OTHER ==
[2019-07-19 15:32] VITALS: TEMP 99.1
[2019-07-19] MEDS ORDERED: PANTOPRAZOLE 40 MG/10 ML VIAL IVP STA (16:08)
[2019-07-19] MEDS ORDERED: SODIUM CHLORIDE 0.9% 500 ML 500 ML IV STA ×2 (16:08→16:37)
[2019-07-19 16:11] LABS: Anisocytosis Slight; Basophils # (A) 0.1 k/uL (0-0.2); Basophils % (A) 0 %; Eosinophils # (A) 0.2 k/uL (0-0.7); Eosinophils % (A) 1 %; HCT 49.9 % (39.0-53.0); HGB 16.1 gm/dL (13.0-17.5); Lymphocytes # (A) 1.4 k/uL (1.0-4.8); Lymphocytes % (A) 7 %; MCH 25.3 pg (25.0-35.0); MCHC 32.4 g/dL (31.0-37.0); MCV 78.3 fL (80.0-100.0); Mean Platelet Volume 8.4; Microcytosis Slight; Monocytes # (A) 0.8 k/uL (0-1.0); Monocytes % (A) 4 %; Neutrophils # (A) 17.7 k/uL (1.3-7.7); Neutrophils % (A) 87 %; Platelet Count 252 k/uL (150-450); RBC 6.37 m/uL (4.30-5.90); RDW 18.9 % (11.5-15.5); WBC 20.5 k/uL (3.8-10.6)
[2019-07-19 16:19] LABS: Prothrombin Time 10.2 sec (9.0-12.0)
[2019-07-19 16:21] LABS: Calcium 10.1 mg/dL (8.4-10.2); Potassium 4.3 mmol/L (3.5-5.1); Total Bilirubin 0.8 mg/dL (0.2-1.3); Total Protein 8.4 g/dL (6.3-8.2)
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
[2019-07-19] MEDS ORDERED: HYDROmorphone 0.5 MG/0.5 ML SYRINGE IVP STA ×2 (17:16→19:49)
--- NOTE | 2019-07-19 18:25 | CT ---
EXAMINATION TYPE: CT abdomen pelvis w con DATE OF EXAM: 07/19/2019 COMPARISON: 04/05/2018 HISTORY: ABDOMINAL PAIN CT DLP: 1446.5 mGycm CONTRAST: CT scan of the abdomen and pelvis is performed without Oral Contrast and with IV Contrast, patient in jected with 80 mL of Isovue 300. FINDINGS: LUNG BASES-: No visible nodule. No infiltrate. LIVER/GB: No calcified gallstones. No space occupying hepatic lesion. Biliary tree is of normal ca liber. PANCREAS: No inflammation. No distinct mass. SPLEEN: No splenic enlargement. No lesion seen. ADRENALS: No nodule. No thickening. KIDNEYS/BLADDER: No hydronephrosis. No nephrolithiasis. Right renal cystic lesion noted. Urinary bl adder grossly unremarkable. BOWEL: Normal appendix. Moderate to severe wall thickening involving the descending colon with art lonic inflammatory change is felt to reflect nonspecific colitis with differential diagnostic possibi lities including infectious, inflammatory and vascular etiologies. No evidence for free air or absces s. GENITAL ORGANS: No gross abnormality. LYMPH NODES: No greater than 1cm abdominal or pelvic lymph nodes are appreciated. AORTA: No significant abnormality. OSSEOUS STRUCTURES: No significant abnormality is seen. OTHER: No significant additional abnormality is seen. IMPRESSION: 1. Moderate to severe wall thickening involving the descending colon with pericolonic inflammatory ch viviana is felt to reflect nonspecific colitis
[2019-07-19] MEDS ORDERED: CIPROFLOXACIN HCL 500 MG TAB PO STA (19:49)
[2019-07-19 20:24] VITALS: BP 138/76; PULSE 70; RESP 18
== END 2019-07-19 20:23 | disposition home or self-care (01) ==
LOC: EC 15:21
DX: K52.9 Noninfective gastroenteritis and colitis, unspecified (principal); K92.1 Melena; D72.829 Elevated white blood cell count, unspecified; I10 Essential (primary) hypertension; E78.5 Hyperlipidemia, unspecified; K21.9 Gastro-esophageal reflux disease without esophagitis; Z79.899 Other long term (current) drug therapy; Z88.8 Allergy status to other drugs, medicaments and biological substances; Z87.891 Personal history of nicotine dependence; Z85.828 Personal history of other malignant neoplasm of skin; Z90.89 Acquired absence of other organs
CPT/HCPCS: 36415; 86900; 86901; 80053; 82150; 83605; 83690; 85025; 85610; 85730; 86850; 82272; 74177; 99284; 96374; 96375; 96376; C9113; J1170; Q9967

== ENCOUNTER 2019-07-20 12:47 | Emergency (ER) | payer MEDICARE, OTHER ==
[2019-07-20] MEDS ORDERED: MORPHINE SULFATE 4 MG/ML SYRINGE IV STA (13:06)
[2019-07-20] MEDS ORDERED: PANTOPRAZOLE 40 MG/10 ML VIAL IVP STA (13:06)
[2019-07-20] MEDS ORDERED: ONDANSETRON 4 MG/2 ML VIAL IVP STA (13:06)
[2019-07-20] MEDS ORDERED: SODIUM CHLORIDE 0.9% 1,000 ML IV STA ×2 (13:06)
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
[2019-07-20 13:46] LABS: Anisocytosis Slight; Basophils # (A) 0.1 k/uL (0-0.2); Basophils % (A) 0 %; Eosinophils # (A) 0.2 k/uL (0-0.7); Eosinophils % (A) 2 %; HCT 43.4 % (39.0-53.0); HGB 14.2 gm/dL (13.0-17.5); Lymphocytes # (A) 1.4 k/uL (1.0-4.8); Lymphocytes % (A) 11 %; MCH 25.8 pg (25.0-35.0); MCHC 32.8 g/dL (31.0-37.0); MCV 78.5 fL (80.0-100.0); Mean Platelet Volume 8.2; Microcytosis Slight; Monocytes # (A) 0.8 k/uL (0-1.0); Monocytes % (A) 6 %; Neutrophils % (A) 78 %; Platelet Count 196 k/uL (150-450); RBC 5.53 m/uL (4.30-5.90); RDW 18.8 % (11.5-15.5); WBC 12.8 k/uL (3.8-10.6)
[2019-07-20 14:00] LABS: Partial Thromboplastin Time 24.4 sec (22.0-30.0); Prothrombin Time 10.2 sec (9.0-12.0)
[2019-07-20 14:03] LABS: Albumin 4.5 g/dL (3.5-5.0); Calcium 9.5 mg/dL (8.4-10.2); Potassium 3.9 mmol/L (3.5-5.1); Total Bilirubin 0.8 mg/dL (0.2-1.3); Total Protein 7.3 g/dL (6.3-8.2)
[2019-07-20 14:20] VITALS: RESP 18
[2019-07-20] MEDS ORDERED: cefTRIAXone IN SWFI 1,000 MG/10 ML SYRINGE IVP STA (14:34)
[2019-07-20] MEDS ORDERED: metroNIDAZOLE-NS PMX 500 MG in SALINE 1 100ML.BAG IVPB STA (14:34)
[2019-07-20 16:56] VITALS: BP 103/73; PULSE 59; TEMP 98.6
== END 2019-07-20 16:17 | disposition home or self-care (01) ==
LOC: EC 12:47
DX: K52.9 Noninfective gastroenteritis and colitis, unspecified (principal); Z87.891 Personal history of nicotine dependence; I10 Essential (primary) hypertension; E78.5 Hyperlipidemia, unspecified; K21.9 Gastro-esophageal reflux disease without esophagitis; Z79.899 Other long term (current) drug therapy; Z88.8 Allergy status to other drugs, medicaments and biological substances; Z85.828 Personal history of other malignant neoplasm of skin; Z79.02 Long term (current) use of antithrombotics/antiplatelets
CPT/HCPCS: 36415; 80053; 82150; 83605; 83690; 85025; 85610; 85730; 82272; 87040; 99284; 96365; 96375 ×4; 96361 ×2; J2270; J2405; J0696; C9113

== ENCOUNTER → 2019-08-20 | Outpatient (CLI) | payer MEDICARE | END | disposition home or self-care (01) | LOC: LABWHC1 09:26 | PROVIDERS: ATTEND Urology | DX: N39.0 Urinary tract infection, site not specified (principal); R97.20 Elevated prostate specific antigen [PSA] | CPT/HCPCS: 36415; 84153; 87086 ==

== ENCOUNTER → 2020-01-05 | Outpatient (CLI) | payer MEDICARE, OTHER ==
--- NOTE | 2020-01-05 14:34 | P.PAINPG ---
Subjective Progress Note Date: 01/03/20 This is a 68-year-old patient who has been diagnosed with thoracic spondylosis, he underwent thoracic RFA at bilateral T8, T9, T10, T11. He returns today for follow-up. She reports that the R phase of his thoracic spine at T8-T9 T10 11 provided good relief. He still feeling some pain in those areas, however he thinks that helped quite a bit. He does note that he is having pain in lower regions now. Pain is described as sharp and stabbing with occasional radiation into the but tock area. Currently takes Tylenol for arthritis which is not provided him with much relief In addition to above, 13-point review of systems is also negative for chest pain, shortness of breath, changes in vision, changes in hearing, new onset weakness, abdominal pain, diarrhea, extreme fatigue, malaise, fever, skin changes, homicidal or suicidal ideation, or bowel or bladder incontinence. Physical Exam Vital Signs: Reviewed in EMR GENERAL: Well appearing, in no acute distress PSYCH: Mood and affect is appropriate. Awake, alert, and oriented SKIN: Skin color, texture, turgor normal, no rashes or lesions HEENT: Normocephalic, atraumatic. EOM intact CV: No pedal edema RESP: Respirations are unlabored, no audible wheezing GI: Abdomen non-distended MUSCULOSKELETAL: Bilateral upper and lower extremity strength is normal and symmetric. No atrophy or tone abnormalities are noted. Thoracic spine: Tenderness to palpation of L1 to L3 region and bilateral pa raspinal muscles. Pain is worse with twisting movements. Lumbar spine: No pain to palpation over the lumbar spine and paraspinous muscles. Buttocks: No pain to palpation over the PSIS Extremities: Peripheral joint ROM is full and pain free without obvious instability or laxity in all four extremities. No edema or skin discolorations noted. Gait: Gait is normal NEUR: Bilateral upper and lower extremity coordination and muscle stretch reflexes are physiologic and symmetric. Negative clonus. Loss of sensation to light touch noted in right lateral thigh and lateral calf. Cranial nerves are grossly intact. Results Results: MRI of the thoracic spine done at [facility] showed multilevel thoracic bulging disc disease and multilevel thoracic spondylosis Assessment and Plan Assessment: Assessment: 1. Thoracic spondylosis 2. Chronic thoracic back pain 3. Low back pain Plan: Plan: 1. Explanation: Below mentioned procedure was discussed with the patient, risks and benefits were discussed, all questions were answered. 2. Opioid agreement: None 3. Counseling: None 4. Procedures: We'll schedule patient for L1-L2, L2-L3 medial branch blocks bilaterally. Patient can remain on his Plavix for these procedures 5. Consultations: None 6. Investigations: none 7. Medications: Managed by the primary care physician 8. Disposition: For above-mentioned Procedure PQRS Measure Charge Sheet Measure #130: Documentation of Current Meds in Medical Chart: Patient's medications documented in chart Measure #226: Tobacco Use: Screen & Cessation Intervention: Pt screened for tobacco use AND is not a tobacco user Measure #111: Pneumonia Vaccination: Pneumococcal vaccine NOT administered or previously given Measure #47: Advance Care Plan: Advance care planning discussed & documented, pt chose/unable to give Measure #412: Opioid Treatment Agreement: No documentation of signed opioid treatment agreement Measure #317: Preventitive Care & Scrn High Bld Press & F/U: Blood pressure within normal limits Measure #128: Body Mass Index (BMI) Screening & Follow-up: BMI documented within normal parameters Measure #131: Pain Assessment & Follow-up: Pain positive & plan documented, Fo llow-up scheduled Measure #431: Unhealthy Alcohol Use Preventative Care & Scrn: Patient not identified as an unhealthy alcohol user PQRS Measure Charge Sheet PQRS Narrative: Smoking Status Former smoker Pain Intensity [Back] 0 Scale Used Numeric (1 - 10) Hx Alcohol Use (MH) Yes PQRS Measure Charge Sheet PQRS Narrative: Smoking Status Former smoker Pain Intensity [Back] 1 Scale Used Numeric (1 - 10) Hx Alcohol Use (MH) Yes Home Medications: Ambulatory Orders amLODIPine [Norvasc] 10 mg PO DAILY 03/05/16 lisinopriL [Zestril] 20 mg PO DAILY 10/31/17 Acetaminophen [Tylenol Extra Strength] 500 mg PO Q8H PRN 02/10/19 Clopidogrel [Plavix] 75 mg PO DAILY 03/22/19 Acetaminophen/Diphenhydramine [Tylenol Pm Ex-Strength Caplet] 2 tab PO HS PRN 03/24/19 Cyanocobalamin (Vitamin B-12) [Vitamin B-12] 1,000 mcg PO DAILY 05/11/19 Ezetimibe [Zetia] 10 mg PO DAILY 05/11/19 Allopurinol [Zyloprim] 100 mg PO DAILY 12/28/19 Esomeprazole Magnesium [NexIUM] 20 mg PO DAILY 12/28/19 Controlled Substance Measures - Controlled Substance Measures Is patient prescribed a controlled substance at discharge?: No
[2020-01-05 14:46] VITALS: BP 127/77; PULSE 59; RESP 14; TEMP 98.3
== END | disposition home or self-care (01) ==
LOC: PNWHC3 13:48
PROVIDERS: ATTEND Anesthesiology
DX: M47.814 Spondylosis without myelopathy or radiculopathy, thoracic region (principal); G89.29 Other chronic pain; Z87.891 Personal history of nicotine dependence; Z79.891 Long term (current) use of opiate analgesic; Z79.899 Other long term (current) drug therapy
CPT/HCPCS: 99211

== ENCOUNTER 2020-02-03 12:03 | Day surgery (SDC) | payer MEDICARE ==
[2020-02-01 11:14] VITALS: BMI 29.8
[2020-02-03] MEDS ORDERED: MIDAZOLAM 2 MG/2 ML VIAL ONE (13:50)
[2020-02-03] MEDS ORDERED: ROPIVACAINE 5MG/ML 20ML VIAL ONE (13:50)
[2020-02-03] MEDS ORDERED: fentaNYL (PF) 50 MCG/ML 2 ML AMP ONE (13:50)
[2020-02-03] MEDS ORDERED: methylPREDNISolone ACETATE 40 MG/ML 1 ML VIAL ONE (13:50)
[2020-02-03] MEDS ORDERED: IV FLUID CONTINUATION 750 ML IV ONE (14:14)
--- NOTE | 2020-02-03 14:14 | P.PCN ---
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 PROCEDURE: Diagnostic bilateral T12 , L 1 , L2 medial branch block under fluoroscopy guidance(fluoroscopy images available in the radiology Department ) ( To target the facet joint between L1-2 , L2 -3 ) ANESTHESIA:, moderate sedation with intravenous Versed 2 mg and Fentanyl 50 mcg. EBL: Minimal COMPLICATION: None PROCEDURE INDICATION: Chronic low back pain secondary to Facet arthropathy un responsive to conservative treatment. PROCEDURE DESCRIPTION: the patient was seen and identified in the preop holding area , risks and benefits and possible complications of the procedure and alte rnative were discussed with the patient, and the patient agreed to proceed with the procedure and signed the consent and vital signs monitored during the procedure and fluoroscopy was used to maximize the benefit and accuracy of the needle placement, and sedation was given to decrease patient anxiety, patient was taken to the procedure room and placed in prone position vital signs monitored in the back prepped with chlorhexidine X3 then under strict sterile technique using a right oblique fluoroscopy ,the junction of the transverse process and the superior articulating process of the right T12 , L1 , L2 vertebra which corresponding to the fluoroscopy image of the eye of the Isaias dog on the block side for the medial branches and subsequently , after local infiltration of skin and subcu tissuies with Ropivacaine 0.5 % , one mL at each level ,then 22-gauge Quincke-type needles , 3 needle was used , each one of them placed at the junction of the base of the transverse process and the superior articular process at the appropriate level, and the needle was advanced until the periosteum contacted, needle placement confirmed with AP oblique and lateral view and after appropriate needle placement confirmed, and after negative aspiration for heme and CSF and there was no paresthesia 1-1/2 mL of Ropivacaine 0.5% mixed with 20 mg Depo-Medrol , then half mL injected at each level after negative aspiration the needle subsequently removed and the same procedure repeated for the left side at left side at T12 ,L1 ,L2 levels. At the end of the procedure and the needles removed and a bandage applied after the skin was cleaned the cleaning solution patient taken to recovery room in stable condition and monitors in the recovery room for 20-30 minutes and dischar ged home in stable condition after discharge criteria met and patient will follow up with the pain clinic in 2-4 weeks
[2020-02-03 14:17] VITALS: RESP 16
[2020-02-03 14:35] VITALS: BP 104/69; PULSE 55
--- NOTE | 2020-02-03 18:31 | FL ---
EXAMINATION TYPE: FL guided pain mgmt statistic DATE OF EXAM: 02/03/2020 FLUOROSCOPY Fluoroscopy time of 8 seconds was used during bilateral lumbar facet block. 4 image/s document/s the procedure.
== END 2020-02-03 14:44 | disposition home or self-care (01) ==
LOC: ORPAIN 12:03
PROVIDERS: ATTEND Specialist
DX: G89.29 Other chronic pain (principal); M47.816 Spondylosis without myelopathy or radiculopathy, lumbar region; M47.814 Spondylosis without myelopathy or radiculopathy, thoracic region; Z88.8 Allergy status to other drugs, medicaments and biological substances; Z79.02 Long term (current) use of antithrombotics/antiplatelets
CPT/HCPCS: 64493; 64494; J2250; J1030; J3010; J2795; 99152

== ENCOUNTER 2020-02-25 10:10 | Day surgery (SDC) | payer MEDICARE, OTHER ==
[2020-02-24 11:02] VITALS: BMI 28.1
[2020-02-25 11:22] VITALS: TEMP 97.7
[2020-02-25] MEDS ORDERED: LIDOCAINE 1% (10MG/ML) FOR IV START INTRADERMA ONE (11:36)
[2020-02-25] MEDS ORDERED: MIDAZOLAM 2 MG/2 ML VIAL ONE (12:25)
[2020-02-25] MEDS ORDERED: TRIAMCINOLONE ACETONIDE 40 MG/ML 1 ML VIAL ONE (12:25)
[2020-02-25] MEDS ORDERED: ROPIVACAINE 5MG/ML 20ML VIAL ONE (12:25)
--- NOTE | 2020-02-25 12:49 | P.PCN ---
Date of Procedure: 02/25/20 Surgeon: Dennis Underwood Pathology: none sent Condition: stable Disposition: PACU Description of Procedure: PREOPERATIVE DIAGNOSIS : 1- thoracic and Lumbar spondylosis with Facet Arthropathy without myelopathy . 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 PROCEDURE: Diagnostic bilateral T12 , L 1 , L2 medial branch block under fluoroscopy guidance(fluoroscopy images available in the radiology Department ) ( To target the facet joint between L1-2 , L2 -3 ) ANESTHESIA: Local with lidocaine 1% and IV moderate sedation by anesthesia services EBL: Minimal COMPLICATION: None PROCEDURE INDICATION: Chronic low back pain secondary to Facet arthropathy unresponsive to conservative treatment. PROCEDURE DESCRIPTION: the patient was seen and identified in the preop holding area , risks and benefits and possible complications of the procedure and alternative were discussed with the patient, and the patient agreed to proceed with the procedure and signed the consent and vital signs monitored during the procedure and fluoroscopy was used to maximize the benefit and accur acy of the needle placement, and sedation was given to decrease patient anxiety, patient was taken to the procedure room and placed in prone position vital signs monitored in the back prepped with chlorhexidine X3 then for the T12,L2, L3 medial branches the target points were the connection between the transverse process and the superior to go process ofT 12, L3, and L4 respectively on the oblique views of fluoroscopy. I used 25-gauge 3-1/2 inch Quincke spinal needles for this procedure and after contacting bone at the target points mentioned above I injected 1 mL of a mixture of Kenalog 40 mg +5 MLS of Ropivacaine 0.5% PF . Patient tolerated procedure well. At the end of the procedure the needles removed and a bandage applied after the skin was cleaned the cleaning solution. patient was then taken to the recovery room in stable condition and monitored in the recovery room for 20-30 minutes and discharged home in stable condition after discharge criteria met . The patient is on Plavix. A copy of the needle placement picture was saved to the C-arm machine.
[2020-02-25] MEDS ORDERED: IV FLUID CONTINUATION 500 ML IV ONE (12:51)
[2020-02-25 13:08] VITALS: RESP 20
[2020-02-25 13:27] VITALS: BP 107/72; PULSE 59
--- NOTE | 2020-02-25 14:28 | FL ---
Fluoroscopy HISTORY: Pain 17 seconds fluoroscopy time supplied to the referring clinician. 4 intraoperative C-arm images docum ent the procedure. See dictated report from anesthesia.
== END 2020-02-25 13:31 | disposition home or self-care (01) ==
LOC: ORPAIN 10:10
PROVIDERS: ATTEND Anesthesiology
DX: G89.29 Other chronic pain (principal); M47.816 Spondylosis without myelopathy or radiculopathy, lumbar region; M47.814 Spondylosis without myelopathy or radiculopathy, thoracic region; I10 Essential (primary) hypertension; E78.5 Hyperlipidemia, unspecified; I73.9 Peripheral vascular disease, unspecified; N19 Unspecified kidney failure; K75.9 Inflammatory liver disease, unspecified; K21.9 Gastro-esophageal reflux disease without esophagitis; Z88.8 Allergy status to other drugs, medicaments and biological substances; Z88.5 Allergy status to narcotic agent; Z79.02 Long term (current) use of antithrombotics/antiplatelets; Z97.2 Presence of dental prosthetic device (complete) (partial); Z87.442 Personal history of urinary calculi; Z79.899 Other long term (current) drug therapy; Z95.828 Presence of other vascular implants and grafts
CPT/HCPCS: 64493; 64494; J2250; J3301; J2795

== ENCOUNTER → 2020-03-15 | Outpatient (CLI) | payer MEDICARE ==
[2020-03-15 11:47] VITALS: BP 114/77
--- NOTE | 2020-03-15 11:49 | P.PAINPG ---
Subjective Progress Note Date: 03/15/20 This is a 68-year-old patient who has been diagnosed with thoracic spondylosis, he underwent thoracic RFA at bilateral T8, T9, T10, T11. In his last visit he noted that the RFA were helpful, however he noted that he was starting to have similar pain lower than the site we did the RFA's in. We proceeded with bilateral L1-L2, L2-L3 medial branch blocks. he is here for follow-up he notes that the recent medial branch blocks brought his pain down to a 0 for approximately 24 hours. His pain is returned since and is described as sharp and stabbing with occasional radiation to the buttock area currently a 5/10. Also describes occasional muscle spasms in his hands which he says he takes [facility] Would like to proceed with radiofrequency ablation. In addition to above, 13-point review of systems is also negative for chest pain, shortness of breath, changes in vision, changes in hearing, new onset weakness, abdominal pain, diarrhea, extreme fatigue, malaise, fever, skin changes, homicidal or suicidal ideation, or bowel or bladder incontinence. Physical Exam Vital Signs: Reviewed in EMR GENERAL: Well appearing, in no acute distress PSYCH: Mood and affect is appropriate. Awake, alert, and oriented SKIN: Skin color, texture, turgor normal, no rashes or lesions HEENT: Normocephalic, atraumatic. EOM intact CV: No pedal edema RESP: Respirations are unlabored, no audible wheezing GI: Abdomen non-distended MUSCULOSKELETAL: Bilateral upper and lower extremity strength is normal and symmetric. No atrophy or tone abnormalities are noted. Thoracic spine: Tenderness to palpation of L1 to L3 region and bilateral paraspinal muscles. Pain is worse with twisting movements. Lumbar spine: No pain to palpation over the lumbar spine and paraspinous muscles. Buttocks: No pain to palpation over the PSIS Extremities: Peripheral joint ROM is full and pain free without obvious instability or laxity in all four extremities. No edema or skin discolorations noted. Gait: Gait is normal NEUR: Bilateral upper and lower extremity coordination and muscle stretch reflexes are physiologic and symmetric. Negative clonus. Loss of sensation to light touch noted in right lateral thigh and lateral calf. Cranial nerves are grossly intact. Results Results: MRI of the thoracic spine done at [facility] showed multilevel thoracic bulging disc disease and multilevel thoracic spondylosis Assessment and Plan Assessment: Assessment: 1. Thoracic spondylosis 2. Chronic thoracic back pain 3. Low back pain Plan: Plan: 1. Explanation: Below mentioned procedure was discussed with the patient, risks and benefits were discussed, all questions were answered. 2. Opioid agreement: None 3. Counseling: None 4. Procedures: We'll schedule patient for L1-L2, L2-L3 RFA bilaterally. Will need to be off plavix for 7 days. 5. Consultations: None 6. Investigations: none 7. Medications: Managed by the primary care physician 8. Disposition: For above-mentioned Procedure PQRS Measure Charge Sheet Measure #130: Documentation of Current Meds in Medical Chart: Patient's medications documented in chart Measure #226: Tobacco Use: Screen & Cessation Intervention: Pt screened for tobacco use AND is not a tobacco user Measure #111: Pneumonia Vaccination: Pneumococcal vaccine NOT administered or previously given Measure #47: Advance Care Plan: Advance care planning discussed & documented, pt chose/unable to give Measure #412: Opioid Treatment Agreement: No documentation of signed opioid treatment agreement Measure #317: Preventitive Care & Scrn High Bld Press & F/U: Blood pressure within normal limits Measure #128: Body Mass Index (BMI) Screening & Follow-up: BMI documented within normal parameters Measure #131: Pain Assessment & Follow-up: Pain positive & plan documented, Follow-up scheduled Measure #431: Unhealthy Alcohol Use Preventative Care & Scrn: Patient not identified as an unhealthy alcohol user PQRS Measure Charge Sheet PQRS Narrative: Smoking Status Former smoker Pain Intensity [Back] 0 Scale Used Numeric (1 - 10) Hx Alcohol Use (MH) Yes Objective - Vital Signs Vital signs: Intake & Output 03/13/20 03/14/20 03/14/20 18:59 06:59 18:59 Weight 94.347 kg PQRS Measure Charge Sheet PQRS Narrative: Smoking Status Former smoker Pain Intensity [Back] 8 Hx Alcohol Use (MH) Yes Home Medications: Ambulatory Orders amLODIPine [Norvasc] 10 mg PO DAILY 03/05/16 lisinopriL [Zestril] 20 mg PO DAILY 10/31/17 Acetaminophen [Tylenol Extra Strength] 500 mg PO Q8H PRN 02/10/19 Clopidogrel [Plavix] 75 mg PO DAILY 03/22/19 Acetaminophen/Diphenhydramine [Tylenol Pm Ex-Strength Caplet] 2 tab PO HS PRN 03/24/19 Cyanocobalamin (Vitamin B-12) [Vitamin B-12] 1,000 mcg PO DAILY 05/11/19 Allopurinol [Zyloprim] 100 mg PO DAILY 12/28/19 Esomeprazole Magnesium [NexIUM] 20 mg PO DAILY 12/28/19 Chlorthalidone [Hygroton] 25 mg PO DAILY 02/01/20 Cyclobenzaprine HCl 10 mg PO BID 03/13/20 Controlled Substance Measures - Controlled Substance Measures Is patient prescribed a controlled substance at discharge?: No
[2020-03-15 11:50] VITALS: PULSE 61; RESP 18
== END | disposition home or self-care (01) ==
LOC: PNWHC3 11:24
PROVIDERS: ATTEND Anesthesiology
DX: M47.814 Spondylosis without myelopathy or radiculopathy, thoracic region (principal); M54.5 Low back pain; Z87.891 Personal history of nicotine dependence; Z79.899 Other long term (current) drug therapy
CPT/HCPCS: 99211

== ENCOUNTER → 2020-04-04 | Day surgery (SDC) | payer MEDICARE ==
[~2020-04-04] MED LIST changes: +IV FLUID CONTINUATION 1,000 ML IV ONE; +LACTATED RINGERS 1,000 ML IV ONE; -LACTATED RINGERS 1,000 ML IV SCH; +LIDOCAINE 1% (10MG/ML) FOR IV START INTRADERMA ONE; +MIDAZOLAM 2 MG/2 ML VIAL ONE; +ROPIVACAINE 5MG/ML 20ML VIAL ONE; +fentaNYL (PF) 50 MCG/ML 2 ML AMP ONE
[2020-04-04 11:44] VITALS: TEMP 98.6
--- NOTE | 2020-04-04 13:02 | P.PCN ---
Date of Procedure: 04/04/20 Description of Procedure: PREOPERATIVE DIAGNOSIS: Lumbar Facet Arthropathy without myelopathy POSTOPERATIVE DIAGNOSIS: Same PROCEDURES: Bilateral Radiofrequency thermocoagulation of L1-L2, L2-L3 medial branches, with fluoroscopic guidance ANESTHESIA: IV sedation with versed and fentanyl and local infiltration with lidocaine 1% 10 ml Imaging: Fluoroscopy was used, images where saved to the medical record PROCEDURE INDICATION: The patient with low back pain secondary to lumbar facet arthropathy who had more than 50% relief of pain with previous diagnostic lumbar medial branch block with local anesthetic. PROCEDURE DESCRIPTION / TECHNIQUE: The patient was seen and identified in the preoperative area. Risks, benefits, complications, including but not limited to risk of infection, bleeding, allergic reactions to the medications and no complete pain relief, and alternatives were discussed with the patient, the patient agreed to proceed with the procedure and signed the consent. IV was started. Vital signs remained stable throughout the procedure. Patient was taken to the OR and time out was completed. The patient was placed in the prone position on the procedure table. The lumber area was prepped and draped in the usual sterile fashion. Vital signs were closely monitored during the procedure. IV sedation was used during the procedure to decrease patient anxiety. Using AP and then oblique fluoroscopy, the eye of the Isaias dog corresponding to the connection between the superior and transverse articular processes of L1, L2, L3 marked, and localized with 1% lidocaine. Subsequently, a 20 [id number] radiofrequency cannula with a 10-mm active tip was advanced guided by fluoroscopy to the junction of the pedicle and transverse process of each identified level. Each site then underwent sensory testing at 50 Hz and 0 to 1 volt and motor testing at 2.5 Hz and 0 to 3 volt with local stimulation, no radicular symptoms sensed by the patient and no obvious motor stimulation noted. Thereafter the tested sites underwent radiofrequency thermocoagulation at 80 degrees celsius for 90 seconds after injecting 1 ml of PF lidocaine 1%. Then after the thermocoagulation was done, 1 ml of the block solution containing ropivaciane 0.5% was injected at the lesioned sites after negative aspiration of CSF and blood and with no paresthesias. Cannulas were retracted. At the end of the procedure, the skin was cleansed and bandages were applied. COMPLICATIONS: No acute complications. DISPOSITION / PLANS: The patient was placed in a supine position and transferred to the recovery area in a stable condition for observation and was discharged from the recovery room after meeting discharge criteria. Home discharge instructions given to the patient by the staff. The patient was reexamined prior to discharge. Patient will follow up as directed.
[2020-04-04 13:30] VITALS: PULSE 67; RESP 18
[2020-04-04 13:41] VITALS: BP 127/78
--- NOTE | 2020-04-04 13:48 | FL ---
Fluoroscopy History: Lumbar RF 14 sec fl time used lumbar rf
== END ==
LOC: ORPAIN 11:30
PROVIDERS: ATTEND Hospitalist
DX: M47.816 Spondylosis without myelopathy or radiculopathy, lumbar region (principal); Z79.02 Long term (current) use of antithrombotics/antiplatelets; Z88.5 Allergy status to narcotic agent; Z88.8 Allergy status to other drugs, medicaments and biological substances

== ENCOUNTER → 2020-05-01 | Outpatient (CLI) | payer MEDICARE ==
[2020-05-01 11:44] VITALS: TEMP 97.9
[2020-05-01 11:46] VITALS: BP 112/76; PULSE 61; RESP 18
--- NOTE | 2020-05-01 11:55 | P.PN ---
Progress Note - Text Progress Note Date: 05/01/20 This is a 68-year-old patient who underwent bilateral lumbar RFA L1-L2 L2-L3. He notes 100% relief with the most recent procedure, his painful symptoms were relieved completely. He had previous thoracic RFA's with good relief. Also describes occasional muscle spasms in his hands which he says he takes Flexeril [facility]. In addition to above, 13-point review of systems is also negative for chest pain, shortness of breath, changes in vision, changes in hearing, new onset weakness, abdominal pain, diarrhea, extreme fatigue, malaise, fever, skin changes, homicidal or suicidal ideation, or bowel or bladder incontinence. Physical Exam Vital Signs: Reviewed in EMR GENERAL: Well appearing, in no acute distress PSYCH: Mood and affect is appropriate. Awake, alert, and oriented SKIN: Skin color, texture, turgor normal, no rashes or lesions HEENT: Normocephalic, atraumatic. EOM intact CV: No pedal edema RESP: Respirations are unlabored, no audible wheezing GI: Abdomen non-distended MUSCULOSKELETAL: Bilateral upper and lower extremity strength is normal and symmetric. No atrophy or tone abnormalities are noted. Thoracic spine: No Tenderness to palpation of L1 to L3 region and bilateral paraspinal muscles. Pain is worse with twisting movements. Lumbar spine: No pain to palpation over the lumbar spine and paraspinous muscles. Buttocks: No pain to palpation over the PSIS Extremities: Peripheral joint ROM is full and pain free without obvious instability or laxity in all four extremities. No edema or skin discolorations noted. Gait: normal NEUR: Bilateral upper and lower extremity coordination and muscle stretch reflexes are physiologic and symmetric. Negative clonus. Loss of sensation to light touch noted in right lateral thigh and lateral calf. Cranial nerves are grossly intact. Results Results: MRI of the thoracic spine done at [facility] showed multilevel thoracic bulging disc disease and multilevel thoracic spondylosis Assessment and Plan Assessment: Assessment: 1. Thoracic spondylosis 2. Chronic thoracic back pain 3. Lumbar spondylosis Plan: Plan: 1. Explanation: Below mentioned procedure was discussed with the patient, risks and benefits were discussed, all questions were answered. 2. Opioid agreement: None 3. Counseling: None 4. Procedures: None at the moment 5. Consultations: None 6. Investigations: none 7. Medications: Managed by the primary care physician 8. Disposition: For above-mentioned Procedure
== END | disposition home or self-care (01) ==
LOC: PNWHC3 11:29
PROVIDERS: ATTEND Anesthesiology
DX: M47.814 Spondylosis without myelopathy or radiculopathy, thoracic region (principal); M47.816 Spondylosis without myelopathy or radiculopathy, lumbar region; G89.29 Other chronic pain
CPT/HCPCS: 99211

== ENCOUNTER → 2021-10-08 | Outpatient (CLI) | payer MEDICARE ==
[2021-10-08 14:24] VITALS: BP 147/88; PULSE 70; RESP 18; TEMP 98.4
--- NOTE | 2021-10-08 14:27 | P.PAINPG ---
PQRS Measure Charge Sheet Comment: A 71 yr old male with at side with a history of severe and chronic low back pain secondary to lumbar degenerative disc diseases and lumbar spondylosis with facet arthropathy presents today for mid to lower back pain. Pain level is currently at 2/10 in intensity, fluctuates with activity, constant, sharp/ache for "years," but escalates as high as 10/10 with bending/lifting. Pain is alleviated with heating pads, injections (RFA BL L1-L2, L2-L3), topicals, laying supine, repositioning and rest. Interventional pain procedures completed include BL RFA L1-L2, L2-L3. Patient is currently on Voltaren gel Patient denies any side effects of the medication(s), denies excessive drowsiness or sleepiness, denies suicidal ideation and reports that the current pain medication is helping to control the pain and improve activities of daily living. Patient denies any motor or sensory deficits. Patient denies any fever or night sweats, denies any change in the bowel movements or urination. Physical Examination: -Constitutional: Cooperative. Not in acute distress . - Neurologic: Cranial nerve II to XII intact. No focal neurological deficits. - Psychatric: Alert & oriented x 3. Matching mood & appropriate affect. Judgment and insight intact. - Musculoskeletal: Cervical spine: Muscle bulk/ tone/ strength in the bilateral upper extremities normal Vertebral body tenderness to palpation over Spurling test positive Distraction test positive Facet loading test positive Thoracic spine Muscle bulk / tone/ strength in the bilateral paraspinal muscles normal Vertebral body tender to palpation over T10, T11 Facet loading test positive Lumbar spine: Motor bulk/ tone/ strength lower extremities , thigh and legs : 5/5 Deep tendon reflexes : Normal Knee Jerk. Normal Ankle Jerk . Vertebral body tenderness to palpation over Lumbar Facet Loading Test positive Straight Leg Raise: positive at 30 degrees right side/ left side Gaenslen's Test positive Sacral spine : Severe tenderness over the Sacroiliac joint: right side / left side Range of motion: Flexion of the lumbar spine <60 degrees Range of motion: Extension of the lumbar spine <20 degrees Gaenslen's Test positive Maninder's Test positive Neva test: positive right side / left side Thigh Thrust Test Sacral Thrust Test Assessment and plan: Chronic low back pain secondary to lumbar degenerative disc disease , lumbar spondylosis with facet arthropathy without myelopathy Recommendation of TESI T10-T11. May need a series of injections, up to 3 within a 6 mo time frame, for optimal pain relief. Risks, benefits of procedure discussed and pt verbalized understanding. Admits to anticoagulant use. Denies medical history of diabetes. Protocol for discontinuation/ continuation of medications romero procedure discussed. All patient questions answered MAPS reviewed and it was appropriate. I have spent less than 30 minutes on patient care today. Dr Villalobos was available by phone for the evaluation of this patient. The time was used to review the medical records including relevant urine studies and Prescription history (MAPs), review of the available imaging, evaluation and examination of the patient, coordination of care with the medical staff and if applicable referring physicians, as well as creation of the medical record PQRS Narrative: Smoking Status Former smoker Hx Alcohol Use (MH) Yes Home Medications: Ambulatory Orders amLODIPine [Norvasc] 10 mg PO DAILY 03/05/16 lisinopriL [Zestril] 20 mg PO DAILY 10/31/17 Acetaminophen [Tylenol Extra Strength] 1,000 mg PO Q8H PRN 02/10/19 Clopidogrel [Plavix] 75 mg PO DAILY 03/22/19 Acetaminophen/Diphenhydramine [Tylenol Pm Ex-Strength Caplet] 2 tab PO HS PRN 03/24/19 Cyanocobalamin (Vitamin B-12) [Vitamin B-12] 1,000 mcg PO DAILY 05/11/19 Esomeprazole Magnesium [NexIUM] 20 mg PO DAILY 12/28/19 Chlorthalidone [Hygroton] 25 mg PO DAILY 02/01/20 Cyclobenzaprine HCl 10 mg PO BID PRN 03/13/20 Finasteride [Proscar] 5 mg PO HS 04/25/20 Controlled Substance Measures - Controlled Substance Measures Is patient prescribed a controlled substance at discharge?: No
== END ==
LOC: PNWHC3 13:43
PROVIDERS: ATTEND Specialist
DX: M51.36 Other intervertebral disc degeneration, lumbar region (principal); M47.816 Spondylosis without myelopathy or radiculopathy, lumbar region; G89.29 Other chronic pain; Z87.891 Personal history of nicotine dependence; Z88.5 Allergy status to narcotic agent
CPT/HCPCS: 99211

== ENCOUNTER 2021-10-30 07:54 | Day surgery (SDC) | payer MEDICARE ==
[~2021-10-30 07:54] MED LIST changes: -IV FLUID CONTINUATION 1,000 ML IV ONE; -LACTATED RINGERS 1,000 ML IV ONE; +LACTATED RINGERS 1,000 ML IV SCH; -LIDOCAINE 1% (10MG/ML) FOR IV START INTRADERMA ONE; +LIDOCAINE 1% (10MG/ML) FOR IV START INTRADERMA PRN; -MIDAZOLAM 2 MG/2 ML VIAL ONE; -ROPIVACAINE 5MG/ML 20ML VIAL ONE; -fentaNYL (PF) 50 MCG/ML 2 ML AMP ONE
[2021-10-30 09:04] VITALS: TEMP 98.3
[2021-10-30] MEDS ORDERED: methylPREDNISolone ACETATE 80 MG/ML 1 ML VIAL ONE (09:11)
[2021-10-30] MEDS ORDERED: MIDAZOLAM 2 MG/2 ML VIAL ONE (09:11)
[2021-10-30] MEDS ORDERED: fentaNYL (PF) 50 MCG/ML 2 ML AMP ONE (09:11)
[2021-10-30] MEDS ORDERED: IOPAMIDOL M200 10 ML VIAL ONE (09:11)
--- NOTE | 2021-10-30 09:27 | P.PCN ---
Date of Procedure: 10/30/21 Procedure(s) Performed: PREOPERATIVE DIAGNOSIS: 1- Thoracic Degenerative Disc Diseases 2-Thoracic spondylosis with Facet arthropathy without myelopathy POSTOPERATIVE DIAGNOSIS: Same as preop diagnosis. PROCEDURE 1. Lumbar epidural steroid injection under fluoroscopic guidance at the T10-11 level. (Fluoroscopy imaging was available in radiology department) 2. Lumbar epidurogram. ANESTHESIA: Local with 1% lidocaine 3 ml and , moderate sedation with intravenous Versed 2 mg ,and fentanyle 100 Mcg EBL: Minimal PROCEDURE INDICATION: The patient with mid and low back pain and radiculitis symptoms unresponsive to conservative treatment. Fluoroscopy was used to opt imize visualization of the needle placement and to maximize safety. PROCEDURE DESCRIPTION / TECHNIQUE: The patient was seen and identified in the preoperative area. Risks, benefits, complications including but not limited to infections ,bleeding ,allergic reaction to the medications ,nerve damage and not complete pain releife , and alternatives were discussed with the patient. The patient agreed to proceed with the procedure and signed the consent. IV was started, and vital signs were stable. Patient was taken to the OR and time out was completed. The patient was placed in the prone position on procedure table and a pillow was placed under the abdomen to reduce lumbar lordosis. The lumbosacral area was prepped and draped in the usual sterile fashion.ere closely monitored during the procedure. Conscious sedation was used during the procedure to decrease patients anxiety. Vital signs was monitered during the entire procedure. Using anterior-posterior fluoroscopy, the T10-11 interlaminar space was identified and the skin over this site was marked and then infiltrated with 1% lidocaine subcutaneously. Subsequently, a 20-gauge Tuohy epidural needle was inserted and advanced toward the epidural space using the ``Loss of resistance technique and guided by AP and lateral fluoroscopy. The correct needle position in the epidural space was verified with the injection of 2 mL of the water soluble contrast dye Isovue 200 contrast and observing an excellent epidurogram with the epidural spread of the dye, after negative aspiration for blood and CSF and in the absence of paresthesias. Again after negative aspiration, a 6 ml mixture containing 60 mg of Depo-medrol , and 2 ml of preservative free Normal Saline, and 2 ml of preservative free lidocaine 1% solution was injected and a washout of epidurogram was seen. Needle was withdrawn intact, skin was cleansed, and bandages were applied. COMPLICATIONS: None DISPOSITION / PLANS: The patient was placed in a supine position and transferred to the recovery area in a stable condition for observation. There was no evidence of lower extremity motor or sensory deficit after the procedure. Patient was discharged from the recovery room after meeting discharge criteria. Home discharge instructions were given to the patient by the staff. The patient was reexamined prior to discharge. The patient will schedule a follow up in the clinic in 2-4 weeks.
[2021-10-30] MEDS ORDERED: IV FLUID CONTINUATION 1,000 ML IV ONE (09:31)
[2021-10-30 09:36] VITALS: RESP 18
--- NOTE | 2021-10-30 09:43 | FL ---
Intraoperative/procedural fluoroscopic services were provided. Total fluoroscopy time is 3 seconds wi th a total of 1 submitted images to PACS. Please see the operative note for further details.
[2021-10-30 09:49] VITALS: BP 116/70; PULSE 56
== END 2021-10-30 10:13 | disposition home or self-care (01) ==
LOC: ORPAIN 07:54
PROVIDERS: ATTEND Specialist
DX: M51.14 Intervertebral disc disorders with radiculopathy, thoracic region (principal); M47.24 Other spondylosis with radiculopathy, thoracic region; I25.10 Atherosclerotic heart disease of native coronary artery without angina pectoris; Z88.8 Allergy status to other drugs, medicaments and biological substances; Z79.899 Other long term (current) drug therapy; Z79.01 Long term (current) use of anticoagulants; Z79.1 Long term (current) use of non-steroidal anti-inflammatories (NSAID); Z87.891 Personal history of nicotine dependence; Z80.3 Family history of malignant neoplasm of breast
CPT/HCPCS: 62321; J2250; J1040; J3010; Q9966; 99152

== ENCOUNTER → 2021-11-08 | Outpatient (CLI) | payer MEDICARE ==
[2021-11-08 14:12] VITALS: BP 115/78; PULSE 59; RESP 18; TEMP 97.6
--- NOTE | 2021-11-08 14:16 | P.PAINPG ---
PQRS Measure Charge Sheet Comment: A 71 yr old male with a history of severe and chronic mid back pain secondary to thoracic degenerative disc diseases and spondylosis with facet arthropathy presents today for evaluation status post TESI T10-T11. He states he experienced 0% pain relief s/p procedure. Pain level is currently at 3/10 in intensity, constant, localized in the mid back region, stabbing in character with radiation L & R of midline towards flanks. Pain is provoked by standing/walking for periods of 10 min or more. Pain is alleviated with topicals, RFA in the past, . Interventional pain procedures completed include Lumbar RFA Patient is currently on Voltaren gel prn Patient denies any side effects of the medication(s), denies excessive drowsiness or sleepiness, denies suicidal ideation and reports that the current pain medication is helping to control the pain and improve activities of daily living. Patient denies any motor or sensory deficits. Patient denies any fever or night sweats, denies any change in the bowel movements or urination. Physical Examination: -Constitutional: Cooperative. Not in acute distress . - Neurologic: Cranial nerve II to XII intact. No focal neurological deficits. - Psychatric: Alert & oriented x 3. Matching mood & appropriate affect. Judgment and insight intact. - Musculoskeletal: Cervical spine: Muscle bulk/ tone/ strength in the bilateral upper extremities normal Vertebral body tenderness to palpation over Spurling test positive Distraction test positive Facet loading test positive Thoracic spine Muscle bulk / tone/ strength in the bilateral paraspinal muscles normal Vertebral body tender to palpation over Facet loading test positive over T10-T11, T11-T12 BL Lumbar spine: Motor bulk/ tone/ strength lower extremities , thigh and legs : 5/5 Deep tendon reflexes : Normal Knee Jerk. Normal Ankle Jerk . Vertebral body tenderness to palpation over Lumbar Facet Loading Test positive Straight Leg Raise: positive at 30 degrees right side/ left side Gaenslen's Test positive Sacral spine : Severe tenderness over the Sacroiliac joint: right side / left side Range of motion: Flexion of the lumbar spine <60 degrees Range of motion: Extension of the lumbar spine <20 degrees Gaenslen's Test positive Maninder's Test positive Neva test: positive right side / left side Thigh Thrust Test Sacral Thrust Test Assessment and plan: Chronic mid back pain secondary to Thoracic degenerative disc disease , spondylosis with facet arthropathy without myelopathy Recommendation of BL T10-T11, T11-T12 medial branch blocks. May need a series of injections, up until RFA, for optimal pain relief. Risks, benefits of procedure discussed and pt verbalized understanding. Admits to anticoagulant use or medical history of diabetes. Protocol for discontinuation of medications/ romero procedure discussed. All patient questions answered MAPS reviewed and it was appropriate. I have spent less than 30 minutes on patient care today. Dr Villalobos was available by phone for the evaluation of this patient. The time was used to review the medical records including relevant urine studies and Prescription history (MAPs), review of the available imaging, evaluation and examination of the patient, coordination of care with the medical staff and if applicable referring physicians, as well as creation of the medical record PQRS Narrative: Smoking Status Former smoker Hx Alcohol Use (MH) Yes Home Medications: Ambulatory Orders amLODIPine [Norvasc] 10 mg PO QAM 03/05/16 Acetaminophen/Diphenhydramine [Tylenol Pm Ex-Strength Caplet] 2 tab PO HS PRN 03/24/19 Cyanocobalamin (Vitamin B-12) [Vitamin B-12] 1,000 mcg PO DAILY 05/11/19 Finasteride [Proscar] 5 mg PO QAM 04/25/20 ALPRAZolam [Xanax] 0.25 mg PO DAILY PRN 10/08/21 Apixaban [Eliquis] 5 mg PO DAILY 10/08/21 Diclofenac Sodium Gel [Voltaren Gel] 4 gm TOPICAL QID 10/08/21 Ipratropium-Albuterol Nebulize [Duoneb 0.5 mg-3 mg/3 ml Soln] 3 ml INHALATION TID 10/08/21 Melatonin 5 mg PO HS PRN 10/08/21 Pantoprazole [Protonix] 40 mg PO QAM 10/08/21 allopurinoL 100 mg PO QAM 10/08/21 lisinopriL [Zestril] 20 mg PO QAM 10/08/21 Cholecalciferol [Vitamin D3 (125 Mcg = 5000 Iu)] 125 mcg PO DAILY 10/29/21 Cyclobenzaprine [Flexeril] 5 mg PO DAILY PRN 10/29/21 D-Methorphan/PE/Acetaminophen [Vicks Dayquil Liquicaps] 1 cap PO HS PRN 10/29/21 Dm/Acetaminophen/Doxylamine [Vicks Nyquil Liquicaps] 1 cap PO QAM PRN 10/29/21 Controlled Substance Measures - Controlled Substance Measures Is patient prescribed a controlled substance at discharge?: No
== END | disposition home or self-care (01) ==
LOC: PNWHC3 13:11
PROVIDERS: ATTEND Specialist
DX: M47.894 Other spondylosis, thoracic region (principal); M51.34 Other intervertebral disc degeneration, thoracic region
CPT/HCPCS: 99211

== ENCOUNTER 2021-12-07 10:39 | Day surgery (SDC) | payer MEDICARE ==
[2021-12-07] MEDS ORDERED: LACTATED RINGERS 1,000 ML IV ONE (10:57)
[2021-12-07 10:59] VITALS: TEMP 97
[2021-12-07] MEDS ORDERED: fentaNYL (PF) 50 MCG/ML 2 ML AMP ONE (11:54)
[2021-12-07] MEDS ORDERED: MIDAZOLAM 2 MG/2 ML VIAL ONE (11:54)
[2021-12-07] MEDS ORDERED: ROPIVACAINE 5MG/ML 20ML VIAL ONE (11:54)
[2021-12-07] MEDS ORDERED: TRIAMCINOLONE ACETONIDE 40 MG/ML 1 ML VIAL ONE (11:54)
[2021-12-07] MEDS ORDERED: IV FLUID CONTINUATION 1,000 ML IV ONE (12:22)
[2021-12-07] MEDS ORDERED: LACTATED RINGERS 1,000 ML IV SCH (12:30)
--- NOTE | 2021-12-07 12:31 | FL ---
Fluoroscopy INDICATION: Pain FINDINGS: Fluoroscopy time: 16 seconds. Images obtained: 2. IMPRESSIONS: 1. Documentation of fluoroscopy.
[2021-12-07 12:41] VITALS: BP 114/73; PULSE 59
--- NOTE | 2021-12-07 12:50 | XR ---
EXAMINATION TYPE: XR chest 1V portable DATE OF EXAM: 12/07/2021 12:42 PM COMPARISON: Chest radiographs from 06/15/2019 TECHNIQUE: XR chest 1V portable Portable AP radiograph of the chest. CLINICAL INDICATION:Male, 71 years old with history of Rule out pneumothorax; FINDINGS: Lungs/Pleura: There is a moderate left pleural effusion with associated atelectasis. No visceral pleu ral line identified. Pulmonary vascularity: Unremarkable. Heart/mediastinum: Cardiomediastinal silhouette is unremarkable. Musculoskeletal: No acute osseous pathology. IMPRESSION: 1. No evidence of pneumothorax. 2. Moderate left pleural effusion.
[2021-12-07 13:03] VITALS: RESP 20
--- NOTE | 2021-12-07 13:33 | P.PCN ---
Date of Procedure: 12/07/21 Description of Procedure: Preoperative diagnosis Thoracic spondylosis without myelopathy Postoperative diagnosis: Thoracic spondylosis without myelopathy procedure: Bilateral thoracic medial branch block under fluoroscopic guidance for levels T10 - T11, and T11-T12 #1 Anesthesia: Local with lidocaine 1% Sedation: 2 mg of IV Versed, and 100 mcg of fentanyl Surgeon: Luis Petit Estimated blood loss: None Complications: none Specimen removed: None Fluoroscopic image: saved to Electronic medical records. Procedure indication: Patient had a history of thoracic back pain, and thoracic spondylosis without myelopathy. Patient tried conservative therapy. Came here for intervention procedure for better pain relief.. Description of procedure: The patient was seen in the preop holding area consent was obtained then was brought into the procedure room when placed in prone position. Skin was prepped with ChloraPrep and draped in a sterile manner. Lidocaine 1% was used to numb the skin up at the target points that were chosen as follows: The superior lateral angle of each transverse process starting from T10 to T12 was identified on the AP view of fluoroscopy. For the T12 level with eye of the Isaias dog was targeted on the oblique view of fluoroscopy. Used 22-gauge 3-1/2 inch Quincke spinal needle to go through the skin and to contact bone at the above-mentioned target points. I then injected 1 mL of a solution at each level after negative aspiration. The block solution containing 5 mL of 0.5% preservative-free ropivacaine mixed with 40 MG of Kenalog . The needles then were taken out intact. Entire procedure repeated on the left side. The needles were taken out intact. The patient tolerated procedure well. Complications: none Chest x-ray showed negative for pneumothorax, but showed moderate left pleural effusion. Per patient he had pleural effusion since he recovered from Covid. Patient monitors his oxygen saturation at home which ranges from 93-95%. Disposition: Patient transferred under stable conditions to recovery. Patient discharged from the recovery after meeting the discharge criteria. Patient can follow up with pain clinic in 4 weeks' duration.
== END 2021-12-07 13:15 | disposition home or self-care (01) ==
LOC: ORPAIN 10:39
DX: M47.814 Spondylosis without myelopathy or radiculopathy, thoracic region (principal); I10 Essential (primary) hypertension; E78.5 Hyperlipidemia, unspecified; I48.91 Unspecified atrial fibrillation; Z86.16 Personal history of COVID-19; Z79.899 Other long term (current) drug therapy; Z79.01 Long term (current) use of anticoagulants
CPT/HCPCS: 71045; 64490; 64491; J2250; J3301; J3010; J2795

== ENCOUNTER → 2021-12-27 | Outpatient (CLI) | payer MEDICARE ==
[2021-12-27 13:11] VITALS: BP 117/77; PULSE 69; RESP 18; TEMP 98
--- NOTE | 2021-12-27 13:36 | P.PAINPG ---
PQRS Measure Charge Sheet Comment: A 71 yr old male w at side with a history of severe and chronic mid back pain secondary to thoracic degenerative disc diseases and spondylosis with facet arthropathy without myelopathy presents today for evaluation s/p MBB BL T10-11, T11-12 #1. Pt states he experienced 100% pain relief x 2 days s/p procedure. Pain level is currently at 1 /10 in intensity, constant, localized in the mid back, shooting in character towards the flanks. Pain is provoked as high as 10/10 by activity, standing/ walking provokes pain. Pain is alleviated with topical Voltaren gel, laying supine, sitting, repositioning and rest. Interventional pain procedures completed include TESI T10-11 x1. BL MBB T10-12 #1 Patient is currently on Tylenol, Voltaren gel Patient denies any side effects of the medication(s), denies excessive drowsiness or sleepiness, denies suicidal ideation and reports that the current pain medication is helping to control the pain and improve activities of daily living. Patient denies any motor or sensory deficits. Patient denies any fever or night sweats, denies any change in the bowel movements or urination. Physical Examination: -Constitutional: Cooperative. Not in acute distress . - Neurologic: Cranial nerve II to XII intact. No focal neurological deficits. - Psychatric: Alert & oriented x 3. Matching mood & appropriate affect. Judgment and insight intact. - Musculoskeletal: Cervical spine: Muscle bulk/ tone/ strength in the bilateral upper extremities normal Vertebral body tenderness to palpation over Spurling test positive Distraction test positive Facet loading test positive Thoracic spine Muscle bulk / tone/ strength in the bilateral paraspinal muscles normal Vertebral body tender to palpation over Facet loading test positive w jump reflex upon palpation over BL T10-11, T11-12. Lumbar spine: Motor bulk/ tone/ strength lower extremities , thigh and legs : 5/5 Deep tendon reflexes : Normal Knee Jerk. Normal Ankle Jerk . Vertebral body tenderness to palpation over Lumbar Facet Loading Test positive Straight Leg Raise: positive at 30 degrees right side/ left side Gaenslen's Test positive Sacral spine : Severe tenderness over the Sacroiliac joint: right side / left side Range of motion: Flexion of the lumbar spine <60 degrees Range of motion: Extension of the lumbar spine <20 degrees Gaenslen's Test positive Maninder's Test positive Neva test: positive right side / left side Thigh Thrust Test Sacral Thrust Test Assessment and plan: Chronic mid back pain secondary to thoracic degenerative disc disease , spondylosis with facet arthropathy without myelopathy Recommendation of MARIAH MBB T10-11, T11-12 #2. May need a series of injections, up until RFA, for optimal pain relief. Risks, benefits of procedure discussed and pt verbalized understanding. Admits to anticoagulant use or medical history of diabetes. Protocol for discontinuation/continuation of medic ations romero procedure discussed. All patient questions answered MAPS reviewed and it was appropriate. I have spent less than 30 minutes on patient care today. Dr Villalobos was available by phone for the evaluation of this patient. The time was used to review the medical records including relevant urine studies and Prescription history (MAPs), review of the available imaging, evaluation and examination of the patient, coordination of care with the medical staff and if applicable referring physicians, as well as creation of the medical record PQRS Narrative: Smoking Status Former smoker Hx Alcohol Use (MH) Yes Home Medications: Ambulatory Orders amLODIPine [Norvasc] 10 mg PO QAM 03/05/16 Acetaminophen/Diphenhydramine [Tylenol Pm Ex-Strength Caplet] 2 tab PO HS PRN 03/24/19 Cyanocobalamin (Vitamin B-12) [Vitamin B-12] 1,000 mcg PO DAILY 05/11/19 Finasteride [Proscar] 5 mg PO QAM 04/25/20 ALPRAZolam [Xanax] 0.25 mg PO DAILY PRN 10/08/21 Apixaban [Eliquis] 5 mg PO DAILY 10/08/21 Diclofenac Sodium Gel [Voltaren Gel] 4 gm TOPICAL QID 10/08/21 Ipratropium-Albuterol Nebulize [Duoneb 0.5 mg-3 mg/3 ml Soln] 3 ml INHALATION TID 10/08/21 Melatonin 5 mg PO HS PRN 10/08/21 Pantoprazole [Protonix] 40 mg PO QAM 10/08/21 allopurinoL 100 mg PO QAM 10/08/21 lisinopriL [Zestril] 20 mg PO QAM 10/08/21 Cholecalciferol [Vitamin D3 (125 Mcg = 5000 Iu)] 125 mcg PO DAILY 10/29/21 Cyclobenzaprine [Flexeril] 5 mg PO TID 10/29/21 D-Methorphan/PE/Acetaminophen [Vicks Dayquil Liquicaps] 1 cap PO DAILY PRN 10/29/21 Dm/Acetaminophen/Doxylamine [Vicks Nyquil Liquicaps] 1 cap PO HS PRN 10/29/21 Aspirin 81 mg PO DAILY 12/06/21 Controlled Substance Measures - Controlled Substance Measures Is patient prescribed a controlled substance at discharge?: No
== END | disposition home or self-care (01) ==
LOC: PNWHC3 12:38
PROVIDERS: ATTEND Specialist
DX: M47.894 Other spondylosis, thoracic region (principal); M51.34 Other intervertebral disc degeneration, thoracic region
CPT/HCPCS: 99211